=== PATIENT | female | born 1990 | race Caucasian/White ===

== ENCOUNTER 2020-03-25 14:05 | Outpatient (REF) | payer OTHER, SELFPAY | END 2020-03-25 14:06 | disposition home or self-care (01) | LOC: HO.LAB 14:05 | PROVIDERS: Visit Provider Internal Medicine | DX: Z20.828 Contact with and (suspected) exposure to other viral communicable diseases (principal) | CPT/HCPCS: C9803; U0003 ==

== ENCOUNTER 2020-05-31 11:07 | Emergency (ER) | payer OTHER, SELFPAY ==
[2020-05-31 11:16] VITALS: BP 138/89; BP 142/98; PULSE 98; PULSE 99; RESP 18; TEMP 36.9; O2SAT 100; BMI 31.2
--- NOTE | 2020-05-31 11:47 | ED.DIZZY ---
HPI - Dizziness General Chief Complaint: Dizziness Stated Complaint: WEAK AND DIZZY,NO FEVER Time Seen by Provider: 05/31/20 11:47 History of Present Illness HPI Narrative: Patient complains of feeling lightheaded and dizzy and a mild headache after taking her lisp pro insulin at 05:00 Since her doctor recently changed her insulin to lisp row, she had been noncompliant with medicine for some time before restarting She got up to urinate and because she does not usually wake up to go to the bathroom she thought well am urinating a lot and I should take my insulin so she took 12 units of lispro on an empty stomach and then when she woke from bed 2 hours later she felt very dizzy She never had chest pain never had a fainting episode never had palpitations never had shortness of breath no vomiting Related Data Previous Rx's Medication Instructions Recorded fluconazole 150 mg tablet 150 mg PO ONCE #1 tab 05/15/20 insulin lispro 100 unit/mL 2 - 14 unit SUBCUT .T.i.d. per [facility] 05/15/20 subcutaneous pen #15 ml Allergies Allergy/AdvReac Type Severity Reaction Status Date / Time sulfamethoxazole Allergy Severe FACIAL Unverified 01/17/20 15:49 [From BACTRIM] SWELLING trimethoprim [From BACTRIM] Allergy Severe FACIAL Unverified 01/17/20 15:49 SWELLING docusate Allergy Unknown swelling Verified 09/22/18 00:00 Sulfa (Sulfonamide Allergy Unknown swelling, Unverified 11/16/19 00:00 Antibiotics) facial swelling Stool Softener Allergy Unknown facial Uncoded 11/16/19 00:00 swelling STOOL SOFTENERS Allergy Unknown FACIAL Uncoded 01/17/20 15:49 SWELLING Review of Systems Review of Systems: Positive for lightheadedness and dizziness which is improving Negatives are fever chills fainting head injury no headache no vision changes no neck pain no nausea no vomiting no chest pain no palpitations no shortness of breath no weakness no numbness Yes all other systems are reviewed and are negative [facility] Past Medical History Attestation statement: The following information was validated with the patient. [facility] Narrative: Patient's insulin was recently changed by primary doctor after a period of not using her insulin regularly and she just started using the lispro in the last couple of days Source: nursing notes reviewed Medical History (Updated 01/30/21 @ 13:42 by SARAH BETH Yancey) Diabetes mellitus, with long-term current use of insulin Social History Social History Advance Directives: No Advance Directives Information Provided: Yes Physical Exam Vital Signs: Vital Signs: Last Vital Signs Temp 97.6 F 05/31/20 13:37 Pulse 100 05/31/20 13:37 Resp 18 05/31/20 13:37 BP 110/74 05/31/20 13:37 Pulse Ox 100 05/31/20 13:37 Body Mass Index 31.2 Patient is A&O x3, no acute distress, comfortable and cooperative but she still feels somewhat dizzy when she sits up The head is normocephalic atraumatic pupils equal round react flight extraocular motions intact The neck is supple and nontender The chest is clear to auscultation bilaterally with full symmetric breath sounds, no tenderness to chest wall The heart rate and rhythm regular no murmur The abdomen is soft nontender Extremities full range of motion x4 Neuro cranial nerves 2-12 intact as tested Patient is responding appropriately and normally in conversation Motor is 5/5 x4 and sensation is intact Course Course Course Narrative: Patient who had come to the ER for dizziness and lightheaded feeling after taking 12 units of insulin on an empty stomach She is now feeling significantly better, we recheck her sugar at was 87, we observe the patient for another hour after giving her more food and drink and after that hours she is asymptomatic with no dizziness no lightheadedness She was tested walking heel to toe with no problem she was tested standing up quickly which did not produce any dizziness and she is asymptomatic and discharge diagnosis hypoglycemia episode She is advised to eat with her insulin perhaps take a slightly lower dose, to check her fingerstick 20 minutes to half an hour after taking her insulin, if she does feel lightheaded to take some food, and to contact primary doctor for further assistance in correctly using her insulin MDM - Dizziness Lab Data Labs: Lab Results 05/31/20 05/31/20 Range/Units 11:45 13:28 POC Glucose 87 165 H (60-115) mg/dL Discharge Plan Discharge Clinical Impression: Hypoglycemia Patient Disposition: Home, Self-Care Additional Instructions: I believe you had an episode of low sugar after taking her insulin without eating any food As this medication is new for you make sure to take it with food make sure to check her sugar half an hour after taking the medication to be sure you are not dropping too low, at the 1st sign of dizziness he eats some food or drink some juice Contact primary care doctor to make sure your dosing is correct Return to ER any time any worse condition or any concerns Prescriptions: No Action fluconazole 150 mg tablet 150 mg PO ONCE Qty: 1 RF: 2 insulin lispro [Admelog SoloStar U-100 Insulin] 100 unit/mL insulin pen 2 - 14 [place]. [place] [facility] [place]: 15 RF: 5 Interventions: ED Discharge Assessment Last Done: 05/31/20 13:56 Discharge Date/Time: 05/31/20 13:57
[2020-05-31 11:49] LABS: Glucose, Whole Blood 87 mg/dL (60-115)
[2020-05-31 13:33] LABS: Glucose, Whole Blood 165 mg/dL (60-115)
[2020-05-31 13:37] VITALS: BP 110/74; PULSE 100; RESP 18; TEMP 36.4; O2SAT 100
== END 2020-05-31 13:57 | disposition home or self-care (01) ==
PROVIDERS: Emergency Provider Emergency Medicine; PCP Internal Medicine
DX: E11.649 Type 2 diabetes mellitus with hypoglycemia without coma (principal); Z79.4 Long term (current) use of insulin
CPT/HCPCS: 82947; 99283

== ENCOUNTER 2021-04-01 18:30 | Emergency (ER) | payer OTHER, SELFPAY ==
[2021-04-01 19:31] VITALS: BP 120/82; PULSE 102; RESP 18; TEMP 36.9; O2SAT 99; BMI 30.3
[2021-04-01 20:02] LABS: UPreg QC Valid YES; Urine Pregnancy NEGATIVE (NEGATIVE)
[2021-04-01 20:08] LABS: Strep A Nucleic Acid Negative (Negative)
[2021-04-01 20:36] LABS: Influenza A PCR NEGATIVE (Negative); Influenza B PCR NEGATIVE (Negative); Resp Syncy Virus RNA Qual PCR NEGATIVE (Negative); SARS COV2 PCR INHOUSE NEGATIVE (Negative)
[2021-04-01 20:48] VITALS: BP 131/84; PULSE 82; RESP 16; TEMP 36.4; O2SAT 99
--- NOTE | 2021-04-01 21:21 | ED.GENADULT ---
HPI - General Adult General Chief complaint: General Medical Stated complaint: flu like Time Seen by Provider: 04/01/21 21:06 Source: patient Mode of arrival: ambulatory Limitations: no limitations History of Present Illness HPI narrative: 30-year-old female presents to ED for sore throat. Patient states she was exposed to a friend who was positive for strep. Patient states they were drinking from the same cup. Patient states no fever, chills, chest pain, shortness of breath. Patient admits to body aches and chills. Related Data Home Medications Medication Instructions Recorded Confirmed blood sugar diagnostic #10 ea 08/01/20 08/01/20 Previous Rx's Medication Instructions Recorded albuterol sulfate 90 mcg/actuation 2 puff INHALATION Q6H PRN 30 Days 10/28/20 aerosol inhaler (ProAir HFA) #18 g metformin 500 mg tablet 500 mg PO BID 30 Days #60 tab 10/28/20 pen needle, diabetic 32 gauge x #100 ea 10/28/20/32 (BD Ultra-Fine Maria Elena Pen Needle) insulin glargine 100 unit/mL (3 20 unit (0.2 mL) SUBCUT DAILY #15 01/07/21 mL) subcutaneous pen ml Admelog SoloStar U-100 Insulin 100 2 - 14 unit (0.02 - 0.14 mL) 01/15/21 unit/mL subcutaneous pen (insulin SUBCUT .T.i.d. per [facility] #15 ml NS lispro) amoxicillin 875 mg-potassium 1 tab PO Q12H 10 Days #20 tab 04/01/21 clavulanate 125 mg tablet (Augmentin) naproxen 500 mg tablet 500 mg PO BID PRN 10 Days #20 tab 04/01/21 Allergies Allergy/AdvReac Type Severity Reaction Status Date / Time sulfamethoxazole Allergy Severe FACIAL Verified 04/01/21 19:30 [From BACTRIM] SWELLING trimethoprim [From BACTRIM] Allergy Severe FACIAL Verified 04/01/21 19:30 SWELLING docusate Allergy Unknown swelling Verified 04/01/21 19:30 Sulfa (Sulfonamide Allergy Unknown swelling, Verified 04/01/21 19:30 Antibiotics) facial swelling Stool Softener Allergy Unknown facial Uncoded 08/01/20 17:39 swelling STOOL SOFTENERS Allergy Unknown FACIAL Uncoded 08/01/20 17:39 SWELLING Review of Systems Review of Systems: Yes all other systems are reviewed and are negative Constitutional: Constitutional: Reports as per HPI, Reports no additional constitutional complaints, Reports body ache(s) and Reports chills Eyes: Eyes: Reports as per HPI and Reports no additional eye complaints ENT: Reports system reviewed and no additional complaints, except as documented, Reports as per HPI and Reports sore throat Cardiovascular: Cardiovascular: Reports as per HPI and Reports no additional cardiovascular complaints Respiratory: Respiratory: Reports as per HPI and Reports no additional respiratory complaints Gastrointestinal: Gastrointestinal: Reports as per HPI and Reports no additional gastrointestinal complaints Musculoskeletal: Musculoskeletal: Reports no additional musculoskeletal complaints and Reports as per HPI Neurologic: Reports system reviewed and no additional complaints, except as documented and Reports as per HPI Psychiatric: Psychiatric: Reports no additional psychiatric complaints and Reports as per HPI [facility] Past Medical History Medical History (Updated 04/02/21 @ 00:02 by Josefa Stewart) Asthma Blurring of vision Diabetes mellitus Diabetes mellitus, with long-term current use of insulin Neuropathy involving both lower extremities Obesity (BMI 30-39.9) Surgical History (Updated 08/02/20 @ 15:12 by Israel Rosario MD) No significant past surgical history Family History Family History (Updated 08/02/20 @ 15:18 by Israel Rosario MD) Mother COPD (chronic obstructive pulmonary disease) Father High blood pressure Maternal Grandmother Breast cancer Maternal Aunt Uterine cancer Social History Social History Alcohol intake: current Cigarettes Per Day: 10 Advance Directives: No Advance Directives Information Provided: Yes Physical Exam Vital Signs: Vital Signs: Last Vital Signs Temp 97.6 F 04/01/21 20:48 Pulse 82 04/01/21 20:48 Resp 16 04/01/21 20:48 BP 131/84 04/01/21 20:48 Pulse Ox 99 04/01/21 20:48 BMI result Body Mass Index 30.3 Const: General: cooperative, healthy appearing, comfortable, no acute distress, well developed, alert, awake and Physically active Orientation/consciousness: patient oriented x3 HENMT: Head: Yes normal to inspection, Yes No palpable skull fracture present, Yes normocephalic and Yes atraumatic Ears: hearing grossly normal bilaterally, external ears normal, TM's normal bilaterally, EAC's normal, mastoids normal and no periauricular adenopathy Throat: Yes abnormal tonsil (Right tonsillar erythema.) Eyes: General: appearance normal, both eyes and all related structures Neck: Neck: Yes normal visual inspection and Yes full ROM Chest: Chest palpation & inspection: normal inspection of the chest and normal palpation of entire chest wall Resp: Effort & Inspection: normal respiratory effort and able to speak in complete sentences Auscultation: clear to auscultation bilaterally Cardio: Jugular venous distension: no JVD Heart sounds: S1 normal heart sound present and S2 normal heart sound present GI: Inspection: Yes normal to inspection and No abdominal wall ecchymosis Palpation (GI): Soft to palpation, not firm, nontender, no guarding and not rigid : General: No CVA tenderness and Yes no CVA tenderness Back/Spine/Pelvis: Back: no CVA tenderness, No CVA tenderness and No back tenderness Skin: General skin exam: no rashes or lesions noted and elasticity normal Neuro: General: patient oriented x3, gait normal and CN's II-XI intact bilaterally Cranial nerves: Yes CN's II-XII intact bilaterally Extrem: General: Yes normal to inspection and Yes full ROM Psych: Appearance: grossly normal, well kempt and not disheveled Course Course Course Narrative: SARS and strep test sent Reevaluation(s) Reevaluation #1: COVID and strep came back negative but due to patient being exposed to friends positive for strep and drinking from the same cup will be discharged with antibiotics. Time: 21:25 Medical Decision Making [facility] Narrative Medical decision making narrative: Pharyngitis Lab Data Labs: Lab Results 04/01/21 04/01/21 04/01/21 Range/Units 19:50 19:50 19:50 Urine Test NEGATIVE (NEGATIVE) Influenza Type A (PCR) NEGATIVE (Negative) Influenza Type B (PCR) NEGATIVE (Negative) RSV RNA Qual (PCR) NEGATIVE (Negative) SARS-CoV-2 RNA (RT-PCR) NEGATIVE (Negative) S. pyogenes GrpA ARLETH Negative (Negative) Discharge Plan Discharge Clinical Impression: Pharyngitis Patient Disposition: Home, Self-Care Instructions: Pharyngitis (ED) Additional Instructions: Return to ED for any drooling, change in voice, shortness of breath, chest pain, neck swelling, inability tolerate solid food/liquid, coughing, fever, or any other concerning symptoms. Prescriptions: New amoxicillin-pot clavulanate [Augmentin] 875-125 mg tablet 1 tab PO Q12H 10 Days Qty: 20 RF: 0 naproxen 500 mg tablet 500 mg PO BID PRN (Reason: pain) 10 Days Qty: 20 RF: 0 No Action (DME) pen needle, diabetic [BD Ultra-Fine Maria Elena Pen Needle] 32 gauge x 5/32 needle See Rx Instructions .ROUTE .MEDSUPPLY Qty: 100 RF: 12 metformin 500 mg tablet 500 mg PO BID 30 Days Qty: 60 RF: 3 albuterol sulfate [ProAir HFA] 90 mcg/actuation HFA aerosol inhaler 2 puff inhalation Q6H PRN (Reason: shortness of breath or wheezing) 30 Days Qty: 18 RF: 5 insulin glargine 100 unit/mL (3 mL) insulin pen 20 unit subcut DAILY Qty: 15 RF: 3 insulin lispro [Admelog SoloStar U-100 Insulin] 100 unit/mL insulin pen 2 - 14 unit subcut .T.i.d. per [facility] Qty: 15 RF: 5 (DME) FreeStyle Lite Strips Strip See Rx Instructions ea Not Applicable QID Qty: 10 RF: 0 Stand Alone Forms: Work/School Release Interventions: ED Discharge Assessment Last Done: 04/01/21 21:39 Discharge Date/Time: 04/01/21 21:45 Print Language: Greenlandic
== END 2021-04-01 21:45 | disposition home or self-care (01) ==
PROVIDERS: Emergency Medicine; Emergency Provider Emergency Medicine; PCP Internal Medicine
DX: J02.9 Acute pharyngitis, unspecified (principal); Z20.822 Contact with and (suspected) exposure to COVID-19; Z79.899 Other long term (current) drug therapy
CPT/HCPCS: 0241U; 36415; 81025; 87651; 99283

== ENCOUNTER 2021-09-18 12:42 | Emergency (ER) | payer OTHER, SELFPAY ==
--- NOTE | ~2021-09-18 | US_ITS ---
EXAMINATION: US OBSTETRICAL ULTRASOUND CLINICAL INFORMATION: Bleeding, cramping COMPARISON: First trimester ultrasound 05/21/2018. LMP: 07/30/2021. Gestational age by maternal dates is 7 weeks and 1 day. Estimated date of delivery by maternal dates is 05/06/2022. TECHNIQUE: Ultrasound of the maternal pelvis is performed using transabdominal and transvaginal transducers. Transvaginal imaging is performed due to inadequate visualization transabdominally. M-mode Doppler is also performed. FINDINGS: There is a single intrauterine gestational sac with visible yolk sac, embryo/fetus, and cardiac activity. There is no significant subchorionic hemorrhage or hematoma. HR: 130 beats per minute. CRL (crown rump length): 0.5 cm (6 weeks and 2 days +/- 4 days). DIANA (estimated date of delivery): 05/12/2022 +/- 4 days. MATERNAL ADNEXA: The right maternal ovary measures 3.3 x 1.9 x 3.3 cm. A physiologic right corpus luteum is noted. The left maternal ovary measures 2.7 x 1.3 x 1.8 cm. Left ovary is unremarkable. There is no significant maternal adnexal mass. No maternal pelvic ascites. US/US OB <= 14 weeks fetus IMPRESSION: 1. Single intrauterine gestation with ultrasound gestational age of 6 weeks and 2 days +/- 4 days. 2. Estimated date of delivery is 05/12/2022 +/- 4 days. 3. No subchorionic hemorrhage.
--- NOTE | ~2021-09-18 | US_ITS ---
EXAMINATION: US OBSTETRICAL ULTRASOUND CLINICAL INFORMATION: Bleeding, cramping COMPARISON: First trimester ultrasound 05/21/2018. LMP: 07/30/2021. Gestational age by maternal dates is 7 weeks and 1 day. Estimated date of delivery by maternal dates is 05/06/2022. TECHNIQUE: Ultrasound of the maternal pelvis is performed using transabdominal and transvaginal transducers. Transvaginal imaging is performed due to inadequate visualization transabdominally. M-mode Doppler is also performed. FINDINGS: There is a single intrauterine gestational sac with visible yolk sac, embryo/fetus, and cardiac activity. There is no significant subchorionic hemorrhage or hematoma. HR: 130 beats per minute. CRL (crown rump length): 0.5 cm (6 weeks and 2 days +/- 4 days). DIANA (estimated date of delivery): 05/12/2022 +/- 4 days. MATERNAL ADNEXA: The right maternal ovary measures 3.3 x 1.9 x 3.3 cm. A physiologic right corpus luteum is noted. The left maternal ovary measures 2.7 x 1.3 x 1.8 cm. Left ovary is unremarkable. There is no significant maternal adnexal mass. No maternal pelvic ascites. US/US OB transvaginal IMPRESSION: 1. Single intrauterine gestation with ultrasound gestational age of 6 weeks and 2 days +/- 4 days. 2. Estimated date of delivery is 05/12/2022 +/- 4 days. 3. No subchorionic hemorrhage.
[2021-09-18 12:46] VITALS: BP 113/75; PULSE 91; RESP 16; TEMP 36.1; O2SAT 100; BMI 30.2
[2021-09-18 13:06] LABS: MANUAL DIFF FLAG NO
[2021-09-18 13:13] LABS: Urine Pregnancy POSITIVE (NEGATIVE)
[2021-09-18 13:14] LABS: Appearance Urine CLEAR; Color Urine STRAW; Glucose Urine UA >=1000 MG/DL (NEG); Leukocyte Esterase Urine NEG (NEG); Nitrite Urine NEG (NEG); Specific Gravity - Urine <= 1.005 (1.005-1.025); UACC Culture Trigger NO; UPreg QC Valid YES; Urine Blood TRACE (NEG); Urine Ketones NEG (NEG); Urine Protein NEG (NEG-TRACE)
[2021-09-18 13:16] LABS: Basophils Absolute Auto 0.1 X10*3/uL (0.0-0.2); Basophils Percent Auto 0.6 % (0-2); Eosinophils Absolute Auto 0.2 X10*3/uL (0.0-0.4); Eosinophils Percent Auto 1.6 % (0-4); Hematocrit 41.7 % (37.0-47.0); Hemoglobin 13.5 g/dl (12.0-16.0); Imm Gran Abs Auto 0.04 X10*3/uL (0.00-0.03); Imm Gran Pct Auto 0.3 % (0.0-0.4); Lymphocytes Absolute Auto 3.6 X10*3/uL (1.2-4.9); Lymphocytes Percent Auto 29.8 % (20-40); Mean Corpuscular HGB Conc 32.4 g/dl (31.0-35.0); Mean Corpuscular Hemoglobin 26.6 pg (27.0-33.0); Mean Corpuscular Volume 82.2 fL (80.0-98.0); Mean Platelet Volume 10.7 fL (9.4-12.3); Monocytes Absolute Auto 0.6 X10*3/uL (0.1-1.2); Monocytes Percent Auto 4.9 % (2-11); Neutrophils Absolute Auto 7.6 x10*3/uL (2.0-8.3); Neutrophils Percent Auto 62.8 % (45-73); Platelet Count 357 X10*3/uL (160-400); Red Blood Count 5.07 X10*6/uL (4.20-5.50); Red Cell Distribution Width 14.7 % (11.0-16.0); White Blood Count 12.1 X10*3/uL (4.8-10.8)
[2021-09-18 13:28] LABS: Anion Gap 12 (12-20); Blood Urea Nitrogen 6 mg/dL (9-16); Calcium 9.5 mg/dL (8.4-10.2); Carbon Dioxide 25 mmol/L (22-29); Chloride 101 mmol/L (96-108); Creatinine Clr Calc Pharmacy 86.7; Estimated Glomerular Filt Rate > 60; Glucose Random 462 mg/dL (60-115); Potassium 4.4 mmol/L (3.3-5.1); Sodium 134 mmol/L (135-145)
[2021-09-18 13:31] LABS: Squamous Epithelial Cell Urine 1+ /LPF; UACC CULT YES; WBC Clumps Urine NOTED
[2021-09-18 15:25] VITALS: BP 106/50; PULSE 92; RESP 20; TEMP 37.1; O2SAT 100
--- NOTE | 2021-09-18 16:21 | ED.FEMALEGU ---
HPI - Female Genitourinary General Chief complaint: Vaginal Bleeding Stated complaint: 7 wks preg/vaginal bleeding & cramping Source: patient Mode of arrival: ambulatory Limitations: no limitations History of Present Illness HPI Narrative: 31-year-old female presents for vaginal bleeding. Was treated for a UTI last week, completed OTC and antibiotics. Has left-sided cramping and has been having dark brown to pink spotting on a daily basis. She is 7 weeks . MD elicited complaint: UTI , vaginal bleeding and possible miscarriage Pertinent past history: recurrent UTIs, prior miscarriages and diabetes Onset (ago): week(s) (1) Location of symptoms: LLQ Severity: moderate Severity scale (1-10): 5 Quality of pain: cramping Consistency: constant Vaginal discharge: none Vaginal bleeding: scant Exacerbating factors: movement and palpation Associated symptoms: denies other symptoms Sexual activity: Yes Patient : Yes Possible : at home test positive Related Data : 4 Para: 1 Total number of abortions (spontaneous and elective): 2 Home Medications Medication Instructions Recorded Confirmed blood sugar diagnostic #10 ea 08/01/20 08/01/20 Previous Rx's Medication Instructions Recorded albuterol sulfate 90 mcg/actuation 2 puff INHALATION Q6H PRN 30 Days 10/28/20 aerosol inhaler (ProAir HFA) #18 g metformin 500 mg tablet 500 mg PO BID 30 Days #60 tab 10/28/20 pen needle, diabetic 32 gauge x #100 ea 10/28/20 (BD Ultra-Fine Maria Elena Pen Needle) insulin glargine 100 unit/mL (3 20 unit (0.2 mL) SUBCUT DAILY #15 01/07/21 mL) subcutaneous pen ml amoxicillin 875 mg-potassium 1 tab PO Q12H 10 Days #20 tab 04/01/21 clavulanate 125 mg tablet (Augmentin) naproxen 500 mg tablet 500 mg PO BID PRN 10 Days #20 tab 04/01/21 Admelog SoloStar U-100 Insulin 100 2 - 14 unit (0.02 - 0.14 mL) 04/02/21 unit/mL subcutaneous pen (insulin SUBCUT .T.i.d. per [facility]SC #15 ml NS lispro) fluconazole 150 mg tablet 150 mg PO ONCE #1 tab 04/21/21 cephalexin 500 mg capsule 500 mg PO Q8H 7 Days #21 cap 09/18/21 Allergies Allergy/AdvReac Type Severity Reaction Status Date / Time sulfamethoxazole Allergy Severe FACIAL Verified 04/01/21 19:30 [From BACTRIM] SWELLING trimethoprim [From BACTRIM] Allergy Severe FACIAL Verified 04/01/21 19:30 SWELLING docusate Allergy Unknown swelling Verified 04/01/21 19:30 Sulfa (Sulfonamide Allergy Unknown swelling, Verified 04/01/21 19:30 Antibiotics) facial swelling Stool Softener Allergy Unknown facial Uncoded 08/01/20 17:39 swelling STOOL SOFTENERS Allergy Unknown FACIAL Uncoded 08/01/20 17:39 SWELLING Review of Systems Review of Systems: Constitutional: No Fever, No Chills ENT/Mouth: No Ear Pain, No Hoarseness, No sore throat Eyes: No Eye Pain, No Swelling, No Redness, No Foreign Body Cardiovascular: No Chest Pain, No SOB Respiratory: No Cough, No Dyspnea Gastrointestinal: No Nausea, No Vomiting, No Diarrhea, No abdominal Pain Genitourinary: Positive vaginal bleeding, positive left adnexal pain, No Dysuria, No Hematuria Musculoskeletal: No joint pain, No Myalgias, No Joint Swelling Skin: No Skin lacerations, No rash Neuro: No Weakness, No Numbness, No Paresthesias, No Loss of Consciousness, No Dizziness, No Headache Psych: No Anxiety/Panic, No Depression Heme/Lymph: no easy bruising, no Lymphadenopathy Endocrine: No Polyuria, No Polydipsia Yes all other systems are reviewed and are negative PMFSH Past Medical History Attestation statement: The following information was validated with the patient. Source: old records reviewed Medical History Asthma Blurring of vision Diabetes mellitus Diabetes mellitus, with long-term current use of insulin Neuropathy involving both lower extremities Obesity (BMI 30-39.9) Surgical History No significant past surgical history : 4 Para: 1 Total number of abortions (spontaneous and elective): 2 Family History Family History Mother COPD (chronic obstructive pulmonary disease) Father High blood pressure Maternal Grandmother Breast cancer Maternal Aunt Uterine cancer Social History Social History Alcohol intake: former Patient Tobacco Use Status: Current everyday Tobacco user Cigarettes Per Day: 10 Smoked in Last 30 Days: Yes Use of substances other than those prescribed or required for medical reasons: No Advance Directives: No Advance Directives Information Provided: No Patient : Yes Physical Exam Vital Signs: Vital Signs: Last Vital Signs Temp 98.7 F 09/18/21 15:25 Pulse 90 09/18/21 19:23 Resp 14 09/18/21 19:23 BP 112/76 09/18/21 19:23 Pulse Ox 100 09/18/21 19:23 BMI result Body Mass Index 30.2 Appearance: Alert. Oriented X3. No acute distress. Eyes: Pupils equal, round and reactive to light. ENT: Pharynx normal. Neck: Normal inspection. Neck supple. CVS: Normal heart rate and rhythm. Pulses normal. Respiratory: No respiratory distress. Breath sounds normal. Abdomen: Soft with left lower quadrant inguinal tenderness. Skin: Skin warm and dry. Normal skin color. Normal skin turgor. Extremities: No lower extremity edema. Gait well-balanced well coordinated. Neuro: No motor deficit. No sensory deficit. Cranial nerves 2-12 intact. Course Course Course Narrative: 31-year-old female 4 para 1, 2 spontaneous abortions presents with left lower quadrant abdominal pain and vaginal bleeding. Treated herself for what she suspected was a UTI with OTC azo which was ineffective. Patient does report dysuria symptoms for approximately 1. Started with vaginal bleeding approximately 5 days ago in left lower abdominal pain and cramping 1 day ago. She does have a history of miscarriage has had 1 normal vaginal delivery. At this time will order ultrasound to rule out ectopic. U preg is positive. Will add on hCG. Glucose is 462, her normal dose for sliding scale is 12 units. I will give her insulin per her home dosage. 19:00 ultrasound shows normal intrauterine with heart rate of 130. No adnexal masses or subchorionic hemorrhages noted. will treat for UTI as patient is symptomatic. Patient does not have any flank pain or CVA tenderness. Will refer to Dr. Urrutia for follow-up. Patient verbalized understanding of and agrees to plan of care to discharge home. Verbalized understanding of signs and symptoms indicating need for emergent intervention MDM - Female Genitourinary MDM Narrative Medical decision making narrative: Threatened , ectopic Differential Diagnosis Differential diagnosis: Likely urinary tract infection and cervicitis Medical Records Attestation: I reviewed the patient's medical records. Lab Data Attestation: I reviewed the patient's lab results. Result diagrams: 09/18/21 13:00 09/18/21 13:00 Labs: Lab Results 09/18/21 09/18/21 09/18/21 Range/Units 13:00 13:00 13:00 WBC 12.1 H (4.8-10.8) X10*3/uL RBC 5.07 (4.20-5.50) X10*6/uL Hgb 13.5 (12.0-16.0) g/dl Hct 41.7 (37.0-47.0) % MCV 82.2 (80.0-98.0) fL MCH 26.6 L (27.0-33.0) pg MCHC 32.4 (31.0-35.0) g/dl RDW 14.7 (11.0-16.0) % Plt Count 357 (160-400) X10*3/uL MPV 10.7 (9.4-12.3) fL Immature Gran % (Auto) 0.3 (0.0-0.4) % Neut % (Auto) 62.8 (45-73) % Lymph % (Auto) 29.8 (20-40) % Foster % (Auto) 4.9 (2-11) % Eos % (Auto) 1.6 (0-4) % Baso % (Auto) 0.6 (0-2) % Lymph # (Auto) 3.6 (1.2-4.9) X10*3/uL Foster # (Auto) 0.6 (0.1-1.2) X10*3/uL Eos # (Auto) 0.2 (0.0-0.4) X10*3/uL Baso # (Auto) 0.1 (0.0-0.2) X10*3/uL Abs Immat Gran (auto) 0.04 H (0.00-0.03) X10*3/uL Absolute Neuts (auto) 7.6 (2.0-8.3) x10*3/uL Absolute Nucleated RBC 0.000 (0.0-0.012) X10*3/uL Nucleated RBC % (auto) 0.0 (0.0-0.2) /100WBC Sodium 134 L (135-145) mmol/L Potassium 4.4 (3.3-5.1) mmol/L Chloride 101 (96-108) mmol/L Carbon Dioxide 25 (22-29) mmol/L Anion Gap 12 (12-20) BUN 6 L (9-16) mg/dL Creatinine 0.84 (0.5-1.4) mg/dL Estim Creat Clear Calc 86.7 Estimated GFR > 60 POC Glucose (60-115) mg/dL Random Glucose 462 H* (60-115) mg/dL Calcium 9.5 (8.4-10.2) mg/dL Beta HCG, Quant 3575 mIU/mL Urine Color STRAW Urine Appearance CLEAR Urine pH 6.0 (5.0-8.0) Ur Specific [place] <= 1.005 (1.005-1.025) Urine Protein NEG (NEG-TRACE) MG/DL Urine Glucose (UA) >=1000 H (NEG) MG/DL Urine Ketones NEG (NEG) MG/DL Urine Blood TRACE (NEG) Urine Nitrite NEG (NEG) Ur Leukocyte Esterase NEG (NEG) Urine RBC 1-4 (0) /HPF Urine WBC 10-14 H (0-4) /HPF Urine WBC Clumps NOTED Ur Squamous Epith Cells 1+ /LPF Urine Bacteria NONE /LPF Urine Test (NEGATIVE) 09/18/21 09/18/21 Range/Units 13:00 18:13 WBC (4.8-10.8) X10*3/uL RBC (4.20-5.50) X10*6/uL Hgb (12.0-16.0) g/dl Hct (37.0-47.0) % MCV (80.0-98.0) fL MCH (27.0-33.0) pg MCHC (31.0-35.0) g/dl RDW (11.0-16.0) % Plt Count (160-400) X10*3/uL MPV (9.4-12.3) fL Immature Gran % (Auto) (0.0-0.4) % Neut % (Auto) (45-73) % Lymph % (Auto) (20-40) % Foster % (Auto) (2-11) % Eos % (Auto) (0-4) % Baso % (Auto) (0-2) % Lymph # (Auto) (1.2-4.9) X10*3/uL Foster # (Auto) (0.1-1.2) X10*3/uL Eos # (Auto) (0.0-0.4) X10*3/uL Baso # (Auto) (0.0-0.2) X10*3/uL Abs Immat Gran (auto) (0.00-0.03) X10*3/uL Absolute Neuts (auto) (2.0-8.3) x10*3/uL Absolute Nucleated RBC (0.0-0.012) X10*3/uL Nucleated RBC % (auto) (0.0-0.2) /100WBC Sodium (135-145) mmol/L Potassium (3.3-5.1) mmol/L Chloride (96-108) mmol/L Carbon Dioxide (22-29) mmol/L Anion Gap (12-20) BUN (9-16) mg/dL Creatinine (0.5-1.4) mg/dL Estim Creat Clear Calc Estimated GFR POC Glucose 172 H (60-115) mg/dL Random Glucose (60-115) mg/dL Calcium (8.4-10.2) mg/dL Beta HCG, Quant mIU/mL Urine Color Urine Appearance Urine pH (5.0-8.0) Ur Specific [place] (1.005-1.025) Urine Protein (NEG-TRACE) MG/DL Urine Glucose (UA) (NEG) MG/DL Urine Ketones (NEG) MG/DL Urine Blood (NEG) Urine Nitrite (NEG) Ur Leukocyte Esterase (NEG) Urine RBC (0) /HPF Urine WBC (0-4) /HPF Urine WBC Clumps Ur Squamous Epith Cells /LPF Urine Bacteria /LPF Urine Test POSITIVE H (NEGATIVE) Imaging Data ultrasound: Attestation: I personally reviewed and interpreted this imaging study as follows: Radiologist's impression: EXAMINATION:? US OBSTETRICAL ULTRASOUND CLINICAL INFORMATION:? Bleeding, cramping COMPARISON:? First trimester ultrasound 05/21/2018.? LMP: 07/30/2021. Gestational age by maternal dates is 7 weeks and 1 day. Estimated date of delivery by maternal dates is 05/06/2022. TECHNIQUE: Ultrasound of the maternal pelvis is performed using transabdominal and transvaginal transducers. Transvaginal imaging is performed due to inadequate visualization transabdominally. M-mode Doppler is also performed. ? ? FINDINGS: There is a single intrauterine gestational sac with visible yolk sac, embryo/fetus, and cardiac activity.? There is no significant subchorionic hemorrhage or hematoma. HR:? 130 beats per minute. CRL (crown rump length): ? 0.5 cm (6 weeks and 2 days +/- 4 days). DIANA (estimated date of delivery):? 05/12/2022 +/- 4 days. ? MATERNAL ADNEXA: ? ? The right maternal ovary measures 3.3 x 1.9 x 3.3 cm.? A physiologic right corpus luteum is noted. The left maternal ovary measures 2.7 x 1.3 x 1.8 cm.? Left ovary is unremarkable. There is no significant maternal adnexal mass.? No maternal pelvic ascites. US/US OB <= 14 weeks fetus IMPRESSION: ? 1. Single intrauterine gestation with ultrasound gestational age of? 6 weeks and 2 days +/- 4 days. 2. Estimated date of delivery is 05/12/2022 +/- 4 days. 3. No subchorionic hemorrhage. Discharge Plan Discharge Clinical Impression: Vaginal bleeding in patient after first trimester, Threatened , UTI (urinary tract infection) Patient Disposition: Home, Self-Care Instructions: Threatened Miscarriage (ED), Urinary Tract Infection in (ED) Additional Instructions: You were evaluated for 1st trimester vaginal bleeding. Your pelvic ultrasound shows an intrauterine of approximately 7 weeks. Please follow-up with your OBGYN. We did give you instructions for threatened , if you experience any of the symptoms described, please follow-up immediately with healthcare providers. We are treating for urinary tract infection with cephalexin 500 mg every 8 hours for the next 7 days. Please drink plenty of fluids with this medication. Thank you for choosing this emergency department for evaluation. Please follow-up with primary care physician as needed. Return to the emergency department for any new, concerning, or worsening symptoms. Prescriptions: New cephalexin 500 mg capsule 500 mg PO Q8H 7 Days Qty: 21 0RF No Action (DME) pen needle, diabetic [BD Ultra-Fine Maria Elena Pen Needle] 32 gauge x 5/32 needle See Rx Instructions .ROUTE .MEDSUPPLY Qty: 100 12RF Rx Instructions: As directed 4 times a day metformin 500 mg tablet 500 mg PO BID 30 Days Qty: 60 3RF albuterol sulfate [ProAir HFA] 90 mcg/actuation HFA aerosol inhaler 2 puff inhalation Q6H PRN (Reason: shortness of breath or wheezing) 30 Days Qty: 18 5RF insulin glargine 100 unit/mL (3 mL) insulin pen 20 unit subcut DAILY Qty: 15 3RF insulin lispro [Admelog SoloStar U-100 Insulin] 100 unit/mL insulin pen 2 - 14 unit subcut .T.i.d. per SSC Qty: 15 5RF Rx Instructions: 3 TIMES A DAY BEFORE MEALS PER SL[employer]ING [employer] fluconazole 150 mg tablet 150 mg PO ONCE Qty: 1 2RF amoxicillin-pot clavulanate [Augmentin] 875-125 mg tablet 1 tab PO Q12H 10 Days Qty: 20 0RF naproxen 500 mg tablet 500 mg PO BID PRN (Reason: pain) 10 Days Qty: 20 0RF (DME) FreeStyle Lite Strips Strip See Rx Instructions ea Not Applicable QID Qty: 10 0RF Rx Instructions: As directed Referrals: Humberto Urrutia MD [Physician] - Interventions: ED Discharge Assessment Last Done: 09/18/21 19:28 Discharge Date/Time: 09/18/21 20:08
[2021-09-18 16:42] LABS: HCG Quantitative 3575 mIU/mL
[2021-09-18] MEDS: Insulin Lispro 100 UNIT/ML 3 ML VIAL 12 UNIT SUBCUT (17:05)
--- NOTE | 2021-09-18 17:11 | PC.NURSE ---
pt a&ox3, vss, c/o bleeding for ~ 5d started off pink, now orange/brown tinge when wiping, hx recent UTI has been taking azo otc, 5/10 pelvic pain w intermittent cramping. pt still having increased urinary freq, urinating small amounts, burning with urination. medicated per provider. no new orders at this time. pt to CT.
[2021-09-18 18:00] VITALS: BP 119/81; PULSE 85; RESP 18; O2SAT 100
--- NOTE | 2021-09-18 18:17 | PC.NURSE ---
pt reports feeling her blood sugar drop, checked POC - 172, provider ok'd apple juice.
[2021-09-18 18:18] LABS: Glucose, Whole Blood 172 mg/dL (60-115)
[2021-09-18 19:23] VITALS: BP 112/76; PULSE 90; RESP 14; O2SAT 100
[2021-09-18] MEDS: cephALEXin 500 MG CAPSULE PO (19:23)
== END 2021-09-18 20:08 | disposition home or self-care (01) ==
PROVIDERS: Nurse Practitioner Family; Emergency Provider Internal Medicine; PCP Internal Medicine
DX: O20.0 Threatened abortion (principal); O23.41 Unspecified infection of urinary tract in pregnancy, first trimester; N39.0 Urinary tract infection, site not specified; O24.911 Unspecified diabetes mellitus in pregnancy, first trimester; O09.291 Supervision of pregnancy with other poor reproductive or obstetric history, first trimester; O99.331 Smoking (tobacco) complicating pregnancy, first trimester; F17.210 Nicotine dependence, cigarettes, uncomplicated; Z79.4 Long term (current) use of insulin; Z3A.01 Less than 8 weeks gestation of pregnancy
CPT/HCPCS: 36415; 76801; 76817; 80048; 81001; 81025; 82947; 84702; 85025; 87086; 99284

== ENCOUNTER 2022-01-18 13:52 | Emergency (ER) | payer OTHER, SELFPAY ==
--- NOTE | ~2022-01-18 | US_ITS ---
EXAMINATION: US OBSTETRICAL ULTRASOUND CLINICAL INFORMATION: Pelvic pain with history of spontaneous . COMPARISON: None. LMP: 11/17/2021. Gestational age by maternal dates is 8 weeks 6 days. Estimated date of delivery by maternal dates is 08/24/2022. TECHNIQUE: Both transabdominal and endovaginal scanning was performed. FINDINGS: There is a single intrauterine gestational sac with visible yolk sac, embryo/fetus, and cardiac activity. There is no significant subchorionic hemorrhage or hematoma. HR: 174 beats per minute. CRL (crown rump length): 1.2 cm (8 weeks 2 days +/- 4 days). DIANA (estimated date of delivery): 08/28/2022 +/- 4 days. MATERNAL ADNEXA: The right maternal ovary measures 2.8 x 2.3 x 3.0 cm. A corpus luteum cyst measuring 1.7 x 1.3 x 1.9 cm is present. The left maternal ovary measures 2.6 x 1.5 x 2.5 cm. There is no significant maternal adnexal mass. No maternal pelvic ascites. US/US OB <= 14 weeks fetus IMPRESSION: 1. Single intrauterine gestation with ultrasound gestational age of 8 weeks 2 days +/- 4 days. 2. Estimated date of delivery is 08/28/2022 +/- 4 days. 3. No maternal adnexal mass or pelvic ascites.
[2022-01-18 13:53] VITALS: BP 138/87; PULSE 98; RESP 18; TEMP 36.6; O2SAT 100; BMI 31.2
[2022-01-18 14:20] LABS: MANUAL DIFF FLAG NO
[2022-01-18 14:22] LABS: Appearance Urine Clear; Basophils Percent Auto 0.4 % (0-2); Color Urine Yellow; Eosinophils Absolute Auto 0.1 X10*3/uL (0.0-0.4); Eosinophils Percent Auto 1.2 % (0-4); Glucose Urine UA >=1000 mg/dL (Negative); Hemoglobin 13.9 g/dl (12.0-16.0); Imm Gran Abs Auto 0.04 X10*3/uL (0.00-0.03); Imm Gran Pct Auto 0.4 % (0.0-0.4); Leukocyte Esterase Urine Negative (Negative); Lymphocytes Absolute Auto 3.8 X10*3/uL (1.2-4.9); Lymphocytes Percent Auto 35.8 % (20-40); Mean Corpuscular HGB Conc 34.8 g/dl (31.0-35.0); Mean Corpuscular Hemoglobin 29.4 pg (27.0-33.0); Mean Corpuscular Volume 84.6 fL (80.0-98.0); Mean Platelet Volume 9.6 fL (9.4-12.3); Monocytes Absolute Auto 0.7 X10*3/uL (0.1-1.2); Monocytes Percent Auto 6.7 % (2-11); Neutrophils Absolute Auto 5.9 x10*3/uL (2.0-8.3); Neutrophils Percent Auto 55.5 % (45-73); Nitrite Urine Negative (Negative); PH 5.5 (5.0-9.0); Platelet Count 356 X10*3/uL (160-400); Red Blood Count 4.73 X10*6/uL (4.20-5.50); Red Cell Distribution Width 12.6 % (11.0-16.0); Specific Gravity - Urine >= 1.030 (1.005-1.025); UMIC TRIGGER UACC YES; Urine Blood Negative (Negative); Urine Ketones 15 mg/dL (Negative); Urine Protein Negative (Neg-Trace); White Blood Count 10.6 X10*3/uL (4.8-10.8)
[2022-01-18 14:23] LABS: UPreg QC Valid YES; Urine Pregnancy POSITIVE (NEGATIVE)
[2022-01-18 14:40] LABS: Alanine Aminotransferase 11 U/L (0-31); Albumin Level 4.3 g/dL (3.5-5.0); Alkaline Phosphatase 104 U/L (39-117); Anion Gap 16 (12-20); Aspartate Amino Transferase 10 U/L (5-31); Bilirubin Total 0.5 mg/dL (0.0-1.0); Blood Urea Nitrogen 8 mg/dL (9-16); Calcium 9.7 mg/dL (8.4-10.2); Carbon Dioxide 22 mmol/L (22-29); Chloride 100 mmol/L (96-108); Creatinine Clr Calc Pharmacy 93.6; Estimated Glomerular Filt Rate > 60; Glucose Random 377 mg/dL (60-115); Potassium 4.1 mmol/L (3.3-5.1); Sodium 134 mmol/L (135-145)
--- NOTE | 2022-01-18 14:42 | PC.NURSE ---
called x 3 to triage for reassessment. No answer- presumed in US
[2022-01-18 14:44] VITALS: BP 145/90; PULSE 97; RESP 18; TEMP 36.6; O2SAT 100
[2022-01-18 15:01] LABS: HCG Quantitative 20508 mIU/mL
[2022-01-18 15:55] LABS: Bacteria Urine None Seen (None Seen); Hyaline Casts Urine 0-2 /LPF (0-2); RBC Urine 0-2 /HPF (0-2); Squamous Epithelial Cell Urine 0-2 /HPF (0-2); WBC Urine 0-5 /HPF (0-5)
== END 2022-01-18 18:13 | disposition left against medical advice (07) ==
LOC: HO.ED 18:11
PROVIDERS: Emergency Provider Emergency Medicine; PCP Internal Medicine
DX: O26.851 Spotting complicating pregnancy, first trimester (principal); O34.81 Maternal care for other abnormalities of pelvic organs, first trimester; N83.11 Corpus luteum cyst of right ovary; Z3A.08 8 weeks gestation of pregnancy
CPT/HCPCS: 36415; 76801; 80053; 81001; 81025; 84702; 85025; 99282; 99284

== ENCOUNTER 2022-03-14 09:26 | Emergency (ER) | payer OTHER, SELFPAY ==
[2022-03-14 09:36] VITALS: BP 132/100; RESP 16; TEMP 36.8; O2SAT 97; BMI 31.2
--- NOTE | 2022-03-14 09:51 | ED.DENTAL ---
HPI - Dental/Oral General Chief complaint: Dental/Oral Stated complaint: tooth pain Time Seen by Provider: 03/14/22 09:50 Source: patient Mode of arrival: ambulatory History of Present Illness HPI Narrative: 31-year-old female with a past medical history of asthma, diabetes, neuropathy, presenting to the ED complaining of acute on chronic left upper dental pain times a couple days. Reports chronic cracked to however with noted swelling and pus drainage yesterday at [facility] site. Also reports partner tested positive for gonorrhea or Chlamydia, unclear. Patient reports yellowish odorous discharge and dysuria. Denies abdominal pain, vaginal bleeding, flank pain, ear pain, difficulty swallowing, facial swelling MD Complaint: tooth pain Related Data Home Medications Medication Instructions Recorded Confirmed blood sugar diagnostic #10 ea 08/01/20 08/01/20 Previous Rx's Medication Instructions Recorded albuterol sulfate 90 mcg/actuation 2 puff inhalation Q6H PRN 10/28/20 aerosol inhaler (ProAir HFA) shortness of breath or wheezing 30 days #18 grams metformin 500 mg tablet 500 mg PO BID 30 days #60 tabs 10/28/20 pen needle, diabetic 32 gauge x #100 ea 10/28/20/ (BD Ultra-Fine Maria Elena Pen Needle) insulin glargine 100 unit/mL (3 20 unit (0.2 mL) subcut DAILY #15 01/07/21 mL) subcutaneous pen mL amoxicillin 875 mg-potassium 1 tab PO Q12H 10 days #20 tabs 04/01/21 clavulanate 125 mg tablet (Augmentin) naproxen 500 mg tablet 500 mg PO BID PRN pain 10 days #20 04/01/21 tabs Admelog SoloStar U-100 Insulin 100 2 - 14 unit (0.02 - 0.14 mL) 04/02/21 unit/mL subcutaneous pen (insulin subcut .T.i.d. per SSC #15 mL lispro) fluconazole 150 mg tablet 150 mg PO ONCE #1 tab 04/21/21 cephalexin 500 mg capsule 500 mg PO Q8H 7 days #21 caps 09/18/21 acetaminophen 300 mg-codeine 30 mg 1 tab PO Q6H PRN pain, severe 3 03/14/22 tablet days #5 tabs doxycycline hyclate 100 mg tablet 100 mg PO BID 7 days #14 tabs 03/14/22 Allergies Allergy/AdvReac Type Severity Reaction Status Date / Time sulfamethoxazole Allergy Severe FACIAL Verified 04/01/21 19:30 [From BACTRIM] SWELLING trimethoprim [From BACTRIM] Allergy Severe FACIAL Verified 04/01/21 19:30 SWELLING docusate Allergy Unknown swelling Verified 04/01/21 19:30 Sulfa (Sulfonamide Allergy Unknown swelling, Verified 04/01/21 19:30 Antibiotics) facial swelling Stool Softener Allergy Unknown facial Uncoded 08/01/20 17:39 swelling STOOL SOFTENERS Allergy Unknown FACIAL Uncoded 08/01/20 17:39 SWELLING Review of Systems Review of Systems: Constitutional: No Fever, No Chills, No Fatigue, No Malaise ENT/Mouth: +dental pain, No Ear Pain, No Nasal Congestion, No Sinus Pain, No Hoarseness, No sore throat, No Rhinorrhea, No Swallowing Difficulty Eyes: No Eye Pain, No Swelling, No Redness, No Vision Changes Cardiovascular: No Chest Pain, No SOB, No Edema, No Palpitations Respiratory: No Cough, No Sputum, No Dyspnea Gastrointestinal: No Nausea, No Vomiting, No Diarrhea, No Constipation, No Abdominal pain Genitourinary: No irregular bleeding, + Dysuria, +vaginal discharge, No Urinary Frequency, No Hematuria, No Flank Pain Musculoskeletal: No joint pain, No Myalgias, No Joint Swelling Skin: No Skin Lesions, No rash Neuro: No Weakness, No Numbness, No Dizziness, No Headache Yes all other systems are reviewed and are negative Constitutional: Constitutional: Reports as per [facility] Past Medical History Attestation statement: The following information was validated with the patient. Medical History Asthma Blurring of vision Diabetes mellitus Diabetes mellitus, with long-term current use of insulin Neuropathy involving both lower extremities Obesity (BMI 30-39.9) Surgical History No significant past surgical history Family History Family History Mother COPD (chronic obstructive pulmonary disease) Father High blood pressure Maternal Grandmother Breast cancer Maternal Aunt Uterine cancer Social History Social History Alcohol intake: former Patient Tobacco Use Status: Current everyday Tobacco user Cigarettes Per Day: 10 Advance Directives: No Advance Directives Information Provided: Yes Physical Exam Vital Signs: Vital Signs: Last Vital Signs Temp 98.2 F 03/14/22 09:36 Resp 16 03/14/22 09:36 BP 132/100 H 03/14/22 09:36 Pulse Ox 97 03/14/22 09:36 O2 Del Method 03/14/22 09:36 BMI result Body Mass Index 31.2 Const: General: cooperative, healthy appearing and no acute distress Orientation/consciousness: patient oriented x3 Limitations: no limitations HEENT: Other: + left upper bicuspid with crown in place & crack, no pulp present, + gingivitis. No appreciable fluctuance/induration or cellulitis. Head: Yes normal to inspection and Yes atraumatic Ears: hearing grossly normal bilaterally, external ears normal, TM's normal bilaterally and mastoids normal General nose exam: Normal external nose present Face and sinus: Yes normal facial exam Mouth: Normal oral and palatal mucosa present Teeth and gingiva: gingiva abnormal tender and poor dentition Throat: Yes posterior oropharynx normal, Yes tonsils normal, Yes uvula midline, No peritonsillar mass, No uvula laterally displaced and No uvular edema Eyes: General: appearance normal, both eyes and all related structures EOM: EOMs intact bilaterally Neck: Neck: Yes normal visual inspection and Yes no meningeal signs Resp: Effort & Inspection: normal respiratory effort and no respiratory distress Cardio: Rate: regular rate Heart sounds: S1 normal heart sound present and S2 normal heart sound present GI: Inspection: Yes normal to inspection Palpation (GI): Soft to palpation and nontender : Other: deferred Skin: Rashes: no rashes Wounds: no wounds Neuro: General: patient oriented x3, tone normal and no meningeal signs Gait exam (Neuro): Normal gait present Extrem: General: Yes normal to inspection Course Course Course Narrative: -UA unremarkable Results discussed with patient including worrisome signs and symptoms and strict return precautions, and when to return to the emergency department. They verbalized understanding and feel safe for discharge at this time. Medications Administered Discontinued Medications Generic Name Dose Route Start Last Admin Trade Name Freq PRN Reason Stop Dose Admin Ceftriaxone Sodium 500 mg/ 0 mg 03/14/22 10:33 03/14/22 10:42 Lidocaine HCl 1 ml IM 03/14/22 10:34 1 kit ONCE ONE Administration Doxycycline Monohydrate 100 mg 03/14/22 10:22 03/14/22 10:42 Doxycycline Monohydrate 100 Mg Capsule PO 03/14/22 10:23 100 mg ONCE ONE Administration MDM - Dental/Oral MDM Narrative Medical decision making narrative: 31-year-old female with a past medical history of asthma, diabetes, neuropathy, presenting to the ED complaining of acute on chronic left upper dental pain times a couple days. Also reports STI exposure with vaginal discharge. On exam hypertensive, NAD, nontoxic, physical exam as above with infected bicuspid with gingivitis. Patient deferred pelvic exam. Concern for STI. Lower suspicion for TOA/torsion or ovarian cyst Plan: UA, gonorrhea/chlamydia testing, empiric treatment with Rocephin and doxycycline Differential Diagnosis Differential diagnosis: Likely gingival abscess, dental caries, toothache, dental abscess and fracture of tooth Medical Records Attestation: I reviewed the patient's medical records. Lab Data Attestation: I reviewed the patient's lab results. Labs: Lab Results 03/14/22 Range/Units 10:41 Urine Color Yellow Urine Appearance Clear Urine pH 5.5 (5.0-9.0) Ur Specific [place] >= 1.030 H (1.005-1.025) Urine Protein Negative (Neg-Trace) mg/dL Urine Glucose (UA) >=1000 H (Negative) mg/dL Urine Ketones Trace (Negative) mg/dL Urine Blood Negative (Negative) Urine Nitrite Negative (Negative) Ur Leukocyte Esterase Negative (Negative) Urine RBC 0-2 (0-2) /HPF Urine WBC 0-5 (0-5) /HPF Ur Squamous Epith Cells 0-2 (0-2) /HPF Urine Bacteria None Seen (None Seen) Hyaline Casts 0-2 (0-2) /LPF Discharge Plan Discharge Clinical Impression: Dental infection, Exposure to STD Patient Disposition: Home, Self-Care Instructions: Sexually Transmitted Diseases (ED), Dental Abscess (ED) Additional Instructions: You have a dental infection were also exposed to sexually transmitted infections. The results of your STI testing will not be back for 48-72 hours, we will call you with positive results only. Please avoid any sexual contact until you know the results of her cultures You were treated empirically, continue to take doxycycline as prescribed Please have close follow-up with her OBGYN or [facility] for further STI testing Tylenol with codeine as an opiate pain medication, only take for the next 3 days when pain is severe Please follow-up with her dentist If symptoms persist or worsen, vaginal bleeding, abdominal pain, fever, swelling in her mouth or face return to the ED Prescriptions: New doxycycline hyclate 100 mg tablet 100 mg PO BID 7 Days Qty: 14 0RF acetaminophen-codeine 300-30 mg tablet 1 tab PO Q6H PRN (Reason: pain, severe) 3 Days Qty: 5 0RF Rx Instructions: Partial fill available upon patient request No Action (DME) pen needle, diabetic [BD Ultra-Fine Maria Elena Pen Needle] 32 gauge x needle See Rx Instructions .ROUTE .MEDSUPPLY Qty: 100 12RF Rx Instructions: As directed 4 times a day metformin 500 mg tablet 500 mg PO BID 30 Days Qty: 60 3RF albuterol sulfate [ProAir HFA] 90 mcg/actuation HFA aerosol inhaler 2 puff inhalation Q6H PRN (Reason: shortness of breath or wheezing) 30 Days Qty: 18 5RF insulin glargine 100 unit/mL (3 mL) insulin pen 20 unit subcut DAILY Qty: 15 3RF insulin lispro [Admelog SoloStar U-100 Insulin] 100 unit/mL insulin pen 2 - 14 unit subcut .T.i.d. per SSC Qty: 15 5RF Rx Instructions: 3 TIMES A DAY BEFORE MEALS PER SLIDING SCALE COVERAGE fluconazole 150 mg tablet 150 mg PO ONCE Qty: 1 2RF cephalexin 500 mg capsule 500 mg PO Q8H 7 Days Qty: 21 0RF amoxicillin-pot clavulanate [Augmentin] 875-125 mg tablet 1 tab PO Q12H 10 Days Qty: 20 0RF naproxen 500 mg tablet 500 mg PO BID PRN (Reason: pain) 10 Days Qty: 20 0RF (DME) FreeStyle Lite Strips Strip See Rx Instructions Not Applicable QID Qty: 10 Rx Instructions: As directed Referrals: [facility] [place] [facility] [Provider Group] Chinmay Catherine DMD [Dentist] - Israel Rosario MD [Primary Care Provider] - Terra Mondragon DMD [Dentist] - Haim Hand DDS [Physician] -
[2022-03-14] MEDS: cefTRIAXone sodium 500 MG, Lidocaine HCl 1 % MPF 1 ML IM (10:42)
[2022-03-14] MEDS: Doxycycline Monohydrate 100 MG CAPSULE PO (10:42)
[2022-03-14 10:49] LABS: Appearance Urine Clear; Color Urine Yellow; Glucose Urine UA >=1000 mg/dL (Negative); Leukocyte Esterase Urine Negative (Negative); Nitrite Urine Negative (Negative); PH 5.5 (5.0-9.0); Specific Gravity - Urine >= 1.030 (1.005-1.025); UMIC TRIGGER UACC YES; Urine Blood Negative (Negative); Urine Ketones Trace mg/dL (Negative); Urine Protein Negative (Neg-Trace)
[2022-03-14 10:54] LABS: Bacteria Urine None Seen (None Seen); Hyaline Casts Urine 0-2 /LPF (0-2); RBC Urine 0-2 /HPF (0-2); Squamous Epithelial Cell Urine 0-2 /HPF (0-2); WBC Urine 0-5 /HPF (0-5)
[2022-03-14 11:06] VITALS: BP 141/93; PULSE 87; RESP 16; O2SAT 100
[2022-03-14 13:13] LABS: CT PCR NOT DETECTED (Not Detect.)
[2022-03-14 13:14] LABS: NG PCR NOT DETECTED (Not Detect.)
== END 2022-03-14 11:12 | disposition home or self-care (01) ==
PROVIDERS: Physician Assistant; Emergency Provider Emergency Medicine; PCP Internal Medicine
DX: K04.7 Periapical abscess without sinus (principal); Z20.2 Contact with and (suspected) exposure to infections with a predominantly sexual mode of transmission; F17.210 Nicotine dependence, cigarettes, uncomplicated; Z71.6 Tobacco abuse counseling; Z79.899 Other long term (current) drug therapy
CPT/HCPCS: 81001; 87491; 87591; 96372; 99283; 99284; J0696

== ENCOUNTER 2022-06-26 08:38 | Emergency (ER) | payer OTHER, SELFPAY ==
--- NOTE | ~2022-06-26 | US_ITS ---
EXAMINATION: US OBSTETRICAL ULTRASOUND CLINICAL INFORMATION: pelvic cramping, R low back pain COMPARISON: None. LMP: 04/20/2022. Gestational age by maternal dates is 9 weeks 4 days. Estimated date of delivery by maternal dates is 01/25/2023. TECHNIQUE: Ultrasound of the maternal pelvis is performed using transabdominal transducer. M-mode Doppler is also performed. FINDINGS: There is a single intrauterine gestational sac with visible yolk sac, pole, and cardiac activity. There is no significant subchorionic hemorrhage or hematoma. HR: 176 beats per minute. CRL (crown rump length): 1.39 cm Gestational age by ultrasound: 7 weeks 5 days DIANA (estimated date of delivery): 02/07/2023 MATERNAL ADNEXA: The right maternal ovary measures 2.3 x 1.7 x 2.4 cm. No cysts or other abnormalities. The left maternal ovary measures 2.9 x 2.3 x 2.2 cm. A 1.8 x 1.7 x 1 cm corpus luteum cyst is noted. There is no significant maternal adnexal mass. No maternal pelvic ascites. US/US OB <= 14 weeks fetus IMPRESSION: 1. Single intrauterine gestation with ultrasound gestational age of 7 weeks 5 days. 2. Estimated date of delivery is 02/07/2023. 3. No maternal adnexal mass or pelvic ascites.
[2022-06-26 08:44] VITALS: BP 137/80; PULSE 100; RESP 16; TEMP 36.6; O2SAT 99; BMI 31.2
[2022-06-26 09:18] LABS: Appearance Urine Clear; Color Urine Yellow; Glucose Urine UA >=1000 mg/dL (Negative); Leukocyte Esterase Urine Negative (Negative); Nitrite Urine Negative (Negative); Specific Gravity - Urine >= 1.030 (1.005-1.025); UMIC TRIGGER UACC YES; Urine Blood Negative (Negative); Urine Ketones 15 mg/dL (Negative); Urine Protein Negative (Neg-Trace)
[2022-06-26 09:19] LABS: UPreg QC Valid YES; Urine Pregnancy POSITIVE (NEGATIVE)
--- NOTE | 2022-06-26 09:21 | ED_ITS ---
HPI - Female Genitourinary General Chief complaint: Urogenital-Female Stated complaint: Vaginal bleeding/Cramping/Back pain Time Seen by Provider: 06/26/22 09:06 Source: patient Mode of arrival: ambulatory Limitations: no limitations History of Present Illness HPI Narrative: Patient is a 32-year-old female who presents emergency department for evaluation. Patient reports April 20, 2022 she thought that she may have been miscarrying, she had some spotting followed by cramping and heavy bleeding. 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 Reports having unprotected sexual intercourse 05/02/2022. 05/23/2022 she had 2 days of very light spotting. Yesterday she took a test which resulted as positive. She expresses concern about uncertainty with how far along she may be, in addition she is having pelvic cramping, pain with urination, and pain to her right lower back. She expresses concerns about possible retained products of conception from prior miscarriage versus new . At this point last menstrual period is presumed to be 05/23/2022, her history is not exactly certain, however she reports approximate miscarriage numbers resulting in; G11 T1 L1 Related Data Home Medications Medication Instructions Recorded Confirmed blood sugar diagnostic #10 ea 08/01/20 08/01/20 Previous Rx's Medication Instructions Recorded albuterol sulfate 90 mcg/actuation 2 puff inhalation Q6H PRN 10/28/20 aerosol inhaler (ProAir HFA) shortness of breath or wheezing 30 days #18 grams metformin 500 mg tablet 500 mg PO BID 30 days #60 tabs 10/28/20 amoxicillin 875 mg-potassium 1 tab PO Q12H 10 days #20 tabs 04/01/21 clavulanate 125 mg tablet (Augmentin) naproxen 500 mg tablet 500 mg PO BID PRN pain 10 days #20 04/01/21 tabs cephalexin 500 mg capsule 500 mg PO Q8H 7 days #21 caps 09/18/21 acetaminophen 300 mg-codeine 30 mg 1 tab PO Q6H PRN pain, severe 3 03/14/22 tablet days #5 tabs doxycycline hyclate 100 mg tablet 100 mg PO BID 7 days #14 tabs 03/14/22 fluconazole 150 mg tablet 150 mg PO ONCE #1 tab 03/24/22 pen needle, diabetic 32 gauge x #100 ea 03/24/22 5/32 (BD Ultra-Fine Maria Elena Pen Needle) Admelog SoloStar U-100 Insulin 100 2 - 14 unit (0.02 - 0.14 mL) 05/23/22 unit/mL subcutaneous pen (insulin subcut .T.i.d. per SSC #15 mL lispro) insulin glargine 100 unit/mL (3 20 unit (0.2 mL) subcut DAILY #15 05/23/22 mL) subcutaneous pen mL insulin lispro 100 unit/mL See Rx Instructions .Route 05/25/22 subcutaneous pen (Humalog KwikPen .COMPLEX #15 mL (U-100) Insulin) vit no.95-ferrous 1 tab PO DAILY #30 tabs 06/26/22 fumarate 28 mg-folic acid 800 mcg tablet () Allergies Allergy/AdvReac Type Severity Reaction Status Date / Time sulfamethoxazole Allergy Severe FACIAL Verified 04/01/21 19:30 [From BACTRIM] SWELLING trimethoprim [From BACTRIM] Allergy Severe FACIAL Verified 04/01/21 19:30 SWELLING docusate Allergy Unknown swelling Verified 04/01/21 19:30 Sulfa (Sulfonamide Allergy Unknown swelling, Verified 04/01/21 19:30 Antibiotics) facial swelling Stool Softener Allergy Unknown facial Uncoded 08/01/20 17:39 swelling STOOL SOFTENERS Allergy Unknown FACIAL Uncoded 08/01/20 17:39 SWELLING Review of Systems Review of Systems: Yes all other systems are reviewed and are negative [facility] Past Medical History Attestation statement: The following information was validated with the patient. Source: old records reviewed Medical History Asthma Blurring of vision Diabetes mellitus Diabetes mellitus, with long-term current use of insulin Neuropathy involving both lower extremities Obesity (BMI 30-39.9) Surgical History No significant past surgical history Family History Family History Mother COPD (chronic obstructive pulmonary disease) Father High blood pressure Maternal Grandmother Breast cancer Maternal Aunt Uterine cancer Social History Social History Alcohol intake: former Patient Tobacco Use Status: Current everyday Tobacco user Cigarettes Per Day: 10 Advance Directives: No Advance Directives Information Provided: Yes Physical Exam Vital Signs: Vital Signs: Last Vital Signs Temp 98.6 F 06/26/22 11:50 Pulse 97 06/26/22 11:50 Resp 13 06/26/22 11:50 BP 111/78 06/26/22 11:50 Pulse Ox 97 06/26/22 11:50 O2 Del Method 06/26/22 11:50 BMI result Body Mass Index 31.2 Appearance: Alert.?Oriented to person, place and time. No acute distress.?Normal affect.? Neck: Normal inspection.? Neck supple.?? CVS: Heart sounds normal. Normal heart rate and rhythm.? Pulses normal.?? Respiratory: No respiratory distress.? Lung sounds clear to auscultation bi laterally?? Abdomen: Soft and non-tender. Normoactive bowel sounds. ?? Skin: Skin warm and dry.? Normal skin color.? Extremities: No lower extremity edema.? Neuro: Moves all extremities spontaneously. Sensation intact bilaterally. No focal neuro deficits. Ambulates with normal steady gait. Course Reevaluation(s) Reevaluation #1: Urinalysis without evidence of infection or microscopic hematuria, ketonuria is present, random glucose of 345, she is however a diabetic. Urine is positive, hCG within range, pelvic ultrasound revealing single intrauterine gestation with estimated age 7 weeks 5 days, estimated date of delivery 02/07/2023 with positive cardiac activity. CBC with no leukocytosis or anemia. BMP is overall unremarkable discussed with patient plan care for discharge. Advised outpatient follow-up with OB provider. Sent prescription for vitamins to pharmacy. Reviewed worrisome signs and symptoms that would warrant re-evaluation in the emergency department. All questions answered. Departed in stable condition. Time: 13:04 Medical Decision Making Medical Decision Making MDM Narrative: Patient is a 32-year-old female approximate G11 T1 L1 with past medical history of obesity, asthma, diabetes who presents emergency department for evaluation of pelvic cramping, dysuria, and right lower back pain in the setting of positive testing. She has not yet had any evaluation with an OB provider. At the time of my examination she is overall well-appearing. Abdominal examination is benign, not consistent with acute abdomen, no guarding, no rigidity, no rebound tenderness. She does have mild pain upon palpation over the right lower back, no overt CVA tenderness upon palpation. She is without any active bleeding or spotting by her report. Differential Diagnosis Differential Diagnoses: The differential diagnosis associated with the presentation includes (Intrauterine , ectopic , ovarian cyst, ovarian torsion, urinary tract infection, pyelonephritis, musculoskeletal strain) Lab Data MDM Lab Attestation statement: I reviewed the patient's lab results. 06/26/22 09:29 06/26/22 09:29 Labs: Lab Results 06/26/22 06/26/22 06/26/22 Range/Units 09:10 09:10 09:29 WBC 10.8 (4.8-10.8) X10*3/uL RBC 4.99 (4.20-5.50) X10*6/uL Hgb 14.2 (12.0-16.0) g/dl Hct 41.6 (37.0-47.0) % MCV 83.4 (80.0-98.0) fL MCH 28.5 (27.0-33.0) pg MCHC 34.1 (31.0-35.0) g/dl RDW 13.0 (11.0-16.0) % Plt Count 381 (160-400) X10*3/uL MPV 9.9 (9.4-12.3) fL Immature Gran % (Auto) 0.3 (0.0-0.4) % Neut % (Auto) 61.6 (45-73) % Lymph % (Auto) 29.8 (20-40) % [place] % (Auto) 5.8 (2-11) % Eos % (Auto) 1.9 (0-4) % Baso % (Auto) 0.6 (0-2) % Lymph # (Auto) 3.2 (1.2-4.9) X10*3/uL [place] # (Auto) 0.6 (0.1-1.2) X10*3/uL Eos # (Auto) 0.2 (0.0-0.4) X10*3/uL Baso # (Auto) 0.1 (0.0-0.2) X10*3/uL Abs Immat Gran (auto) 0.03 (0.00-0.03) X10*3/uL Absolute Neuts (auto) 6.6 (2.0-8.3) x10*3/uL Absolute Nucleated RBC 0.000 (0.0-0.012) X10*3/uL Nucleated RBC % (auto) 0.0 (0.0-0.2) /100WBC Sodium (135-145) mmol/L Potassium (3.3-5.1) mmol/L Chloride (96-108) mmol/L Carbon Dioxide (22-29) mmol/L Anion Gap (12-20) BUN (9-16) mg/dL Creatinine (0.5-1.4) mg/dL Estim Creat Clear Calc Estimated GFR Random Glucose (60-115) mg/dL Calcium (8.4-10.2) mg/dL Beta HCG, Quant mIU/mL Urine Color Yellow Urine Appearance Clear Urine pH 6.0 (5.0-9.0) Ur Specific [place] >= 1.030 H (1.005-1.025) Urine Protein Negative (Neg-Trace) mg/dL Urine Glucose (UA) >=1000 H (Negative) mg/dL Urine Ketones 15 (Negative) mg/dL Urine Blood Negative (Negative) Urine Nitrite Negative (Negative) Ur Leukocyte Esterase Negative (Negative) Urine RBC 0-2 (0-2) /HPF Urine WBC 0-5 (0-5) /HPF Ur Squamous Epith Cells 0-2 (0-2) /HPF Urine Bacteria None Seen (None Seen) Hyaline Casts 0-2 (0-2) /LPF Urine Test POSITIVE H (NEGATIVE) 06/26/22 Range/Units 09:29 WBC (4.8-10.8) X10*3/uL RBC (4.20-5.50) X10*6/uL Hgb (12.0-16.0) g/dl Hct (37.0-47.0) % MCV (80.0-98.0) fL MCH (27.0-33.0) pg MCHC (31.0-35.0) g/dl RDW (11.0-16.0) % Plt Count (160-400) X10*3/uL MPV (9.4-12.3) fL Immature Gran % (Auto) (0.0-0.4) % Neut % (Auto) (45-73) % Lymph % (Auto) (20-40) % [place] % (Auto) (2-11) % Eos % (Auto) (0-4) % Baso % (Auto) (0-2) % Lymph # (Auto) (1.2-4.9) X10*3/uL [place] # (Auto) (0.1-1.2) X10*3/uL Eos # (Auto) (0.0-0.4) X10*3/uL Baso # (Auto) (0.0-0.2) X10*3/uL Abs Immat Gran (auto) (0.00-0.03) X10*3/uL Absolute Neuts (auto) (2.0-8.3) x10*3/uL Absolute Nucleated RBC (0.0-0.012) X10*3/uL Nucleated RBC % (auto) (0.0-0.2) /100WBC Sodium 136 (135-145) mmol/L Potassium 4.2 (3.3-5.1) mmol/L Chloride 104 (96-108) mmol/L Carbon Dioxide 21 L (22-29) mmol/L Anion Gap 15 (12-20) BUN 7 L (9-16) mg/dL Creatinine 0.84 (0.5-1.4) mg/dL Estim Creat Clear Calc 83.9 Estimated GFR > 60 Random Glucose 345 H (60-115) mg/dL Calcium 9.3 (8.4-10.2) mg/dL Beta HCG, Quant 22131 mIU/mL Urine Color Urine Appearance Urine pH (5.0-9.0) Ur Specific [place] (1.005-1.025) Urine Protein (Neg-Trace) mg/dL Urine Glucose (UA) (Negative) mg/dL Urine Ketones (Negative) mg/dL Urine Blood (Negative) Urine Nitrite (Negative) Ur Leukocyte Esterase (Negative) Urine RBC (0-2) /HPF Urine WBC (0-5) /HPF Ur Squamous Epith Cells (0-2) /HPF Urine Bacteria (None Seen) Hyaline Casts (0-2) /LPF Urine Test (NEGATIVE) Independent Interpretation I performed an independent interpretation of an: Ultrasound Radiology Impression Discussion of test interpretation with radiology: I have reviewed the radiologist's reading. Radiologist Impression: US/US OB <= 14 weeks fetus IMPRESSION: 1. Single intrauterine gestation with ultrasound gestational age of? 7 weeks 5 days. 2. Estimated date of delivery is 02/07/2023. 3. No maternal adnexal mass or pelvic ascites. Discharge Plan Discharge Clinical Impression: Patient Disposition: Home, Self-Care Instructions: (ED) Additional Instructions: As discussed, your blood work was very reassuring today. There is no evidence of urinary tract infection. Based on your ultrasound, it is estimated that you are approximately 7 weeks 5 days , with estimated due date of 02/07/2023. Please contact your OB provider to arrange for follow-up/further management of this . You may return to emergency department with any new or worsening symptoms or concerns. A prescription for vitamins was sent to your pharmacy. Please take these daily. Prescriptions: New PNV cmb#95-ferrous fumarate-FA [] 28 mg iron- 800 mcg tablet 1 tab PO DAILY Qty: 30 0RF No Action metformin 500 mg tablet 500 mg PO BID 30 Days Qty: 60 3RF albuterol sulfate [ProAir HFA] 90 mcg/actuation HFA aerosol inhaler 2 puff inhalation Q6H PRN (Reason: shortness of breath or wheezing) 30 Days Qty: 18 5RF (DME) pen needle, diabetic [BD Ultra-Fine Maria Elena Pen Needle] 32 gauge x 5/32 needle See Rx Instructions .ROUTE .MEDSUPPLY Qty: 100 12RF Rx Instructions: As directed 4 times a day fluconazole 150 mg tablet 150 mg PO ONCE Qty: 1 2RF insulin lispro [Admelog SoloStar U-100 Insulin] 100 unit/mL insulin pen 2 - 14 unit subcut .T.i.d. per SSC Qty: 15 5RF Rx Instructions: 3 TIMES A DAY BEFORE MEALS PER SLIDING SCALE COVERAGE insulin glargine 100 unit/mL (3 mL) insulin pen 20 unit subcut DAILY Qty: 15 3RF insulin lispro [Humalog KwikPen Insulin] 100 unit/mL insulin pen See Rx Instructions .ROUTE .COMPLEX Qty: 15 12RF Rx Instructions: 2 to 4 units SQ TID with meals per sliding scale; cephalexin 500 mg capsule 500 mg PO Q8H 7 Days Qty: 21 0RF doxycycline hyclate 100 mg tablet 100 mg PO BID 7 Days Qty: 14 0RF acetaminophen-codeine 300-30 mg tablet 1 tab PO Q6H PRN (Reason: pain, severe) 3 Days Qty: 5 0RF Rx Instructions: Partial fill available upon patient request amoxicillin-pot clavulanate [Augmentin] 875-125 mg tablet 1 tab PO Q12H 10 Days Qty: 20 0RF naproxen 500 mg tablet 500 mg PO BID PRN (Reason: pain) 10 Days Qty: 20 0RF (DME) FreeStyle Lite Strips Strip See Rx Instructions Not Applicable QID Qty: 10 Rx Instructions: As directed Referrals: Israel Rosairo MD [Primary Care Provider] -
[2022-06-26 09:23] LABS: Bacteria Urine None Seen (None Seen); Hyaline Casts Urine 0-2 /LPF (0-2); RBC Urine 0-2 /HPF (0-2); Squamous Epithelial Cell Urine 0-2 /HPF (0-2); WBC Urine 0-5 /HPF (0-5)
[2022-06-26 09:33] LABS: MANUAL DIFF FLAG NO
[2022-06-26 09:45] LABS: Basophils Absolute Auto 0.1 X10*3/uL (0.0-0.2); Basophils Percent Auto 0.6 % (0-2); Eosinophils Absolute Auto 0.2 X10*3/uL (0.0-0.4); Eosinophils Percent Auto 1.9 % (0-4); Hematocrit 41.6 % (37.0-47.0); Hemoglobin 14.2 g/dl (12.0-16.0); Imm Gran Abs Auto 0.03 X10*3/uL (0.00-0.03); Imm Gran Pct Auto 0.3 % (0.0-0.4); Lymphocytes Absolute Auto 3.2 X10*3/uL (1.2-4.9); Lymphocytes Percent Auto 29.8 % (20-40); Mean Corpuscular HGB Conc 34.1 g/dl (31.0-35.0); Mean Corpuscular Hemoglobin 28.5 pg (27.0-33.0); Mean Corpuscular Volume 83.4 fL (80.0-98.0); Mean Platelet Volume 9.9 fL (9.4-12.3); Monocytes Absolute Auto 0.6 X10*3/uL (0.1-1.2); Monocytes Percent Auto 5.8 % (2-11); Neutrophils Absolute Auto 6.6 x10*3/uL (2.0-8.3); Neutrophils Percent Auto 61.6 % (45-73); Platelet Count 381 X10*3/uL (160-400); Red Blood Count 4.99 X10*6/uL (4.20-5.50); White Blood Count 10.8 X10*3/uL (4.8-10.8)
[2022-06-26 09:56] LABS: Anion Gap 15 (12-20); Blood Urea Nitrogen 7 mg/dL (9-16); Calcium 9.3 mg/dL (8.4-10.2); Carbon Dioxide 21 mmol/L (22-29); Chloride 104 mmol/L (96-108); Creatinine Clr Calc Pharmacy 83.9; Estimated Glomerular Filt Rate > 60; Glucose Random 345 mg/dL (60-115); Potassium 4.2 mmol/L (3.3-5.1); Sodium 136 mmol/L (135-145)
[2022-06-26 10:00] VITALS: BP 110/69; PULSE 98; RESP 14; TEMP 37; O2SAT 99
[2022-06-26 10:33] LABS: HCG Quantitative 39278 mIU/mL
[2022-06-26 11:50] VITALS: BP 111/78; PULSE 97; RESP 13; TEMP 37; O2SAT 97
== END 2022-06-26 13:00 | disposition home or self-care (01) ==
PROVIDERS: Nurse Practitioner Family; Emergency Provider Emergency Medicine; PCP Internal Medicine
DX: O26.851 Spotting complicating pregnancy, first trimester (principal); O24.111 Pre-existing type 2 diabetes mellitus, in pregnancy, first trimester; E11.9 Type 2 diabetes mellitus without complications; O99.331 Smoking (tobacco) complicating pregnancy, first trimester; Z3A.01 Less than 8 weeks gestation of pregnancy; Z79.4 Long term (current) use of insulin
CPT/HCPCS: 36415; 76801; 80048; 81001; 81025; 84702; 85025; 99283; 99284

== ENCOUNTER → 2022-07-26 13:55 | Outpatient (BNVA) | payer OTHER, SELFPAY | PROVIDERS: PCP Internal Medicine; Visit Provider Advanced Practice Midwife | DX: O24.111 Pre-existing type 2 diabetes mellitus, in pregnancy, first trimester (principal); Z79.4 Long term (current) use of insulin; Z3A.12 12 weeks gestation of pregnancy | CPT/HCPCS: 99202 ==

== ENCOUNTER 2022-08-23 20:18 | Emergency (ER) | payer OTHER, SELFPAY ==
--- NOTE | ~2022-08-23 | US_ITS ---
EXAMINATION: US VENOUS ULTRASOUND WITH DOPPLER LOWER EXTREMITY, LEFT CLINICAL INFORMATION: Rule out DVT. Pain and swelling. COMPARISON: None available. TECHNIQUE: Ultrasound of the deep veins is performed from the hip to the calf with compression sonography and color and pulse Doppler assessment. Spectral analysis with color-flow imaging is performed. FINDINGS: There is normal venous compression and respiratory variation and augmented flow. The visualized common femoral vein, superficial femoral vein, profunda femoral vein, popliteal vein, and the trifurcation region shows no evidence of deep venous thrombosis. There is no significant popliteal fossa cyst. The contralateral right common femoral vein is patent. US/US venous duplex LE LT IMPRESSION: No DVT demonstrated in the left lower extremity.
--- NOTE | ~2022-08-23 | XR_ITS ---
EXAMINATION: XR KNEE, LEFT CLINICAL INFORMATION: Pain COMPARISON: None available. TECHNIQUE: Two views of the left knee. FINDINGS: Bones and soft tissues are normal. No fracture or joint effusion. Alignment is anatomic. Joint spaces are well maintained. No abnormal soft tissue calcification. XR/XR knee LT 2V IMPRESSION: Normal left knee.
[2022-08-23 20:30] VITALS: BP 142/84; PULSE 100; RESP 18; O2SAT 95; BMI 33.2
--- NOTE | 2022-08-23 21:09 | ED_ITS ---
HPI - General Adult General Chief complaint: Extremity Problem Stated complaint: Left Leg Pain Time Seen by Provider: 08/23/22 20:30 History of Present Illness HPI narrative: Patient is a 32-year-old female approximately 16 weeks presents today with having pain to the left leg. The left leg pain is worse over the early left knee. There is no specific trauma. It is worse with movement. There is no fever no chills. No systemic complaints. Patient from home. No abdominal pain. No vaginal discharge. No chest pain or shortness of breath. No history of blood clots in the past. Not on blood thinners. Positive history diabetes. Positive multiple miscarriages in the past. Related Data Home Medications Medication Instructions Recorded Confirmed blood sugar diagnostic #10 ea 08/01/20 08/04/22 Previous Rx's Medication Instructions Recorded pen needle, diabetic 32 gauge x #100 ea 03/24/22 (BD Ultra-Fine Maria Elena Pen Needle) vit no.95-ferrous 1 tab PO DAILY #30 tabs 06/26/22 fumarate 28 mg-folic acid 800 mcg tablet () Admelog SoloStar U-100 Insulin 100 2 - 14 unit (0.02 - 0.14 mL) 07/01/22 unit/mL subcutaneous pen (insulin subcut .T.i.d. per SSC #15 mL lispro) insulin glargine 100 unit/mL (3 See Rx Instructions .Route 08/03/22 mL) subcutaneous pen .COMPLEX #15 mL insulin lispro 100 unit/mL See Rx Instructions .Route 08/03/22 subcutaneous pen (Humalog KwikPen .COMPLEX #15 mL (U-100) Insulin) albuterol sulfate 90 mcg/actuation 2 puff inhalation Q6H PRN 08/04/22 aerosol inhaler (ProAir HFA) shortness of breath or wheezing 30 days #18 grams Allergies Allergy/AdvReac Type Severity Reaction Status Date / Time sulfamethoxazole Allergy Severe FACIAL Verified 08/04/22 05:18 [From BACTRIM] SWELLING trimethoprim [From BACTRIM] Allergy Severe FACIAL Verified 08/04/22 05:18 SWELLING docusate Allergy Unknown swelling Verified 08/04/22 05:18 Sulfa (Sulfonamide Allergy Unknown swelling, Verified 08/04/22 05:18 Antibiotics) facial swelling Stool Softener Allergy Unknown facial Uncoded 08/04/22 05:18 swelling STOOL SOFTENERS Allergy Unknown FACIAL Uncoded 08/04/22 05:18 SWELLING Review of Systems Review of Systems: Positive left leg pain Yes all other systems are reviewed and are negative [facility] Past Medical History Attestation statement: The following information was validated with the patient. Medical History Asthma Blurring of vision Diabetes mellitus Diabetes mellitus, with long-term current use of insulin Neuropathy involving both lower extremities Obesity (BMI 30-39.9) Surgical History Hx laparoscopic cholecystectomy No significant past surgical history Family History Family History Mother COPD (chronic obstructive pulmonary disease) Father High blood pressure Maternal Grandmother Breast cancer Maternal Aunt Uterine cancer Social History Social History Housing: House Alcohol intake: former Patient Tobacco Use Status: Current everyday Tobacco user Cigarettes Per Day: 10 Smoked in Last 30 Days: Yes Use of substances other than those prescribed or required for medical reasons: No Advance Directives: No Advance Directives Information Provided: No Patient : Yes service: No Current occupational status: unemployed Cognitive needs: No Hearing needs: No Vision needs: No Physical Exam ED Vital Signs: Vital Signs - 24 hr 08/23/22 20:30 08/23/22 22:41 Temperature 98.3 F Pulse Rate 100 95 Respiratory Rate 18 16 Blood Pressure 142/84 H 121/75 Pulse Oximetry 95 97 Oxygen Delivery Method Room Air Room Air BMI result Body Mass Index 33.2 Appearance: Alert. Oriented X3. No acute distress. Eyes: Pupils equal, round and reactive to light. ENT: Pharynx normal. Neck: Normal inspection. Neck supple. No lymph nodes noted. No crepitus CVS: Normal heart rate and rhythm. Pulses normal. Normal S1 and S2 Respiratory: No respiratory distress. Breath sounds normal. No Wheezing. No rales Abdomen: Soft and nontender. No rigidity. No distention. good BS x4 Skin: Skin warm and dry. Normal skin color. Normal skin turgor. Extremities: Examination of the left knee. There is good pulse distally at dorsalis pedis. Sensation over the foot intact. Range of motion over the left knee was limited secondary to pain. There is no gross effusion noted over the knee. There is no pain on palpation to the medial or lateral collateral ligament. Skin intact. Movement of the hip is normal. Neuro: Oriented X 3. No motor deficit. No sensory deficit. Moving all extermities. No slurred speech Medical Decision Making Medical Decision Making MDM Narrative: Patient complaining of left knee pain. Fairly sudden in onset. No specific trauma. X-ray showed no acute fracture. X-ray was done after risk and benefit discussed with patient. Patient understood that she has pain in the knee requiring evaluation of the bone. Aware patient is at approximately 16 weeks. Shielding was used. Doppler of the lower extremity also done. There was no evidence of DVT. Patient symptoms seems to have improved. Now is ambulatory. Will discharge patient home follow up Orthopedic on an outpatient basis. Differential Diagnosis Bony fracture, ligamentous meniscal injury, DVT Lab Data MDM Lab Attestation statement: I reviewed the patient's lab results. Independent Interpretation I performed an independent interpretation of an: Plain X-Ray Interpretation: X-ray showed no acute fracture Radiology Impression Discussion of test interpretation with radiology: I have reviewed the radiologist's reading. Radiologist Impression: X-ray showed no acute fracture vascular study negative Discharge Plan Discharge Clinical Impression: Acute knee pain, Patient Disposition: Home, Self-Care Additional Instructions: Easily take Tylenol for pain. 325 mg of Tylenol 2 tablets every 6 hours as needed for pain. Prescriptions: No Action (DME) pen needle, diabetic [BD Ultra-Fine Maria Elena Pen Needle] 32 gauge x 5/32 needle See Rx Instructions .ROUTE .MEDSUPPLY Qty: 100 12RF Rx Instructions: As directed 4 times a day insulin lispro [Admelog SoloStar U-100 Insulin] 100 unit/mL insulin pen 2 - 14 unit subcut .T.i.d. per SSC Qty: 15 1RF Rx Instructions: 3 TIMES A DAY BEFORE MEALS PER SLIDING [employer]ALE [employer] PNV cmb#95-ferrous fumarate-FA [] 28 mg iron- 800 mcg tablet 1 tab PO DAILY Qty: 30 0RF (DME) FreeStyle Lite Strips Strip See Rx Instructions Not Applicable QID Qty: 10 Rx Instructions: As directed insulin lispro [Humalog KwikPen Insulin] 100 unit/mL insulin pen See Rx Instructions .ROUTE .COMPLEX Qty: 15 12RF Rx Instructions: 2 to 14 units SQ TID with meals per sliding scale; insulin glargine 100 unit/mL (3 mL) insulin pen See Rx Instructions .ROUTE .COMPLEX Qty: 15 12RF Rx Instructions: Take 16 units SQ in AM and 14 units SQ in PM; albuterol sulfate [ProAir HFA] 90 mcg/actuation HFA aerosol inhaler 2 puff inhalation Q6H PRN (Reason: shortness of breath or wheezing) 30 Days Qty: 18 5RF Referrals: Dmitriy Anderson MD [Physician] - 08/26/22
[2022-08-23 22:41] VITALS: BP 121/75; PULSE 95; RESP 16; TEMP 36.8; O2SAT 97
== END 2022-08-23 23:32 | disposition home or self-care (01) ==
PROVIDERS: Emergency Provider Emergency Medicine Emergency Medical Services; PCP Internal Medicine
DX: O26.892 Other specified pregnancy related conditions, second trimester (principal); M79.662 Pain in left lower leg; M25.562 Pain in left knee; O24.112 Pre-existing type 2 diabetes mellitus, in pregnancy, second trimester; O99.332 Smoking (tobacco) complicating pregnancy, second trimester; F17.210 Nicotine dependence, cigarettes, uncomplicated; Z3A.16 16 weeks gestation of pregnancy; Z79.4 Long term (current) use of insulin
CPT/HCPCS: 73560; 93971; 99284

== ENCOUNTER 2023-06-18 06:41 | Emergency (ER) | payer OTHER, SELFPAY ==
[2023-06-18 07:01] VITALS: BMI 39.9
--- NOTE | 2023-06-18 07:02 | ECG_ITS ---
Test Reason : CHEST PAIN Blood Pressure : / mmHG Vent. Rate : 107 BPM Atrial Rate : 107 BPM P-R Int : 132 ms QRS Dur : 078 ms QT Int : 354 ms P-R-T Axes : 027 025 021 degrees QTc Int : 472 ms Sinus tachycardia Otherwise normal ECG When compared with ECG of 02-APR-2018 13:05, No significant change was found Referred By: Allie Aldana Electronically Signed By:Juan Carlos Rucker
[2023-06-18 07:09] VITALS: BP 133/94; PULSE 100; RESP 16; TEMP 36.6; O2SAT 99; BMI 29.6
[2023-06-18 07:20] LABS: MANUAL DIFF FLAG NO
[2023-06-18 07:22] LABS: Basophils Absolute Auto 0.1 X10*3/uL (0.0-0.2); Basophils Percent Auto 0.8 % (0-2); Eosinophils Absolute Auto 0.3 X10*3/uL (0.0-0.4); Hematocrit 42.2 % (37.0-47.0); Hemoglobin 13.8 g/dl (12.0-16.0); Imm Gran Abs Auto 0.03 X10*3/uL (0.00-0.03); Imm Gran Pct Auto 0.3 % (0.0-0.4); Lymphocytes Absolute Auto 3.5 X10*3/uL (1.2-4.9); Lymphocytes Percent Auto 31.5 % (20-40); Mean Corpuscular HGB Conc 32.7 g/dl (31.0-35.0); Mean Corpuscular Hemoglobin 27.7 pg (27.0-33.0); Mean Corpuscular Volume 84.7 fL (80.0-98.0); Mean Platelet Volume 11.2 fL (9.4-12.3); Monocytes Absolute Auto 0.5 X10*3/uL (0.1-1.2); Monocytes Percent Auto 4.1 % (2-11); Neutrophils Absolute Auto 6.6 x10*3/uL (2.0-8.3); Neutrophils Percent Auto 60.3 % (45-73); Platelet Count 285 X10*3/uL (160-400); Red Blood Count 4.98 X10*6/uL (4.20-5.50); Red Cell Distribution Width 15.9 % (11.0-16.0)
--- NOTE | 2023-06-18 07:54 | ED.GENADULT ---
HPI - General Adult General Chief complaint: Chest Pain Stated complaint: Chest pain, weak ,high sugar Time Seen by Provider: 06/18/23 07:31 Source: patient Mode of arrival: ambulatory Limitations: no limitations History of Present Illness HPI narrative: Patient is diabetic on insulin been having elevated blood sugar for last few days reading high patient taking Lantus insulin twice daily and Humalog sliding scale still blood sugar is eye likely from the diet which is she is noncompliant also complaining of pain in the left eye started yesterday photosensitive denies any trauma no history of glaucoma. No vision loss. Patient also complaining of body aches for last few days with nasal congestion cough patient daughter was also sick few days ago RSV flu COVID negative patient does have occasional cough no fever no chills complaining of increased thirst and urination at 04:00 patient's blood sugar was reading high patient took 12 units of Humalog Related Data Home Medications Medication Instructions Recorded Confirmed blood sugar diagnostic #10 ea 08/01/20 11/03/22 Previous Rx's Medication Instructions Recorded pen needle, diabetic 32 gauge x #100 ea 03/24/22 (BD Ultra-Fine Maria Elena Pen Needle) vit no.95-ferrous 1 tab PO DAILY #30 tabs 06/26/22 fumarate 28 mg-folic acid 800 mcg tablet () insulin glargine 100 unit/mL (3 See Rx Instructions .Route 08/03/22 mL) subcutaneous pen .COMPLEX #15 mL insulin lispro 100 unit/mL See Rx Instructions .Route 08/03/22 subcutaneous pen (Humalog KwikPen .COMPLEX #15 mL (U-100) Insulin) albuterol sulfate 90 mcg/actuation 2 puff inhalation Q6H PRN 08/04/22 aerosol inhaler (ProAir HFA) shortness of breath or wheezing 30 days #18 grams blood sugar diagnostic (FreeStyle #120 ea 09/14/22 Lite Strips) Allergies Allergy/AdvReac Type Severity Reaction Status Date / Time sulfamethoxazole Allergy Severe FACIAL Verified 11/03/22 20:06 [From BACTRIM] SWELLING trimethoprim [From BACTRIM] Allergy Severe FACIAL Verified 11/03/22 20:06 SWELLING docusate Allergy Unknown swelling Verified 11/03/22 20:06 Sulfa (Sulfonamide Allergy Unknown swelling, Verified 11/03/22 20:06 Antibiotics) facial swelling Stool Softener Allergy Unknown facial Uncoded 11/03/22 20:06 swelling STOOL SOFTENERS Allergy Unknown FACIAL Uncoded 11/03/22 20:06 SWELLING Review of Systems Review of Systems: Yes all other systems are reviewed and are negative [facility] Past Medical History Medical History Blurring of vision Asthma Obesity (BMI 30-39.9) Neuropathy involving both lower extremities Diabetes mellitus Diabetes mellitus, with long-term current use of insulin Surgical History Hx laparoscopic cholecystectomy No significant past surgical history Family History Family History Mother COPD (chronic obstructive pulmonary disease) Father High blood pressure Maternal Grandmother Breast cancer Maternal Aunt Uterine cancer Social History Social History Housing: House Alcohol intake: former Patient Tobacco Use Status: Current everyday Tobacco user Cigarettes Per Day: 10 e-Cigarette/Vaping Use: Never Used Advance Directives: No Advance Directives Information Provided: No service: No Current occupational status: unemployed Cognitive needs: No Hearing needs: No Vision needs: No Physical Exam ED Vital Signs: Vital Signs - 24 hr 06/18/23 07:09 Temperature 97.9 F Pulse Rate 100 Respiratory Rate 16 Blood Pressure 133/94 H Pulse Oximetry 99 Oxygen Delivery Method Room Air BMI result Body Mass Index 29.6 Appearance: Alert. Oriented X3. No acute distress. Eyes: PERRLA, photosensitive IOP 20 both eyes fluorescein test negative for abrasion anterior chamber normal fundus normal visual pelayo normal no rash noticed around the eye ENT: Pharynx normal. Oral Mucosa moist Neck: Normal inspection. Neck supple. CVS: Normal heart rate and rhythm. Pulses normal. Respiratory: No respiratory distress. Equal air entry bilateral, no wheezing/rales/rhonchi Abdomen: Soft and nontender. Bowel sounds are present, no mass palpable, no CVA tenderness Skin: Skin warm and dry. Normal skin color. Normal skin turgor. Extremities: No lower extremity edema. No calf tenderness Neuro: Oriented X 3. No motor deficit. No sensory deficit.No cerebellar signs , cranial nerves II-XII intact Medications Administered Discontinued Medications Generic Name Dose Route Start Last Admin Trade Name Aiden PRN Reason Stop Dose Admin Fluorescein Sodium 1 strip 06/18/23 07:58 06/18/23 08:15 Fluorescein Sodium Strip EYE-LEFT 06/18/23 07:59 1 strip ONCE ONE Administration Sodium Chloride 1,000 mls @ 999 mls/hr 06/18/23 07:58 06/18/23 08:15 Ns IV 06/18/23 08:58 999 mls/hr .Q1H1M ONE Administration Insulin Glargine 20 unit 06/18/23 08:09 06/18/23 09:02 Insulin Glargine,Hum.Rec.Anlog 100 Unit/Ml 10 Ml Vial SUBCUT 06/18/23 08:10 Not Given ONCE ONE Insulin Human Lispro 12 unit 06/18/23 08:09 06/18/23 09:02 Insulin Lispro 100 Unit/Ml 3 Ml Vial SUBCUT 06/18/23 08:10 Not Given ONCE ONE Tetracaine HCl 1 drop 06/18/23 07:58 06/18/23 08:15 Tetracaine Hcl/Pf 0.5% Oph Madeleine 4 Ml Drops EYE-LEFT 06/18/23 07:59 Not Given ONCE ONE Medical Decision Making Medical Decision Making [facility] Narrative: Patient with uncontrolled blood sugar with blurred vision likely the cause fundus exam was negative visual field was normal no corneal abrasion noticed normal intra-ocular pressure. Patient refused insulin in the ER received IV fluid repeat blood sugar was 378 patient has been upset for unknown reasons, patient refused further workup signed against medical advice Differential Diagnosis Differential Diagnoses: The differential diagnosis associated with the presentation includes Glaucoma/hyperglycemia/conjunctivitis/herpes zoster/UTI Lab Data [facility] Lab Attestation statement: I reviewed the patient's lab results. 06/18/23 07:09 06/18/23 07:09 Labs: Lab Results 06/18/23 06/18/23 06/18/23 Range/Units 07:09 07:56 08:17 WBC 11.0 H (4.8-10.8) X10*3/uL RBC 4.98 (4.20-5.50) X10*6/uL Hgb 13.8 (12.0-16.0) g/dl Hct 42.2 (37.0-47.0) % MCV 84.7 (80.0-98.0) fL MCH 27.7 (27.0-33.0) pg MCHC 32.7 (31.0-35.0) g/dl RDW 15.9 (11.0-16.0) % Plt Count 285 D (160-400) X10*3/uL MPV 11.2 (9.4-12.3) fL Immature Gran % (Auto) 0.3 (0.0-0.4) % Neut % (Auto) 60.3 (45-73) % Lymph % (Auto) 31.5 (20-40) % [place] % (Auto) 4.1 (2-11) % Eos % (Auto) 3.0 (0-4) % Baso % (Auto) 0.8 (0-2) % Lymph # (Auto) 3.5 (1.2-4.9) X10*3/uL [place] # (Auto) 0.5 (0.1-1.2) X10*3/uL Eos # (Auto) 0.3 (0.0-0.4) X10*3/uL Baso # (Auto) 0.1 (0.0-0.2) X10*3/uL Abs Immat Gran (auto) 0.03 (0.00-0.03) X10*3/uL Absolute Neuts (auto) 6.6 (2.0-8.3) x10*3/uL Absolute Nucleated RBC 0.000 (0.0-0.012) X10*3/uL Nucleated RBC % (auto) 0.0 (0.0-0.2) /100WBC Sodium 131 L (135-145) mmol/L Potassium 5.1 (3.3-5.1) mmol/L Chloride 98 (96-108) mmol/L Carbon Dioxide 22 (22-29) mmol/L Anion Gap 16 (12-20) BUN 14 (9-16) mg/dL Creatinine 1.01 (0.5-1.4) mg/dL Estim Creat Clear Calc 81.6 Estimated GFR > 60 POC Glucose 491 H* (60-115) mg/dL Random Glucose 573 H* (60-115) mg/dL Calcium 9.4 (8.4-10.2) mg/dL Total Bilirubin 0.3 (0.0-1.0) mg/dL Direct Bilirubin 0.1 (0.0-0.5) mg/dL AST 9 (5-31) U/L ALT 9 (0-31) U/L Alkaline Phosphatase 142 H (39-117) U/L Troponin I High Sens < 2.7 (<3.5-17.0) ng/L Total Protein 7.5 (6.5-8.0) g/dL Albumin 4.1 (3.5-5.0) g/dL Urine Color Yellow Urine Appearance Urine pH (5.0-9.0) Ur Specific [place] (1.005-1.025) Urine Protein (Neg-Trace) mg/dL Urine Glucose (UA) (Negative) mg/dL Urine Ketones (Negative) mg/dL Urine Blood (Negative) Urine Nitrite (Negative) Ur Leukocyte Esterase (Negative) Urine RBC (0-2) /HPF Urine WBC (0-5) /HPF Urine WBC Clumps Ur Squamous Epith Cells (0-2) /HPF Ur Transition Epith Cell Ur Renal Epithelial Cell Calcium Oxalate Crystal Leucine Crystals Cystine Crystals Tyrosine Crystals Other Crystals Urine Bacteria (None Seen) Urine Parasites Bilirubin Casts Epithelial Casts Fatty Casts Hyaline Casts (0-2) /LPF Granular Casts Waxy Casts Broad Casts RBC Casts WBC Casts Other Casts Urine Trichomonas Urine Yeast COVID-19 ([facility]ATRICIA) (Negative) COVID-19 Clin Com 06/18/23 06/18/23 06/18/23 Range/Units 08:17 08:17 08:17 WBC (4.8-10.8) X10*3/uL RBC (4.20-5.50) X10*6/uL Hgb (12.0-16.0) g/dl Hct (37.0-47.0) % MCV (80.0-98.0) fL MCH (27.0-33.0) pg MCHC (31.0-35.0) g/dl RDW (11.0-16.0) % Plt Count (160-400) X10*3/uL MPV (9.4-12.3) fL Immature Gran % (Auto) (0.0-0.4) % Neut % (Auto) (45-73) % Lymph % (Auto) (20-40) % [place] % (Auto) (2-11) % Eos % (Auto) (0-4) % Baso % (Auto) (0-2) % Lymph # (Auto) (1.2-4.9) X10*3/uL [place] # (Auto) (0.1-1.2) X10*3/uL Eos # (Auto) (0.0-0.4) X10*3/uL Baso # (Auto) (0.0-0.2) X10*3/uL Abs Immat Gran (auto) (0.00-0.03) X10*3/uL Absolute Neuts (auto) (2.0-8.3) x10*3/uL Absolute Nucleated RBC (0.0-0.012) X10*3/uL Nucleated RBC % (auto) (0.0-0.2) /100WBC Sodium (135-145) mmol/L Potassium (3.3-5.1) mmol/L Chloride (96-108) mmol/L Carbon Dioxide (22-29) mmol/L Anion Gap (12-20) BUN (9-16) mg/dL Creatinine (0.5-1.4) mg/dL Estim Creat Clear Calc Estimated GFR POC Glucose (60-115) mg/dL Random Glucose (60-115) mg/dL Calcium (8.4-10.2) mg/dL Total Bilirubin (0.0-1.0) mg/dL Direct Bilirubin (0.0-0.5) mg/dL AST (5-31) U/L ALT (0-31) U/L Alkaline Phosphatase (39-117) U/L Troponin I High Sens (<3.5-17.0) ng/L Total Protein (6.5-8.0) g/dL Albumin (3.5-5.0) g/dL Urine Color Cancelled Urine Appearance Clear Cancelled Urine pH 5.5 Cancelled (5.0-9.0) Ur Specific [place] >= 1.030 H (1.005-1.025) Urine Protein (Neg-Trace) mg/dL Urine Glucose (UA) (Negative) mg/dL Urine Ketones (Negative) mg/dL Urine Blood (Negative) Urine Nitrite (Negative) Ur Leukocyte Esterase (Negative) Urine RBC (0-2) /HPF Urine WBC (0-5) /HPF Urine WBC Clumps Ur Squamous Epith Cells (0-2) /HPF Ur Transition Epith Cell Ur Renal Epithelial Cell Calcium Oxalate Crystal Leucine Crystals Cystine Crystals Tyrosine Crystals Other Crystals Urine Bacteria (None Seen) Urine Parasites Bilirubin Casts Epithelial Casts Fatty Casts Hyaline Casts (0-2) /LPF Granular Casts Waxy Casts Broad Casts RBC Casts WBC Casts Other Casts Urine Trichomonas Urine Yeast COVID-19 ([facility]RICIA) (Negative) COVID-19 Clin Com 06/18/23 06/18/23 06/18/23 Range/Units 08:17 08:17 08:17 WBC (4.8-10.8) X10*3/uL RBC (4.20-5.50) X10*6/uL Hgb (12.0-16.0) g/dl Hct (37.0-47.0) % MCV (80.0-98.0) fL MCH (27.0-33.0) pg MCHC (31.0-35.0) g/dl RDW (11.0-16.0) % Plt Count (160-400) X10*3/uL MPV (9.4-12.3) fL Immature Gran % (Auto) (0.0-0.4) % Neut % (Auto) (45-73) % Lymph % (Auto) (20-40) % [place] % (Auto) (2-11) % Eos % (Auto) (0-4) % Baso % (Auto) (0-2) % Lymph # (Auto) (1.2-4.9) X10*3/uL [place] # (Auto) (0.1-1.2) X10*3/uL Eos # (Auto) (0.0-0.4) X10*3/uL Baso # (Auto) (0.0-0.2) X10*3/uL Abs Immat Gran (auto) (0.00-0.03) X10*3/uL Absolute Neuts (auto) (2.0-8.3) x10*3/uL Absolute Nucleated RBC (0.0-0.012) X10*3/uL Nucleated RBC % (auto) (0.0-0.2) /100WBC Sodium (135-145) mmol/L Potassium (3.3-5.1) mmol/L Chloride (96-108) mmol/L Carbon Dioxide (22-29) mmol/L Anion Gap (12-20) BUN (9-16) mg/dL Creatinine (0.5-1.4) mg/dL Estim Creat Clear Calc Estimated GFR POC Glucose (60-115) mg/dL Random Glucose (60-115) mg/dL Calcium (8.4-10.2) mg/dL Total Bilirubin (0.0-1.0) mg/dL Direct Bilirubin (0.0-0.5) mg/dL AST (5-31) U/L ALT (0-31) U/L Alkaline Phosphatase (39-117) U/L Troponin I High Sens (<3.5-17.0) ng/L Total Protein (6.5-8.0) g/dL Albumin (3.5-5.0) g/dL Urine Color Urine Appearance Urine pH (5.0-9.0) Ur Specific [place] Cancelled (1.005-1.025) Urine Protein Negative Cancelled (Neg-Trace) mg/dL Urine Glucose (UA) >=1000 H Cancelled (Negative) mg/dL Urine Ketones 40 (Negative) mg/dL Urine Blood (Negative) Urine Nitrite (Negative) Ur Leukocyte Esterase (Negative) Urine RBC (0-2) /HPF Urine WBC (0-5) /HPF Urine WBC Clumps Ur Squamous Epith Cells (0-2) /HPF Ur Transition Epith Cell Ur Renal Epithelial Cell Calcium Oxalate Crystal Leucine Crystals Cystine Crystals Tyrosine Crystals Other Crystals Urine Bacteria (None Seen) Urine Parasites Bilirubin Casts Epithelial Casts Fatty Casts Hyaline Casts (0-2) /LPF Granular Casts Waxy Casts Broad Casts RBC Casts WBC Casts Other Casts Urine Trichomonas Urine Yeast COVID-19 ([facility]RICIA) (Negative) COVID-19 Clin Com 06/18/23 06/18/23 06/18/23 Range/Units 08:17 08:17 08:17 WBC (4.8-10.8) X10*3/uL RBC (4.20-5.50) X10*6/uL Hgb (12.0-16.0) g/dl Hct (37.0-47.0) % MCV (80.0-98.0) fL MCH (27.0-33.0) pg MCHC (31.0-35.0) g/dl RDW (11.0-16.0) % Plt Count (160-400) X10*3/uL MPV (9.4-12.3) fL Immature Gran % (Auto) (0.0-0.4) % Neut % (Auto) (45-73) % Lymph % (Auto) (20-40) % [place] % (Auto) (2-11) % Eos % (Auto) (0-4) % Baso % (Auto) (0-2) % Lymph # (Auto) (1.2-4.9) X10*3/uL [place] # (Auto) (0.1-1.2) X10*3/uL Eos # (Auto) (0.0-0.4) X10*3/uL Baso # (Auto) (0.0-0.2) X10*3/uL Abs Immat Gran (auto) (0.00-0.03) X10*3/uL Absolute Neuts (auto) (2.0-8.3) x10*3/uL Absolute Nucleated RBC (0.0-0.012) X10*3/uL Nucleated RBC % (auto) (0.0-0.2) /100WBC Sodium (135-145) mmol/L Potassium (3.3-5.1) mmol/L Chloride (96-108) mmol/L Carbon Dioxide (22-29) mmol/L Anion Gap (12-20) BUN (9-16) mg/dL Creatinine (0.5-1.4) mg/dL Estim Creat Clear Calc Estimated GFR POC Glucose (60-115) mg/dL Random Glucose (60-115) mg/dL Calcium (8.4-10.2) mg/dL Total Bilirubin (0.0-1.0) mg/dL Direct Bilirubin (0.0-0.5) mg/dL AST (5-31) U/L ALT (0-31) U/L Alkaline Phosphatase (39-117) U/L Troponin I High Sens (<3.5-17.0) ng/L Total Protein (6.5-8.0) g/dL Albumin (3.5-5.0) g/dL Urine Color Urine Appearance Urine pH (5.0-9.0) Ur Specific [place] (1.005-1.025) Urine Protein (Neg-Trace) mg/dL Urine Glucose (UA) (Negative) mg/dL Urine Ketones Cancelled (Negative) mg/dL Urine Blood Negative Cancelled (Negative) Urine Nitrite Negative Cancelled (Negative) Ur Leukocyte Esterase Negative (Negative) Urine RBC (0-2) /HPF Urine WBC (0-5) /HPF Urine WBC Clumps Ur Squamous Epith Cells (0-2) /HPF Ur Transition Epith Cell Ur Renal Epithelial Cell Calcium Oxalate Crystal Leucine Crystals Cystine Crystals Tyrosine Crystals Other Crystals Urine Bacteria (None Seen) Urine Parasites Bilirubin Casts Epithelial Casts Fatty Casts Hyaline Casts (0-2) /LPF Granular Casts Waxy Casts Broad Casts RBC Casts WBC Casts Other Casts Urine Trichomonas Urine Yeast COVID-19 ([facility]RICIA) (Negative) COVID-19 Clin Com 06/18/23 06/18/23 06/18/23 Range/Units 08:17 08:17 08:17 WBC (4.8-10.8) X10*3/uL RBC (4.20-5.50) X10*6/uL Hgb (12.0-16.0) g/dl Hct (37.0-47.0) % MCV (80.0-98.0) fL MCH (27.0-33.0) pg MCHC (31.0-35.0) g/dl RDW (11.0-16.0) % Plt Count (160-400) X10*3/uL MPV (9.4-12.3) fL Immature Gran % (Auto) (0.0-0.4) % Neut % (Auto) (45-73) % Lymph % (Auto) (20-40) % [place] % (Auto) (2-11) % Eos % (Auto) (0-4) % Baso % (Auto) (0-2) % Lymph # (Auto) (1.2-4.9) X10*3/uL [place] # (Auto) (0.1-1.2) X10*3/uL Eos # (Auto) (0.0-0.4) X10*3/uL Baso # (Auto) (0.0-0.2) X10*3/uL Abs Immat Gran (auto) (0.00-0.03) X10*3/uL Absolute Neuts (auto) (2.0-8.3) x10*3/uL Absolute Nucleated RBC (0.0-0.012) X10*3/uL Nucleated RBC % (auto) (0.0-0.2) /100WBC Sodium (135-145) mmol/L Potassium (3.3-5.1) mmol/L Chloride (96-108) mmol/L Carbon Dioxide (22-29) mmol/L Anion Gap (12-20) BUN (9-16) mg/dL Creatinine (0.5-1.4) mg/dL Estim Creat Clear Calc Estimated GFR POC Glucose (60-115) mg/dL Random Glucose (60-115) mg/dL Calcium (8.4-10.2) mg/dL Total Bilirubin (0.0-1.0) mg/dL Direct Bilirubin (0.0-0.5) mg/dL AST (5-31) U/L ALT (0-31) U/L Alkaline Phosphatase (39-117) U/L Troponin I High Sens (<3.5-17.0) ng/L Total Protein (6.5-8.0) g/dL Albumin (3.5-5.0) g/dL Urine Color Urine Appearance Urine pH (5.0-9.0) Ur Specific [place] (1.005-1.025) Urine Protein (Neg-Trace) mg/dL Urine Glucose (UA) (Negative) mg/dL Urine Ketones (Negative) mg/dL Urine Blood (Negative) Urine Nitrite (Negative) Ur Leukocyte Esterase Cancelled (Negative) Urine RBC 0-2 Cancelled (0-2) /HPF Urine WBC 6-10 H Cancelled (0-5) /HPF Urine WBC Clumps Cancelled Ur Squamous Epith Cells 3-5 (0-2) /HPF Ur Transition Epith Cell Ur Renal Epithelial Cell Calcium Oxalate Crystal Leucine Crystals Cystine Crystals Tyrosine Crystals Other Crystals Urine Bacteria (None Seen) Urine Parasites Bilirubin Casts Epithelial Casts Fatty Casts Hyaline Casts (0-2) /LPF Granular Casts Waxy Casts Broad Casts RBC Casts WBC Casts Other Casts Urine Trichomonas Urine Yeast COVID-19 ([facility]) (Negative) COVID-19 Clin Com 06/18/23 06/18/23 06/18/23 Range/Units 08:17 08:17 08:17 WBC (4.8-10.8) X10*3/uL RBC (4.20-5.50) X10*6/uL Hgb (12.0-16.0) g/dl Hct (37.0-47.0) % MCV (80.0-98.0) fL MCH (27.0-33.0) pg MCHC (31.0-35.0) g/dl RDW (11.0-16.0) % Plt Count (160-400) X10*3/uL MPV (9.4-12.3) fL Immature Gran % (Auto) (0.0-0.4) % Neut % (Auto) (45-73) % Lymph % (Auto) (20-40) % [place] % (Auto) (2-11) % Eos % (Auto) (0-4) % Baso % (Auto) (0-2) % Lymph # (Auto) (1.2-4.9) X10*3/uL [place] # (Auto) (0.1-1.2) X10*3/uL Eos # (Auto) (0.0-0.4) X10*3/uL Baso # (Auto) (0.0-0.2) X10*3/uL Abs Immat Gran (auto) (0.00-0.03) X10*3/uL Absolute Neuts (auto) (2.0-8.3) x10*3/uL Absolute Nucleated RBC (0.0-0.012) X10*3/uL Nucleated RBC % (auto) (0.0-0.2) /100WBC Sodium (135-145) mmol/L Potassium (3.3-5.1) mmol/L Chloride (96-108) mmol/L Carbon Dioxide (22-29) mmol/L Anion Gap (12-20) BUN (9-16) mg/dL Creatinine (0.5-1.4) mg/dL Estim Creat Clear Calc Estimated GFR POC Glucose (60-115) mg/dL Random Glucose (60-115) mg/dL Calcium (8.4-10.2) mg/dL Total Bilirubin (0.0-1.0) mg/dL Direct Bilirubin (0.0-0.5) mg/dL AST (5-31) U/L ALT (0-31) U/L Alkaline Phosphatase (39-117) U/L Troponin I High Sens (<3.5-17.0) ng/L Total Protein (6.5-8.0) g/dL Albumin (3.5-5.0) g/dL Urine Color Urine Appearance Urine pH (5.0-9.0) Ur Specific [place] (1.005-1.025) Urine Protein (Neg-Trace) mg/dL Urine Glucose (UA) (Negative) mg/dL Urine Ketones (Negative) mg/dL Urine Blood (Negative) Urine Nitrite (Negative) Ur Leukocyte Esterase (Negative) Urine RBC (0-2) /HPF Urine WBC (0-5) /HPF Urine WBC Clumps Ur Squamous Epith Cells Cancelled (0-2) /HPF Ur Transition Epith Cell Cancelled Ur Renal Epithelial Cell Cancelled Calcium Oxalate Crystal Cancelled Leucine Crystals Cancelled Cystine Crystals Cancelled Tyrosine Crystals Cancelled Other Crystals Cancelled Urine Bacteria None Seen Cancelled (None Seen) Urine Parasites Cancelled Bilirubin Casts Cancelled Epithelial Casts Cancelled Fatty Casts Cancelled Hyaline Casts 0-2 Cancelled (0-2) /LPF Granular Casts Cancelled Waxy Casts Cancelled Broad Casts Cancelled RBC Casts Cancelled WBC Casts Cancelled Other Casts Cancelled Urine Trichomonas Cancelled Urine Yeast Cancelled COVID-19 ([facility]RICIA) Negative (Negative) COVID-19 Clin Com See Note 06/18/23 Range/Units 09:00 WBC (4.8-10.8) X10*3/uL RBC (4.20-5.50) X10*6/uL Hgb (12.0-16.0) g/dl Hct (37.0-47.0) % MCV (80.0-98.0) fL MCH (27.0-33.0) pg MCHC (31.0-35.0) g/dl RDW (11.0-16.0) % Plt Count (160-400) X10*3/uL MPV (9.4-12.3) fL Immature Gran % (Auto) (0.0-0.4) % Neut % (Auto) (45-73) % Lymph % (Auto) (20-40) % [place] % (Auto) (2-11) % Eos % (Auto) (0-4) % Baso % (Auto) (0-2) % Lymph # (Auto) (1.2-4.9) X10*3/uL [place] # (Auto) (0.1-1.2) X10*3/uL Eos # (Auto) (0.0-0.4) X10*3/uL Baso # (Auto) (0.0-0.2) X10*3/uL Abs Immat Gran (auto) (0.00-0.03) X10*3/uL Absolute Neuts (auto) (2.0-8.3) x10*3/uL Absolute Nucleated RBC (0.0-0.012) X10*3/uL Nucleated RBC % (auto) (0.0-0.2) /100WBC Sodium (135-145) mmol/L Potassium (3.3-5.1) mmol/L Chloride (96-108) mmol/L Carbon Dioxide (22-29) mmol/L Anion Gap (12-20) BUN (9-16) mg/dL Creatinine (0.5-1.4) mg/dL Estim Creat Clear Calc Estimated GFR POC Glucose 378 H* (60-115) mg/dL Random Glucose (60-115) mg/dL Calcium (8.4-10.2) mg/dL Total Bilirubin (0.0-1.0) mg/dL Direct Bilirubin (0.0-0.5) mg/dL AST (5-31) U/L ALT (0-31) U/L Alkaline Phosphatase (39-117) U/L Troponin I High Sens (<3.5-17.0) ng/L Total Protein (6.5-8.0) g/dL Albumin (3.5-5.0) g/dL Urine Color Urine Appearance Urine pH (5.0-9.0) Ur Specific [place] (1.005-1.025) Urine Protein (Neg-Trace) mg/dL Urine Glucose (UA) (Negative) mg/dL Urine Ketones (Negative) mg/dL Urine Blood (Negative) Urine Nitrite (Negative) Ur Leukocyte Esterase (Negative) Urine RBC (0-2) /HPF Urine WBC (0-5) /HPF Urine WBC Clumps Ur Squamous Epith Cells (0-2) /HPF Ur Transition Epith Cell Ur Renal Epithelial Cell Calcium Oxalate Crystal Leucine Crystals Cystine Crystals Tyrosine Crystals Other Crystals Urine Bacteria (None Seen) Urine Parasites Bilirubin Casts Epithelial Casts Fatty Casts Hyaline Casts (0-2) /LPF Granular Casts Waxy Casts Broad Casts RBC Casts WBC Casts Other Casts Urine Trichomonas Urine Yeast COVID-19 ([facility]) (Negative) COVID-19 Clin Com Discharge Plan Discharge Clinical Impression: Blurring of vision, Diabetes mellitus with hyperglycemia Patient Disposition: Left Against Medical Advice Instructions: Blurred Vision (ED), Diabetic Hyperglycemia (ED) Additional Instructions: Take your insulin return to the hospital for further management Prescriptions: No Action (DME) pen needle, diabetic [BD Ultra-Fine Maria Elena Pen Needle] 32 gauge x 5/32 needle See Rx Instructions .ROUTE .MEDSUPPLY Qty: 100 12RF Rx Instructions: As directed 4 times a day PNV [id number] fumarate-FA [] 28 mg iron- 800 mcg tablet 1 tab PO DAILY Qty: 30 0RF (DME) FreeStyle Lite Strips Strip See Rx Instructions Not Applicable QID Qty: 10 Rx Instructions: As directed insulin lispro [Humalog KwikPen Insulin] 100 unit/mL insulin pen See Rx Instructions .ROUTE .COMPLEX Qty: 15 12RF Rx Instructions: 2 to 14 units SQ TID with meals per sliding scale; insulin glargine 100 unit/mL (3 mL) insulin pen See Rx Instructions .ROUTE .COMPLEX Qty: 15 12RF Rx Instructions: Take 16 units SQ in AM and 14 units SQ in PM; albuterol sulfate [ProAir HFA] 90 mcg/actuation HFA aerosol inhaler 2 puff inhalation Q6H PRN (Reason: shortness of breath or wheezing) 30 Days Qty: 18 5RF (DME) FreeStyle Lite Strips Strip See Rx Instructions .ROUTE .MEDSUPPLY Qty: 120 12RF Rx Instructions: As directed 4 times a day - is on insulin with meals and is Stand Alone Forms: Against Medical Advice Interventions: ED Discharge Assessment Last Done: 06/18/23 09:17 Discharge Date/Time: 06/18/23 09:18
[2023-06-18 07:56] LABS: Alanine Aminotransferase 9 U/L (0-31); Albumin Level 4.1 g/dL (3.5-5.0); Alkaline Phosphatase 142 U/L (39-117); Anion Gap 16 (12-20); Aspartate Amino Transferase 9 U/L (5-31); Bilirubin Direct 0.1 mg/dL (0.0-0.5); Bilirubin Total 0.3 mg/dL (0.0-1.0); Blood Urea Nitrogen 14 mg/dL (9-16); Calcium 9.4 mg/dL (8.4-10.2); Carbon Dioxide 22 mmol/L (22-29); Chloride 98 mmol/L (96-108); Creatinine Clr Calc Pharmacy 81.6; Estimated Glomerular Filt Rate > 60; Potassium 5.1 mmol/L (3.3-5.1); Sodium 131 mmol/L (135-145); Total Protein 7.5 g/dL (6.5-8.0); Troponin-I High Sensitivity < 2.7 ng/L (<3.5-17.0)
[2023-06-18 07:58] LABS: Glucose Random 573 mg/dL (60-115)
[2023-06-18 08:00] LABS: Glucose, Whole Blood 491 mg/dL (60-115)
[2023-06-18] MEDS: 0.9 % Sodium Chloride 1,000 ML 999 ML IV (08:15)
[2023-06-18] MEDS: Fluorescein Sodium STRIP 1 STRIP EYE-LEFT (08:15)
[2023-06-18 08:24] LABS: Appearance Urine Clear; Color Urine Yellow; Glucose Urine UA >=1000 mg/dL (Negative); Leukocyte Esterase Urine Negative (Negative); Nitrite Urine Negative (Negative); PH 5.5 (5.0-9.0); Specific Gravity - Urine >= 1.030 (1.005-1.025); UMIC TRIGGER UACC YES; Urine Blood Negative (Negative); Urine Ketones 40 mg/dL (Negative); Urine Protein Negative (Neg-Trace)
[2023-06-18 08:26] LABS: Bacteria Urine None Seen (None Seen); Hyaline Casts Urine 0-2 /LPF (0-2); RBC Urine 0-2 /HPF (0-2); UACC Culture Trigger YES
[2023-06-18 09:06] LABS: Glucose, Whole Blood 378 mg/dL (60-115)
--- NOTE | 2023-06-18 09:16 | PC.NURSE ---
patient received 1L of normal saline, rechecked sugar. patient upset with care, refused insulin and stating that she will just follow up with her primary care provider. IV removed, ambulating with strong, independent gait. speaking in full clear sentences.
[2023-06-18 09:23] LABS: COVID-19 Test Negative (Negative); IDNOW Serial# 152EDE1D
== END 2023-06-18 09:18 | disposition left against medical advice (07) ==
PROVIDERS: Emergency Medicine; Emergency Provider Internal Medicine; PCP Internal Medicine
DX: H53.8 Other visual disturbances (principal); E11.65 Type 2 diabetes mellitus with hyperglycemia; Z11.52 Encounter for screening for COVID-19; R05.9 Cough, unspecified; Z79.4 Long term (current) use of insulin; Z90.49 Acquired absence of other specified parts of digestive tract; Z53.29 Procedure and treatment not carried out because of patient's decision for other reasons
CPT/HCPCS: 36415; 80048; 80076; 81001; 82947; 84484; 85025; 87086; 87147; 87635; 93005; 99283; 99284

== ENCOUNTER → 2023-06-18 07:02 | Outpatient (BNV) | payer OTHER, SELFPAY | PROVIDERS: Emergency Provider Internal Medicine; PCP Internal Medicine; Visit Provider Internal Medicine Cardiovascular Disease | DX: R07.9 Chest pain, unspecified (principal) | CPT/HCPCS: 93010 ==

== ENCOUNTER 2023-06-20 09:04 | Outpatient (AMB) | payer OTHER, SELFPAY ==
[2023-06-20 09:05] VITALS: BP 110/72; PULSE 98; TEMP 36.6; O2SAT 98; BMI 28.8
--- NOTE | 2023-06-20 09:05 | MHC.OFFWIV ---
Intake Vital Signs 06/20/23 09:05 Height 5 ft 5 in Weight 173 lb BMI 28.8 BP 110/72 Blood Pressure Location Lt brachial Position Sitting Pulse 98 Pulse Source Pulse Oximeter Temp 97.9 F Temp Source Temporal Artery Scan Pulse Oximetry (%) 98 Oxygen Delivery Method Room Air Intake Visit Reasons: EP eye infection/pain [phone] Intake Note: pt is here today for eye infection pain started Vision screening LFT: RT: Both: Patient Tobacco Use Status: Current everyday Tobacco user Allergies sulfamethoxazole [From BACTRIM] Allergy (Severe, Verified 06/20/23 09:06) FACIAL SWELLING trimethoprim [From BACTRIM] Allergy (Severe, Verified 06/20/23 09:06) FACIAL SWELLING docusate Allergy (Unknown, Verified 06/20/23 09:06) swelling Sulfa (Sulfonamide Antibiotics) Allergy (Unknown, Verified 06/20/23 09:06) swelling, facial swelling Stool Softener Allergy (Unknown, Uncoded 11/03/22 20:06) facial swelling STOOL SOFTENERS Allergy (Unknown, Uncoded 11/03/22 20:06) FACIAL SWELLING Do you need a note to return to daycare/school/sports/work: No HPI HPI Comments History of Present Illness Details Patient presents to the walk-in today for sick visit Complaining of left eye irritation for last 4 days, she was seen in the emergency room for this 3 days ago but left against medical advice prior to completion of treatment She reports having stain to the eye and pressure test to the eye in the emergency room both normal She reports the symptoms are unchanged since the ER visit aside from some worsening crusty drainage in the mornings Denies trauma to the eye or foreign body sensation. Endorses discomfort and crusty drainage left eye Patient denies pain with eye movement. Endorses upper respiratory symptoms last week and tenderness over her sinuses today [facility] Medical History Blurring of vision Asthma Obesity (BMI 30-39.9) Neuropathy involving both lower extremities Diabetes mellitus Diabetes mellitus, with long-term current use of insulin Surgical History Hx laparoscopic cholecystectomy No significant past surgical history Family History Mother COPD (chronic obstructive pulmonary disease) Father High blood pressure Maternal Grandmother Breast cancer Maternal Aunt Uterine cancer Social History Housing: House Alcohol intake: former Patient Tobacco Use Status: Current everyday Tobacco user Cigarettes Per Day: 10 e-Cigarette/Vaping Use: Never Used service: No Current occupational status: unemployed Cognitive needs: No Hearing needs: No Vision needs: No Female Reproductive History Menstrual Age of Menarche: 10 Review of Systems Const All systems reviewed & are unremarkable except as noted in HPI and below Physical Exam Vital Signs: Last Vital Signs Temp 97.9 F 06/20/23 09:05 Pulse 98 06/20/23 09:05 BP 110/72 06/20/23 09:05 Pulse Ox 98 06/20/23 09:05 Oxygen Delivery Method Room Air 06/20/23 09:05 BMI result Body Mass Index 28.8 General: awake, alert, oriented. Answers questions appropriately. Fully engaged in examination. Skin: warm, dry, intact. No redness, swelling, rashes or lesions noted to face HEENT: Normocephalic. Hearing intact. left eye: + conjunctival injection, green crust noted lash line. PERRL, EOM intact. Tenderness over frontal and maxillary sinuses, more prominent on the left TMs intact bilaterally, without erythema. Cardiac: External chest normal in appearance. Respiratory: No cough, audible wheezing or stridor. Abdomen: without gross distension. MS: No obvious swelling or deformities. Neurological: Oriented to person, place, time and situation. Thought process intact. Psychiatric: Appropriate mood and affect. Good judgment and insight. Assessment & Plan Assessment & Plan (1) Sinusitis: Code(s): J32.9 - Chronic sinusitis, unspecified (2) Conjunctivitis: Code(s): H10.9 - Unspecified conjunctivitis Plan Amoxicillin 500mg po TID X 7 days Erythromycin ophthalmic, 0.5inches to left eye twice daily Follow up with pcp or in clinic for any new or worsening symptoms. Go to ER for any changes vision, worsening pain, shortness of breath, chest pain, palpitations, weakness, dizziness. Medications: New erythromycin 0.5 inches ophthalmic (eye) BID 3.5 grams 0RF amoxicillin 500 mg PO TID 7 days 21 caps 0RF Coding Level of Care Code Est Pt Level 3 (53365) Diagnoses Sinusitis J32.9 Conjunctivitis H10.9
== END 2023-06-20 12:19 | disposition home or self-care (01) ==
PROVIDERS: PCP Internal Medicine; Visit Provider Registered Nurse Emergency
DX: J32.9 Chronic sinusitis, unspecified (principal); H10.9 Unspecified conjunctivitis
CPT/HCPCS: 99213

== ENCOUNTER 2023-08-08 18:32 | Emergency (ER) | payer OTHER, SELFPAY ==
--- NOTE | ~2023-08-08 | CT_ITS ---
EXAMINATION: CT HEAD WITHOUT CONTRAST CLINICAL INFORMATION: Dizziness. COMPARISON: No relevant prior imaging. TECHNIQUE: Contiguous axial imaging was performed from the skull base to vertex without intravenous administration of contrast. This CT examination was performed using dose optimization techniques as appropriate, variously including the following: *Automated exposure control *Adjustment of mA and/or kV according to patient size (this includes techniques or standardized protocols for targeted exams where dose is matched to indication/reason for exam; i.e. extremities or head) *Use of iterative reconstruction technique DLP: 525 mGy-cm FINDINGS: There is no acute intracranial hemorrhage or abnormal extra axial collection. No intracranial mass effect or midline shift. Lateral and third ventricles are normal. No hydrocephalus. Song-white matter differentiation is preserved and there is no evidence of acute territorial infarct. The calvarium and skull base are intact. Mastoid air cells and middle ear cavities are well aerated. The left frontal sinus is nearly completely opacified. CT/CT head/brain wo IV con IMPRESSION: Unremarkable CT scan of the head. No evidence of acute territorial infarct or hemorrhage.
[2023-08-08 18:53] VITALS: BP 129/90; PULSE 108; RESP 20; TEMP 36.6; O2SAT 98; BMI 33.2
--- NOTE | 2023-08-08 18:56 | ECG_ITS ---
Test Reason : DIZZINESS Blood Pressure : / mmHG Vent. Rate : 098 BPM Atrial Rate : 098 BPM P-R Int : 146 ms QRS Dur : 084 ms QT Int : 370 ms P-R-T Axes : 017 013 017 degrees QTc Int : 472 ms Normal sinus rhythm Normal ECG When compared with ECG of 18-JUN-2023 06:47, T wave amplitude has decreased in Anterior leads Referred By: Clint Diaz Electronically Signed By:Juan Carlos Rucker
--- NOTE | 2023-08-08 19:01 | ED.GENADULT ---
HPI - General Adult General Chief complaint: Headache Stated complaint: dizziness severe headache Time Seen by Provider: 08/08/23 21:23 History of Present Illness HPI narrative: The patient is a 33-year-old woman with a history of type 2 diabetes. She says that she felt fine yesterday but this morning woke up feeling unwell. She woke up with a sense of discomfort in her forehead that she says did not feel like a typical headache. She tried to go about her day but felt dizzy. She was cooking and her symptoms worsened. She has been nauseated but has not vomited. She has never had an episode like this before. She does not think she has had a fever. Nothing unusual over the weekend. Related Data Home Medications ?Medication ?Instructions ?Recorded ?Confirmed blood sugar diagnostic #10 ea 08/01/20 11/03/22 Previous Rx's ?Medication ?Instructions ?Recorded pen needle, diabetic 32 gauge x #100 ea 03/24/22 (BD Ultra-Fine Maria Elena Pen Needle) vit no.95-ferrous 1 tab PO DAILY #30 tabs 06/26/22 fumarate 28 mg-folic acid 800 mcg tablet () insulin glargine 100 unit/mL (3 See Rx Instructions .Route 08/03/22 mL) subcutaneous pen .COMPLEX #15 mL albuterol sulfate 90 mcg/actuation 2 puff inhalation Q6H PRN 08/04/22 aerosol inhaler (ProAir HFA) shortness of breath or wheezing 30 days #18 grams blood sugar diagnostic (FreeStyle #120 ea 09/14/22 Lite Strips) amoxicillin 500 mg capsule 500 mg PO TID 7 days #21 caps 06/20/23 erythromycin 5 mg/gram (0.5 %) eye 0.5 inch ophthalmic (eye) BID #3.5 06/20/23 ointment grams insulin lispro 100 unit/mL See Rx Instructions .Route 08/01/23 subcutaneous pen (Humalog KwikPen .COMPLEX #15 mL (U-100) Insulin) Allergies Allergy/AdvReac Type Severity Reaction Status Date / Time sulfamethoxazole Allergy Severe FACIAL Verified 08/08/23 18:55 [From BACTRIM] SWELLING trimethoprim [From BACTRIM] Allergy Severe FACIAL Verified 08/08/23 18:55 SWELLING docusate Allergy Unknown swelling Verified 04/08/24 18:55 Sulfa (Sulfonamide Allergy Unknown swelling, Verified 08/08/23 18:55 Antibiotics) facial swelling Stool Softener Allergy Unknown facial Uncoded 11/03/22 20:06 swelling STOOL SOFTENERS Allergy Unknown FACIAL Uncoded 11/03/22 20:06 SWELLING Review of Systems Review of Systems: Yes all other systems are reviewed and are negative [facility] Past Medical History Medical History Blurring of vision Asthma Obesity (BMI 30-39.9) Neuropathy involving both lower extremities Diabetes mellitus Diabetes mellitus, with long-term current use of insulin Surgical History Hx laparoscopic cholecystectomy No significant past surgical history Family History Family History Mother COPD (chronic obstructive pulmonary disease) Father High blood pressure Maternal Grandmother Breast cancer Maternal Aunt Uterine cancer Social History Social History Housing: House Alcohol intake: former Patient Tobacco Use Status: Current everyday Tobacco user Cigarettes Per Day: 10 Smoked in Last 30 Days: Yes e-Cigarette/Vaping Use: Never Used Use of substances other than those prescribed or required for medical reasons: No Advance Directives: No Advance Directives Information Provided: No Patient : No service: No Current occupational status: unemployed Cognitive needs: No Hearing needs: No Vision needs: No Physical Exam ED Vital Signs: Vital Signs - 24 hr 08/08/23 23:15 08/09/23 01:53 Temperature 97.8 F 98 F Pulse Rate 80 68 Respiratory Rate 16 16 Blood Pressure 104/65 106/68 Pulse Oximetry 97 99 Oxygen Delivery Method Room Air Room Air BMI result Body Mass Index 33.2 Const Other: The patient is awake and alert. She looks mildly unwell but not acutely toxic at all. She is pleasant cooperative. HENMT Other: Face is symmetrical. Mucous membranes moist. Eyes Other: Pupils are round equal, conjunctivae are clear, extraocular movements intact. Neck Other: The neck is supple. No adenopathy. Resp Effort & Inspection: normal respiratory effort Auscultation: clear to auscultation bilaterally Cardio Rate: regular rate Rhythm: regular rhythm Heart sounds: S1 normal heart sound present and S2 normal heart sound present GI Other: Abdomen is soft and nontender Skin Other: Skin is dry and unremarkable Neuro Other: The patient is awake and alert with a normal mental status. Cranial nerves are grossly intact. She moves all 4 extremities normally. She seems grossly neurologically intact and has a supple neck. Extrem Other: No peripheral edema, no calf swelling or tenderness Course Course Course Narrative: RME: 33-year-old female diabetic presents to the ED for lightheadedness and dizziness described as the room is spinning with nausea. Patient denies any chest pain or shortness of breath. POC to 294. Neuro exam intact. Labs imaging ordered. Medications Administered Discontinued Medications Generic Name Dose Route Start Last Admin Trade Name Freq PRN Reason Stop Dose Admin Diphenhydramine HCl 25 mg 08/08/23 21:33 08/08/23 21:52 Diphenhydramine Hcl 50 Mg/Ml Vial IVPUSH 08/08/23 21:34 25 mg ONCE ONE Administration Sodium Chloride 1,000 mls @ 999 mls/hr 08/08/23 21:45 08/08/23 22:55 Ns IV 08/08/23 22:45 Infused .Q1H1M YUNI Infusion Ketorolac Tromethamine 10 mg 08/08/23 21:33 08/08/23 21:50 Ketorolac Tromethamine 15 Mg/Ml Vial IVPUSH 08/08/23 21:34 10 mg ONCE ONE Administration Metoclopramide HCl 10 mg 08/08/23 21:33 08/08/23 21:52 Metoclopramide Hcl 10 Mg/2 Ml Vial IVPUSH 08/08/23 21:34 10 mg ONCE ONE Administration Medical Decision Making Medical Decision Making [facility] Narrative: The patient is a 33-year-old who presents with a frontal headache. She has a normal mental status. She has a supple neck. She has not had a fever. She is somewhat photophobic. My overall impression is that the patient does not seem toxic and that presentation seems potentially consistent with a migraine type headache. A CT scan of the head and labs have been ordered at triage. The CT scan of the head is negative. A CBC shows a white count of 12.4. She has a lymphocytosis with 42% lymphocytes and 48% neutrophils. Her viral swab was negative for COVID, the flu, and RSV. CRP is slightly elevated at 1.1. ESR is elevated at 27. The patient was treated with ketorolac, diphenhydramine, and metoclopramide and IV fluids. She fell asleep and slept quite soundly for awhile. When she woke up she was feeling somewhat better. I think she may be discharged. She should rest at home. She should follow up with her regular doctor or return to the ER if significantly worse. Lab Data 08/08/23 19:14 08/08/23 19:14 Labs: Lab Results 08/08/23 08/08/23 08/08/23 Range/Units 18:59 19:14 21:48 WBC 12.2 H (4.8-10.8) X10*3/uL RBC 4.81 (4.20-5.50) X10*6/uL Hgb 13.7 (12.0-16.0) g/dl Hct 39.9 (37.0-47.0) % MCV 83.0 (80.0-98.0) fL MCH 28.5 (27.0-33.0) pg MCHC 34.3 (31.0-35.0) g/dl RDW 14.8 (11.0-16.0) % Plt Count 349 (160-400) X10*3/uL MPV 10.4 (9.4-12.3) fL Immature Gran % (Auto) 0.2 (0.0-0.4) % Neut % (Auto) 47.9 (45-73) % Lymph % (Auto) 42.6 H (20-40) % [place] % (Auto) 6.0 (2-11) % Eos % (Auto) 2.6 (0-4) % Baso % (Auto) 0.7 (0-2) % Lymph # (Auto) 5.2 H (1.2-4.9) X10*3/uL [place] # (Auto) 0.7 (0.1-1.2) X10*3/uL Eos # (Auto) 0.3 (0.0-0.4) X10*3/uL Baso # (Auto) 0.1 (0.0-0.2) X10*3/uL Abs Immat Gran (auto) 0.03 (0.00-0.03) X10*3/uL Absolute Neuts (auto) 5.8 (2.0-8.3) x10*3/uL Absolute Nucleated RBC 0.000 (0.0-0.012) X10*3/uL Nucleated RBC % (auto) 0.0 (0.0-0.2) /100WBC Smear Tech's Comments VERIFIED ESR 27 H (0-20) MM/HR Sodium 137 (135-145) mmol/L Potassium 3.5 D (3.3-5.1) mmol/L Chloride 100 (96-108) mmol/L Carbon Dioxide 28 (22-29) mmol/L Anion Gap 13 (12-20) BUN 11 (9-16) mg/dL Creatinine 1.09 (0.5-1.4) mg/dL Estim Creat Clear Calc 66.0 Estimated GFR 57 POC Glucose 294 H (60-115) mg/dL Random Glucose 280 H (60-115) mg/dL Calcium 9.8 (8.4-10.2) mg/dL Total Bilirubin 0.2 (0.0-1.0) mg/dL AST 11 (5-31) U/L ALT 9 (0-31) U/L Alkaline Phosphatase 126 H (39-117) U/L Troponin I High Sens < 2.7 (<3.5-17.0) ng/L C-Reactive Protein 1.10 H (< or = 0.50) mg/dL Total Protein 7.9 (6.5-8.0) g/dL Albumin 4.3 (3.5-5.0) g/dL Beta-Hydroxybutyrate 0.17 (0.02-0.27) mmol/L Beta HCG, Quant < 2 mIU/mL Influenza Type A (PCR) NEGATIVE (Negative) Influenza Type B (PCR) NEGATIVE (Negative) RSV RNA Qual (PCR) NEGATIVE (Negative) SARS-CoV-2 RNA (RT-PCR) NEGATIVE (Negative) Independent Interpretation I performed an independent interpretation of an: EKG Interpretation: EKG at 19:40 shows normal sinus rhythm at 98 beats per minute. No definite acute ischemic changes. Discharge Plan Discharge Clinical Impression: Headache, Dizziness Patient Disposition: Home, Self-Care Additional Instructions: Your testing in the emergency room is reassuring from the point of view of an acutely dangerous process. Please rest and take it easy tonight. You may use ibuprofen and acetaminophen as needed for ongoing discomfort tomorrow if necessary. Please plan on following up with your regular doctor. Return to the emergency room if significantly worse. Prescriptions: No Action (DME) pen needle, diabetic [BD Ultra-Fine Maria Elena Pen Needle] 32 gauge x 5/32 needle See Rx Instructions .ROUTE .MEDSUPPLY Qty: 100 12RF Rx Instructions: As directed 4 times a day insulin lispro [Humalog KwikPen Insulin] 100 unit/mL insulin pen See Rx Instructions .ROUTE .COMPLEX Qty: 15 12RF Rx Instructions: 2 to 14 units SQ TID with meals per sliding scale; PNV cmb#95-ferrous fumarate-FA [] 28 mg iron- 800 mcg tablet 1 tab PO DAILY Qty: 30 0RF (DME) FreeStyle Lite Strips Strip See Rx Instructions Not Applicable QID Qty: 10 Rx Instructions: As directed insulin glargine 100 unit/mL (3 mL) insulin pen See Rx Instructions .ROUTE .COMPLEX Qty: 15 12RF Rx Instructions: Take 16 units SQ in AM and 14 units SQ in PM; albuterol sulfate [ProAir HFA] 90 mcg/actuation HFA aerosol inhaler 2 puff inhalation Q6H PRN (Reason: shortness of breath or wheezing) 30 Days Qty: 18 5RF (DME) FreeStyle Lite Strips Strip See Rx Instructions .ROUTE .MEDSUPPLY Qty: 120 12RF Rx Instructions: As directed 4 times a day - is on insulin with meals and is erythromycin 5 mg/gram (0.5 %) ointment 0.5 inch ophthalmic (eye) BID Qty: 3.5 0RF amoxicillin 500 mg capsule 500 mg PO TID 7 Days Qty: 21 0RF Interventions: ED Discharge Assessment Last Done: 08/09/23 01:53 Discharge Date/Time: 08/09/23 01:54 Print Language: Telugu
[2023-08-08 19:04] LABS: Glucose, Whole Blood 294 mg/dL (60-115)
[2023-08-08 19:20] LABS: Basophils Absolute Auto 0.1 X10*3/uL (0.0-0.2); Basophils Percent Auto 0.7 % (0-2); Eosinophils Absolute Auto 0.3 X10*3/uL (0.0-0.4); Eosinophils Percent Auto 2.6 % (0-4); Hematocrit 39.9 % (37.0-47.0); Hemoglobin 13.7 g/dl (12.0-16.0); Imm Gran Abs Auto 0.03 X10*3/uL (0.00-0.03); Imm Gran Pct Auto 0.2 % (0.0-0.4); Lymphocytes Absolute Auto 5.2 X10*3/uL (1.2-4.9); Lymphocytes Percent Auto 42.6 % (20-40); MANUAL DIFF FLAG SCAN; Mean Corpuscular HGB Conc 34.3 g/dl (31.0-35.0); Mean Corpuscular Hemoglobin 28.5 pg (27.0-33.0); Mean Platelet Volume 10.4 fL (9.4-12.3); Monocytes Absolute Auto 0.7 X10*3/uL (0.1-1.2); Neutrophils Absolute Auto 5.8 x10*3/uL (2.0-8.3); Neutrophils Percent Auto 47.9 % (45-73); Platelet Count 349 X10*3/uL (160-400); Red Blood Count 4.81 X10*6/uL (4.20-5.50); Red Cell Distribution Width 14.8 % (11.0-16.0); SCAN SMEAR FLAG 1; White Blood Count 12.2 X10*3/uL (4.8-10.8)
[2023-08-08 19:34] LABS: Beta-Hydroxybutyrate 0.17 mmol/L (0.02-0.27)
[2023-08-08 19:41] LABS: SLIDE REVIEW VERIFIED
[2023-08-08 19:42] LABS: Alanine Aminotransferase 9 U/L (0-31); Albumin Level 4.3 g/dL (3.5-5.0); Alkaline Phosphatase 126 U/L (39-117); Anion Gap 13 (12-20); Aspartate Amino Transferase 11 U/L (5-31); Bilirubin Total 0.2 mg/dL (0.0-1.0); Blood Urea Nitrogen 11 mg/dL (9-16); Calcium 9.8 mg/dL (8.4-10.2); Carbon Dioxide 28 mmol/L (22-29); Chloride 100 mmol/L (96-108); Estimated Glomerular Filt Rate 57; Glucose Random 280 mg/dL (60-115); Potassium 3.5 mmol/L (3.3-5.1); Sodium 137 mmol/L (135-145); Total Protein 7.9 g/dL (6.5-8.0)
[2023-08-08 19:43] LABS: HCG Quantitative < 2 mIU/mL
[2023-08-08 20:12] LABS: Troponin-I High Sensitivity < 2.7 ng/L (<3.5-17.0)
[2023-08-08 21:00] VITALS: BP 130/84; PULSE 96; RESP 14; TEMP 36.7; O2SAT 99
[2023-08-08] MEDS: Ketorolac Tromethamine 15 MG/ML VIAL 10 MG IVPUSH (21:50)
[2023-08-08] MEDS: diphenhydrAMINE HCL 50 MG/ML VIAL 25 MG IVPUSH (21:52)
[2023-08-08] MEDS: Metoclopramide HCl 10 MG/2 ML VIAL IVPUSH (21:52)
[2023-08-08] MEDS: 0.9 % Sodium Chloride 1,000 ML 999 ML IV (21:53)
[2023-08-08 22:17] LABS: Erythrocyte Sedimentation Rate 27 MM/HR (0-20)
[2023-08-08 22:29] LABS: Influenza A PCR NEGATIVE (Negative); Influenza B PCR NEGATIVE (Negative); Resp Syncy Virus RNA Qual PCR NEGATIVE (Negative); SARS COV2 PCR INHOUSE NEGATIVE (Negative)
[2023-08-08 23:15] VITALS: BP 104/65; PULSE 80; RESP 16; TEMP 36.6; O2SAT 97
[2023-08-09 01:53] VITALS: BP 106/68; PULSE 68; RESP 16; TEMP 36.6; O2SAT 99
== END 2023-08-09 01:54 | disposition home or self-care (01) ==
PROVIDERS: Physician Assistant; Emergency Provider Emergency Medicine; PCP Internal Medicine
DX: R51.9 Headache, unspecified (principal); R42 Dizziness and giddiness; E11.9 Type 2 diabetes mellitus without complications; J45.909 Unspecified asthma, uncomplicated
CPT/HCPCS: 0241U; 36415; 70450; 80053; 82010; 82947; 84484; 84702; 85025; 85652; 86140; 93005; 96361; 96374; 96375; 99284; 99285; J1200; J1885; J2765

== ENCOUNTER → 2023-08-08 18:56 | Outpatient (BNV) | payer OTHER, SELFPAY | PROVIDERS: Emergency Provider Emergency Medicine; PCP Internal Medicine; Visit Provider Internal Medicine Cardiovascular Disease | DX: R42 Dizziness and giddiness (principal) | CPT/HCPCS: 93010 ==

== ENCOUNTER 2023-09-18 08:07 | Emergency (ER) | payer OTHER, SELFPAY ==
[2023-09-18 08:18] VITALS: BP 138/82; PULSE 100; RESP 16; TEMP 36.5; O2SAT 99; BMI 32.5
--- NOTE | 2023-09-18 08:20 | ED_ITS ---
HPI - Eye Problem General Chief complaint: Eye Problems Stated complaint: eye pain, no injury Time Seen by Provider: 09/18/23 08:19 Source: patient Mode of arrival: ambulatory Limitations: no limitations History of Present Illness HPI Narrative: 33 yo female with PMH of DM and asthma here with c/o R eye pain and discharge with pain with what sounds like recurrent intermittent painful red eye on L eye initially 1 month ago and now R eye. She has not seen eye doctor and has no autoimmune disease. She denies any other exposures. chief complaint: eye pain and eye redness Onset (ago): day(s) (1) Onset description: gradual Duration: constant Location: right eye Eye Symptoms: redness, pain and discharge Place: home Mechanism: none Severity: moderate If Pain, Quality: aching Context: other (hx of same in left eye) Associated symptoms: headache Treatments Prior to Arrival: none Related Data Home Medications ?Medication ?Instructions ?Recorded ?Confirmed blood sugar diagnostic #10 ea 08/01/20 11/03/22 Previous Rx's ?Medication ?Instructions ?Recorded pen needle, diabetic 32 gauge x #100 ea 03/24/22 (BD Ultra-Fine Maria Elena Pen Needle) vit no.95-ferrous 1 tab PO DAILY #30 tabs 06/26/22 fumarate 28 mg-folic acid 800 mcg tablet () insulin glargine 100 unit/mL (3 See Rx Instructions .Route 08/03/22 mL) subcutaneous pen .COMPLEX #15 mL albuterol sulfate 90 mcg/actuation 2 puff inhalation Q6H PRN 08/04/22 aerosol inhaler (ProAir HFA) shortness of breath or wheezing 30 days #18 grams blood sugar diagnostic (FreeStyle #120 ea 09/14/22 Lite Strips) amoxicillin 500 mg capsule 500 mg PO TID 7 days #21 caps 06/20/23 erythromycin 5 mg/gram (0.5 %) eye 0.5 inch ophthalmic (eye) BID #3.5 06/20/23 ointment grams insulin lispro 100 unit/mL See Rx Instructions .Route 08/01/23 subcutaneous pen (Humalog KwikPen .COMPLEX #15 mL (U-100) Insulin) cyclopentolate 1 % eye drops 1 drp ophthalmic (eye) TID PRN 09/18/23 pain 3 days #2 mL hydrocodone 5 mg-acetaminophen 325 1 tab PO Q6H PRN pain #10 tabs 09/18/23 mg tablet Allergies Allergy/AdvReac Type Severity Reaction Status Date / Time sulfamethoxazole Allergy Severe FACIAL Verified 09/18/23 08:20 [From BACTRIM] SWELLING trimethoprim [From BACTRIM] Allergy Severe FACIAL Verified 09/18/23 08:20 SWELLING docusate Allergy Unknown swelling Verified 09/18/23 08:20 Sulfa (Sulfonamide Allergy Unknown swelling, Verified 09/18/23 08:20 Antibiotics) facial swelling Stool Softener Allergy Unknown facial Uncoded 09/18/23 08:20 swelling STOOL SOFTENERS Allergy Unknown FACIAL Uncoded 09/18/23 08:20 SWELLING Review of Systems Review of Systems: Constitutional : No Fever, No Chills, No Fatigue ENT/Mouth : No sore throat, No Rhinorrhea Eyes: pos Eye Pain, No Swelling, pos Redness Cardiovascular : No Chest Pain, No SOB, No Dyspnea on Exertion Respiratory : No Cough, No Sputum Gastrointestinal : No Nausea, No Vomiting, No Diarrhea, No abdominal Pain Genitourinary : No Dysuria, No Urinary Frequency, No Hematuria, Musculoskeletal : No joint pain, No Myalgias, No Joint Swelling Skin : No Skin Lesions, No rash Neuro : No Weakness, No Numbness, No Dizziness, positive Headache All other systems reviewed and are negative [facility] Past Medical History Attestation statement: The following information was validated with the patient. Source: old records reviewed Medical History Blurring of vision Asthma Obesity (BMI 30-39.9) Neuropathy involving both lower extremities Diabetes mellitus Diabetes mellitus, with long-term current use of insulin Surgical History Hx laparoscopic cholecystectomy No significant past surgical history Family History Family History Mother COPD (chronic obstructive pulmonary disease) Father High blood pressure Maternal Grandmother Breast cancer Maternal Aunt Uterine cancer Social History Social History Housing: House Alcohol intake: former Patient Tobacco Use Status: Current everyday Tobacco user Cigarettes Per Day: 10 e-Cigarette/Vaping Use: Never Used Advance Directives: No Advance Directives Information Provided: No service: No Current occupational status: unemployed Cognitive needs: No Hearing needs: No Vision needs: No Physical Exam Vital Signs: Vital Signs: Last Vital Signs Temp 97.7 F 09/18/23 08:18 Pulse 100 09/18/23 08:18 Resp 16 09/18/23 08:18 BP 138/82 09/18/23 08:18 Pulse Ox 99 09/18/23 08:18 O2 Del Method Room Air 09/18/23 08:18 BMI result Body Mass Index 32.5 Appearance: Alert. Oriented X3. No acute distress. Eyes: Pupils equal, round and reactive to light. photophobia visual acuity 20/100 R L 20/30 not corrected + consensual photophobia no hyphema periorbital area is normal ENT: Pharynx normal. Neck: Normal inspection. Neck supple. CVS: Pulses normal. Respiratory: No respiratory distress. Abdomen: atraumatic Skin: Skin warm and dry. Normal skin color. . Extremities: No lower extremity edema. Neuro: Oriented X 3. No motor deficit. No sensory deficit. Medications Administered Discontinued Medications Generic Name Dose Route Start Last Admin Trade Name Freq PRN Reason Stop Dose Admin Tetracaine HCl 3 drop 09/18/23 08:27 09/18/23 08:34 Tetracaine Hcl/Pf 0.5% Oph Madeleine 4 Ml Drops EYE-BOTH 09/18/23 08:28 3 drop ONCE ONE Administration Medical Decision Making Medical Decision Making MDM Narrative: 33 yo female with PMH of DM and asthma here with c/o R eye pain and discharge with pain that is recurrent at this time she cannot do visual acuity due to the pain I do not suspect blindness as she can see my fingers she just cannot tolerate the lights at this time will refer to eye doctor start on drops and pain control give precautions to return eye pressure 14. Differential Diagnosis Differential Diagnoses: The differential diagnosis associated with the presentation includes iritis, uveitis given recurrent issues no signs of infection or glaucoma External Record Review External record reviewed: Inpatient record Prescription Management I considered prescription management with: Pain Medication and Other Discharge Plan Discharge Clinical Impression: Iritis Patient Disposition: Home, Self-Care Instructions: Iritis (ED) Additional Instructions: please follow up with eye doctor you can go to [facility] in the [facility] return for worsening pain, loss of vision or any other concerns this needs a full work up by your doctor and eye physician Prescriptions: New cyclopentolate 1 % drops 1 drp ophthalmic (eye) TID PRN (Reason: pain) 3 Days Qty: 2 0RF Rx Instructions: compress lacrimal sac for 1-2 minutes after instillation hydrocodone-acetaminophen 5-325 mg tablet 1 tab PO Q6H PRN (Reason: pain) Qty: 10 0RF Rx Instructions: partial fill okay; Partial Fill upon patient request. No Action (DME) pen needle, diabetic [BD Ultra-Fine Maria Elena Pen Needle] 32 gauge x 5/32 needle See Rx Instructions .ROUTE .MEDSUPPLY Qty: 100 12RF Rx Instructions: As directed 4 times a day insulin lispro [Humalog KwikPen Insulin] 100 unit/mL insulin pen See Rx Instructions .ROUTE .COMPLEX Qty: 15 12RF Rx Instructions: 2 to 14 units SQ TID with meals per sliding scale; PNV cmb#95-ferrous fumarate-FA [] 28 mg iron- 800 mcg tablet 1 tab PO DAILY Qty: 30 0RF (DME) FreeStyle Lite Strips Strip See Rx Instructions Not Applicable QID Qty: 10 Rx Instructions: As directed insulin glargine 100 unit/mL (3 mL) insulin pen See Rx Instructions .ROUTE .COMPLEX Qty: 15 12RF Rx Instructions: Take 16 units SQ in AM and 14 units SQ in PM; albuterol sulfate [ProAir HFA] 90 mcg/actuation HFA aerosol inhaler 2 puff inhalation Q6H PRN (Reason: shortness of breath or wheezing) 30 Days Qty: 18 5RF (DME) FreeStyle Lite Strips Strip See Rx Instructions .ROUTE .MEDSUPPLY Qty: 120 12RF Rx Instructions: As directed 4 times a day - is on insulin with meals and is erythromycin 5 mg/gram (0.5 %) ointment 0.5 inch ophthalmic (eye) BID Qty: 3.5 0RF amoxicillin 500 mg capsule 500 mg PO TID 7 Days Qty: 21 0RF Stand Alone Forms: Work/School Release Interventions: ED Discharge Assessment Last Done: 09/18/23 08:37 Print Language: Lithuanian
[2023-09-18] MEDS: Tetracaine HCl/PF 0.5% Oph Sol 4 ML DROPS 3 DROP EYE-BOTH (08:34)
[2023-09-18 08:37] VITALS: BP 138/82; PULSE 100; RESP 16; TEMP 36.5; O2SAT 99
== END 2023-09-18 08:40 | disposition home or self-care (01) ==
PROVIDERS: Emergency Provider Emergency Medicine; PCP Internal Medicine
DX: H20.9 Unspecified iridocyclitis (principal); H57.11 Ocular pain, right eye; E11.8 Type 2 diabetes mellitus with unspecified complications; J45.909 Unspecified asthma, uncomplicated; F17.210 Nicotine dependence, cigarettes, uncomplicated; Z79.4 Long term (current) use of insulin; Z79.84 Long term (current) use of oral hypoglycemic drugs; Z79.899 Other long term (current) drug therapy; F17.200 Nicotine dependence, unspecified, uncomplicated
CPT/HCPCS: 99282

== ENCOUNTER 2023-09-20 14:52 | Outpatient (REF) | payer OTHER, SELFPAY ==
[2023-09-20 15:12] LABS: MANUAL DIFF FLAG NO
[2023-09-20 15:37] LABS: Basophils Absolute Auto 0.1 X10*3/uL (0.0-0.2); Basophils Percent Auto 0.7 % (0-2); Eosinophils Absolute Auto 0.2 X10*3/uL (0.0-0.4); Eosinophils Percent Auto 1.8 % (0-4); Hematocrit 38.2 % (37.0-47.0); Hemoglobin 12.8 g/dl (12.0-16.0); Imm Gran Abs Auto 0.04 X10*3/uL (0.00-0.03); Imm Gran Pct Auto 0.4 % (0.0-0.4); Lymphocytes Absolute Auto 4.3 X10*3/uL (1.2-4.9); Lymphocytes Percent Auto 39.1 % (20-40); Mean Corpuscular HGB Conc 33.5 g/dl (31.0-35.0); Mean Corpuscular Hemoglobin 28.6 pg (27.0-33.0); Mean Corpuscular Volume 85.5 fL (80.0-98.0); Mean Platelet Volume 10.9 fL (9.4-12.3); Monocytes Absolute Auto 0.6 X10*3/uL (0.1-1.2); Monocytes Percent Auto 5.8 % (2-11); Neutrophils Absolute Auto 5.7 x10*3/uL (2.0-8.3); Neutrophils Percent Auto 52.2 % (45-73); Platelet Count 369 X10*3/uL (160-400); Red Blood Count 4.47 X10*6/uL (4.20-5.50); Red Cell Distribution Width 14.4 % (11.0-16.0); White Blood Count 10.9 X10*3/uL (4.8-10.8)
[2023-09-20 16:00] LABS: Rheumatoid Factor < 13.0 IU/mL (<15.0)
[2023-09-20 16:49] LABS: Erythrocyte Sedimentation Rate 38 MM/HR (0-20)
[2023-09-22 16:14] LABS: Anti Nuclear Antibody Screen NEGATIVE (NEGATIVE)
[2023-09-22 19:24] LABS: Treponema pallidum Ab FTA ABS Nonreactive (Nonreactive)
[2023-09-24 21:14] LABS: Angiotensin Converting Enzyme 20 U/L (9-67)
== END 2023-09-20 14:53 | disposition home or self-care (01) ==
LOC: HO.LAB 14:52
PROVIDERS: Visit Provider Ophthalmology
DX: H20.9 Unspecified iridocyclitis (principal)
CPT/HCPCS: 36415; 82164; 85025; 85652; 86038; 86431; 86780

== ENCOUNTER 2023-10-23 07:33 | Emergency (ER) | payer OTHER, SELFPAY ==
[2023-10-23 07:42] VITALS: BP 145/92; PULSE 84; RESP 16; TEMP 36.6; O2SAT 100; BMI 34.2
--- NOTE | 2023-10-23 09:00 | ED.DENTAL ---
HPI - Dental/Oral General Chief complaint: Dental/Oral Stated complaint: Tooth pain Time Seen by Provider: 10/23/23 08:14 Source: patient Mode of arrival: ambulatory Limitations: no limitations History of Present Illness HPI Narrative: Patient is a 33-year-old female who presents emergency department for evaluation of left upper dental pain that is made worse with chewing. Although initial nursing triage reports painful swallowing, at this time she denies pain with swallowing reporting it is the after chewing prior to that is painful for her. She reports multiple dental caries, a fractured crown, reports that she is not following with a dentist at this time. She admits to having bad anxiety about seeing the dentist, and states ?since they will not go to to sleep any more to do any procedures I just can not go?. Denies fevers, chills, neck pain, neck stiffness, chest pain, shortness of breath Related Data Home Medications ?Medication ?Instructions ?Recorded ?Confirmed blood sugar diagnostic #10 ea 08/01/20 11/03/22 Previous Rx's ?Medication ?Instructions ?Recorded pen needle, diabetic 32 gauge x #100 ea 03/24/22 (BD Ultra-Fine Maria Elena Pen Needle) vit no.95-ferrous 1 tab PO DAILY #30 tabs 06/26/22 fumarate 28 mg-folic acid 800 mcg tablet () insulin glargine 100 unit/mL (3 See Rx Instructions .Route 08/03/22 mL) subcutaneous pen .COMPLEX #15 mL albuterol sulfate 90 mcg/actuation 2 puff inhalation Q6H PRN 08/04/22 aerosol inhaler (ProAir HFA) shortness of breath or wheezing 30 days #18 grams blood sugar diagnostic (FreeStyle #120 ea 09/14/22 Lite Strips) amoxicillin 500 mg capsule 500 mg PO TID 7 days #21 caps 06/20/23 erythromycin 5 mg/gram (0.5 %) eye 0.5 inch ophthalmic (eye) BID #3.5 06/20/23 ointment grams insulin lispro 100 unit/mL See Rx Instructions .Route 08/01/23 subcutaneous pen (Humalog KwikPen .COMPLEX #15 mL (U-100) Insulin) cyclopentolate 1 % eye drops 1 drp ophthalmic (eye) TID PRN 09/18/23 pain 3 days #2 mL hydrocodone 5 mg-acetaminophen 325 1 tab PO Q6H PRN pain #10 tabs 09/18/23 mg tablet acetaminophen 300 mg-codeine 30 mg 1 tab PO Q6H PRN pain #6 tabs 10/23/23 tablet amoxicillin 875 mg-potassium 1 tab PO BID #12 tabs 10/23/23 clavulanate 125 mg tablet Allergies Allergy/AdvReac Type Severity Reaction Status Date / Time sulfamethoxazole Allergy Severe FACIAL Verified 10/23/23 07:43 [From BACTRIM] SWELLING trimethoprim [From BACTRIM] Allergy Severe FACIAL Verified 10/23/23 07:43 SWELLING docusate Allergy Unknown swelling Verified 10/23/23 07:43 Sulfa (Sulfonamide Allergy Unknown swelling, Verified 10/23/23 07:43 Antibiotics) facial swelling Stool Softener Allergy Unknown facial Uncoded 09/18/23 08:20 swelling STOOL SOFTENERS Allergy Unknown FACIAL Uncoded 09/18/23 08:20 SWELLING Review of Systems Review of Systems: Yes all other systems are reviewed and are negative [facility] Past Medical History Attestation statement: The following information was validated with the patient. Source: old records reviewed Medical History Blurring of vision Asthma Obesity (BMI 30-39.9) Neuropathy involving both lower extremities Diabetes mellitus Diabetes mellitus, with long-term current use of insulin Surgical History Hx laparoscopic cholecystectomy No significant past surgical history Family History Family History Mother COPD (chronic obstructive pulmonary disease) Father High blood pressure Maternal Grandmother Breast cancer Maternal Aunt Uterine cancer Social History Social History Housing: House Alcohol intake: former Patient Tobacco Use Status: Current everyday Tobacco user Cigarettes Per Day: 10 e-Cigarette/Vaping Use: Never Used Advance Directives: Yes Advance Directives Information Provided: Yes Advance Directives on File: No service: No Current occupational status: unemployed Cognitive needs: No Hearing needs: No Vision needs: No Physical Exam Vital Signs: Vital Signs: Last Vital Signs Temp 97.9 F 10/23/23 07:42 Pulse 84 10/23/23 07:42 Resp 16 10/23/23 07:42 BP 145/92 H 10/23/23 07:42 Pulse Ox 100 10/23/23 07:42 O2 Del Method Room Air 10/23/23 07:42 BMI result Body Mass Index 34.2 Appearance: Alert.?Oriented to person, place and time. No acute distress.?Normal affect. Eyes: Pupils equal, round and reactive to light.? ENT: Pharynx normal.??Uvula midline. No trismus. No drooling. Left upper bicuspid with fractured crown in place, no visible, positive gingivitis, no fluctuance or obvious abscess gingiva tender upon palpation, overall poor dentition throughout Neck: Normal inspection.? Neck supple.??Cervical adenopathy CVS: Heart sounds normal. Normal heart rate and rhythm.? Pulses normal.?? Respiratory: No respiratory distress.? Lung sounds clear to auscultation bilaterally?? Abdomen: Soft and non-tender. Normoactive bowel sounds. ? Skin: Skin warm and dry.? Normal skin color.? Extremities: No lower extremity edema.? Neuro: Moves all extremities spontaneously. Sensation intact bilaterally. Ambulates with normal steady gait. Medical Decision Making Medical Decision Making MDM Narrative: Patient is a 33-year-old female who presents to the emergency department for evaluation clonic left upper dental pain, with expressed concern for potential infection. On exam does not have obvious abscess, not consistent with Markie's angina. Started to have infected bicuspid with gingivitis, sent prescription for antibiotic to pharmacy, and acetaminophen with codeine. We had an at length discussion about establishing care with a dental provider and considering a conversation with her primary care provider for potential anxiolytic prior to her dental appointment. She verbalized understanding of this. At this time she is stable for discharge Differential Diagnosis Differential Diagnoses: The differential diagnosis associated with the presentation includes (See narrative above) External Record Review External record reviewed: Outpatient record and Other ([employer] reviewed) Prescription Management I considered prescription management with: Pain Medication and Antibiotic Discharge Plan Discharge Clinical Impression: Dental caries Patient Disposition: Home, Self-Care Additional Instructions: Complete the entire course of antibiotics as prescribed. You can take ibuprofen 200 mg, 3 tablets (600mg) every 6-8 hours as needed for pain For pain unrelieved by ibuprofen you may take the acetaminophen-codeine as prescribed. This medication may make you drowsy, you should not drive, drink alcohol, or work while taking this medication. As discussed, it is very important that you follow-up with a dental provider, furthermore as we discussed if your anxiety about the dentist is your prohibiting factor, you should consider having a conversation with your primary care provider about potential anxiolytics prior to your dental visit. Prescriptions: New amoxicillin-pot clavulanate 875-125 mg tablet 1 tab PO BID Qty: 12 0RF acetaminophen-codeine 300-30 mg tablet 1 tab PO Q6H PRN (Reason: pain) Qty: 6 0RF No Action (DME) pen needle, diabetic [BD Ultra-Fine Maria Elena Pen Needle] 32 gauge x 5/32 needle See Rx Instructions .ROUTE .MEDSUPPLY Qty: 100 12RF Rx Instructions: As directed 4 times a day insulin lispro [Humalog KwikPen Insulin] 100 unit/mL insulin pen See Rx Instructions .ROUTE .COMPLEX Qty: 15 12RF Rx Instructions: 2 to 14 units SQ TID with meals per sliding scale; PNV cmb#95-ferrous fumarate-FA [] 28 mg iron- 800 mcg tablet 1 tab PO DAILY Qty: 30 0RF cyclopentolate 1 % drops 1 drp ophthalmic (eye) TID PRN (Reason: pain) 3 Days Qty: 2 0RF Rx Instructions: compress lacrimal sac for 1-2 minutes after instillation hydrocodone-acetaminophen 5-325 mg tablet 1 tab PO Q6H PRN (Reason: pain) Qty: 10 0RF Rx Instructions: partial fill okay; Partial Fill upon patient request. (DME) FreeStyle Lite Strips Strip See Rx Instructions Not Applicable QID Qty: 10 Rx Instructions: As directed insulin glargine 100 unit/mL (3 mL) insulin pen See Rx Instructions .ROUTE .COMPLEX Qty: 15 12RF Rx Instructions: Take 16 units SQ in AM and 14 units SQ in PM; albuterol sulfate [ProAir HFA] 90 mcg/actuation HFA aerosol inhaler 2 puff inhalation Q6H PRN (Reason: shortness of breath or wheezing) 30 Days Qty: 18 5RF (DME) FreeStyle Lite Strips Strip See Rx Instructions .ROUTE .MEDSUPPLY Qty: 120 12RF Rx Instructions: As directed 4 times a day - is on insulin with meals and is erythromycin 5 mg/gram (0.5 %) ointment 0.5 inch ophthalmic (eye) BID Qty: 3.5 0RF amoxicillin 500 mg capsule 500 mg PO TID 7 Days Qty: 21 0RF Referrals: Israel Rosario MD [Primary Care Provider] - Print Language: Wolof
[2023-10-23 09:28] VITALS: BP 145/92; PULSE 84; RESP 16; TEMP 36.6; O2SAT 100
== END 2023-10-23 09:29 | disposition home or self-care (01) ==
PROVIDERS: Emergency Provider Emergency Medicine; PCP Internal Medicine
DX: K02.9 Dental caries, unspecified (principal); K08.89 Other specified disorders of teeth and supporting structures
CPT/HCPCS: 99282; 99283

== ENCOUNTER 2023-11-04 14:41 | Outpatient (AMB) | payer OTHER, SELFPAY ==
[2023-11-04 14:43] VITALS: BP 110/64; PULSE 83; O2SAT 98; BMI 31.8
--- NOTE | 2023-11-04 14:43 | MHC.PC.OV ---
Vital Signs 11/04/23 14:43 Height 5 ft Weight 163 lb BMI 31.8 BP 110/64 Blood Pressure Location Lt brachial Position Sitting Pulse 83 Pulse Source Pulse Oximeter Pulse Oximetry (%) 98 Oxygen Delivery Method Room Air Intake Visit Reasons: Pain in Legs- A1C Group Captain: Not Required per policy Accompanied by: Self / Same As Patient Allergies sulfamethoxazole [From BACTRIM] Allergy (Severe, Verified 11/04/23 15:13) FACIAL SWELLING trimethoprim [From BACTRIM] Allergy (Severe, Verified 11/04/23 15:13) FACIAL SWELLING docusate Allergy (Unknown, Verified 11/04/23 15:13) swelling Sulfa (Sulfonamide Antibiotics) Allergy (Unknown, Verified 11/04/23 15:13) swelling, facial swelling Stool Softener Allergy (Unknown, Uncoded 11/04/23 15:13) facial swelling STOOL SOFTENERS Allergy (Unknown, Uncoded 11/04/23 15:13) FACIAL SWELLING Medication List - Last Reconciled 11/04/23 by Israel Rosario MD albuterol sulfate 90 mcg/actuation (ProAir HFA) 2 puffs inhalation Q6H PRN 30 days blood sugar diagnostic As directed blood sugar diagnostic (FreeStyle Lite Strips) As directed 4 times a day - is on insulin with meals and is insulin glargine Take 20 units SQ QHS insulin lispro (Humalog KwikPen (U-100) Insulin) 2 to 14 units SQ TID with meals per sliding scale; pen needle, diabetic (BD Ultra-Fine Maria Elena Pen Needle) As directed 4 times a day PNV cmb#95-ferrous fumarate-FA 28 mg iron- 800 mcg () 1 tab PO DAILY Tobacco use date assessed: 11/04/23 Dental Screening Dental Screen Date: 11/04/23 Did you have a dental visit in the last 12 months?: No Did you have a dental problem in the last 6 months where you did not have access to dental care?: No Was dental information given to patient?: Patient has dentist HPI Pain in Legs- A1C HPI Details Patient comes in today for her follow up visit - she was last seen over a year ago in August 2022 Patient states that she has been experiencing recurrent pain in both of her legs lately Notes that her leg symptoms feel worse at night and there are times wherein they keep her from being able to sleep Patient states that her blood sugar has also been running high lately - admits that she has been out of her insulin for a couple of months now States that her blood sugar was well controlled when she was and up to a couple months ago before her medications ran out She denies any headaches or dizziness Denies any chest pains, no shortness of breath No nausea /vomiting, no abdominal pain No change in bowel habits noted She will need a few of her Rx refilled PFSH Medical History Blurring of vision Asthma Obesity (BMI 30-39.9) Neuropathy involving both lower extremities Diabetes mellitus Diabetes mellitus, with long-term current use of insulin Surgical History Hx laparoscopic cholecystectomy No significant past surgical history Family History Mother COPD (chronic obstructive pulmonary disease) Father High blood pressure Maternal Grandmother Breast cancer Maternal Aunt Uterine cancer Social History Housing: House Alcohol intake: former Patient Tobacco Use Status: Current everyday Tobacco user Cigarettes Per Day: 10 e-Cigarette/Vaping Use: Never Used service: No Current occupational status: unemployed Cognitive needs: No Hearing needs: No Vision needs: No Female Reproductive History Menstrual Age of Menarche: 10 Questionnaire PHQ-9 Over the last 2 weeks, how often have you been bothered by any of the following problems? 1. Little interest or pleasure in doing things: several days 2. Feeling down, depressed, or hopeless: several days 3. Trouble falling or staying asleep, or sleeping too much: not at all 4. Feeling tired or having little energy: not at all 5. Poor appetite or overeating: not at all 6. Feeling bad about yourself - or that you are a failure or have let yourself or your family down: not at all 7. Trouble concentrating on things, such as reading the newspaper or watching television: not at all 8. Moving or speaking so slowly that other people could have noticed. Or the opposite - being so fidgety or restless that you have been moving around a lot more than usual: not at all 9. Thoughts that you would be better off or of hurting yourself in some way: not at all Total score: 2 Depression Screening Interpretation: Negative Depression Screening Done: Yes [id number] - PHQ-9 Billing: Yes Source: Developed by Drs. Jessee Thorpe, Audrey Rivero, Brian Jordan and colleagues, with an educational sandra from [employer]. Thrive Questionnaire Date Thrive assessed: 11/04/23 I am a: Patient What is your living situation today?: I have a steady place to live Within the past 12 months, did the food you bought not last and you didn't have the money to get more?: Never true Within the past 12 months, did you worry whether your food would run out before you got money to buy more?: Never true Do you have trouble paying for medicines?: No Do you have trouble getting transportation to medical appointments?: No Do you have trouble paying your heating and electricity bill?: No Do you have trouble taking care of your child, family member or friend?: No Do you have trouble with day-to-day activities such as bathing, preparing meals, shopping, managing finances, etc.?: No Are you currently unemployed and looking for a job?: No Are you interested in more education?: No Please select the resources that you would like help with: None Currently or been in a relationship where the following occur: No concerns reported THRIVE Score: 0 AUDIT C Alcohol Use Questionnaire (AUDIT-C) 1. How often do you have a drink containing alcohol?: Monthly or less 2. How many drinks containing alcohol do you have on a typical day when you are drinking?: 1 or 2 3. How often do you have six or more drinks on one occasion?: Never Total Score: 1 Score Reviewed/Action Taken: Yes MADELIN-7 AMB Questionnaire MADELIN-7 Date MADELIN - 7 assessed: 11/04/23 Feeling nervous, anxious, or on edge: 0 = Not at all Not being able to stop or control worryin = Not at all Worrying too much about different things: 0 = Not at all Trouble relaxin = Not at all Being so restless that it is hard to sit still: 0 = Not at all Becoming easily annoyed or irritable: 0 = Not at all Feeling afraid as if something awful might happen: 0 = Not at all Total MADELIN-7 score (0-4 normal; 5-9 mild; 10-14 moderate; 15-21 severe): 0 Source: Developed by Drs. Jessee Thorpe, Audrey Rivero, Brian Jordan and colleagues, with an educational sandra from [employer]. Review of Systems Const Denies chills, Denies fatigue, Denies fever(s) and Denies headache(s) ENT Denies dysphagia, Denies dizziness, Denies headache(s), Denies neck pain, Denies odynophagia and Denies sore throat Card Denies chest pain, Denies rapid heart rate, Denies irregular heart rhythm, Denies palpitations and Denies dyspnea Resp Denies cough, Denies dyspnea and Denies wheezing GI Denies abdominal pain, Denies constipation, Denies dysphagia, Denies heartburn, Denies diarrhea, Denies nausea, Denies odynophagia and Denies vomiting Denies hematuria, Denies urinary frequency, Reports nocturia, Denies dysuria, Denies urinary incontinence and Denies urinary urgency Musc Denies back pain, Denies arthralgias and Denies neck pain Skin/Breast Denies rash Neuro Denies dizziness, Denies headache(s) and Reports paresthesias (on and off in both lower extremities lately) Psych Denies anxiety and Denies depression Endo Denies fatigue and Denies palpitations Aller/Immun Denies wheezing Physical exam (Primary Care) Vital Signs: Last Vital Signs Pulse 83 11/04/23 14:43 BP 110/64 11/04/23 14:43 Pulse Ox 98 11/04/23 14:43 Oxygen Delivery Method Room Air 11/04/23 14:43 BMI result Body Mass Index 31.8 Tobacco/Smoking Status: Tobacco use Status Tobacco use date assessed 11/04/23 11/04/23 14:45 Patient Tobacco Use Status Current everyday Tobacco 11/04/23 14:43 e-Cigarette/Vaping Use Never Used 11/04/23 14:43 PHQ-9: PHQ-9 Score PHQ-9: Total score 2 11/04/23 15:17 Depression Screening Interpretation: Negative Thrive Assessment: Date of Thrive Assessment Date Thrive assessed 11/04/23 11/04/23 14:45 Currently or been in a relationship where the following occur: No concerns reported Const General: no acute distress and alert HENMT Ears: TM's normal bilaterally and EAC's normal Throat: Yes posterior oropharynx normal and Yes tonsils normal (no TP congestion) Neck Neck: Yes no lymphadenopathy and Yes supple Thyroid: Thyroid normal Resp Auscultation: clear to auscultation bilaterally, no rales and no wheezes Cardio Rate: regular rate Rhythm: regular rhythm Heart sounds: no murmurs GI Palpation (GI): Soft to palpation and nontender Auscultation: normal bowel sounds General: Yes no CVA tenderness Back/Spine/Pelvis Back: no CVA tenderness Thoracic/Lumbar Spine: thoracic and lumbar spine normal to inspection Skin Rashes: no rashes Extrem General: Yes no clubbing, cyanosis or edema Results AMB Hemoglobin A1c AMB Hemoglobin A1c 14 % Last Edit by JOHANN Rose on 11/04/23 14:59 Results Reviewed Results Reviewed: Laboratory Last Values Hgb A1c (Clinic) 14 % (4.0-6.0) H 11/04/23 14:45 Assessment and Plan Assessment & Plan (1) Diabetes mellitus: Code(s): E11.9 - Type 2 diabetes mellitus without complications Qualifiers: Diabetes mellitus complication status: without complication Diabetes mellitus jail insulin use: with superintendent marine oil terminal use Diabetes mellitus type: type 2 Qualified Code(s): E11.9 - Type 2 diabetes mellitus without complications; Z79.4 - retirement (current) use of insulin Plan: Her in-office HgbA1c today is at 14% (she was at 7.5% when she was last seen in August 2022) - goal is <7.0% Reinforced diabetic diet Will go ahead and increase her Lantus to 20 units Q HS and start her back on Metformin 500 mg BID She is to continue on her Humalog 2-14 units SQ 3 times a day with meals per sliding scale Will also send her for some labs GALO for further evaluation Follow-up with [facility] endocrinology as scheduled (2) Asthma: Code(s): J45.909 - Unspecified asthma, uncomplicated Qualifiers: Asthma severity: mild Asthma persistence: intermittent Asthma complication type: uncomplicated Qualified Code(s): J45.20 - Mild intermittent asthma, uncomplicated Plan: Continue Albuterol HFA 2 inhalations Q 6 hours PRN - Rx refilled (3) Bilateral lower extremity pain: Code(s): M79.604 - Pain in right leg; M79.605 - Pain in left leg Plan: Have discussed with patient that her recent leg symptoms are likely due to neuropathy Will send her for some labs for further evaluation Will also send her for EMG and NCV of the lower extremities for further evaluation Will start her for now on Gabapentin 100 mg Q HS (4) Obesity (BMI 30-39.9): Code(s): E66.9 - Obesity, unspecified Plan: Reinforced diet/exercise as tolerated Plan Follow up in 2 to 3 months Orders: Orders Vitamin D 25-OH Total 11/04/23 E55.9 - Vitamin D deficiency, unspecified Lyme IgG/IgM w/reflex to WB 11/04/23 M79.10 - Myalgia, unspecified site NE electromyogram (EMG) 11/04/23 G57.93 - Unspecified mononeuropathy of bilateral lower limbs AMB Hemoglobin A1c 11/04/23 E11.9 - Type 2 diabetes mellitus without complications, 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 Panel Fast 11/04/23 E78.00 - Pure hypercholesterolemia, unspecified Cyclic Citrullinated Peptide 11/04/23 M25.50 - Pain in unspecified joint Glutamic acid decarboxylase Ab 11/04/23 E11.9 - Type 2 diabetes mellitus without complications C Peptide 11/04/23 E11.9 - Type 2 diabetes mellitus without complications Microalbumin, Random (w Creat) 11/04/23 E11.9 - Type 2 diabetes mellitus without complications Lipid Panel 11/04/23 E78.00 - Pure hypercholesterolemia, unspecified TSH reflex Free T4 11/04/23 E78.00 - Pure hypercholesterolemia, unspecified UA CC w/rflx Micro + Cult 11/04/23 R30.0 - Dysuria Vitamin B12 and Folate 11/04/23 E53.8 - Deficiency of other specified B group vitamins Erythrocyte Sedimentation Rate 11/04/23 G57.93 - Unspecified mononeuropathy of bilateral lower limbs, M79.7 - Fibromyalgia C Reactive Protein 11/04/23 G57.93 - Unspecified mononeuropathy of bilateral lower limbs NE nerve conduction velocity 11/04/23 G57.93 - Unspecified mononeuropathy of bilateral lower limbs Medications: New metformin 500 mg PO BID 30 days 60 tabs 3RF fluconazole may repeat second dose 72 hrs after first dose if symptoms persist 150 mg PO Q3D 2 tabs 0RF gabapentin 100 mg PO BEDTIME 30 days 30 caps 2RF flash glucose sensor (FreeStyle Gia 2 Sensor kit) As directed 1 ea 3RF E11.9 - Type 2 diabetes mellitus without complications [NEBULIZER and all related supplies] As directed 1 ea 0RF J45.20 - Mild intermittent asthma, uncomplicated nicotine (polacrilex) (Nicorette) 4 mg buccal Q2H PRN 100 ea 5RF nicotine cravings flash glucose scanning reader (FreeStyle Gia 2 [place]) As directed 1 ea 3RF E11.9 - Type 2 diabetes mellitus without complications Changed From insulin glargine Take 16 units SQ in AM and 14 units SQ in PM; 15 mL 12RF To insulin glargine Take 20 units SQ QHS From albuterol sulfate 90 mcg/actuation (ProAir HFA) 2 puffs inhalation Q6H 30 days PRN 18 grams 5RF shortness of breath or wheezing J45.20 - Mild intermittent asthma, uncomplicated To albuterol sulfate 90 mcg/actuation (Ventolin HFA) 2 puffs inhalation Q6H 30 days PRN 8.5 grams 5RF shortness of breath or wheezing J45.20 - Mild intermittent asthma, uncomplicated Coding Level of Care Code Est Pt Level 4 (59183) Diagnoses Type 2 diabetes mellitus without complication, with long-term current use of insulin E11.9; Z79.4 Diabetes mellitus complication status: without complication Diabetes mellitus superintendent marine oil terminal insulin use: with superintendent marine oil terminal use Diabetes mellitus type: type 2 Mild intermittent asthma without complication J45.20 Asthma severity: mild Asthma persistence: intermittent Asthma complication type: uncomplicated Bilateral lower extremity pain M79.604; M79.605 Obesity (BMI 30-39.9) E66.9
== END 2023-11-04 15:36 | disposition home or self-care (01) ==
PROVIDERS: PCP Internal Medicine; Visit Provider Internal Medicine
DX: E11.9 Type 2 diabetes mellitus without complications (principal); Z79.4 Long term (current) use of insulin
CPT/HCPCS: 83036; 99214

== ENCOUNTER 2023-12-28 12:59 | Outpatient (AMB) | payer OTHER, SELFPAY ==
--- NOTE | 2023-12-28 13:07 | A.OFFVIS_ITS ---
Vital Signs 12/28/23 13:08 Height 5 ft Weight 167 lb 8.821 oz BMI 32.7 BP 108/68 Blood Pressure Location Rt brachial Position Sitting Pulse 84 Pulse Source Pulse Oximeter Intake Visit Reasons: T2DM/LVM Intake Note: NEW Patient presents today to establish treatment for Type 2 Diabetes Mellitus: Last Diabetic eye exam was on: 10/2023 Last Podiatry exam was on: Does not see a Engineer Technical Staff Most recent HbA1c: 14%, 12/28/2023 Random Glucose- 410 mg/dL, Today, 1:13 PM Software Design Manager Required: No Accompanied by: Self / Same As Patient Allergies sulfamethoxazole [From BACTRIM] Allergy (Severe, Verified 12/28/23 13:09) FACIAL SWELLING trimethoprim [From BACTRIM] Allergy (Severe, Verified 12/28/23 13:09) FACIAL SWELLING docusate Allergy (Unknown, Verified 12/28/23 13:09) swelling Sulfa (Sulfonamide Antibiotics) Allergy (Unknown, Verified 12/28/23 13:09) swelling, facial swelling Stool Softener Allergy (Unknown, Uncoded 12/28/23 13:09) facial swelling STOOL SOFTENERS Allergy (Unknown, Uncoded 12/28/23 13:09) FACIAL SWELLING HPI Comments Details: The patient is a 33 year old female with a past medical history of insulin dependent diabetes presenting for consultation She was seen at her PCP office recently Admitted non compliance with insulin in months preceding Her A1C at that visit was 14%. When taking her insulin in August 2022 her A1C was 7s-she was also and being more strict with diet and medication compliance at the time She was having difficulty receiving enough insulin rx and was unable to follow with an bulk gas specialist as closely as she hoped She is currently taking Lantus 20 units daily, Humalog sliding scale, generally taking 14 units with most meals though sometimes adjusting if meals are very small or very large. She has been using traditional glucometer. All her recent readings remain high, though there has been some recent improvement She is prescribed regular metformin 500mg twice daily though does get GI distress from the medication and often takes just the morning dose Generally feels ok with high glucose though overall experiencing a great deal of leg and foot pain and cramping. Is rescheduling EMGs. Labs are ordered from pcp Starts feeling hypoglycemic when glucose is 200-300s. Seeing eye doctor atleast annually ROS CONSTITUTIONAL: Denies weight loss, fever and chills. HEENT: Denies changes in vision and hearing. RESPIRATORY: Denies SOB and cough. CV: Denies palpitations and CP GI: Denies abdominal pain, nausea, vomiting and diarrhea. : Denies dysuria and urinary frequency. MSK: Denies new myalgia and joint pain. SKIN: Denies rash and pruritus. NEUROLOGICAL: Denies headache PSYCHIATRIC: Denies recent changes in mood. PHYSICAL EXAM: GENERAL: Alert and oriented x 3. NAD EYES: EOMI. Anicteric. HENT: Moist mucous membranes. No scleral icterus. No cervical lymphadenopathy. LUNGS: Clear to auscultation bilaterally. CARDIOVASCULAR: Regular rate and rhythm. No murmur. No JVD. ABDOMEN: Soft, non-tender +bs EXTREMITIES: No edema. Non-tender. SKIN: No rashes or lesions. Warm. NEUROLOGIC: No focal neurological deficits. CN II-XII grossly intact PSYCHIATRIC: Cooperative. Appropriate mood and affect [facility] Medical History Blurring of vision Asthma Obesity (BMI 30-39.9) Neuropathy involving both lower extremities Diabetes mellitus Diabetes mellitus, with long-term current use of insulin Surgical History Hx laparoscopic cholecystectomy No significant past surgical history Family History Mother COPD (chronic obstructive pulmonary disease) Father High blood pressure Maternal Grandmother Breast cancer Maternal Aunt Uterine cancer Social History Housing: House Alcohol intake: former Patient Tobacco Use Status: Current everyday Tobacco user Cigarettes Per Day: 10 e-Cigarette/Vaping Use: Never Used service: No Current occupational status: unemployed Cognitive needs: No Hearing needs: No Vision needs: No Female Reproductive History Menstrual Age of Menarche: 10 Physical Exam Vital Signs: Last Vital Signs Pulse 84 12/28/23 13:08 BP 108/68 12/28/23 13:08 BMI result Body Mass Index 32.7 Results Reviewed Results Reviewed: Laboratory Last Values Glucose (Clinic) 410 mg/dL (60-115) H* 12/28/23 13:13 Assessment & Plan Assessment & Plan (1) Diabetes mellitus, with long-term current use of insulin: Code(s): E11.9 - Type 2 diabetes mellitus without complications; 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 If still with significant side effects could DC and add alternate oral/oral or GLP CGM given frequency of insulin administration and hyperglycemia (2) Diabetic peripheral neuropathy: Code(s): E11.42 - Type 2 diabetes mellitus with diabetic polyneuropathy Category: Medical Plan: Improve glycemic control Iron added to pcp labs Fluconazole refilled given hyperglycemia Reschedule EMG Orders: Orders IRON PROFILE Today E11.42 - Type 2 diabetes mellitus with diabetic polyneuropathy, E11.65 - Type 2 diabetes mellitus with hyperglycemia, E11.9 - Type 2 diabetes mellitus without complications, Z79.4 - halfway (current) use of insulin Vitamin B12 and Folate Today E11.42 - Type 2 diabetes mellitus with diabetic polyneuropathy, E11.65 - Type 2 diabetes mellitus with hyperglycemia, E11.9 - Type 2 diabetes mellitus without complications, 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 Medications: New FreeStyle Gia 3 [place] (blood-glucose meter,continuous) As directed 1 ea 0RF NS E11.65 - Type 2 diabetes mellitus with hyperglycemia, Z79.4 - halfway (current) use of insulin insulin glargine (Lantus Solostar U-100 Insulin) 40 units (0.4 mL) subcut QPM 45 mL 3RF FreeStyle Gia 3 Sensor (blood-glucose sensor) As directed 6 ea 3RF NS E11.65 - Type 2 diabetes mellitus with hyperglycemia, Z79.4 - halfway (current) use of insulin metformin ER 1,000 mg (2 x 500 mg) PO DAILY 90 tabs 3RF Changed From insulin lispro (Humalog KwikPen (U-100) Insulin) 2 to 14 units SQ TID with meals per sliding scale; 15 mL 12RF E11.9 - Type 2 diabetes mellitus without complications, 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 To insulin lispro (Humalog KwikPen (U-100) Insulin) 14 units SQ TID with meals per sliding scale; 45 mL 12RF E11.9 - Type 2 diabetes mellitus without complications, 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 Refilled fluconazole may repeat second dose 72 hrs after first dose if symptoms persist 150 mg PO Q3D 2 tabs 1RF Discontinued metformin Discontinued Reason: Doctor's Order 500 mg PO BID 30 days 60 tabs 3RF flash glucose sensor (FreeStyle Gia 2 Sensor kit) Discontinued Reason: Doctor's Order As directed 1 ea 3RF E11.9 - Type 2 diabetes mellitus without complications blood sugar diagnostic (FreeStyle Lite Strips) Discontinued Reason: Doctor's Order As directed 4 times a day - is on insulin with meals and is 120 ea 12RF E11.9 - Type 2 diabetes mellitus without complications flash glucose scanning reader (FreeStyle Gia 2 [place]) Discontinued Reason: Doctor's Order As directed 1 ea 3RF E11.9 - Type 2 diabetes mellitus without complications Coding Level of Care Code Est Pt Level 5 (51030) Diagnoses Type 2 diabetes mellitus with hyperglycemia, with long-term current use of insulin E11.65; Z79.4 Diabetes mellitus complication status: with hyperglycemia Diabetes mellitus type: type 2 Diabetic peripheral neuropathy E11.42 Time Spent (min) 50
[2023-12-28 13:08] VITALS: BP 108/68; PULSE 84; BMI 32.7
[2023-12-28 13:16] LABS: Glucose, Whole Blood 410 mg/dL (60-115)
== END 2023-12-28 13:45 | disposition home or self-care (01) ==
PROVIDERS: PCP Internal Medicine; Visit Provider Internal Medicine
DX: E11.65 Type 2 diabetes mellitus with hyperglycemia (principal); Z79.4 Long term (current) use of insulin; E11.42 Type 2 diabetes mellitus with diabetic polyneuropathy
CPT/HCPCS: 99215

== ENCOUNTER → 2023-12-28 12:59 | Outpatient (BNVA) | payer OTHER, SELFPAY | PROVIDERS: PCP Internal Medicine; Visit Provider Internal Medicine | DX: E11.65 Type 2 diabetes mellitus with hyperglycemia (principal); E11.42 Type 2 diabetes mellitus with diabetic polyneuropathy; Z79.4 Long term (current) use of insulin | CPT/HCPCS: 82947; 99212 ==

== ENCOUNTER 2024-01-09 09:56 | Emergency (ER) | payer OTHER, SELFPAY ==
--- NOTE | ~2024-01-09 | XR_ITS ---
EXAMINATION: XR CHEST CLINICAL INFORMATION: Cough in smoker with asthma COMPARISON: None available. TECHNIQUE: 2 views of the chest were obtained. FINDINGS: No significant abnormality is noted involving the heart, lungs, mediastinum, bony thorax or soft tissues. A few scattered areas of probable atelectasis are seen. XR/XR chest 2V IMPRESSION: No acute intrathoracic disease. Electronically signed by: Panfilo Felder MD 01/09/2024 10:51 AM EDT
[2024-01-09 09:57] VITALS: BP 147/101; PULSE 118; RESP 18; TEMP 36.8; O2SAT 98; BMI 30.4
--- NOTE | 2024-01-09 10:03 | ECG_ITS ---
Test Reason : dizzy Blood Pressure : / mmHG Vent. Rate : 118 BPM Atrial Rate : 118 BPM P-R Int : 132 ms QRS Dur : 082 ms QT Int : 328 ms P-R-T Axes : 016 031 031 degrees QTc Int : 459 ms Sinus tachycardia Otherwise normal ECG When compared with ECG of 08-AUG-2023 19:40, Heart rate has increased Referred By: Generic ED Physician Electronically Signed By:GIANNI AHUMADA
[2024-01-09 10:15] LABS: MANUAL DIFF FLAG NO
[2024-01-09 10:19] LABS: Basophils Absolute Auto 0.1 X10*3/uL (0.0-0.2); Basophils Percent Auto 0.7 % (0-2); Eosinophils Absolute Auto 0.2 X10*3/uL (0.0-0.4); Eosinophils Percent Auto 1.7 % (0-4); Hematocrit 42.3 % (37.0-47.0); Hemoglobin 13.9 g/dl (12.0-16.0); Imm Gran Abs Auto 0.06 X10*3/uL (0.00-0.03); Imm Gran Pct Auto 0.5 % (0.0-0.4); Lymphocytes Absolute Auto 3.6 X10*3/uL (1.2-4.9); Lymphocytes Percent Auto 30.1 % (20-40); Mean Corpuscular HGB Conc 32.9 g/dl (31.0-35.0); Mean Corpuscular Hemoglobin 27.4 pg (27.0-33.0); Mean Corpuscular Volume 83.4 fL (80.0-98.0); Mean Platelet Volume 10.4 fL (9.4-12.3); Monocytes Absolute Auto 0.8 X10*3/uL (0.1-1.2); Neutrophils Absolute Auto 7.2 x10*3/uL (2.0-8.3); Platelet Count 354 X10*3/uL (160-400); Red Blood Count 5.07 X10*6/uL (4.20-5.50); Red Cell Distribution Width 15.2 % (11.0-16.0); White Blood Count 12.1 X10*3/uL (4.8-10.8)
[2024-01-09 10:55] LABS: Alanine Aminotransferase 11 U/L (0-31); Albumin Level 4.5 g/dL (3.5-5.0); Alkaline Phosphatase 132 U/L (39-117); Aspartate Amino Transferase 11 U/L (5-31); Bilirubin Total 0.2 mg/dL (0.0-1.0); Blood Urea Nitrogen 12 mg/dL (9-16); Calcium 9.1 mg/dL (8.4-10.2); Creatinine Clr Calc Pharmacy 47.2; Estimated Glomerular Filt Rate 41; Total Protein 8.4 g/dL (6.5-8.0)
[2024-01-09 10:57] LABS: Troponin-I High Sensitivity < 2.7 ng/L (<3.5-17.0)
[2024-01-09 11:02] LABS: Anion Gap 20 (12-20)
[2024-01-09 11:05] LABS: Carbon Dioxide 9 mmol/L (22-29); Chloride 104 mmol/L (96-108); Glucose Random 449 mg/dL (60-115); Potassium 4.5 mmol/L (3.3-5.1); Sodium 128 mmol/L (135-145)
[2024-01-09 11:25] LABS: Influenza A PCR NEGATIVE (Negative); Influenza B PCR NEGATIVE (Negative); Resp Syncy Virus RNA Qual PCR NEGATIVE (Negative); SARS COV2 PCR INHOUSE NEGATIVE (Negative)
[2024-01-09 11:57] VITALS: BP 129/99; PULSE 111; RESP 22; TEMP 36.8; O2SAT 100
--- NOTE | 2024-01-09 12:36 | ED_ITS ---
HPI - General Adult General Chief complaint: General Medical Stated complaint: body aches acid reflex Time Seen by Provider: 01/09/24 12:19 Source: patient Mode of arrival: ambulatory Limitations: no limitations History of Present Illness ED Provider: Dr. Gus Farmer HPI narrative: And Related Data Home Medications ?Medication ?Instructions ?Recorded ?Confirmed blood sugar diagnostic #10 ea 08/01/20 11/04/23 Previous Rx's ?Medication ?Instructions ?Recorded pen needle, diabetic 32 gauge x #100 ea 03/24/22 (BD Ultra-Fine Maria Elena Pen Needle) vit no.95-ferrous 1 tab PO DAILY #30 tabs 06/26/22 fumarate 28 mg-folic acid 800 mcg tablet () NEBULIZER and all related supplies #1 ea 11/04/23 albuterol sulfate 90 mcg/actuation 2 puff inhalation Q6H PRN 11/04/23 aerosol inhaler (Ventolin HFA) shortness of breath or wheezing 30 days #8.5 grams gabapentin 100 mg capsule 100 mg PO BEDTIME 30 days #30 caps 11/04/23 nicotine (polacrilex) 4 mg gum 4 mg buccal Q2H PRN nicotine 11/04/23 (Nicorette) cravings #100 ea albuterol sulfate 2.5 mg/3 mL 2.5 mg (3 mL) continuous 11/25/23 (0.083 %) solution for nebulization nebulization QID PRN shortness of breath or wheezing 30 days #180 mL FreeStyle Gia 3 Keene #1 ea 12/28/23 (blood-glucose meter,continuous) FreeStyle Gia 3 Sensor #6 ea 12/28/23 (blood-glucose sensor) fluconazole 150 mg tablet 150 mg PO Q3D 2 doses #2 tabs 12/28/23 insulin glargine 100 unit/mL (3 40 unit (0.4 mL) subcut QPM #45 mL 12/28/23 mL) subcutaneous pen (Lantus Solostar U-100 Insulin) insulin lispro 100 unit/mL See Rx Instructions .Route 12/28/23 subcutaneous pen (Humalog KwikPen .COMPLEX #45 mL (U-100) Insulin) metformin 500 mg tablet,extended 1,000 mg (2 x 500 mg) PO DAILY #90 12/28/23 release 24 hr tabs Allergies Allergy/AdvReac Type Severity Reaction Status Date / Time sulfamethoxazole Allergy Severe FACIAL Verified 01/09/24 10:01 [From BACTRIM] SWELLING trimethoprim [From BACTRIM] Allergy Severe FACIAL Verified 01/09/24 10:01 SWELLING docusate Allergy Unknown swelling Verified 01/09/24 10:01 Sulfa (Sulfonamide Allergy Unknown swelling, Verified 01/09/24 10:01 Antibiotics) facial swelling Stool Softener Allergy Unknown facial Uncoded 12/28/23 13:09 swelling STOOL SOFTENERS Allergy Unknown FACIAL Uncoded 12/28/23 13:09 SWELLING Review of Systems 2 Review of Systems: Yes all other systems are reviewed and are negative [facility] Past Medical History [facility] Narrative: Social history: She does smoke cigarettes. She does drink alcohol and last drank 3 days prior for beers and 2 nips. She denies drug use. Medical History Blurring of vision Asthma Obesity (BMI 30-39.9) Neuropathy involving both lower extremities Diabetes mellitus Diabetes mellitus, with long-term current use of insulin Surgical History Hx laparoscopic cholecystectomy No significant past surgical history Family History Family History Mother COPD (chronic obstructive pulmonary disease) Father High blood pressure Maternal Grandmother Breast cancer Maternal Aunt Uterine cancer Social History Social History Housing: House Alcohol intake: current Alcohol intake frequency: holidays/special occasions only Patient Tobacco Use Status: Current everyday Tobacco user Cigarettes Per Day: 10 Smoked in Last 30 Days: No e-Cigarette/Vaping Use: Never Used Use of substances other than those prescribed or required for medical reasons: No Advance Directives: No Advance Directives Information Provided: No Do you have a plan to hurt others: No Plan Patient : No service: No Current occupational status: unemployed Cognitive needs: No Hearing needs: No Vision needs: No Physical Exam ED Vital Signs: Vital Signs - 24 hr 01/09/24 09:57 01/09/24 11:57 01/09/24 15:43 Temperature 98.2 F 98.3 F 98.4 F Pulse Rate 118 H 111 H 99 Respiratory Rate 18 22 H 20 Blood Pressure 147/101 H 129/99 H 112/75 Pulse Oximetry 98 100 100 Oxygen Delivery Method Room Air Room Air Room Air BMI result Body Mass Index 30.4 Vital signs revealed tachycardia with a heart rate of 118, elevated blood pressure 147/110 with a normal O2 saturation, respiratory rate was 18. Exam: General: Awake, answers all questions appropriately, strong ketotic odor to her breath Head: Normocephalic, atraumatic EENT: PERRL, Lids normal, sclera normal, conjunctiva normal, nose normal , ears normal, throat without erythema or exudates, dry mucous membranes Neck: Supple, no adenopathy Lung: breath sounds symmetric, no wheezing, rales or rhonchi Chest: symmetric movement, nontender Heart: regular rate and rhythm, normal S1, S2 no murmurs or rubs Abdomen: soft, diffuse abdominal tenderness, nondistended, normal bowel sounds Back: no vertebral tenderness, no CVAT Extremities: no deformities, moves all extremities symmetrically Neuro: Awake, alert, oriented, normal speech, cranial nerves intact, moves all extremities symmetrically Psych: Pleasant, cooperative Medications Administered Discontinued Medications Generic Name Dose Route Start Last Admin Trade Name Freq PRN Reason Stop Dose Admin Lactated Ringer's 1,000 mls @ 999 mls/hr 01/09/24 12:59 01/09/24 15:48 Lr IV 01/09/24 13:59 Infused .Q1H1M STA Infusion Lactated Ringer's 1,000 mls @ 999 mls/hr 01/09/24 13:01 01/09/24 15:48 Lr IV 01/09/24 14:01 Infused .Q1H1M STA Infusion Lactated Ringer's 1,000 mls @ 999 mls/hr 01/09/24 15:31 01/09/24 16:48 Lr IV 01/09/24 16:31 Infused .Q1H1M STA Infusion Insulin Human Regular 10 unit 01/09/24 12:59 01/09/24 13:39 Insulin Regular, Human 100 Unit/Ml 10 Ml Vial IVPUSH 01/09/24 13:00 10 unit ONCE ONE Administration Morphine Sulfate 4 mg 01/09/24 12:59 01/09/24 13:39 Morphine Sulfate 4 Mg/Ml Cartridge IVPUSH 01/09/24 13:00 4 mg ONCE STA Administration Protocol Ondansetron HCl 4 mg 01/09/24 12:59 01/09/24 13:39 Ondansetron Hcl 4 Mg/2 Ml Vial IVPUSH 01/09/24 13:00 4 mg ONCE ONE Administration Medical Decision Making Medical Decision Making [facility] Narrative: 33-year-old female with a history diabetes mellitus, peripheral neuropathy who presents emergency department for evaluation of abdominal pain x2 days, lightheadedness, dizziness, cough with pleuritic chest pain nausea, vomiting and noncompliance with her insulin regimen. Patient occasionally drinks alcohol and she did drink 4 beers into nips of alcohol 3 days prior. Vital signs did reveal elevated blood pressure and elevated heart rate. Physical exam revealed strong ketotic odor to her breath and diffuse epigastric tenderness. Differential diagnosis: ?Includes but is not limited to pancreatitis, gastritis, GERD, diabetic ketoacidosis, starvation ketoacidosis, electrolyte abnormalities, anemia Course: 16:58 My interpretation patient's laboratory evaluation is as follows: Venous blood gas revealed a pH of 7.24, CO2 of 29 and a bicarb of 12. CMP revealed a low sodium of 128, low CO2 of 9, elevated creatinine of 1.46, elevated glucose 499. Elevated beta hydroxybutyrate 3.77. Normal anion gap of 20.. Urine tox screen was negative. Ethanol was below detectable limits. COVID-19, influenza and RSV were negative. Patient's chest x-ray was unremarkable. Patient was treated with patient was treated with lactated Ringer's x3 L and regular insulin 10 units IV. Repeat point of care glucose 1 hour later was 219. Patient's repeat basic metabolic panel revealed CO2 increased from 9 up to 16. Creatinine improved from 1.46 to 0.87. Anion gap decreased from 20 to 15. PH was unchanged from 7.24 to 7.25. CO2 increased from 25-40 with increase in bicarb from 12 to 15. At this time I do not think that the patient has diabetic ketoacidosis but has a mixed picture causing her acidemia-this includes metformin, starvation ketosis, noncompliance with her insulin and acute kidney injury which is improved with hydration. At this time I do not think that the patient needs to be on insulin drip and I did discuss this with the covering hospitalist, Dr. Ovalle who did evaluate the patient in the emergency department The patient states that she was a 1-year-old child at home and if she can not get someone to take care of her child and she was going to leave against medical advice. Patient states that she will be able to tell us this answer within 1 hours 17:55 The patient was unable to arrange childcare and wants to leave against medical advice. She was aware that if she leaves there is possibility that she can from diabetic ketoacidosis and she accepts this risk. I told her that she needs a restart her insulin regimen as prescribed by her copper miner, not miss any meals over the next several days and to increased her fluid intake. Admission/Observation Consideration of admission/observation: Escalation of care including admission/observation considered (Yes) Lab Data MDM Lab Attestation statement: I reviewed the patient's lab results. 01/09/24 10:11 01/09/24 16:45 Labs: Lab Results 01/09/24 01/09/24 01/09/24 Range/Units 10:11 13:23 13:34 WBC 12.1 H (4.8-10.8) X10*3/uL RBC 5.07 (4.20-5.50) X10*6/uL Hgb 13.9 (12.0-16.0) g/dl Hct 42.3 (37.0-47.0) % MCV 83.4 (80.0-98.0) fL MCH 27.4 (27.0-33.0) pg MCHC 32.9 (31.0-35.0) g/dl RDW 15.2 (11.0-16.0) % Plt Count 354 (160-400) X10*3/uL MPV 10.4 (9.4-12.3) fL Immature Gran % (Auto) 0.5 H (0.0-0.4) % Neut % (Auto) 60.0 (45-73) % Lymph % (Auto) 30.1 (20-40) % Lawrence % (Auto) 7.0 (2-11) % Eos % (Auto) 1.7 (0-4) % Baso % (Auto) 0.7 (0-2) % Lymph # (Auto) 3.6 (1.2-4.9) X10*3/uL Lawrence # (Auto) 0.8 (0.1-1.2) X10*3/uL Eos # (Auto) 0.2 (0.0-0.4) X10*3/uL Baso # (Auto) 0.1 (0.0-0.2) X10*3/uL Abs Immat Gran (auto) 0.06 H (0.00-0.03) X10*3/uL Absolute Neuts (auto) 7.2 (2.0-8.3) x10*3/uL Absolute Nucleated RBC 0.000 (0.0-0.012) X10*3/uL Nucleated RBC % (auto) 0.0 (0.0-0.2) /100WBC APTT 26.3 (26.0-36.8) SEC VBG pH (7.32-7.43) VBG pCO2 mmHg VBG pO2 mmHg VBG HCO3 (22-26) mmol/L VBG O2 Saturation % VBG Base Excess mmol/L Sodium 128 L (135-145) mmol/L Potassium 4.5 D (3.3-5.1) mmol/L Chloride 104 (96-108) mmol/L Carbon Dioxide 9 L* D (22-29) mmol/L Anion Gap 20 (12-20) BUN 12 (9-16) mg/dL Creatinine 1.46 H (0.5-1.4) mg/dL Estim Creat Clear Calc 47.2 Estimated GFR 41 POC Glucose (60-115) mg/dL Random Glucose 449 H* (60-115) mg/dL Lactic Acid 0.9 (0.5-2.0) mmol/L Calcium 9.1 D (8.4-10.2) mg/dL Total Bilirubin 0.2 (0.0-1.0) mg/dL AST 11 (5-31) U/L ALT 11 (0-31) U/L Alkaline Phosphatase 132 H (39-117) U/L Troponin I High Sens < 2.7 (<3.5-17.0) ng/L Total Protein 8.4 H (6.5-8.0) g/dL Albumin 4.5 (3.5-5.0) g/dL Lipase 13 (8-78) U/L Beta-Hydroxybutyrate 3.77 H (0.02-0.27) mmol/L Urine Opiates Screen Not Detected (Not Detect) Ur Buprenorphine Scrn Not Detected (Not Detect) ng/mL Ur Oxycodone Screen Not Detected (Not Detect) ng/mL Urine Methadone Screen Not Detected (Not Detect) ng/mL Urine Fentanyl Screen Not Detected (Not Detect) Ur Barbiturates Screen Not Detected (Not Detect) Ur Phencyclidine Scrn Not Detected (Not Detect) Ur Amphetamines Screen Not Detected (Not Detect) U Benzodiazepines Scrn Not Detected (Not Detect) Urine Cocaine Screen Not Detected (Not Detect) U Marijuana (THC) Screen Not Detected (Not Detect) Ethyl Alcohol < 10 mg/dL Influenza Type A (PCR) NEGATIVE (Negative) Influenza Type B (PCR) NEGATIVE (Negative) RSV RNA Qual (PCR) NEGATIVE (Negative) SARS-CoV-2 RNA (RT-PCR) NEGATIVE (Negative) 01/09/24 01/09/24 01/09/24 Range/Units 13:40 14:15 16:45 WBC (4.8-10.8) X10*3/uL RBC (4.20-5.50) X10*6/uL Hgb (12.0-16.0) g/dl Hct (37.0-47.0) % MCV (80.0-98.0) fL MCH (27.0-33.0) pg MCHC (31.0-35.0) g/dl RDW (11.0-16.0) % Plt Count (160-400) X10*3/uL MPV (9.4-12.3) fL Immature Gran % (Auto) (0.0-0.4) % Neut % (Auto) (45-73) % Lymph % (Auto) (20-40) % Lawrence % (Auto) (2-11) % Eos % (Auto) (0-4) % Baso % (Auto) (0-2) % Lymph # (Auto) (1.2-4.9) X10*3/uL Lawrence # (Auto) (0.1-1.2) X10*3/uL Eos # (Auto) (0.0-0.4) X10*3/uL Baso # (Auto) (0.0-0.2) X10*3/uL Abs Immat Gran (auto) (0.00-0.03) X10*3/uL Absolute Neuts (auto) (2.0-8.3) x10*3/uL Absolute Nucleated RBC (0.0-0.012) X10*3/uL Nucleated RBC % (auto) (0.0-0.2) /100WBC APTT (26.0-36.8) SEC VBG pH 7.24 L (7.32-7.43) VBG pCO2 29 mmHg VBG pO2 25 mmHg VBG HCO3 12 L (22-26) mmol/L VBG O2 Saturation 48.0 % VBG Base Excess -13.0 mmol/L Sodium 134 L (135-145) mmol/L Potassium 4.2 (3.3-5.1) mmol/L Chloride 107 (96-108) mmol/L Carbon Dioxide 16 L (22-29) mmol/L Anion Gap 15 (12-20) BUN 7 L (9-16) mg/dL Creatinine 0.87 (0.5-1.4) mg/dL Estim Creat Clear Calc 79.1 Estimated GFR > 60 POC Glucose 219 H (60-115) mg/dL Random Glucose 319 H (60-115) mg/dL Lactic Acid (0.5-2.0) mmol/L Calcium 8.3 L D (8.4-10.2) mg/dL Total Bilirubin (0.0-1.0) mg/dL AST (5-31) U/L ALT (0-31) U/L Alkaline Phosphatase (39-117) U/L Troponin I High Sens (<3.5-17.0) ng/L Total Protein (6.5-8.0) g/dL Albumin (3.5-5.0) g/dL Lipase (8-78) U/L Beta-Hydroxybutyrate (0.02-0.27) mmol/L Urine Opiates Screen (Not Detect) Ur Buprenorphine Scrn (Not Detect) ng/mL Ur Oxycodone Screen (Not Detect) ng/mL Urine Methadone Screen (Not Detect) ng/mL Urine Fentanyl Screen (Not Detect) Ur Barbiturates Screen (Not Detect) Ur Phencyclidine Scrn (Not Detect) Ur Amphetamines Screen (Not Detect) U Benzodiazepines Scrn (Not Detect) Urine Cocaine Screen (Not Detect) U Marijuana (THC) Screen (Not Detect) Ethyl Alcohol mg/dL Influenza Type A (PCR) (Negative) Influenza Type B (PCR) (Negative) RSV RNA Qual (PCR) (Negative) SARS-CoV-2 RNA (RT-PCR) (Negative) 01/09/24 Range/Units 16:50 WBC (4.8-10.8) X10*3/uL RBC (4.20-5.50) X10*6/uL Hgb (12.0-16.0) g/dl Hct (37.0-47.0) % MCV (80.0-98.0) fL MCH (27.0-33.0) pg MCHC (31.0-35.0) g/dl RDW (11.0-16.0) % Plt Count (160-400) X10*3/uL MPV (9.4-12.3) fL Immature Gran % (Auto) (0.0-0.4) % Neut % (Auto) (45-73) % Lymph % (Auto) (20-40) % Lawrence % (Auto) (2-11) % Eos % (Auto) (0-4) % Baso % (Auto) (0-2) % Lymph # (Auto) (1.2-4.9) X10*3/uL Lawrence # (Auto) (0.1-1.2) X10*3/uL Eos # (Auto) (0.0-0.4) X10*3/uL Baso # (Auto) (0.0-0.2) X10*3/uL Abs Immat Gran (auto) (0.00-0.03) X10*3/uL Absolute Neuts (auto) (2.0-8.3) x10*3/uL Absolute Nucleated RBC (0.0-0.012) X10*3/uL Nucleated RBC % (auto) (0.0-0.2) /100WBC APTT (26.0-36.8) SEC VBG pH 7.25 L (7.32-7.43) VBG pCO2 33 mmHg VBG pO2 40 mmHg VBG HCO3 15 L (22-26) mmol/L VBG O2 Saturation 74.0 % VBG Base Excess -10.9 mmol/L Sodium (135-145) mmol/L Potassium (3.3-5.1) mmol/L Chloride (96-108) mmol/L Carbon Dioxide (22-29) mmol/L Anion Gap (12-20) BUN (9-16) mg/dL Creatinine (0.5-1.4) mg/dL Estim Creat Clear Calc Estimated GFR POC Glucose (60-115) mg/dL Random Glucose (60-115) mg/dL Lactic Acid (0.5-2.0) mmol/L Calcium (8.4-10.2) mg/dL Total Bilirubin (0.0-1.0) mg/dL AST (5-31) U/L ALT (0-31) U/L Alkaline Phosphatase (39-117) U/L Troponin I High Sens (<3.5-17.0) ng/L Total Protein (6.5-8.0) g/dL Albumin (3.5-5.0) g/dL Lipase (8-78) U/L Beta-Hydroxybutyrate (0.02-0.27) mmol/L Urine Opiates Screen (Not Detect) Ur Buprenorphine Scrn (Not Detect) ng/mL Ur Oxycodone Screen (Not Detect) ng/mL Urine Methadone Screen (Not Detect) ng/mL Urine Fentanyl Screen (Not Detect) Ur Barbiturates Screen (Not Detect) Ur Phencyclidine Scrn (Not Detect) Ur Amphetamines Screen (Not Detect) U Benzodiazepines Scrn (Not Detect) Urine Cocaine Screen (Not Detect) U Marijuana (THC) Screen (Not Detect) Ethyl Alcohol mg/dL Influenza Type A (PCR) (Negative) Influenza Type B (PCR) (Negative) RSV RNA Qual (PCR) (Negative) SARS-CoV-2 RNA (RT-PCR) (Negative) External Record Review External record reviewed: Inpatient record Chronic Conditions Patient?s care impacted by: Diabetes Critical Care Time Critical Care Time Critical Care Time: Yes Total Critical Care Time: 90 Attestation: Critical Care: The patient was critically ill with a high probability of imminent or life threatening deterioration. I spent greater than 30 minutes of discontinuous time evaluating the patient,delivering critical care at the bedside, discussing and evaluating pertinent data with consultants. Critical care time does not include time spent performing separately billable procedures or teaching. Total time spent performing critical care was 90 minutes. Discharge Plan Discharge Clinical Impression: Diabetic keto-acidosis, Fluid volume depletion, Acute hyperglycemia, Noncompliance with medication regimen Patient Disposition: Left Against Medical Advice Additional Instructions: Make sure you increase the amount of fluid that you drink over the next 24 hours Restart your insulin as prescribed by your copper miner Do not miss any meals over the next several days Please return to the emergency department if you feel worse in any way and we will re-evaluate you. Follow-up with your doctor in 2 days. Please return to the emergency department if your symptoms get worse or if you develop any symptoms that are concerning to you. Prescriptions: No Action (DME) pen needle, diabetic [BD Ultra-Fine Maria Elena Pen Needle] 32 gauge x 5/32 needle See Rx Instructions .ROUTE .MEDSUPPLY Qty: 100 12RF Rx Instructions: As directed 4 times a day albuterol sulfate 2.5 mg /3 mL (0.083 %) solution for nebulization 2.5 mg continuous nebulization QID PRN (Reason: shortness of breath or wheezing) 30 Days Qty: 180 3RF PNV cmb#95-ferrous fumarate-FA [] 28 mg iron- 800 mcg tablet 1 tab PO DAILY Qty: 30 0RF (DME) FreeStyle Lite Strips Strip See Rx Instructions Not Applicable QID Qty: 10 Rx Instructions: As directed gabapentin 100 mg capsule 100 mg PO BEDTIME 30 Days Qty: 30 2RF (DME) NEBULIZER and all related supplies See Rx Instructions .Route .MEDSUPPLY Qty: 1 0RF Rx Instructions: As directed albuterol sulfate [Ventolin HFA] 90 mcg/actuation HFA aerosol inhaler 2 puff inhalation Q6H PRN (Reason: shortness of breath or wheezing) 30 Days Qty: 8.5 5RF nicotine (polacrilex) [Nicorette] 4 mg gum 4 mg buccal Q2H PRN (Reason: nicotine cravings) Qty: 100 5RF (DME) FreeStyle Gia 3 Keene Misc See Rx Instructions .Route Qty: 1 0RF Rx Instructions: As directed (DME) FreeStyle Gia 3 Sensor Device See Rx Instructions .Route Qty: 6 3RF Rx Instructions: As directed insulin lispro [Humalog KwikPen Insulin] 100 unit/mL insulin pen See Rx Instructions .ROUTE .COMPLEX Qty: 45 12RF Rx Instructions: 14 units SQ TID with meals per sliding scale; metformin 500 mg tablet extended release 24 hr 1,000 mg PO DAILY Qty: 90 3RF insulin glargine [Lantus Solostar U-100 Insulin] 100 unit/mL (3 mL) insulin pen 40 unit subcut QPM Qty: 45 3RF fluconazole 150 mg tablet 150 mg PO Q3D Qty: 2 1RF Rx Instructions: may repeat second dose 72 hrs after first dose if symptoms persist Stand Alone Forms: Against Medical Advice Print Language: Greenlandic
[2024-01-09] MEDS: Morphine Sulfate 4 MG/ML CARTRIDGE IVPUSH (13:39)
[2024-01-09] MEDS: Lactated Ringers 1,000 ML 999 ML IV ×3 (13:39→15:43)
[2024-01-09] MEDS: ondansetron HCL 4 MG/2 ML VIAL IVPUSH (13:39)
[2024-01-09] MEDS: Insulin Regular, Human 100 UNIT/ML 10 ML VIAL 10 UNIT IVPUSH (13:39)
[2024-01-09 13:44] LABS: Venous Blood Gas Refer to POC result
[2024-01-09 13:45] LABS: VBG HCO3 12 mmol/L (22-26); VBG pCO2 29 mmHg; VBG pH 7.24 (7.32-7.43); VBG pO2 25 mmHg
--- NOTE | 2024-01-09 13:50 | PC.NURSE ---
20gIV placed in the right AC - labs obtained/sent to lab. IVF/medication administered per provider order. effectiveness pending.
[2024-01-09 13:57] LABS: Partial Thromboplastin Time 26.3 SEC (26.0-36.8)
[2024-01-09 13:58] LABS: Lipase 13 U/L (8-78)
[2024-01-09 14:01] LABS: Lactic Acid 0.9 mmol/L (0.5-2.0)
[2024-01-09 14:05] LABS: Ethanol < 10 mg/dL
[2024-01-09 14:07] LABS: Amphetamine Screen Urine Not Detected (Not Detect); Barbiturates, Urine Not Detected (Not Detect); Benzodiazepines Screen Urine Not Detected (Not Detect); Buprenorphine Scr Not Detected (Not Detect); Cannabinoid Screen Urine Not Detected (Not Detect); Cocaine Screen Urine Not Detected (Not Detect); Fentanyl, urine Not Detected (Not Detect); Methadone Screen, Urine Not Detected (Not Detect); Opiate Screen Urine Not Detected (Not Detect); Oxycodone Screen Urine Not Detected (Not Detect); Phencyclidine Screen Urine Not Detected (Not Detect)
[2024-01-09 14:18] LABS: Glucose, Whole Blood 219 mg/dL (60-115)
--- NOTE | 2024-01-09 14:18 | PC.NURSE ---
repeat POC post insulin IVP = 219mg/dL. Dr. Farmer notified/aware. IVF continues to infuse at this time. plan of care ongoing. call pizano placed within reach.
[2024-01-09 14:41] LABS: Beta-Hydroxybutyrate 3.77 mmol/L (0.02-0.27)
[2024-01-09 15:43] VITALS: BP 112/75; PULSE 99; RESP 20; TEMP 36.9; O2SAT 100
--- NOTE | 2024-01-09 15:48 | PC.NURSE ---
Patient awake and alert. skin flush, warm, dry. VSS, afebrile. c/o 5/10 dull pain to RUQ, c/o increased pain with light palpation. denies nausea, states last BM was a few days ago and states that is her norm. denies issues with urination. IV fluids infusing per order. patient aware of plan of care for repeat blood work.
[2024-01-09 16:53] LABS: VBG Base Excess -10.9 mmol/L; VBG HCO3 15 mmol/L (22-26); VBG pCO2 33 mmHg; VBG pH 7.25 (7.32-7.43); VBG pO2 40 mmHg
[2024-01-09 16:53] LABS: Venous Blood Gas Refer to POC result
[2024-01-09 17:06] LABS: Anion Gap 15 (12-20); Blood Urea Nitrogen 7 mg/dL (9-16); Calcium 8.3 mg/dL (8.4-10.2); Carbon Dioxide 16 mmol/L (22-29); Chloride 107 mmol/L (96-108); Creatinine Clr Calc Pharmacy 79.1; Estimated Glomerular Filt Rate > 60; Glucose Random 319 mg/dL (60-115); Potassium 4.2 mmol/L (3.3-5.1); Sodium 134 mmol/L (135-145)
[2024-01-09 18:05] VITALS: BP 112/75; PULSE 99; RESP 20; TEMP 36.9; O2SAT 100
== END 2024-01-09 18:06 | disposition left against medical advice (07) ==
PROVIDERS: Emergency Provider Emergency Medicine Emergency Medical Services; PCP Internal Medicine
DX: M79.10 Myalgia, unspecified site (principal); F17.210 Nicotine dependence, cigarettes, uncomplicated; E11.10 Type 2 diabetes mellitus with ketoacidosis without coma; Z79.4 Long term (current) use of insulin; E11.65 Type 2 diabetes mellitus with hyperglycemia; R00.0 Tachycardia, unspecified; R42 Dizziness and giddiness; R11.2 Nausea with vomiting, unspecified; Z03.818 Encounter for observation for suspected exposure to other biological agents ruled out; Z91.148 Patient's other noncompliance with medication regimen for other reason; Z79.899 Other long term (current) drug therapy
CPT/HCPCS: 0241U; 36415; 71046; 80048; 80053; 80307; 82010; 82803; 82947; 83605; 83690; 84484; 85025; 85730; 93005; 96361; 96374; 96375; 99285; J2270; J2405; J7120

== ENCOUNTER 2024-01-15 07:33 | Emergency (ER) | payer OTHER, SELFPAY ==
[2024-01-15 07:36] VITALS: BP 170/101; PULSE 86; RESP 16; TEMP 37.1; O2SAT 100; BMI 32.3
--- NOTE | 2024-01-15 08:03 | ED_ITS ---
HPI - General Adult General Chief complaint: General Medical Stated complaint: [id number] pain Time Seen by Provider: 01/15/24 08:03 History of Present Illness ED Provider: Chandler BRYANT narrative: The patient is a type 1 diabetic. She was seen here in the emergency room 6 days ago for moderate diabetic ketoacidosis. She says that she had neglected her insulin regime because her life was so busy and she has been feeling overwhelmed. She had come here on January 08 in the morning. Her initial bicarb on her metabolic panel has been 9. She was treated in the emergency room and her labs improved. She has been advised to be hospitalized but she ultimately signed out against medical advice to try to manage her symptoms at home. She says she has 2 small children and she felt that she had to go home to care for her children. She says that since leaving the hospital she feels that her DKA symptoms have improved and her insulin compliance has improved. However she says that 5 days ago she started using a new brand of insulin and since then she feels she has developed significant swelling of her body including her arms, face, legs, and trunk. She thinks that she has put on 25 lb in the last 5 days. When she was here on January 08, 6 days ago, we measured her weight as 70.7 kilos. Today her measured weight by our scale is 82.7 kilos. This is a 12 kilo difference. No fever, sweats, chills. No chest pain or pleuritic pain. No shortness of breath. No orthopnea. No PND. Related Data Home Medications ?Medication ?Instructions ?Recorded ?Confirmed blood sugar diagnostic #10 ea 08/01/20 11/04/23 Previous Rx's ?Medication ?Instructions ?Recorded pen needle, diabetic 32 gauge x #100 ea 03/24/22 (BD Ultra-Fine Maria Elena Pen Needle) vit no.95-ferrous 1 tab PO DAILY #30 tabs 06/26/22 fumarate 28 mg-folic acid 800 mcg tablet () NEBULIZER and all related supplies #1 ea 11/04/23 albuterol sulfate 90 mcg/actuation 2 puff inhalation Q6H PRN 11/04/23 aerosol inhaler (Ventolin HFA) shortness of breath or wheezing 30 days #8.5 grams gabapentin 100 mg capsule 100 mg PO BEDTIME 30 days #30 caps 11/04/23 nicotine (polacrilex) 4 mg gum 4 mg buccal Q2H PRN nicotine 11/04/23 (Nicorette) cravings #100 ea albuterol sulfate 2.5 mg/3 mL 2.5 mg (3 mL) continuous 11/25/23 (0.083 %) solution for nebulization nebulization QID PRN shortness of breath or wheezing 30 days #180 mL FreeStyle Gia 3 Red Level #1 ea 12/28/23 (blood-glucose meter,continuous) FreeStyle Gia 3 Sensor #6 ea 12/28/23 (blood-glucose sensor) fluconazole 150 mg tablet 150 mg PO Q3D 2 doses #2 tabs 12/28/23 insulin glargine 100 unit/mL (3 40 unit (0.4 mL) subcut QPM #45 mL 12/28/23 mL) subcutaneous pen (Lantus Solostar U-100 Insulin) insulin lispro 100 unit/mL See Rx Instructions .Route 12/28/23 subcutaneous pen (Humalog KwikPen .COMPLEX #45 mL (U-100) Insulin) metformin 500 mg tablet,extended 1,000 mg (2 x 500 mg) PO DAILY #90 12/28/23 release 24 hr tabs furosemide 20 mg tablet 20 mg PO DAILY #14 tabs 01/15/24 Allergies Allergy/AdvReac Type Severity Reaction Status Date / Time sulfamethoxazole Allergy Severe FACIAL Verified 01/15/24 07:39 [From BACTRIM] SWELLING trimethoprim [From BACTRIM] Allergy Severe FACIAL Verified 01/15/24 07:39 SWELLING docusate Allergy Unknown swelling Verified 01/15/24 07:39 Sulfa (Sulfonamide Allergy Unknown swelling, Verified 01/15/24 07:39 Antibiotics) facial swelling Stool Softener Allergy Unknown facial Uncoded 12/28/23 13:09 swelling STOOL SOFTENERS Allergy Unknown FACIAL Uncoded 12/28/23 13:09 SWELLING Review of Systems 2 Review of Systems: Yes all other systems are reviewed and are negative PMFSH Past Medical History Medical History Blurring of vision Asthma Obesity (BMI 30-39.9) Neuropathy involving both lower extremities Diabetes mellitus Diabetes mellitus, with long-term current use of insulin Surgical History Hx laparoscopic cholecystectomy No significant past surgical history Family History Family History Mother COPD (chronic obstructive pulmonary disease) Father High blood pressure Maternal Grandmother Breast cancer Maternal Aunt Uterine cancer Social History Social History Housing: House Alcohol intake: current Alcohol intake frequency: holidays/special occasions only Patient Tobacco Use Status: Current everyday Tobacco user Cigarettes Per Day: 10 e-Cigarette/Vaping Use: Never Used Advance Directives: No Advance Directives Information Provided: No Do you have a plan to hurt others: No Plan service: No Current occupational status: unemployed Cognitive needs: No Hearing needs: No Vision needs: No Physical Exam ED Vital Signs: Vital Signs - 24 hr 01/15/24 07:36 01/15/24 08:59 Temperature 98.8 F 98.6 F Pulse Rate 86 81 Respiratory Rate 16 18 Blood Pressure 170/101 H 142/91 H Pulse Oximetry 100 100 Oxygen Delivery Method Room Air Room Air BMI result Body Mass Index 32.3 Const Other: The patient is awake, alert, pleasant, cooperative she does not appear in acute distress. She tells me that she looks much puffier than she usually does although it was not obviously apparent to me having never seen her before. HENMT Other: The patient's face is symmetrical. Mucous membranes moist. Pharynx unremarkable. The patient says her face looks much puffier than usual. Eyes Other: Pupils are round equal, conjunctivae are clear Neck Other: No JVD, no lymphadenopathy, no palpable thyroid Resp Effort & Inspection: normal respiratory effort Auscultation: clear to auscultation bilaterally Cardio Rate: regular rate Rhythm: regular rhythm Heart sounds: S1 normal heart sound present and S2 normal heart sound present GI Other: Abdomen is soft. There is some mild generalized tenderness without rebound or guarding. Skin Other: The patient feels that her arms and legs are more swollen than they are usually. She does not really have pitting edema but she may have some mild generalized edema. Neuro Other: The patient is awake and alert with a normal mental status. Normal cognition. She is pleasant and cooperative. Cranial nerves are intact. She moves her extremities normally and appropriately. Gait is normal. Extrem Other: The patient may have some mild edema to the extremities. She does not really have pitting edema. Medical Decision Making Medical Decision Making [facility] Narrative: The patient is a 33-year-old with a history of type 2 diabetes. She is on glargine insulin. She was seen here 6 days ago with findings potentially consistent with DKA. At that time she was treated in the emergency room but ultimately left against medical advice. She says that she has been noncompliant with her insulin prior to her presentation 6 days ago but she has been compliant with her insulin since then. She presents today for generalized body edema and a weight gain of 12 kilos. She does not have any chest pain or shortness of breath or any other cardiac symptoms associated with this. She does not have any infectious symptoms associated with this. The patient was concerned that she had a new formulation of glargine insulin that she started recently. She thought perhaps this could have caused the weight gain. I spoke to our pharmacy a felt this was like. She seems to have a generic insulin glargine. The patient's labs are all consistent with a gain in fluid volume. Her H&H is lower than last week. Her BUN is lower. She has no signs of DKA today. TSH is elevated at 15. To what extent this might be contributing to fluid retention is unclear. Overall the patient seems quite medically stable and I think she can be managed as an outpatient. I think her generalized edema is the result of some kind of fluid retention and she will be prescribed 2 weeks of furosemide 20 mg daily. She should also contact her PCP and her cylinder press feeder to discuss her TSH of 15. Lab Data 01/15/24 07:57 01/15/24 07:57 Labs: Lab Results 01/15/24 01/15/24 Range/Units 07:57 09:22 WBC 8.3 (4.8-10.8) X10*3/uL RBC 4.11 L (4.20-5.50) X10*6/uL Hgb 11.2 L (12.0-16.0) g/dl Hct 34.2 L (37.0-47.0) % MCV 83.2 (80.0-98.0) fL MCH 27.3 (27.0-33.0) pg MCHC 32.7 (31.0-35.0) g/dl RDW 16.9 H (11.0-16.0) % Plt Count 345 (160-400) X10*3/uL MPV 10.6 (9.4-12.3) fL Immature Gran % (Auto) 0.4 (0.0-0.4) % Neut % (Auto) 51.4 (45-73) % Lymph % (Auto) 38.3 (20-40) % [place] % (Auto) 6.9 (2-11) % Eos % (Auto) 2.4 (0-4) % Baso % (Auto) 0.6 (0-2) % Lymph # (Auto) 3.2 (1.2-4.9) X10*3/uL [place] # (Auto) 0.6 (0.1-1.2) X10*3/uL Eos # (Auto) 0.2 (0.0-0.4) X10*3/uL Baso # (Auto) 0.1 (0.0-0.2) X10*3/uL Abs Immat Gran (auto) 0.03 (0.00-0.03) X10*3/uL Absolute Neuts (auto) 4.3 (2.0-8.3) x10*3/uL Absolute Nucleated RBC 0.000 (0.0-0.012) X10*3/uL Nucleated RBC % (auto) 0.0 (0.0-0.2) /100WBC Sodium 140 (135-145) mmol/L Potassium 4.1 (3.3-5.1) mmol/L Chloride 106 (96-108) mmol/L Carbon Dioxide 26 (22-29) mmol/L Anion Gap 12 (12-20) BUN 14 (9-16) mg/dL Creatinine 0.85 (0.5-1.4) mg/dL Estim Creat Clear Calc 94.0 Estimated GFR > 60 POC Glucose 253 H (60-115) mg/dL Random Glucose 367 H* (60-115) mg/dL Calcium 8.7 (8.4-10.2) mg/dL Total Bilirubin 0.2 (0.0-1.0) mg/dL AST 12 (5-31) U/L ALT 12 (0-31) U/L Alkaline Phosphatase 89 (39-117) U/L Troponin I High Sens < 2.7 (<3.5-17.0) ng/L C-Reactive Protein 0.28 (< or = 0.50) mg/dL B-Natriuretic Peptide 79 (<100) pg/mL Total Protein 6.0 L (6.5-8.0) g/dL Albumin 3.4 L (3.5-5.0) g/dL Beta-Hydroxybutyrate 0.20 (0.02-0.27) mmol/L TSH 15.67 H (0.32-4.0) uIU/mL Urine Color Yellow Urine Appearance Clear Urine pH 6.5 (5.0-9.0) Ur Specific [place] >= 1.030 H (1.005-1.025) Urine Protein Negative (Neg-Trace) mg/dL Urine Glucose (UA) >=1000 H (Negative) mg/dL Urine Ketones Negative (Negative) mg/dL Urine Blood Negative (Negative) Urine Nitrite Negative (Negative) Ur Leukocyte Esterase Negative (Negative) Urine RBC 0-2 (0-2) /HPF Urine WBC 0-5 (0-5) /HPF Ur Squamous Epith Cells 0-2 (0-2) /HPF Urine Bacteria None Seen (None Seen) Hyaline Casts 0-2 (0-2) /LPF Urine Test NEGATIVE (NEGATIVE) Discharge Plan Discharge Clinical Impression: Generalized edema, Elevated TSH Additional Instructions: From the point of view of a diabetes problem your labs are looking good today. I believe you are fluid overloaded. I have therefore sent a prescription for medication called furosemide (commonly known as Lasix) to your pharmacy. Please take this medication once a day. This medication should make you urinate a lot and hopefully this will remove some of the fluid from your body. Your testing today shows that you have an elevation of something called thyroid- stimulating hormone (TSH). This indicates that your body is low on thyroid hormone. It is possible that your fluid retention can be related to decreased thyroid function. Please contact your regular doctor and your cylinder press feeder tomorrow morning to try to make an appointment to follow up on these abnormalities. I suspect you will need to be prescribed thyroid replacement hormone. However there may be other testing that should be done before that is started. Therefore please take the furosemide daily for the short run. Please try to follow up soon with your regular doctor and also your cylinder press feeder for additional management. Return to the emergency room if worse. Prescriptions: New furosemide 20 mg tablet 20 mg PO DAILY Qty: 14 0RF No Action (DME) pen needle, diabetic [BD Ultra-Fine Maria Elena Pen Needle] 32 gauge x 5/32 needle See Rx Instructions .ROUTE .MEDSUPPLY Qty: 100 12RF Rx Instructions: As directed 4 times a day albuterol sulfate 2.5 mg /3 mL (0.083 %) solution for nebulization 2.5 mg continuous nebulization QID PRN (Reason: shortness of breath or wheezing) 30 Days Qty: 180 3RF PNV cmb#95-ferrous fumarate-FA [] 28 mg iron- 800 mcg tablet 1 tab PO DAILY Qty: 30 0RF (DME) FreeStyle Lite Strips Strip See Rx Instructions Not Applicable QID Qty: 10 Rx Instructions: As directed gabapentin 100 mg capsule 100 mg PO BEDTIME 30 Days Qty: 30 2RF (DME) NEBULIZER and all related supplies See Rx Instructions .Route .MEDSUPPLY Qty: 1 0RF Rx Instructions: As directed albuterol sulfate [Ventolin HFA] 90 mcg/actuation HFA aerosol inhaler 2 puff inhalation Q6H PRN (Reason: shortness of breath or wheezing) 30 Days Qty: 8.5 5RF nicotine (polacrilex) [Nicorette] 4 mg gum 4 mg buccal Q2H PRN (Reason: nicotine cravings) Qty: 100 5RF (DME) FreeStyle Gia 3 Red Level Misc See Rx Instructions .Route Qty: 1 0RF Rx Instructions: As directed (DME) FreeStyle Gia 3 Sensor Device See Rx Instructions .Route Qty: 6 3RF Rx Instructions: As directed insulin lispro [Humalog KwikPen Insulin] 100 unit/mL insulin pen See Rx Instructions .ROUTE .COMPLEX Qty: 45 12RF Rx Instructions: 14 units SQ TID with meals per sliding scale; metformin 500 mg tablet extended release 24 hr 1,000 mg PO DAILY Qty: 90 3RF insulin glargine [Lantus Solostar U-100 Insulin] 100 unit/mL (3 mL) insulin pen 40 unit subcut QPM Qty: 45 3RF fluconazole 150 mg tablet 150 mg PO Q3D Qty: 2 1RF Rx Instructions: may repeat second dose 72 hrs after first dose if symptoms persist Referrals: Israel Rosario MD [Primary Care Provider] - (Generalized edema, weight gain, high TSH) Ethel Tyler MD [Physician] - (Type 2 diabetic with elevated TSH. Also generalized edema) Print Language: [place] Irish
[2024-01-15 08:08] LABS: MANUAL DIFF FLAG NO
[2024-01-15 08:13] LABS: UPreg QC Valid YES; Urine Pregnancy NEGATIVE (NEGATIVE)
[2024-01-15 08:26] LABS: Appearance Urine Clear; Color Urine Yellow; Glucose Urine UA >=1000 mg/dL (Negative); Leukocyte Esterase Urine Negative (Negative); Nitrite Urine Negative (Negative); PH 6.5 (5.0-9.0); Specific Gravity - Urine >= 1.030 (1.005-1.025); UMIC TRIGGER UACC YES; Urine Blood Negative (Negative); Urine Ketones Negative (Negative); Urine Protein Negative (Neg-Trace)
[2024-01-15 08:29] LABS: Anion Gap 12 (12-20); Blood Urea Nitrogen 14 mg/dL (9-16); Calcium 8.7 mg/dL (8.4-10.2); Carbon Dioxide 26 mmol/L (22-29); Chloride 106 mmol/L (96-108); Estimated Glomerular Filt Rate > 60; Potassium 4.1 mmol/L (3.3-5.1); Sodium 140 mmol/L (135-145)
[2024-01-15 08:30] LABS: Alanine Aminotransferase 12 U/L (0-31); Albumin Level 3.4 g/dL (3.5-5.0); Alkaline Phosphatase 89 U/L (39-117); Aspartate Amino Transferase 12 U/L (5-31); Bilirubin Total 0.2 mg/dL (0.0-1.0)
[2024-01-15 08:31] LABS: Bacteria Urine None Seen (None Seen); Basophils Absolute Auto 0.1 X10*3/uL (0.0-0.2); Basophils Percent Auto 0.6 % (0-2); Eosinophils Absolute Auto 0.2 X10*3/uL (0.0-0.4); Eosinophils Percent Auto 2.4 % (0-4); Hematocrit 34.2 % (37.0-47.0); Hemoglobin 11.2 g/dl (12.0-16.0); Hyaline Casts Urine 0-2 /LPF (0-2); Imm Gran Abs Auto 0.03 X10*3/uL (0.00-0.03); Imm Gran Pct Auto 0.4 % (0.0-0.4); Lymphocytes Absolute Auto 3.2 X10*3/uL (1.2-4.9); Lymphocytes Percent Auto 38.3 % (20-40); Mean Corpuscular HGB Conc 32.7 g/dl (31.0-35.0); Mean Corpuscular Hemoglobin 27.3 pg (27.0-33.0); Mean Corpuscular Volume 83.2 fL (80.0-98.0); Mean Platelet Volume 10.6 fL (9.4-12.3); Monocytes Absolute Auto 0.6 X10*3/uL (0.1-1.2); Monocytes Percent Auto 6.9 % (2-11); Neutrophils Absolute Auto 4.3 x10*3/uL (2.0-8.3); Neutrophils Percent Auto 51.4 % (45-73); Platelet Count 345 X10*3/uL (160-400); RBC Urine 0-2 /HPF (0-2); Red Blood Count 4.11 X10*6/uL (4.20-5.50); Red Cell Distribution Width 16.9 % (11.0-16.0); Squamous Epithelial Cell Urine 0-2 /HPF (0-2); WBC Urine 0-5 /HPF (0-5); White Blood Count 8.3 X10*3/uL (4.8-10.8)
[2024-01-15 08:32] LABS: B Type Natriuretic Peptide 79 pg/mL (<100)
[2024-01-15 08:33] LABS: Glucose Random 367 mg/dL (60-115)
[2024-01-15 08:59] VITALS: BP 142/91; PULSE 81; RESP 18; TEMP 37; O2SAT 100
--- NOTE | 2024-01-15 09:03 | MHC.EDTECH ---
Vitals was taken BP was high RN(Ethel) notified, call pizano within Pt reach
--- NOTE | 2024-01-15 09:04 | ECG_ITS ---
Test Reason : EDEMA Blood Pressure : / mmHG Vent. Rate : 083 BPM Atrial Rate : 083 BPM P-R Int : 162 ms QRS Dur : 076 ms QT Int : 368 ms P-R-T Axes : -05 013 007 degrees QTc Int : 432 ms Normal sinus rhythm Possible Anterior infarct , age undetermined Nonspecific T wave abnormality Abnormal ECG When compared with ECG of 09-JAN-2024 10:00, Nonspecific T wave abnormality now evident in Anterior leads Referred By: Santos Arteaga Electronically Signed By:GIANNI AHUMADA
[2024-01-15 09:21] LABS: C Reactive Protein 0.28 mg/dL (< or = 0.50)
[2024-01-15 09:27] LABS: Glucose, Whole Blood 253 mg/dL (60-115)
--- NOTE | 2024-01-15 09:27 | MHC.EDTECH ---
Patient EKG taken and was read by the provider, and blood glucose was taken an it was 253 RN(Ethel) notified.
[2024-01-15 09:42] LABS: Troponin-I High Sensitivity < 2.7 ng/L (<3.5-17.0)
[2024-01-15 09:53] LABS: Thyroid Stimulating Hormone 15.67 uIU/mL (0.32-4.0)
[2024-01-15 10:23] VITALS: BP 134/84; PULSE 87; RESP 16; TEMP 37; O2SAT 99
[2024-01-15] MEDS: Furosemide 20 MG TABLET PO (10:38)
[2024-01-15 10:42] VITALS: BP 134/84; PULSE 87; RESP 16; TEMP 37; O2SAT 99
== END 2024-01-15 10:44 | disposition home or self-care (01) ==
PROVIDERS: Emergency Provider Emergency Medicine; PCP Internal Medicine
DX: R60.0 Localized edema (principal); R79.89 Other specified abnormal findings of blood chemistry; L29.9 Pruritus, unspecified; R10.9 Unspecified abdominal pain; R94.31 Abnormal electrocardiogram [ECG] [EKG]; R06.02 Shortness of breath; F17.210 Nicotine dependence, cigarettes, uncomplicated; Z91.158 Patient's noncompliance with renal dialysis for other reason; Z79.899 Other long term (current) drug therapy
CPT/HCPCS: 36415; 80053; 81001; 81025; 82010; 82947; 83880; 84443; 84484; 85025; 86140; 93005; 99284

== ENCOUNTER 2024-01-25 12:58 | Outpatient (AMB) | payer OTHER, SELFPAY ==
--- NOTE | 2024-01-25 12:59 | A.OFFVIS_ITS ---
Vital Signs 01/25/24 13:00 Height 5 ft 3 in Weight 176 lb 5.917 oz BMI 31.2 BP 122/78 Blood Pressure Location Rt brachial Position Sitting Pulse 79 Pulse Source Pulse Oximeter Intake Visit Reasons: T2DM/CONFIRMED Intake Note: Patient presents today for a follow-up on Type 2 Diabetes Mellitus: Post DKA 01/10/2024 Last Diabetic eye exam was on: 10/2023 Last Podiatry exam was on: Does not see a Meal Temperer Most recent HbA1c: 14%, 12/28/2023 Random Glucose- 293 mg/dL, Today Environmental Protection Forester Required: No Accompanied by: Self / Same As Patient Allergies sulfamethoxazole [From BACTRIM] Allergy (Severe, Verified 01/25/24 13:00) FACIAL SWELLING trimethoprim [From BACTRIM] Allergy (Severe, Verified 01/25/24 13:00) FACIAL SWELLING docusate Allergy (Unknown, Verified 01/25/24 13:00) swelling Sulfa (Sulfonamide Antibiotics) Allergy (Unknown, Verified 01/25/24 13:00) swelling, facial swelling Stool Softener Allergy (Unknown, Uncoded 01/25/24 13:00) facial swelling STOOL SOFTENERS Allergy (Unknown, Uncoded 01/25/24 13:00) FACIAL SWELLING HPI Comments Details: The patient is a 33 year old female with a past medical history of insulin dependent diabetes presenting for follow up Non compliance with insulin until about 2 weeks ago. She had a hospitalization earlier this month for DKA before she resumed. She was seen again in the ER with fluid retention-TSH was elevated at 15. She was started on diuretic but this has been making her skin itchy (sulfa allergY). Recently has been taking her lantus at 35 units nightly and humalog sliding scale, generally taking 14 units with most meals though sometimes adjusting if meals are very small or very large. Says fasting glucose for the past week has been in 200s. She was switched from regular metformin 500 bid to xr 1000mg daily. Still had some GI issues with the XR. She has been using traditional glucometer. She was unable to obtain the bhavin. Denies any recently hypoglycemia Seeing eye doctor at least annually ROS CONSTITUTIONAL: Denies weight loss, fever and chills. HEENT: Denies changes in vision and hearing. RESPIRATORY: Denies SOB and cough. CV: Denies palpitations and CP GI: Denies abdominal pain, nausea, vomiting and diarrhea. : Denies dysuria and urinary frequency. MSK: Denies new myalgia and joint pain. SKIN: Denies rash and pruritus. NEUROLOGICAL: Denies headache PSYCHIATRIC: Denies recent changes in mood. PHYSICAL EXAM: GENERAL: Alert and oriented x 3. NAD EYES: EOMI. Anicteric. HENT: Moist mucous membranes. No scleral icterus. No cervical lymphadenopathy. LUNGS: Clear to auscultation bilaterally. CARDIOVASCULAR: Regular rate and rhythm. No murmur. No JVD. ABDOMEN: Soft, non-tender +bs EXTREMITIES: No edema. Non-tender. SKIN: No rashes or lesions. Warm. NEUROLOGIC: No focal neurological deficits. CN II-XII grossly intact PSYCHIATRIC: Cooperative. Appropriate mood and affect [facility] Medical History Blurring of vision Asthma Obesity (BMI 30-39.9) Neuropathy involving both lower extremities Diabetes mellitus Diabetes mellitus, with long-term current use of insulin Surgical History Hx laparoscopic cholecystectomy No significant past surgical history Family History Mother COPD (chronic obstructive pulmonary disease) Father High blood pressure Maternal Grandmother Breast cancer Maternal Aunt Uterine cancer Social History Housing: House Alcohol intake: current Alcohol intake frequency: holidays/special occasions only Patient Tobacco Use Status: Current everyday Tobacco user Cigarettes Per Day: 10 e-Cigarette/Vaping Use: Never Used service: No Current occupational status: unemployed Cognitive needs: No Hearing needs: No Vision needs: No Female Reproductive History Menstrual Age of Menarche: 10 Physical Exam Vital Signs: Last Vital Signs Pulse 79 01/25/24 13:00 BP 122/78 01/25/24 13:00 BMI result Body Mass Index 31.2 Results Reviewed Results Reviewed: Laboratory Last Values Glucose (Clinic) 294 mg/dL (60-115) H 01/25/24 13:07 Assessment & Plan Assessment & Plan (1) Diabetes mellitus, with long-term current use of insulin: Code(s): E11.9 - Type 2 diabetes mellitus without complications; Z79.4 - group home (current) use of insulin Category: Medical Qualifiers: Diabetes mellitus complication status: with hyperglycemia Diabetes mellitus type: type 2 Qualified Code(s): E11.65 - Type 2 diabetes mellitus with hyperglycemia; Z79.4 - bed bug exterminator (current) use of insulin Plan: Increase lantus up to 45 units Try taking just one metformin 500mg daily Return in 2 months to check TSH on levothyroxine and review glucose readings. Switched her diuretic to spironolactone due to sulfa allergy. Discussed potentially getting an echo with pcp. She has concerns for behcets-discussed asking pcp for eval/rheumatology evaluation (2) Diabetic peripheral neuropathy: Code(s): E11.42 - Type 2 diabetes mellitus with diabetic polyneuropathy Category: Medical Plan: stable (3) Hypothyroid: Code(s): E03.9 - Hypothyroidism, unspecified Category: Medical Qualifiers: Hypothyroidism type: unspecified Qualified Code(s): E03.9 - Hypothyroidism, unspecified Plan: start levothyroxine. recheck tsh in 8 weeks Orders: Orders TSH reflex Free T4 Today E11.42 - Type 2 diabetes mellitus with diabetic polyneuropathy, Z79.4 - bed bug exterminator (current) use of insulin Medications: New spironolactone 25 mg PO DAILY 90 tabs 3RF Dexcom G6 Sensor (blood-glucose sensor) every 10 days 9 ea 3RF NS E11.42 - Type 2 diabetes mellitus with diabetic polyneuropathy, Z79.4 - group home (current) use of insulin Dexcom G6 Transmitter (blood-glucose transmitter) As directed 1 ea 3RF NS levothyroxine 50 mcg PO DAILY 90 tabs 3RF Dexcom G6 Seo Strategist (blood-glucose meter,continuous) As directed 1 ea 0RF NS E11.42 - Type 2 diabetes mellitus with diabetic polyneuropathy, Z79.4 - group home (current) use of insulin Changed From insulin glargine (Lantus Solostar U-100 Insulin) 40 units (0.4 mL) subcut QPM 45 mL 3RF E11.42 - Type 2 diabetes mellitus with diabetic polyneuropathy, Z79.4 - bed bug exterminator (current) use of insulin To Lantus Solostar U-100 Insulin (insulin glargine) 45 units (0.45 mL) subcut QPM 45 mL 3RF NS E11.42 - Type 2 diabetes mellitus with diabetic polyneuropathy, Z79.4 - group home (current) use of insulin Discontinued hydrochlorothiazide Discontinued Reason: Doctor's Order 12.5 mg PO QAM 90 days 90 tabs 0RF for edema/swelling Coding Level of Care Code Est Pt Level 5 (06432) Diagnoses Type 2 diabetes mellitus with hyperglycemia, with long-term current use of insulin E11.65; Z79.4 Diabetes mellitus complication status: with hyperglycemia Diabetes mellitus type: type 2 Diabetic peripheral neuropathy E11.42 Hypothyroidism, unspecified type E03.9 Hypothyroidism type: unspecified Time Spent (min) 45
[2024-01-25 13:00] VITALS: BP 122/78; PULSE 79; BMI 31.2
[2024-01-25 13:10] LABS: Glucose, Whole Blood 294 mg/dL (60-115)
== END 2024-01-25 13:32 | disposition home or self-care (01) ==
PROVIDERS: PCP Internal Medicine; Visit Provider Internal Medicine
DX: E11.65 Type 2 diabetes mellitus with hyperglycemia (principal); Z79.4 Long term (current) use of insulin; E11.42 Type 2 diabetes mellitus with diabetic polyneuropathy; E03.9 Hypothyroidism, unspecified

== ENCOUNTER → 2024-01-25 12:58 | Outpatient (BNVA) | payer OTHER, SELFPAY | PROVIDERS: PCP Internal Medicine; Visit Provider Internal Medicine | DX: E11.65 Type 2 diabetes mellitus with hyperglycemia (principal); E11.42 Type 2 diabetes mellitus with diabetic polyneuropathy; E03.9 Hypothyroidism, unspecified; Z79.4 Long term (current) use of insulin | CPT/HCPCS: 82947; 99212 ==

== ENCOUNTER 2024-02-15 16:09 | Outpatient (AMB) | payer OTHER, SELFPAY ==
[2024-02-15 16:11] VITALS: BP 112/72; PULSE 112; O2SAT 99; BMI 32.4
--- NOTE | 2024-02-15 16:11 | A.OFFPC_ITS ---
Vital Signs 02/15/24 16:11 Height 5 ft 3 in Weight 183 lb BMI 32.4 BP 112/72 Blood Pressure Location Lt brachial Position Sitting Pulse 112 H Pulse Source Pulse Oximeter Pulse Oximetry (%) 99 Oxygen Delivery Method Room Air Intake Visit Reasons: Follow Up Piece Worker Required: No Accompanied by: Self / Same As Patient Allergies sulfamethoxazole [From BACTRIM] Allergy (Severe, Verified 02/15/24 16:24) FACIAL SWELLING trimethoprim [From BACTRIM] Allergy (Severe, Verified 02/15/24 16:24) FACIAL SWELLING docusate Allergy (Unknown, Verified 02/15/24 16:24) swelling Sulfa (Sulfonamide Antibiotics) Allergy (Unknown, Verified 02/15/24 16:24) swelling, facial swelling Stool Softener Allergy (Unknown, Uncoded 02/15/24 16:24) facial swelling STOOL SOFTENERS Allergy (Unknown, Uncoded 02/15/24 16:24) FACIAL SWELLING Medication List - Last Reconciled 02/15/24 by Israel Rosario MD albuterol sulfate 90 mcg/actuation (Ventolin HFA) 2 puffs inhalation Q6H PRN 30 days albuterol sulfate 2.5 mg (3 mL) continuous nebulization QID PRN 30 days blood sugar diagnostic As directed Dexcom G6 Layout Mechanic (blood-glucose meter,continuous) As directed NS Dexcom G6 Sensor (blood-glucose sensor) every 10 days NS Dexcom G6 Transmitter (blood-glucose transmitter) As directed NS FreeStyle Gia 3 [place] (blood-glucose meter,continuous) As directed NS FreeStyle Gia 3 Sensor (blood-glucose sensor) As directed NS gabapentin 100 mg PO BEDTIME 30 days insulin lispro (Humalog KwikPen (U-100) Insulin) 14 units SQ TID with meals per sliding scale; Lantus Solostar U-100 Insulin (insulin glargine) 45 units (0.45 mL) subcut QPM NS levothyroxine 50 mcg PO DAILY metformin ER 1,000 mg (2 x 500 mg) PO DAILY [NEBULIZER and all related supplies As directed] nicotine (polacrilex) (Nicorette) 4 mg buccal Q2H PRN pen needle, diabetic (BD Ultra-Fine Maria Elena Pen Needle) As directed 4 times a day PNV cmb#95-ferrous fumarate-FA 28 mg iron- 800 mcg () 1 tab PO DAILY spironolactone 25 mg PO DAILY Tobacco use date assessed: 02/15/24 Dental Screening Dental Screen Date: 02/15/24 Did you have a dental visit in the last 12 months?: No Did you have a dental problem in the last 6 months where you did not have access to dental care?: No Was dental information given to patient?: No HPI Follow Up HPI Details Patient comes in today for her follow up visit States that she's had recurrent oral and vaginal sores recently and is requesting for a referral to rheumatology as she is concerned that she may have Behcet's disease She also reports experiencing some irritation of her eyes often lately She denies any fever, headaches or dizziness Denies any chest pains, no SOB - states that her asthma has been well-controlled lately No nausea/vomiting, no abdominal pain No change in bowel habits noted States that she is now seeing endocrinology and feels that her diabetes has been getting under better control lately [facility] Medical History Smoker Acquired hypothyroidism Blurring of vision Asthma Obesity (BMI 30-39.9) Neuropathy involving both lower extremities Diabetes mellitus Diabetes mellitus, with long-term current use of insulin Surgical History Hx laparoscopic cholecystectomy No significant past surgical history Family History Mother COPD (chronic obstructive pulmonary disease) Father High blood pressure Maternal Grandmother Breast cancer Maternal Aunt Uterine cancer Social History Housing: House Alcohol intake: current Alcohol intake frequency: holidays/special occasions only Patient Tobacco Use Status: Current everyday Tobacco user Cigarettes Per Day: 10 e-Cigarette/Vaping Use: Never Used service: No Current occupational status: unemployed Cognitive needs: No Hearing needs: No Vision needs: No Female Reproductive History Menstrual Age of Menarche: 10 Questionnaire PHQ-9 Over the last 2 weeks, how often have you been bothered by any of the following problems? 1. Little interest or pleasure in doing things: several days 2. Feeling down, depressed, or hopeless: several days 3. Trouble falling or staying asleep, or sleeping too much: not at all 4. Feeling tired or having little energy: not at all 5. Poor appetite or overeating: not at all 6. Feeling bad about yourself - or that you are a failure or have let yourself or your family down: not at all 7. Trouble concentrating on things, such as reading the newspaper or watching television: not at all 8. Moving or speaking so slowly that other people could have noticed. Or the opposite - being so fidgety or restless that you have been moving around a lot more than usual: not at all 9. Thoughts that you would be better off or of hurting yourself in some way: not at all Total score: 2 Depression Screening Interpretation: Negative Depression Screening Done: Yes 45097 - PHQ-9 Billing: Yes Source: Developed by Drs. Jessee Thorpe, Audrey Rivero, Brian Jordan and colleagues, with an educational sandra from [employer]. Thrive Questionnaire Date Thrive assessed: 02/15/24 I am a: Patient What is your living situation today?: I have a steady place to live Within the past 12 months, did the food you bought not last and you didn't have the money to get more?: Never true Within the past 12 months, did you worry whether your food would run out before you got money to buy more?: Never true Do you have trouble paying for medicines?: No Do you have trouble getting transportation to medical appointments?: No Do you have trouble paying your heating and electricity bill?: No Do you have trouble taking care of your child, family member or friend?: No Do you have trouble with day-to-day activities such as bathing, preparing meals, shopping, managing finances, etc.?: No Are you currently unemployed and looking for a job?: No Are you interested in more education?: No Please select the resources that you would like help with: None Currently or been in a relationship where the following occur: No concerns reported THRIVE Score: 0 AUDIT C Alcohol Use Questionnaire (AUDIT-C) 1. How often do you have a drink containing alcohol?: Monthly or less 2. How many drinks containing alcohol do you have on a typical day when you are drinking?: 1 or 2 3. How often do you have six or more drinks on one occasion?: Never Total Score: 1 Score Reviewed/Action Taken: Yes MADELIN-7 AMB Questionnaire MADELIN-7 Date MADELIN - 7 assessed: 02/15/24 Feeling nervous, anxious, or on edge: 0 = Not at all Not being able to stop or control worryin = Not at all Worrying too much about different things: 0 = Not at all Trouble relaxin = Not at all Being so restless that it is hard to sit still: 0 = Not at all Becoming easily annoyed or irritable: 0 = Not at all Feeling afraid as if something awful might happen: 0 = Not at all Total MADELIN-7 score (0-4 normal; 5-9 mild; 10-14 moderate; 15-21 severe): 0 Source: Developed by Drs. Jessee Thorpe, Audrey Rivero, Brian Jordan and colleagues, with an educational sandra from [employer]. Review of Systems Const Denies chills, Denies fatigue, Denies fever(s) and Denies headache(s) Eyes Reports irritation (on and off, per patient) ENT Denies dysphagia, Denies dizziness, Denies otalgia, Denies headache(s), Reports mouth lesions (recurrent oral sores (per patient)), Denies neck pain, Denies odynophagia and Denies sore throat Card Denies chest pain, Denies palpitations and Denies dyspnea Resp Denies cough and Denies dyspnea GI Denies abdominal pain, Denies constipation, Denies dysphagia, Denies heartburn, Denies diarrhea, Denies nausea, Denies odynophagia and Denies vomiting Denies difficulty voiding, Denies nocturia, Reports genital lesions (recurrent, per patient) and Denies dysuria Musc Denies neck pain Neuro Denies dizziness and Denies headache(s) Endo Denies fatigue and Denies palpitations Physical exam (Primary Care) Vital Signs: Last Vital Signs Pulse 112 H 02/15/24 16:11 BP 112/72 02/15/24 16:11 Pulse Ox 99 02/15/24 16:11 Oxygen Delivery Method Room Air 02/15/24 16:11 BMI result Body Mass Index 32.4 Tobacco/Smoking Status: Tobacco use Status Tobacco use date assessed 02/15/24 02/15/24 16:14 Patient Tobacco Use Status Current everyday Tobacco 02/15/24 16:14 e-Cigarette/Vaping Use Never Used 02/15/24 16:14 PHQ-9: PHQ-9 Score PHQ-9: Total score 2 02/15/24 16:26 Depression Screening Interpretation: Negative Thrive Assessment: Date of Thrive Assessment Date Thrive assessed 02/15/24 02/15/24 16:14 Currently or been in a relationship where the following occur: No concerns reported Const General: no acute distress and alert HENMT Ears: TM's normal bilaterally and EAC's normal Mouth: Normal oral and palatal mucosa present (no lesions noted at present) Throat: Yes posterior oropharynx normal and Yes tonsils normal (no TP congestion) Neck Neck: Yes no lymphadenopathy and Yes supple Thyroid: Thyroid normal Resp Auscultation: clear to auscultation bilaterally, no rales and no wheezes Cardio Rate: regular rate Rhythm: regular rhythm Heart sounds: no murmurs GI Palpation (GI): Soft to palpation and nontender Auscultation: normal bowel sounds General: Yes no CVA tenderness Back/Spine/Pelvis Back: no CVA tenderness Thoracic/Lumbar Spine: thoracic and lumbar spine normal to inspection Skin Rashes: no rashes Extrem General: Yes no clubbing, cyanosis or edema Office Procedures Flu Questionnaire Does the patient have a severe egg allergy?: No Does the patient have severe life threatening allergies?: No Does the patient have a fever or illness today?: No Has the patient ever had Guillain-[place] Syndrome?: No Has the patient ever had any past reaction to a flu shot?: No Immunizations Fluarix Triv [id number] (PF) 45 mcg (15 mcg x 3)/0.5 mL IM syringe Performing Provider: Israel Rosario MD [facility] Documented (not given) by: JOHANN Encinas on 02/15/24 16:17 Reason Not Given: Patient Refused Coding Level of Care Code Est Pt Level 4 (54388) Diagnoses Type 2 diabetes mellitus without complication, with long-term current use of insulin E11.9; Z79.4 Diabetes mellitus type: type 2 Diabetes mellitus termite exterminator helper insulin use: with care home use Diabetes mellitus complication status: without complication Mild intermittent asthma without complication J45.20 Asthma severity: mild Asthma persistence: intermittent Asthma complication type: uncomplicated Neuropathy involving both lower extremities G57.93 Recurrent cold sores B00.1 Acquired hypothyroidism E03.9 Smoker F17.200 Obesity (BMI 30-39.9) E66.9 Assessment & Plan Assessment & Plan (1) Diabetes mellitus: Code(s): E11.9 - Type 2 diabetes mellitus without complications Category: Medical Qualifiers: Diabetes mellitus type: type 2 Diabetes mellitus termite exterminator helper insulin use: with termite exterminator helper use Diabetes mellitus complication status: without complication Qualified Code(s): E11.9 - Type 2 diabetes mellitus without complications; Z79.4 - USP (current) use of insulin Plan: Reinforced diabetic diet Her HgbA1c was at 14.0% back in October 2023 Will have her go and get her follow up labs done GALO, including her fasting lipid profile as she has not had her cholesterol levels checked in years She was seen by endocrinology a few weeks ago and had her Lantus increased to 45 units QD Continue Metformin ER 1000 mg QD and Humalog 2-14 units SQ 3 times a day with meals per sliding scale Follow-up with [facility] [place] as scheduled (2) Asthma: Code(s): J45.909 - Unspecified asthma, uncomplicated Category: Medical Qualifiers: Asthma severity: mild Asthma persistence: intermittent Asthma complication type: uncomplicated Qualified Code(s): J45.20 - Mild intermittent asthma, uncomplicated Plan: Stable/controlled Continue Albuterol HFA 2 inhalations Q 6 hours PRN (3) Neuropathy involving both lower extremities: Code(s): G57.93 - Unspecified mononeuropathy of bilateral lower limbs Category: Medical Plan: Have discussed with patient that her recent leg symptoms are likely due to neuropathy She was previously sent for some labs as well as EMG and NCV of the lower extremities for further evaluation but she did not get her labs done and it looks like she never went for her neurodiagnostic exam back in December 2023 Continue Gabapentin 100 mg Q HS (4) Recurrent cold sores: Code(s): B00.1 - Herpesviral vesicular dermatitis Category: Medical Plan: Per request, will refer her to rheumatology for further evaluation and management Have advised patient that her having Behcet's disease is unlikely at this point (5) Acquired hypothyroidism: Code(s): E03.9 - Hypothyroidism, unspecified Category: Medical Plan: Continue Levothyroxine 50 mcg QD Will have patient rechecked her TFTs as scheduled (6) Smoker: Code(s): F17.200 - Nicotine dependence, unspecified, uncomplicated Category: Social Hx Plan: She is counseled again on smoking cessation (7) Obesity (BMI 30-39.9): Code(s): E66.9 - Obesity, unspecified Category: Medical Plan: Reinforced diet/exercise as tolerated/lose weight Plan Follow up in 3 months Orders: Orders Influenza [id number] Immunization 02/15/24 Z23 - Encounter for immunization Referrals Rheumatology Referral B00.1 - Herpesviral vesicular dermatitis, R39.89 - Other symptoms and signs involving the genitourinary system
== END 2024-02-15 16:50 | disposition home or self-care (01) ==
PROVIDERS: PCP Internal Medicine; Visit Provider Internal Medicine
DX: E11.9 Type 2 diabetes mellitus without complications (principal); Z79.4 Long term (current) use of insulin; J45.20 Mild intermittent asthma, uncomplicated; G57.93 Unspecified mononeuropathy of bilateral lower limbs; B00.1 Herpesviral vesicular dermatitis; E03.9 Hypothyroidism, unspecified; F17.200 Nicotine dependence, unspecified, uncomplicated; E66.9 Obesity, unspecified

== ENCOUNTER → 2024-02-15 16:09 | Outpatient (BNVA) | payer OTHER, SELFPAY | PROVIDERS: PCP Internal Medicine; Visit Provider Internal Medicine | DX: E11.9 Type 2 diabetes mellitus without complications (principal); J45.20 Mild intermittent asthma, uncomplicated; G57.93 Unspecified mononeuropathy of bilateral lower limbs; B00.1 Herpesviral vesicular dermatitis; E03.9 Hypothyroidism, unspecified; E66.9 Obesity, unspecified; F17.200 Nicotine dependence, unspecified, uncomplicated; Z79.4 Long term (current) use of insulin; Z71.6 Tobacco abuse counseling | CPT/HCPCS: 90471; 96127; 99212 ==

== ENCOUNTER 2024-03-16 10:02 | Outpatient (REF) | payer OTHER, SELFPAY ==
[2024-03-16 10:35] LABS: MANUAL DIFF FLAG NO
[2024-03-16 11:36] LABS: Basophils Absolute Auto 0.1 X10*3/uL (0.0-0.2); Basophils Percent Auto 0.8 % (0-2); Eosinophils Absolute Auto 0.2 X10*3/uL (0.0-0.4); Eosinophils Percent Auto 2.3 % (0-4); Hematocrit 39.2 % (37.0-47.0); Hemoglobin 12.7 g/dl (12.0-16.0); Imm Gran Abs Auto 0.05 X10*3/uL (0.00-0.03); Imm Gran Pct Auto 0.5 % (0.0-0.4); Lymphocytes Percent Auto 38.6 % (20-40); Mean Corpuscular HGB Conc 32.4 g/dl (31.0-35.0); Mean Corpuscular Hemoglobin 27.1 pg (27.0-33.0); Mean Corpuscular Volume 83.8 fL (80.0-98.0); Mean Platelet Volume 10.4 fL (9.4-12.3); Monocytes Absolute Auto 0.5 X10*3/uL (0.1-1.2); Monocytes Percent Auto 5.1 % (2-11); Neutrophils Absolute Auto 5.4 x10*3/uL (2.0-8.3); Neutrophils Percent Auto 52.7 % (45-73); Platelet Count 446 X10*3/uL (160-400); Red Blood Count 4.68 X10*6/uL (4.20-5.50); Red Cell Distribution Width 15.5 % (11.0-16.0); White Blood Count 10.2 X10*3/uL (4.8-10.8)
[2024-03-16 12:02] LABS: Appearance Urine Clear; Color Urine Yellow; Glucose Urine UA >=1000 mg/dL (Negative); Leukocyte Esterase Urine Negative (Negative); Nitrite Urine Negative (Negative); Specific Gravity - Urine >= 1.030 (1.005-1.025); UMIC TRIGGER UACC YES; Urine Blood Negative (Negative); Urine Ketones Negative (Negative); Urine Protein Negative (Neg-Trace)
[2024-03-16 12:07] LABS: Bacteria Urine None Seen (None Seen); Hyaline Casts Urine 0-2 /LPF (0-2); RBC Urine 0-2 /HPF (0-2); Squamous Epithelial Cell Urine 0-2 /HPF (0-2); WBC Urine 0-5 /HPF (0-5)
[2024-03-16 12:24] LABS: Erythrocyte Sedimentation Rate 30 MM/HR (0-20)
[2024-03-16 12:29] LABS: Creatinine Urine 24.63 mg/dL; Microalbumin Urine < 5.0 mg/L
[2024-03-16 12:38] LABS: Alanine Aminotransferase 12 U/L (0-31); Albumin Level 4.2 g/dL (3.5-5.0); Alkaline Phosphatase 112 U/L (39-117); Anion Gap 12 (12-20); Aspartate Amino Transferase 13 U/L (5-31); Bilirubin Total 0.3 mg/dL (0.0-1.0); Blood Urea Nitrogen 10 mg/dL (9-16); C Reactive Protein 0.39 mg/dL (< or = 0.50); Calcium 9.4 mg/dL (8.4-10.2); Carbon Dioxide 27 mmol/L (22-29); Chloride 99 mmol/L (96-108); Cholesterol 248 mg/dL (<200); Estimated Glomerular Filt Rate > 60; HDL Cholesterol 66 mg/dL (>40); Iron 28 mcg/dL (30-160); LDL Cholesterol Calculated 149 mg/dL (<100); Percent Iron Saturation 7 % (15-50); Potassium 4.5 mmol/L (3.3-5.1); Sodium 133 mmol/L (135-145); Total Iron Binding Capacity 412 mcg/dL (228-428); Total Protein 7.5 g/dL (6.5-8.0); Triglycerides 169 mg/dL (<150); Unsaturated Iron Binding 384 ug/dL
[2024-03-16 13:06] LABS: Glucose Fasting 399 mg/dL (60-99)
[2024-03-16 13:07] LABS: Folate 10.9 ng/mL (> or = 4.0); Vitamin B12 490 pg/mL (200-900)
[2024-03-16 13:38] LABS: Free T4 (Free Thyroxine) 0.94 ng/dL (0.71-1.85)
[2024-03-17 22:43] LABS: C Peptide 0.98 ng/mL (0.80-3.85)
[2024-03-19 18:03] LABS: Lyme Abs Screen <0.90 index
[2024-03-20 21:24] LABS: Cyclic Citrullinated Peptide <16 UNITS
[2024-03-21 20:53] LABS: Glutamic acid decarboxylase Ab >250 IU/mL (<5)
== END 2024-03-16 10:03 | disposition home or self-care (01) ==
LOC: HO.LAB 10:02
PROVIDERS: PCP Internal Medicine; Visit Provider Internal Medicine
DX: D64.9 Anemia, unspecified (principal); E11.9 Type 2 diabetes mellitus without complications; E78.00 Pure hypercholesterolemia, unspecified; E53.8 Deficiency of other specified B group vitamins; E55.9 Vitamin D deficiency, unspecified; M25.50 Pain in unspecified joint; M79.7 Fibromyalgia; G57.93 Unspecified mononeuropathy of bilateral lower limbs; E11.42 Type 2 diabetes mellitus with diabetic polyneuropathy; E11.65 Type 2 diabetes mellitus with hyperglycemia; Z79.4 Long term (current) use of insulin
CPT/HCPCS: 36415; 80053; 80061; 81001; 81003; 82043; 82306; 82570; 82607; 82746; 83540; 84439; 84443; 84681; 85025; 85652; 86140; 86200; 86341; 86617; 86618

== ENCOUNTER 2024-03-21 12:55 | Outpatient (AMB) | payer OTHER, SELFPAY ==
--- NOTE | 2024-03-21 12:58 | A.OFFVIS_ITS ---
Vital Signs 03/21/24 13:01 Height 5 ft 3 in Weight 176 lb 5.917 oz BMI 31.2 Intake Visit Reasons: T2DM Intake Note: Patient presents today for a follow-up on Type 2 Diabetes Mellitus: Last Diabetic eye exam was on: 10/2023 Last Podiatry exam was on: Does not see a Impersonator Character Most recent HbA1c: 12.9%, 03/21/2024 Random Glucose- 301 mg/dL, Today Hanging Flags Decorator Required: No Accompanied by: Self / Same As Patient Allergies sulfamethoxazole [From BACTRIM] Allergy (Severe, Verified 02/15/24 16:24) FACIAL SWELLING trimethoprim [From BACTRIM] Allergy (Severe, Verified 02/15/24 16:24) FACIAL SWELLING docusate Allergy (Unknown, Verified 02/15/24 16:24) swelling Sulfa (Sulfonamide Antibiotics) Allergy (Unknown, Verified 02/15/24 16:24) swelling, facial swelling Stool Softener Allergy (Unknown, Uncoded 02/15/24 16:24) facial swelling STOOL SOFTENERS Allergy (Unknown, Uncoded 02/15/24 16:24) FACIAL SWELLING Medication List - Last Reconciled 03/21/24 by Ethel Tyler MD albuterol sulfate 90 mcg/actuation (Ventolin HFA) 2 puffs inhalation Q6H PRN 30 days albuterol sulfate 2.5 mg (3 mL) continuous nebulization QID PRN 30 days blood sugar diagnostic As directed Dexcom G6 Director Sales (blood-glucose meter,continuous) As directed NS Dexcom G6 Sensor (blood-glucose sensor) every 10 days NS Dexcom G6 Transmitter (blood-glucose transmitter) As directed NS FreeStyle Gia 3 [place] (blood-glucose meter,continuous) As directed NS FreeStyle Gia 3 Sensor (blood-glucose sensor) As directed NS gabapentin 100 mg PO BEDTIME 30 days insulin lispro (Humalog KwikPen (U-100) Insulin) 14 units SQ TID with meals per sliding scale; Lantus Solostar U-100 Insulin (insulin glargine) 45 units (0.45 mL) subcut QPM NS levothyroxine 50 mcg PO DAILY metformin ER 1,000 mg (2 x 500 mg) PO DAILY [NEBULIZER and all related supplies As directed] nicotine (polacrilex) (Nicorette) 4 mg buccal Q2H PRN pen needle, diabetic (BD Ultra-Fine Maria Leena Pen Needle) As directed 4 times a day PNV cmb#95-ferrous fumarate-FA 28 mg iron- 800 mcg () 1 tab PO DAILY spironolactone 25 mg PO DAILY HPI Comments Details: The patient is a 33 year old female with a past medical history of insulin dependent diabetes presenting for follow up Non compliance with insulin until about 2 months ago. She had a hospitalization earlier this month for DKA before she resumed. She was seen again in the ER with fluid retention-TSH was elevated at 15. She was started on diuretic but this has been making her skin itchy (sulfa allergY) switched to aldacton. Recently has been taking her lantus at 45 units nightly (compliant) and humalog sliding scale, generally taking 14 units with most meals though sometimes adjusting if meals are very small or very large (takes 1-2 times daily). Still had some GI issues with the XR metformin-still taking 500mg though does cause GI upset. . She had dexcom working but needs a new transmitter and sensors. TSH improved to 4.2 will increase from 50mcg to 75mcg today A1C today is 12.9% She has been working out. Lost 4 pounds Denies any recently hypoglycemia Seeing eye doctor at least annually ROS CONSTITUTIONAL: Denies weight loss, fever and chills. HEENT: Denies changes in vision and hearing. RESPIRATORY: Denies SOB and cough. CV: Denies palpitations and CP GI: Denies abdominal pain, nausea, vomiting and diarrhea. : Denies dysuria and urinary frequency. MSK: Denies new myalgia and joint pain. SKIN: Denies rash and pruritus. NEUROLOGICAL: Denies headache PSYCHIATRIC: Denies recent changes in mood. PHYSICAL EXAM: GENERAL: Alert and oriented x 3. NAD EYES: EOMI. Anicteric. HENT: Moist mucous membranes. No scleral icterus. No cervical lymphadenopathy. LUNGS: Clear to auscultation bilaterally. CARDIOVASCULAR: Regular rate and rhythm. No murmur. No JVD. ABDOMEN: Soft, non-tender +bs EXTREMITIES: No edema. Non-tender. SKIN: No rashes or lesions. Warm. NEUROLOGIC: No focal neurological deficits. CN II-XII grossly intact PSYCHIATRIC: Cooperative. Appropriate mood and affect [facility] Medical History Smoker Acquired hypothyroidism Blurring of vision Asthma Obesity (BMI 30-39.9) Neuropathy involving both lower extremities Diabetes mellitus Diabetes mellitus, with long-term current use of insulin Surgical History Hx laparoscopic cholecystectomy No significant past surgical history Family History Mother COPD (chronic obstructive pulmonary disease) Father High blood pressure Maternal Grandmother Breast cancer Maternal Aunt Uterine cancer Social History Housing: House Alcohol intake: current Alcohol intake frequency: holidays/special occasions only Patient Tobacco Use Status: Current everyday Tobacco user Cigarettes Per Day: 10 e-Cigarette/Vaping Use: Never Used service: No Current occupational status: unemployed Cognitive needs: No Hearing needs: No Vision needs: No Female Reproductive History Menstrual Age of Menarche: 10 Physical Exam Vital Signs: BMI result Body Mass Index 31.2 Results AMB Hemoglobin A1c AMB Hemoglobin A1c 12.9 % Last Edit by JOHANN Holman on 03/21/24 13:1 6 Assessment & Plan Assessment & Plan (1) Diabetes mellitus, with long-term current use of insulin: Code(s): E11.9 - Type 2 diabetes mellitus without complications; Z79.4 - intermediate project manager (current) use of insulin Category: Medical Qualifiers: Diabetes mellitus type: type 2 Diabetes mellitus complication status: with hyperglycemia Qualified Code(s): E11.65 - Type 2 diabetes mellitus with hyperglycemia; Z79.4 - intermediate project manager (current) use of insulin Plan: Uncontrolled. Increase lantus to 60 units daily. Continue current short acting dose Continue metformin 500mg daily Start mounjaro or similar at lowest dose for 4 weeks. Call to titrate (2) Diabetes mellitus: Code(s): E11.9 - Type 2 diabetes mellitus without complications Category: Medical Qualifiers: Diabetes mellitus type: type 2 Diabetes mellitus ad terminal makeup operator insulin use: with retirement use Diabetes mellitus complication status: without complication Qualified Code(s): E11.9 - Type 2 diabetes mellitus without complications; Z79.4 - intermediate project manager (current) use of insulin Plan: see above (3) Insulin long-term use: Code(s): Z79.4 - MCC (current) use of insulin Category: Medical Plan: see above plan Orders: Orders AMB Hemoglobin A1c Today E11.65 - Type 2 diabetes mellitus with hyperglycemia, Z79.4 - intermediate project manager (current) use of insulin Hemoglobin A1c 3 Months E03.9 - Hypothyroidism, unspecified, E11.42 - Type 2 diabetes mellitus with diabetic polyneuropathy, Z79.4 - MCC (current) use of insulin TSH reflex Free T4 3 Months E03.9 - Hypothyroidism, unspecified, E11.42 - Type 2 diabetes mellitus with diabetic polyneuropathy, Z79.4 - intermediate project manager (current) use of insulin Medications: New Mounjaro (tirzepatide) for 4 weeks 2.5 mg (0.5 mL) subcut QWEEK 2 mL 0RF NS E11.65 - Type 2 diabetes mellitus with hyperglycemia, Z79.4 - MCC (current) use of insulin fluconazole 150 mg PO DAILY 7 tabs 2RF levothyroxine 75 mcg PO DAILY 90 tabs 3RF ondansetron 4 mg PO Q8H PRN 30 tabs 2RF nausea and vomiting Changed From Lantus Solostar U-100 Insulin (insulin glargine) 45 units (0.45 mL) subcut QPM 45 mL 3RF NS E11.42 - Type 2 diabetes mellitus with diabetic polyneuropathy, Z79.4 - intermediate project manager (current) use of insulin To Lantus Solostar U-100 Insulin (insulin glargine) 60 units (0.6 mL) subcut QPM 45 mL 3RF NS E11.42 - Type 2 diabetes mellitus with diabetic polyneuropathy, Z79.4 - intermediate project manager (current) use of insulin From metformin ER 1,000 mg (2 x 500 mg) PO DAILY 90 tabs 3RF To metformin ER 500 mg PO DAILY 90 tabs 3RF Refilled [employer] G6 Sensor (blood-glucose sensor) every 10 days 9 ea 3RF NS E11.42 - Type 2 diabetes mellitus with diabetic polyneuropathy, Z79.4 - MCC (current) use of insulin Dexcom G6 Sensor (blood-glucose sensor) every 10 days 9 ea 3RF NS E11.42 - Type 2 diabetes mellitus with diabetic polyneuropathy, Z79.4 - MCC (current) use of insulin Dexcom G6 Transmitter (blood-glucose transmitter) As directed 1 ea 3RF NS Dexcom G6 Transmitter (blood-glucose transmitter) As directed 1 ea 3RF NS Coding Level of Care Code Est Pt Level 4 (86392) Diagnoses Type 2 diabetes mellitus with hyperglycemia, with long-term current use of insulin E11.65; Z79.4 Diabetes mellitus type: type 2 Diabetes mellitus complication status: with hyperglycemia Type 2 diabetes mellitus without complication, with long-term current use of insulin E11.9; Z79.4 Diabetes mellitus type: type 2 Diabetes mellitus retirement insulin use: with ad terminal makeup operator use Diabetes mellitus complication status: without complication Insulin long-term use Z79.4
[2024-03-21 13:01] VITALS: BMI 31.2
[2024-03-21 13:08] LABS: Glucose, Whole Blood 301 mg/dL (60-115)
== END 2024-03-21 13:36 | disposition home or self-care (01) ==
PROVIDERS: PCP Internal Medicine; Visit Provider Internal Medicine
DX: E11.65 Type 2 diabetes mellitus with hyperglycemia (principal); Z79.4 Long term (current) use of insulin; E11.9 Type 2 diabetes mellitus without complications

== ENCOUNTER → 2024-03-21 12:55 | Outpatient (BNVA) | payer OTHER, SELFPAY | PROVIDERS: PCP Internal Medicine; Visit Provider Internal Medicine | DX: E11.65 Type 2 diabetes mellitus with hyperglycemia (principal); E11.40 Type 2 diabetes mellitus with diabetic neuropathy, unspecified; Z79.4 Long term (current) use of insulin | CPT/HCPCS: 82947; 83036; 99212 ==

== ENCOUNTER 2024-04-10 09:45 | Emergency (ER) | payer OTHER, SELFPAY ==
[2024-04-10 10:16] VITALS: BP 131/87; PULSE 94; RESP 20; TEMP 36.2; O2SAT 99; BMI 34.2
[2024-04-10 10:36] LABS: Appearance Urine Clear; Color Urine Dark Yellow; Glucose Urine UA >=1000 mg/dL (Negative); Leukocyte Esterase Urine Trace (Negative); Nitrite Urine Positive (Negative); PH 5.5 (5.0-9.0); Specific Gravity - Urine >= 1.030 (1.005-1.025); UMIC TRIGGER UACC YES; Urine Blood Negative (Negative); Urine Ketones 15 mg/dL (Negative); Urine Protein Negative (Neg-Trace)
[2024-04-10 10:38] LABS: Bacteria Urine 4+ (None Seen); Hyaline Casts Urine 0-2 /LPF (0-2); RBC Urine 0-2 /HPF (0-2); UACC Culture Trigger YES; UPreg QC Valid YES; Urine Pregnancy NEGATIVE (NEGATIVE); WBC Urine 21-50 /HPF (0-5)
--- NOTE | 2024-04-10 11:10 | ED_ITS ---
HPI - Female Genitourinary General Chief complaint: Urogenital-Female Stated complaint: UTI? Time Seen by Provider: 04/10/24 11:27 Source: patient and RN notes reviewed Mode of arrival: ambulatory Limitations: no limitations History of Present Illness ED Provider: Latasha Felipe PA-C HPI Narrative: This is a 33-year-old female, with a history of diabetes, who presents emergency department for concerns for urinary frequency, urgency, dysuria for the last 5 days. Patient states that her symptoms feel like the urinary tract infection she has had in the past. She has been taking [id number] Pyridium which has provided her with some relief. She does report that she started to have right low back pain over the last several days. She denies any fevers, chills, severe abdominal pain, vomiting or diarrhea. She does admit to some morning nausea which resolves throughout the day. She is sexually active. She denies any current abnormal vaginal discharge or bleeding. She reports history of diabetes, and states that she has had no changes in her blood glucose level since the start of her symptoms. No other complaints or concerns at this time. MD elicited complaint: UTI Onset (ago): day(s) Location of symptoms: suprapubic Severity: mild Vaginal discharge: none Vaginal bleeding: none Urinary symptoms: Dysuria, Urgency and Frequency Exacerbating factors: urination Relieving factors: none Associated symptoms: abdominal pain and back pain Treatment prior to arrival: none Patient : No Related Data Home Medications ?Medication ?Instructions ?Recorded ?Confirmed blood sugar diagnostic #10 ea 08/01/20 02/15/24 Previous Rx's ?Medication ?Instructions ?Recorded pen needle, diabetic 32 gauge x #100 ea 03/24/22 (BD Ultra-Fine Maria Elena Pen Needle) vit no.95-ferrous 1 tab PO DAILY #30 tabs 06/26/22 fumarate 28 mg-folic acid 800 mcg tablet () NEBULIZER and all related supplies #1 ea 11/04/23 albuterol sulfate 90 mcg/actuation 2 puff inhalation Q6H PRN 11/04/23 aerosol inhaler (Ventolin HFA) shortness of breath or wheezing 30 days #8.5 grams gabapentin 100 mg capsule 100 mg PO BEDTIME 30 days #30 caps 11/04/23 nicotine (polacrilex) 4 mg gum 4 mg buccal Q2H PRN nicotine 11/04/23 (Nicorette) cravings #100 ea albuterol sulfate 2.5 mg/3 mL 2.5 mg (3 mL) continuous 11/25/23 (0.083 %) solution for nebulization nebulization QID PRN shortness of breath or wheezing 30 days #180 mL FreeStyle Gia 3 [place] #1 ea 12/28/23 (blood-glucose meter,continuous) insulin lispro 100 unit/mL See Rx Instructions .Route 12/28/23 subcutaneous pen (Humalog KwikPen .COMPLEX #45 mL (U-100) Insulin) FreeStyle Gia 3 Sensor #6 ea 01/18/24 (blood-glucose sensor) Dexcom G6 Botany Professor (blood-glucose #1 ea 01/25/24 meter,continuous) levothyroxine 50 mcg tablet 50 mcg PO DAILY #90 tabs 01/25/24 spironolactone 25 mg tablet 25 mg PO DAILY #90 tabs 01/25/24 Dexcom G6 Sensor (blood-glucose #9 ea 03/21/24 sensor) Dexcom G6 Transmitter #1 ea 03/21/24 (blood-glucose transmitter) Lantus Solostar U-100 Insulin 100 60 unit (0.6 mL) subcut QPM #45 mL 03/21/24 unit/mL (3 mL) subcutaneous pen (insulin glargine) Mounjaro 2.5 mg/0.5 mL 2.5 mg (0.5 mL) subcut QWEEK #2 mL 03/21/24 subcutaneous pen injector (tirzepatide) fluconazole 150 mg tablet 150 mg PO DAILY #7 tabs 03/21/24 levothyroxine 75 mcg tablet 75 mcg PO DAILY #90 tabs 03/21/24 metformin 500 mg tablet,extended 500 mg PO DAILY #90 tabs 03/21/24 release 24 hr ondansetron 4 mg disintegrating 4 mg PO Q8H PRN nausea and 03/21/24 tablet vomiting #30 tabs dulaglutide 0.75 mg/0.5 mL 0.75 mg (0.5 mL) subcut QWEEK #2 mL 04/09/24 subcutaneous pen injector (Trulicity) cefpodoxime 200 mg tablet 200 mg PO BID 10 days #20 tabs 04/10/24 Allergies Allergy/AdvReac Type Severity Reaction Status Date / Time sulfamethoxazole Allergy Severe FACIAL Verified 04/10/24 10:17 [From BACTRIM] SWELLING trimethoprim [From BACTRIM] Allergy Severe FACIAL Verified 04/10/24 10:17 SWELLING docusate Allergy Unknown swelling Verified 04/10/24 10:17 Sulfa (Sulfonamide Allergy Unknown swelling, Verified 04/10/24 10:17 Antibiotics) facial swelling Stool Softener Allergy Unknown facial Uncoded 04/10/24 10:17 swelling STOOL SOFTENERS Allergy Unknown FACIAL Uncoded 04/10/24 10:17 SWELLING Review of Systems Review of Systems: Yes all other systems are reviewed and are negative Constitutional: Constitutional: Reports as per [facility] Past Medical History Medical History Smoker Acquired hypothyroidism Blurring of vision Asthma Obesity (BMI 30-39.9) Neuropathy involving both lower extremities Diabetes mellitus Diabetes mellitus, with long-term current use of insulin Surgical History Hx laparoscopic cholecystectomy No significant past surgical history Family History Family History Mother COPD (chronic obstructive pulmonary disease) Father High blood pressure Maternal Grandmother Breast cancer Maternal Aunt Uterine cancer Social History Social History Housing: House Alcohol intake: current Alcohol intake frequency: holidays/special occasions only Patient Tobacco Use Status: Current everyday Tobacco user Cigarettes Per Day: 10 e-Cigarette/Vaping Use: Never Used Advance Directives: No Advance Directives Information Provided: Yes Patient : No service: No Current occupational status: unemployed Cognitive needs: No Hearing needs: No Vision needs: No Physical Exam Vital Signs: Vital Signs: Last Vital Signs Temp 97.2 F 04/10/24 10:16 Pulse 94 04/10/24 10:16 Resp 20 04/10/24 10:16 BP 131/87 04/10/24 10:16 Pulse Ox 99 04/10/24 10:16 O2 Del Method Room Air 04/10/24 10:16 BMI result Body Mass Index 34.2 Const: General: cooperative, comfortable and no acute distress Orientation/consciousness: patient oriented x3 Limitations: no limitations HEENT: Head: Yes normal to inspection, Yes normocephalic and Yes atraumatic Ears: hearing grossly normal bilaterally General nose exam: Normal external nose present Face and sinus: Yes normal facial exam Mouth: Normal oral and palatal mucosa present, oropharynx normal and moist mucous membranes Throat: Yes posterior oropharynx normal Eyes: General: appearance normal, both eyes and all related structures Eyelids: Yes eyelids normal Conjunctivae: conjunctivae normal Sclerae: sclerae normal Pupils: Equal, round and reactive pupils present EOM: EOMs intact bilaterally Neck: Neck: Yes normal visual inspection, Yes full ROM and Yes no lymphadenopathy Lymphatic: no lymphadenopathy noted Chest: Chest palpation & inspection: normal inspection of the chest Resp: Effort & Inspection: normal respiratory effort and able to speak in complete sentences Auscultation: clear to auscultation bilaterally, no crackl es, no rales, no rhonchi and no wheezes Cardio: Rate: regular rate Rhythm: regular rhythm Heart sounds: S1 normal heart sound present and S2 normal heart sound present GI: Other: Suprapubic tenderness on examination. No rebound or guarding. Abdomen is otherwise soft and nontender. Inspection: Yes normal to inspection : Other: Positive CVA tenderness on the right Skin: General skin exam: no rashes or lesions noted Trauma: no lacerations or abrasions Wounds: no wounds Neuro: General: patient oriented x3 and moves all extremities Cranial nerves: Yes Equal, round and reactive pupils present Extrem: General: Yes normal to inspection Right upper extremity: normal to inspection Left upper extremity: normal to inspection Right lower extremity: normal to inspection Left lower extremity: normal to inspection Medical Decision Making Medical Decision Making MDM Narrative: This is a 33-year-old female who presents emergency department for evaluation of urinary frequency, urgency and dysuria x 5 days. On arrival, patient is well- appearing, in no acute distress. Abdomen is soft, with mild suprapubic tenderness on examination. She has mild right CVA tenderness on the right. Differential diagnoses include acute cystitis, pyelonephritis, obstructive uropathy-unlikely, STI. Patient reports that she is sexually active, she would like to be tested for gonorrhea and chlamydia, however will await for testing to be treated deferring prophylactic treatment at this time. Given mild tenderness to palpation on the right CVA region, will treat with 10 day course of cefpodoxime to cover for pyelonephritis/acute cystitis. Given strict return precautions. She understands and agrees with plan. Patient stable for discharge. Differential Diagnosis Differential Diagnoses: The differential diagnosis associated with the presentation includes See above Lab Data MDM Lab Attestation statement: I reviewed the patient's lab results. Positive nitrites, trace leuk esterase, urine WBCs 21-50, 4+ bacterial, consistent with a urinary tract infection. Urine negative Labs: Lab Results 04/10/24 Range/Units 10:29 Urine Color Dark Yellow Urine Appearance Clear Urine pH 5.5 (5.0-9.0) Ur Specific [place] >= 1.030 H (1.005-1.025) Urine Protein Negative (Neg-Trace) mg/dL Urine Glucose (UA) >=1000 H (Negative) mg/dL Urine Ketones 15 (Negative) mg/dL Urine Blood Negative (Negative) Urine Nitrite Positive H (Negative) Ur Leukocyte Esterase Trace H (Negative) Urine RBC 0-2 (0-2) /HPF Urine WBC 21-50 H (0-5) /HPF Ur Squamous Epith Cells 3-5 (0-2) /HPF Urine Bacteria 4+ (None Seen) Hyaline Casts 0-2 (0-2) /LPF Urine Test NEGATIVE (NEGATIVE) Discharge Plan Discharge Clinical Impression: Urinary tract infection Patient Disposition: Home, Self-Care Instructions: Urinary Tract Infection in Women (ED) Additional Instructions: You were seen in the emergency department due to urinary symptoms. Your urine test was positive for a urinary tract infection. Please take prescribed antibiotic as directed. Finish the entire course even if your symptoms improve. Drink plenty of fluids get plenty of rest. If any new or worsening symptoms occur including but not limited to high fevers, fevers, severe abdominal pain, please seek emergent care. We will call you with any positive results from your testing today. We will also call you if we need to switch your antibiotic. Follow-up with your primary care physician regarding this visit. Prescriptions: New cefpodoxime 200 mg tablet 200 mg PO BID 10 Days Qty: 20 0RF Rx Instructions: must administer with a meal/food No Action (DME) pen needle, diabetic [BD Ultra-Fine Maria Elena Pen Needle] 32 gauge x 5/32 needle See Rx Instructions .ROUTE .MEDSUPPLY Qty: 100 12RF Rx Instructions: As directed 4 times a day albuterol sulfate 2.5 mg /3 mL (0.083 %) solution for nebulization 2.5 mg continuous nebulization QID PRN (Reason: shortness of breath or wheezing) 30 Days Qty: 180 3RF (DME) FreeStyle Gia 3 Sensor Device See Rx Instructions .Route Qty: 6 3RF Rx Instructions: As directed Trulicity 0.75 mg/0.5 mL pen injector 0.75 mg subcut QWEEK Qty: 2 3RF PNV cmb#95-ferrous fumarate-FA [] 28 mg iron- 800 mcg tablet 1 tab PO DAILY Qty: 30 0RF (DME) FreeStyle Lite Strips Strip See Rx Instructions Not Applicable QID Qty: 10 Rx Instructions: As directed gabapentin 100 mg capsule 100 mg PO BEDTIME 30 Days Qty: 30 2RF (DME) NEBULIZER and all related supplies See Rx Instructions .Route .MEDSUPPLY Qty: 1 0RF Rx Instructions: As directed albuterol sulfate [Ventolin HFA] 90 mcg/actuation HFA aerosol inhaler 2 puff inhalation Q6H PRN (Reason: shortness of breath or wheezing) 30 Days Qty: 8.5 5RF nicotine (polacrilex) [Nicorette] 4 mg gum 4 mg buccal Q2H PRN (Reason: nicotine cravings) Qty: 100 5RF spironolactone 25 mg tablet 25 mg PO DAILY Qty: 90 3RF (DME) Dexcom G6 Botany Professor Misc See Rx Instructions .Route Qty: 1 0RF Rx Instructions: As directed levothyroxine 50 mcg tablet 50 mcg PO DAILY Qty: 90 3RF (DME) Dexcom G6 Sensor Device See Rx Instructions .Route Qty: 9 3RF Rx Instructions: every 10 days (DME) Dexcom G6 Transmitter Device See Rx Instructions .Route Qty: 1 3RF Rx Instructions: As directed Mounjaro 2.5 mg/0.5 mL pen injector 2.5 mg subcut QWEEK Qty: 2 0RF Rx Instructions: for 4 weeks insulin glargine [Lantus Solostar U-100 Insulin] 100 unit/mL (3 mL) insulin pen 60 unit subcut QPM Qty: 45 3RF metformin 500 mg tablet extended release 24 hr 500 mg PO DAILY Qty: 90 3RF fluconazole 150 mg tablet 150 mg PO DAILY Qty: 7 2RF levothyroxine 75 mcg tablet 75 mcg PO DAILY Qty: 90 3RF ondansetron 4 mg tablet,disintegrating 4 mg PO Q8H PRN (Reason: nausea and vomiting) Qty: 30 2RF (DME) FreeStyle Gia 3 Monroe Misc See Rx Instructions .Route Qty: 1 0RF Rx Instructions: As directed insulin lispro [Humalog KwikPen Insulin] 100 unit/mL insulin pen See Rx Instructions .ROUTE .COMPLEX Qty: 45 12RF Rx Instructions: 14 units SQ TID with meals per sliding scale; Print Language: Syriac
[2024-04-10 11:35] VITALS: BP 131/87; PULSE 94; RESP 20; TEMP 36.2; O2SAT 99
[2024-04-10 13:35] LABS: CT PCR NOT DETECTED (Not Detect.); NG PCR NOT DETECTED (Not Detect.)
== END 2024-04-10 11:36 | disposition home or self-care (01) ==
PROVIDERS: Physician Assistant Medical; Emergency Provider Emergency Medicine; PCP Internal Medicine
DX: N39.0 Urinary tract infection, site not specified (principal); R30.0 Dysuria; R35.0 Frequency of micturition; E11.9 Type 2 diabetes mellitus without complications; Z79.899 Other long term (current) drug therapy; Z79.4 Long term (current) use of insulin; Z79.84 Long term (current) use of oral hypoglycemic drugs
CPT/HCPCS: 81001; 81025; 87086; 87088; 87186; 87491; 87591; 99282; 99283

== ENCOUNTER 2024-04-18 13:32 | Outpatient (AMB) | payer OTHER, SELFPAY ==
--- NOTE | 2024-04-18 13:35 | A.OFFVIS_ITS ---
Vital Signs 04/18/24 13:36 Height 5 ft 3 in Weight 174 lb 2.643 oz BMI 30.8 BP 128/76 Blood Pressure Location Rt brachial Position Sitting Pulse 104 H Pulse Source Pulse Oximeter Intake Visit Reasons: T2DM Intake Note: Patient presents today for a follow-up on Type 2 Diabetes Mellitus: Last Diabetic eye exam was on: 10/2023 Last Podiatry exam was on: Does not see a Squad Boss Most recent HbA1c: 12.9%, 03/21/2024 Random Glucose- 413 mg/dL, Today Social Security Benefits Interviewer Required: No Accompanied by: Self / Same As Patient Allergies sulfamethoxazole [From BACTRIM] Allergy (Severe, Verified 04/18/24 13:35) FACIAL SWELLING trimethoprim [From BACTRIM] Allergy (Severe, Verified 04/18/24 13:35) FACIAL SWELLING docusate Allergy (Unknown, Verified 04/18/24 13:35) swelling Sulfa (Sulfonamide Antibiotics) Allergy (Unknown, Verified 04/18/24 13:35) swelling, facial swelling Stool Softener Allergy (Unknown, Uncoded 04/18/24 13:35) facial swelling STOOL SOFTENERS Allergy (Unknown, Uncoded 04/18/24 13:35) FACIAL SWELLING HPI Comments Details: The patient is a 33 year old female with a past medical history of insulin dependent diabetes presenting for follow up Non compliance with insulin until about 2 months ago. She had a hospitalization earlier this month for DKA before she resumed. She was seen again in the ER with fluid retention-TSH was elevated at 15. She was started on diuretic but this has been making her skin itchy (sulfa allergY) switched to aldacton. Recently has been taking her lantus Current medications: Lantus 60 units daily, humalog sliding scale, generally taking 14 units with most meals though sometimes adjusting if meals are very small or very large (takes 1-2 times daily). Still had some GI issues with the XR metformin-still taking 500mg. Has not started trulicity but plans to do so in next week or two She had dexcom working but needs a new transmitter and sensors. TSH improved to 4.2 at which point 50mcg to 75mcg today last visit A1C last visit 12.9% She has been working out. Lost another 2 pounds, 4 pounds prior Denies any recently hypoglycemia Seeing eye doctor at least annually ROS CONSTITUTIONAL: Denies weight loss, fever and chills. HEENT: Denies changes in vision and hearing. RESPIRATORY: Denies SOB and cough. CV: Denies palpitations and CP GI: Denies abdominal pain, nausea, vomiting and diarrhea. : Denies dysuria and urinary frequency. MSK: Denies new myalgia and joint pain. SKIN: Denies rash and pruritus. NEUROLOGICAL: Denies headache PSYCHIATRIC: Denies recent changes in mood. PHYSICAL EXAM: GENERAL: Alert and oriented x 3. NAD EYES: EOMI. Anicteric. HENT: Moist mucous membranes. No scleral icterus. No cervical lymphadenopathy. LUNGS: Clear to auscultation bilaterally. CARDIOVASCULAR: Regular rate and rhythm. No murmur. No JVD. ABDOMEN: Soft, non-tender +bs EXTREMITIES: No edema. Non-tender. SKIN: No rashes or lesions. Warm. NEUROLOGIC: No focal neurological deficits. CN II-XII grossly intact PSYCHIATRIC: Cooperative. Appropriate mood and affect [facility] Medical History Smoker Acquired hypothyroidism Blurring of vision Asthma Obesity (BMI 30-39.9) Neuropathy involving both lower extremities Diabetes mellitus Diabetes mellitus, with long-term current use of insulin Surgical History Hx laparoscopic cholecystectomy No significant past surgical history Family History Mother COPD (chronic obstructive pulmonary disease) Father High blood pressure Maternal Grandmother Breast cancer Maternal Aunt Uterine cancer Social History Housing: House Alcohol intake: current Alcohol intake frequency: holidays/special occasions only Patient Tobacco Use Status: Current everyday Tobacco user Cigarettes Per Day: 10 e-Cigarette/Vaping Use: Never Used service: No Current occupational status: unemployed Cognitive needs: No Hearing needs: No Vision needs: No Female Reproductive History Menstrual Age of Menarche: 10 Physical Exam Vital Signs: Last Vital Signs Pulse 104 H 04/18/24 13:36 BP 128/76 04/18/24 13:36 BMI result Body Mass Index 30.8 Results Reviewed Results Reviewed: Laboratory Last Values Glucose (Clinic) 413 mg/dL (60-115) H* 04/18/24 13:40 Assessment & Plan Assessment & Plan (1) Diabetes mellitus, with long-term current use of insulin: Code(s): E11.9 - Type 2 diabetes mellitus without complications; Z79.4 - shelter (current) use of insulin Category: Medical Qualifiers: Diabetes mellitus type: type 2 Diabetes mellitus complication status: with hyperglycemia Qualified Code(s): E11.65 - Type 2 diabetes mellitus with hyperglycemia; Z79.4 - termite helper (current) use of insulin Plan: Improving glucose. She is eligible to picking tech new sensors today. She will start the trulicity and return in 5 weeks or sooner as needed (2) Acquired hypothyroidism: Code(s): E03.9 - Hypothyroidism, unspecified Category: Medical Plan: Will check TSH at 3 month on new dose Coding Level of Care Code Est Pt Level 4 (72361) Diagnoses Type 2 diabetes mellitus with hyperglycemia, with long-term current use of insulin E11.65; Z79.4 Diabetes mellitus type: type 2 Diabetes mellitus complication status: with hyperglycemia Acquired hypothyroidism E03.9
[2024-04-18 13:36] VITALS: BP 128/76; PULSE 104; BMI 30.8
[2024-04-18 13:43] LABS: Glucose, Whole Blood 413 mg/dL (60-115)
== END 2024-04-18 14:11 | disposition home or self-care (01) ==
PROVIDERS: PCP Internal Medicine; Visit Provider Internal Medicine
DX: E11.65 Type 2 diabetes mellitus with hyperglycemia (principal); Z79.4 Long term (current) use of insulin; E03.9 Hypothyroidism, unspecified

== ENCOUNTER → 2024-04-18 13:32 | Outpatient (BNVA) | payer OTHER, SELFPAY | PROVIDERS: PCP Internal Medicine; Visit Provider Internal Medicine | DX: E11.65 Type 2 diabetes mellitus with hyperglycemia (principal); Z79.4 Long term (current) use of insulin | CPT/HCPCS: 82947; 99212 ==

== ENCOUNTER 2024-06-21 13:05 | Outpatient (AMB) | payer OTHER, SELFPAY ==
[2024-06-21 13:06] VITALS: BP 120/80; PULSE 57; O2SAT 100; BMI 32.0
--- NOTE | 2024-06-21 13:06 | A.OFFVIS_ITS ---
Vital Signs 06/21/24 13:06 Height 5 ft 3 in Weight 180 lb 12.465 oz BMI 32.0 BP 120/80 Blood Pressure Location Rt brachial Position Sitting Pulse 57 Pulse Source Pulse Oximeter Pulse Oximetry (%) 100 Oxygen Delivery Method Room Air Intake Visit Reasons: T2DM Intake Note: Patient presents today for a follow-up on Type 2 Diabetes Mellitus: Last Diabetic eye exam was on: 10/2023 Last Podiatry exam was on: Does not see a Pediatric Neuropsychologist Most recent HbA1c: 11.6%, 06/21/2024 Random Glucose- 314 mg/dL, Today Director Investor Relations Required: No Accompanied by: Self / Same As Patient Allergies sulfamethoxazole [From BACTRIM] Allergy (Severe, Verified 06/21/24 13:08) FACIAL SWELLING trimethoprim [From BACTRIM] Allergy (Severe, Verified 06/21/24 13:08) FACIAL SWELLING docusate Allergy (Unknown, Verified 06/21/24 13:08) swelling Sulfa (Sulfonamide Antibiotics) Allergy (Unknown, Verified 06/21/24 13:08) swelling, facial swelling Stool Softener Allergy (Unknown, Uncoded 06/21/24 13:08) facial swelling STOOL SOFTENERS Allergy (Unknown, Uncoded 06/21/24 13:08) FACIAL SWELLING Medication List - Last Reconciled 06/21/24 by Ethel Tyler MD albuterol sulfate 2.5 mg (3 mL) continuous nebulization QID PRN 30 days albuterol sulfate 90 mcg/actuation (Ventolin HFA) 2 puffs inhalation Q6H PRN 30 days blood sugar diagnostic As directed cefpodoxime 200 mg PO BID 10 days Dexcom G6 Global Regulatory Affairs Manager (blood-glucose meter,continuous) As directed NS Dexcom G6 Sensor (blood-glucose sensor) every 10 days NS Dexcom G6 Transmitter (blood-glucose transmitter) As directed NS dulaglutide (Trulicity) 0.75 mg (0.5 mL) subcut QWEEK fluconazole 150 mg PO DAILY FreeStyle Gia 3 [place] (blood-glucose meter,continuous) As directed NS FreeStyle Gia 3 Sensor (blood-glucose sensor) As directed NS gabapentin 100 mg PO BEDTIME 30 days insulin lispro (Humalog KwikPen (U-100) Insulin) 14 units SQ TID with meals per sliding scale; Lantus Solostar U-100 Insulin (insulin glargine) 60 units (0.6 mL) subcut QPM NS levothyroxine 50 mcg PO DAILY levothyroxine 75 mcg PO DAILY metformin ER 500 mg PO DAILY Mounjaro (tirzepatide) 2.5 mg (0.5 mL) subcut QWEEK NS [NEBULIZER and all related supplies As directed] nicotine (polacrilex) (Nicorette) 4 mg buccal Q2H PRN ondansetron 4 mg PO Q8H PRN pen needle, diabetic (BD Ultra-Fine Maria Elena Pen Needle) As directed 4 times a day PNV cmb#95-ferrous fumarate-FA 28 mg iron- 800 mcg () 1 tab PO DAILY spironolactone 25 mg PO DAILY HPI Comments Details: The patient is a 34 year old female with a past medical history of insulin dependent diabetes presenting for follow up Current medications: Lantus 60 units daily, humalog sliding scale, generally taking 14 units with most meals though sometimes adjusting if meals are very small or very large (takes 1-2 times daily). Compliant. Started trulicity 0.75, has taken for 4 weeks. She gained a significant amount of weight since starting. Has significant urgent loose stools with the trulicity. Ultimately stopped XR metformin due to diarrhea DexEndpoint Clinical is working but she needs to download the most recent program TSH improved to 4.2 at which point 50mcg to 75mcg today last visit A1C 11.6 today down from last visit 12.9% Denies any recently hypoglycemia Seeing eye doctor at least annually ROS CONSTITUTIONAL: Denies weight loss, fever and chills. HEENT: Denies changes in vision and hearing. RESPIRATORY: Denies SOB and cough. CV: Denies palpitations and CP GI: Denies abdominal pain, nausea, vomiting and diarrhea. : Denies dysuria and urinary frequency. MSK: Denies new myalgia and joint pain. SKIN: Denies rash and pruritus. NEUROLOGICAL: Denies headache PSYCHIATRIC: Denies recent changes in mood. PHYSICAL EXAM: GENERAL: Alert and oriented x 3. NAD EYES: EOMI. Anicteric. HENT: Moist mucous membranes. No scleral icterus. No cervical lymphadenopathy. LUNGS: Clear to auscultation bilaterally. CARDIOVASCULAR: Regular rate and rhythm. No murmur. No JVD. ABDOMEN: Soft, non-tender +bs EXTREMITIES: No edema. Non-tender. SKIN: No rashes or lesions. Warm. NEUROLOGIC: No focal neurological deficits. CN II-XII grossly intact PSYCHIATRIC: Cooperative. Appropriate mood and affect [facility] Medical History Smoker Acquired hypothyroidism Blurring of vision Asthma Obesity (BMI 30-39.9) Neuropathy involving both lower extremities Diabetes mellitus Diabetes mellitus, with long-term current use of insulin Surgical History Hx laparoscopic cholecystectomy No significant past surgical history Family History Mother COPD (chronic obstructive pulmonary disease) Father High blood pressure Maternal Grandmother Breast cancer Maternal Aunt Uterine cancer Social History Housing: House Alcohol intake: current Alcohol intake frequency: holidays/special occasions only Patient Tobacco Use Status: Current everyday Tobacco user Cigarettes Per Day: 10 e-Cigarette/Vaping Use: Never Used service: No Current occupational status: unemployed Cognitive needs: No Hearing needs: No Vision needs: No Female Reproductive History Menstrual Age of Menarche: 10 Physical Exam Vital Signs: Last Vital Signs Pulse 57 06/21/24 13:06 BP 120/80 06/21/24 13:06 Pulse Ox 100 06/21/24 13:06 Oxygen Delivery Method Room Air 06/21/24 13:06 BMI result Body Mass Index 32.0 Results AMB Hemoglobin A1c AMB Hemoglobin A1c 11.6 % Last Edit by JOHANN Holman on 06/21/24 13:2 7 Results Reviewed Results Reviewed: Laboratory Last Values Glucose (Clinic) 314 mg/dL (60-115) H 06/21/24 13:18 Hgb A1c (Clinic) 11.6 % (4.0-6.0) H 06/21/24 13:08 Assessment & Plan Assessment & Plan (1) Diabetes mellitus, with long-term current use of insulin: Code(s): E11.9 - Type 2 diabetes mellitus without complications; Z79.4 - stemmer machine (current) use of insulin Category: Medical Qualifiers: Diabetes mellitus complication status: with hyperglycemia Diabetes mellitus type: type 2 Qualified Code(s): E11.65 - Type 2 diabetes mellitus with hyperglycemia; Z79.4 - stemmer machine (current) use of insulin Plan: Uncontrolled. Some interval improvement. Would like to try ozempic or mounjaro to see if she tolerates better. Mounjaro sent, will need PA-failed trulicity, metformin. Return in 4 weeks Orders: Orders AMB Hemoglobin A1c Today E11.65 - Type 2 diabetes mellitus with hyperglycemia, Z79.4 - stemmer machine (current) use of insulin Medications: Refilled Mounjaro (tirzepatide) for 4 weeks 2.5 mg (0.5 mL) subcut QWEEK 2 mL 0RF NS E11.65 - Type 2 diabetes mellitus with hyperglycemia, Z79.4 - stemmer machine (current) use of insulin Coding Level of Care Code Est Pt Level 4 (00872) Diagnoses Type 2 diabetes mellitus with hyperglycemia, with long-term current use of insulin E11.65; Z79.4 Diabetes mellitus complication status: with hyperglycemia Diabetes mellitus type: type 2
[2024-06-21 13:23] LABS: Glucose, Whole Blood 314 mg/dL (60-115)
--- OUTSIDE RECORDS SUMMARY | 2024-06-21 13:58 | XMS_ITS | Clinical Summary ---
Author Organization [facility] ity Address [address] [place] [address] Care Team Providers Care Water Main Installer Helper Name Role Phone Israel Rosario MD Primary Care Provider Social History Tobacco Use Types Packs/Day Years Used Date Smoking Tobacco: Never Assessed Comments Unknown Sex and Gender Information Value Date Recorded Sex Assigned at Not on file Legal Sex Female 7:23 PM EST Gender Identity Not on file Sexual Orientation Not on file Plan of Treatment Health Maintenance Due Date Last Done Comments DTaP,Tdap,and Td Vaccines (1 - Tdap) 2007 Hepatitis B Vaccines (1 of 3 - 19+ 3-dose series) 2007 Cervical Cancer Screening: P ap Smear 2009 COVID-19 Vaccine ( - 2023-2 5 season) 2024 Influenza Vaccine (#1) 2024 HIB Vaccines Aged Out No longer eligi ble based on patient's age to complete this topic HPV Vaccines Aged Out No longer eligi ble based on patient's age to complete this topic Hepatitis A Vaccines Aged Out No long er eligible based on patient's age to complete this topic IPV Vaccines Aged Out No longer eligi ble based on patient's age to complete this topic MMR Vaccines Aged Out No longer eligi ble based on patient's age to complete this topic Meningococcal ACWY Vaccine Aged Out N o longer eligible based on patient's age to complete this topic Meningococcal B Vacine Aged Out No lo nger eligible based on patient's age to complete this topic Pneumococcal Vaccine: Pediat rics (0 to 5 Years) and At-Risk Patients (6 to 64 Years) Aged Out No longer eligible b ased on patient's age to complete this topic RSV Immunization Patients Un marilu 20 months Aged Out No longer eligible b ased on patient's age to complete this topic Varicella Vaccines Aged Out No longer eligible based on patient's age to complete this topic Care Teams Water Main Installer Helper Relationship Specialty Start Date End Date Israel Rosario MD [address] [place] [address] Dr [address] TAINA Hutchinson PCP - General Internal Medicine 01/27/18
== END 2024-06-21 13:46 | disposition home or self-care (01) ==
PROVIDERS: PCP Internal Medicine; Visit Provider Internal Medicine
DX: E11.65 Type 2 diabetes mellitus with hyperglycemia (principal); Z79.4 Long term (current) use of insulin

== ENCOUNTER → 2024-06-21 13:05 | Outpatient (BNVA) | payer OTHER, SELFPAY | PROVIDERS: PCP Internal Medicine; Visit Provider Internal Medicine | DX: E11.65 Type 2 diabetes mellitus with hyperglycemia (principal); Z79.4 Long term (current) use of insulin | CPT/HCPCS: 82947; 83036; 99212 ==

== ENCOUNTER 2024-07-25 13:00 | Outpatient (AMB) | payer OTHER, SELFPAY ==
--- NOTE | 2024-07-25 13:01 | A.OFFVIS_ITS ---
Vital Signs 07/25/24 13:02 Height 5 ft 3 in Weight 174 lb 2.643 oz BMI 30.8 BP 112/78 Blood Pressure Location Rt brachial Position Sitting Pulse 109 H Pulse Source Pulse Oximeter Pulse Oximetry (%) 99 Oxygen Delivery Method Room Air Intake Visit Reasons: T2DM Intake Note: Patient presents today for a follow-up on Type 2 Diabetes Mellitus: Last Diabetic eye exam was on: 10/2023 Last Podiatry exam was on: Does not see a Biology Laboratory Assistant Most recent HbA1c: 11.6%, 06/21/2024 Random Glucose- 309 mg/dL, Today Requirements Engineer Required: No Accompanied by: Self / Same As Patient Allergies sulfamethoxazole [From BACTRIM] Allergy (Severe, Verified 07/25/24 13:02) FACIAL SWELLING trimethoprim [From BACTRIM] Allergy (Severe, Verified 07/25/24 13:02) FACIAL SWELLING docusate Allergy (Unknown, Verified 07/25/24 13:02) swelling Sulfa (Sulfonamide Antibiotics) Allergy (Unknown, Verified 07/25/24 13:02) swelling, facial swelling Stool Softener Allergy (Unknown, Uncoded 07/25/24 13:02) facial swelling STOOL SOFTENERS Allergy (Unknown, Uncoded 07/25/24 13:02) FACIAL SWELLING HPI Comments Details: The patient is a 34 year old female with a past medical history of insulin dependent diabetes presenting for follow up Current medications: Lantus she dropped from 60 to 30 units daily, humalog sliding scale 8-24 units, and mounjaro 2.5mg which was new with last visit. She is tolerating the medication well with just mild nausea first one to two days of dose. She has lost 6 pounds. There has been some improvement in glucose readings. Had significant urgent loose stools with the trulicity. Ultimately stopped XR metformin due to diarrhea Dexcom is working but only able to view 24 hours seems that she has been unable to download correctly to store readings-will refer to developer support engineer today. TSH improved to 4.2 plan for repeat 3 months Last A1C 11.6 from 12.9% Denies any recently hypoglycemia Seeing eye doctor at least annually ROS CONSTITUTIONAL: Denies weight loss, fever and chills. HEENT: Denies changes in vision and hearing. RESPIRATORY: Denies SOB and cough. CV: Denies palpitations and CP GI: Denies abdominal pain, nausea, vomiting and diarrhea. : Denies dysuria and urinary frequency. MSK: Denies new myalgia and joint pain. SKIN: Denies rash and pruritus. NEUROLOGICAL: Denies headache PSYCHIATRIC: Denies recent changes in mood. PHYSICAL EXAM: GENERAL: Alert and oriented x 3. NAD EYES: EOMI. Anicteric. HENT: Moist mucous membranes. No scleral icterus. No cervical lymphadenopathy. LUNGS: Clear to auscultation bilaterally. CARDIOVASCULAR: Regular rate and rhythm. No murmur. No JVD. ABDOMEN: Soft, non-tender +bs EXTREMITIES: No edema. Non-tender. SKIN: No rashes or lesions. Warm. NEUROLOGIC: No focal neurological deficits. CN II-XII grossly intact PSYCHIATRIC: Cooperative. Appropriate mood and affect [facility] Medical History Smoker Acquired hypothyroidism Blurring of vision Asthma Obesity (BMI 30-39.9) Neuropathy involving both lower extremities Diabetes mellitus Diabetes mellitus, with long-term current use of insulin Surgical History Hx laparoscopic cholecystectomy No significant past surgical history Family History Mother COPD (chronic obstructive pulmonary disease) Father High blood pressure Maternal Grandmother Breast cancer Maternal Aunt Uterine cancer Social History Housing: House Alcohol intake: current Alcohol intake frequency: holidays/special occasions only Patient Tobacco Use Status: Current everyday Tobacco user Cigarettes Per Day: 10 e-Cigarette/Vaping Use: Never Used service: No Current occupational status: unemployed Cognitive needs: No Hearing needs: No Vision needs: No Female Reproductive History Menstrual Age of Menarche: 10 Physical Exam Vital Signs: Last Vital Signs Pulse 109 H 07/25/24 13:02 BP 112/78 07/25/24 13:02 Pulse Ox 99 07/25/24 13:02 Oxygen Delivery Method Room Air 07/25/24 13:02 BMI result Body Mass Index 30.8 Assessment & Plan Assessment & Plan (1) Diabetic peripheral neuropathy: Code(s): E11.42 - Type 2 diabetes mellitus with diabetic polyneuropathy Category: Medical Plan: Uncontrolled, though improving control on mounjaro with some successful weight loss as well She will increase mounjaro to 5mg weekly. Needs to see developer support engineer for CGM education Aware of instructions to treat lows Follow up as noted Orders: Orders TSH reflex Free T4 2 Months E03.9 - Hypothyroidism, unspecified, E11.42 - Type 2 diabetes mellitus with diabetic polyneuropathy Hemoglobin A1c 2 Months E03.9 - Hypothyroidism, unspecified, E11.42 - Type 2 diabetes mellitus with diabetic polyneuropathy Lipid Panel 2 Months E03.9 - Hypothyroidism, unspecified, E11.42 - Type 2 diabetes mellitus with diabetic polyneuropathy Microalbumin, Random (w Creat) 2 Months E03.9 - Hypothyroidism, unspecified, E11.42 - Type 2 diabetes mellitus with diabetic polyneuropathy Comprehensive Met. Panel 2 Months E03.9 - Hypothyroidism, unspecified, E11.42 - Type 2 diabetes mellitus with diabetic polyneuropathy Referrals Diabetes Education Referral E11.65 - Type 2 diabetes mellitus with hyperglyc emia, Z79.4 - retirement (current) use of insulin Medications: New Mounjaro (tirzepatide) 5 mg (0.5 mL) subcut QWEEK 6 mL 3RF NS E11.42 - Type 2 diabetes mellitus with diabetic polyneuropathy Changed From insulin lispro (Humalog KwikPen (U-100) Insulin) 14 units SQ TID with meals per sliding scale; 45 mL 12RF E11.9 - Type 2 diabetes mellitus without complications, Z79.4 - retirement (current) use of insulin To insulin lispro (Humalog KwikPen (U-100) Insulin) 5 units SQ TID with meals per sliding scale; 45 mL 12RF E11.9 - Type 2 diabetes mellitus without complications, Z79.4 - salvage determiner (current) use of insulin From Lantus Solostar U-100 Insulin (insulin glargine) 60 units (0.6 mL) subcut QPM 45 mL 3RF NS E11.42 - Type 2 diabetes mellitus with diabetic polyneuropathy, Z79.4 - salvage determiner (current) use of insulin To Lanmadiha Salvadorostar U-100 Insulin (insulin glargine) 25 units (0.25 mL) subcut QPM 45 mL 3RF NS E11.42 - Type 2 diabetes mellitus with diabetic polyneuropathy, Z79.4 - salvage determiner (current) use of insulin Refilled ondansetron 4 mg PO Q8H PRN 30 tabs 2RF nausea and vomiting Discontinued Mounjaro (tirzepatide) for 4 weeks Discontinued Reason: Doctor's Order 2.5 mg (0.5 mL) subcut QWEEK 2 mL 0RF NS E11.65 - Type 2 diabetes mellitus with hyperglycemia, Z79.4 - retirement (current) use of insulin Coding Level of Care Code Est Pt Level 4 (74303) Diagnoses Diabetic peripheral neuropathy E11.42
[2024-07-25 13:02] VITALS: BP 112/78; PULSE 109; O2SAT 99; BMI 30.8
[2024-07-25 13:20] LABS: Glucose, Whole Blood 309 mg/dL (60-115)
--- OUTSIDE RECORDS SUMMARY | 2024-07-25 15:27 | XMS_ITS | Clinical Summary ---
Author Organization [facility] it Address [address] [place] [address] Care Team Providers Care Radio Artist Name Role Phone Israel Rosario MD Primary [...] age to complete this topic Care Teams Radio Artist Relationship Specialty Start Date End Date Israel Rosario MD [address] [place] [address] Dr [address] TAINA Hutchinson PCP - General Internal Medicine 01/27/18
== END 2024-07-25 13:29 | disposition home or self-care (01) ==
LOC: HO.ENCR 13:00
PROVIDERS: PCP Internal Medicine; Visit Provider Internal Medicine
DX: E11.42 Type 2 diabetes mellitus with diabetic polyneuropathy (principal)

== ENCOUNTER → 2024-07-25 13:00 | Outpatient (BNVA) | payer OTHER, SELFPAY | PROVIDERS: PCP Internal Medicine; Visit Provider Internal Medicine | DX: E11.42 Type 2 diabetes mellitus with diabetic polyneuropathy (principal) | CPT/HCPCS: 82947; 99212 ==

== ENCOUNTER 2024-08-04 12:01 | Emergency (ER) | payer OTHER, SELFPAY ==
[2024-08-04 12:31] VITALS: BP 119/74; PULSE 100; RESP 18; TEMP 36.4; O2SAT 100; BMI 34.4
--- NOTE | 2024-08-04 12:32 | ED.FEMALEGU ---
HPI - Female Genitourinary General Chief complaint: Urogenital-Female Stated complaint: uti symptoms Time Seen by Provider: 08/04/24 12:57 Source: patient Mode of arrival: ambulatory Limitations: no limitations History of Present Illness ED Provider: SKY RODARTE PA-C HPI Narrative: 34 year old female presents to the ED today for evaluation of dysuria, increased urinary frequency, foul smelling urine, and suprapubic abdominal pain since yesterday. She is also requesting STI testing. She is sexually active with on partner. No new sexual partners. Has had negative testing in the past. Denies vaginal discharge. No vaginal bleeding. Denies fever, chills, N/V, flank or back pain. Related Data Home Medications ?Medication ?Instructions ?Recorded ?Confirmed blood sugar diagnostic #10 ea 08/01/20 02/15/24 Previous Rx's ?Medication ?Instructions ?Recorded pen needle, diabetic 32 gauge x #100 ea 03/24/22 (BD Ultra-Fine Maria Elena Pen Needle) vit no.95-ferrous 1 tab PO DAILY #30 tabs 06/26/22 fumarate 28 mg-folic acid 800 mcg tablet () NEBULIZER and all related supplies #1 ea 11/04/23 gabapentin 100 mg capsule 100 mg PO BEDTIME 30 days #30 caps 11/04/23 nicotine (polacrilex) 4 mg gum 4 mg buccal Q2H PRN nicotine 11/04/23 (Nicorette) cravings #100 ea albuterol sulfate 2.5 mg/3 mL 2.5 mg (3 mL) continuous 11/25/23 (0.083 %) solution for nebulization nebulization QID PRN shortness of breath or wheezing 30 days #180 mL FreeStyle Gia 3 [place] #1 ea 12/28/23 (blood-glucose,job change crew member,cont) FreeStyle Gia 3 Sensor #6 ea 01/18/24 (blood-glucose sensor) 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 #1 ea 01/25/24 (blood-glucose,job change crew member,cont) levothyroxine 50 mcg tablet 50 mcg PO DAILY #90 tabs 01/25/24 spironolactone 25 mg tablet 25 mg PO DAILY #90 tabs 01/25/24 Dexcom G6 Sensor (blood-glucose #9 ea 03/21/24 sensor) Dexcom G6 Transmitter #1 ea 03/21/24 (blood-glucose transmitter) fluconazole 150 mg tablet 150 mg PO DAILY #7 tabs 03/21/24 levothyroxine 75 mcg tablet 75 mcg PO DAILY #90 tabs 03/21/24 dulaglutide 0.75 mg/0.5 mL 0.75 mg (0.5 mL) subcut QWEEK #2 mL 04/09/24 subcutaneous pen injector (Trulicity) cefpodoxime 200 mg tablet 200 mg PO BID 10 days #20 tabs 04/10/24 albuterol sulfate 90 mcg/actuation 2 puff inhalation Q6H PRN 05/24/24 aerosol inhaler (Ventolin HFA) shortness of breath or wheezing 30 days #8.5 grams metformin 500 mg tablet,extended 1,000 mg (2 x 500 mg) PO DAILY 07/24/24 release 24 hr #180 tabs Lantus Solostar U-100 Insulin 100 25 unit (0.25 mL) subcut QPM #45 mL 07/25/24 unit/mL (3 mL) subcutaneous pen (insulin glargine) Mounjaro 5 mg/0.5 mL subcutaneous 5 mg (0.5 mL) subcut QWEEK #6 mL 07/25/24 pen injector (tirzepatide) insulin lispro 100 unit/mL See Rx Instructions .Route 07/25/24 subcutaneous pen (Humalog KwikPen .COMPLEX #45 mL (U-100) Insulin) ondansetron 4 mg disintegrating 4 mg PO Q8H PRN nausea and 07/25/24 tablet vomiting #30 tabs cefuroxime axetil 250 mg tablet 250 mg PO BID 7 days #14 tabs 08/04/24 phenazopyridine 200 mg tablet 200 mg PO Q8H PRN pain (scale 08/04/24 (Pyridium) score 1-3) 6 doses #6 tabs Allergies Allergy/AdvReac Type Severity Reaction Status Date / Time sulfamethoxazole Allergy Severe FACIAL Verified 08/04/24 12:33 [From BACTRIM] SWELLING trimethoprim [From BACTRIM] Allergy Severe FACIAL Verified 08/04/24 12:33 SWELLING docusate Allergy Unknown swelling Verified 08/04/24 12:33 Sulfa (Sulfonamide Allergy Unknown swelling, Verified 08/04/24 12:33 Antibiotics) facial swelling Stool Softener Allergy Unknown facial Uncoded 07/25/24 13:02 swelling STOOL SOFTENERS Allergy Unknown FACIAL Uncoded 07/25/24 13:02 SWELLING Review of Systems Review of Systems: Yes all other systems are reviewed and are negative [facility] Past Medical History Attestation statement: The following information was validated with the patient. Source: old records reviewed and nursing notes reviewed Medical History Smoker Acquired hypothyroidism Blurring of vision Asthma Obesity (BMI 30-39.9) Neuropathy involving both lower extremities Diabetes mellitus Diabetes mellitus, with long-term current use of insulin Surgical History Hx laparoscopic cholecystectomy No significant past surgical history Family History Family History Mother COPD (chronic obstructive pulmonary disease) Father High blood pressure Maternal Grandmother Breast cancer Maternal Aunt Uterine cancer Social History Social History Housing: House Alcohol intake: current Alcohol intake frequency: holidays/special occasions only Patient Tobacco Use Status: Current everyday Tobacco user Cigarettes Per Day: 10 e-Cigarette/Vaping Use: Never Used Advance Directives: No Advance Directives Information Provided: No Do you have a plan to hurt others: No Plan service: No Current occupational status: unemployed Cognitive needs: No Hearing needs: No Vision needs: No Physical Exam Vital Signs: Vital Signs: Last Vital Signs Temp 97.6 F 08/04/24 13:48 Pulse 100 08/04/24 13:48 Resp 18 08/04/24 13:48 BP 119/74 08/04/24 13:48 Pulse Ox 100 08/04/24 13:48 O2 Del Method Room Air 08/04/24 13:48 BMI result Body Mass Index 34.4 vital signs stable, afebrile General: Well appearing, in no acute distress. Skin: Warm, dry, intact. No rashes or lesions. Head: Normocephalic, atraumatic. EENT: Hearing is intact b/l. Conjunctiva clear. PERRLA. EOM intact. Moist mucous membranes.? Cardiac: Chest wall symmetric. RRR Lungs: Normal respiratory effort without accessory muscle use. CTA bilaterally Abdomen: soft, non-tender, non-distended. No rebound tenderness or guarding. Positive BS x4. no cvat. Back: No midline spinous or paraspinal tenderness. No step off deformity. Ext: Upper and lower extremities atraumatic, without tenderness, deformity, swelling or erythema Neuro: AOx3. Normal speech. Ambulating with steady gait. Course Course Course Narrative: This is a Rapid Medical Exam performed in triage by Lisa Figueroa PA-C. Full HPI, ROS and PE to be performed by primary ED provider. 34 yo F presenting to the ED c/o suprabupic pain/pelvic pain, dysuria, odorous urine & requesting STI testing. denies vaginal d/c. Denies new sexual partners. PE: nontoxic appearing, ambulating w/steady gait Plan: UA, U-preg, STI testing - patient would like to self swab Reevaluation(s) Reevaluation #1: Urine infected. On review of previous urine cultures, patient grew E coli and group B strep. Sensitive to ampicillin, cefazolin, cefepime, ceftriaxone, ciprofloxacin, gentamicin, Macrobid, Bactrim. > patient has tolerated Ceftin in the past. Will send a 70 course of Ceftin to pharmacy along with Pyridium for symptoms. > swabs for bv/trich/ct/ng pending. declining pelvic exam at this time which I feel is reasonable. patient will be contacted regarding any positive results. no presumptive treatment warranted at this time. Patient has remained stable throughout ED visit today. Discussed worrisome signs and symptoms and when to return to the ED. All questions answered at this time. Patient is agreeable with disposition and stable for discharge. Medical Decision Making Medical Decision Making MDM Narrative: 34 year old female presents to the ED today for evaluation of dysuria, increased urinary frequency, foul smelling urine, and suprapubic abdominal pain since yesterday. Vital signs are stable. She is afebrile. She is well-appearing in no acute distress. Abdomen is soft, nondistended, nontender to palpation without rebound or guarding. There is no CVAT bilaterally. Active bowel sounds throughout. Differential diagnosis includes urinary tract infection. Lower suspicion for UTI. Unlikely pyelonephritis, renal colic, nephrolithiasis, hydronephrosis, PID. Plan for UA, CT/NG/BV/trich testing, and disposition. No labs/ imaging warranted at this time. Differential Diagnosis Differential Diagnoses: The differential diagnosis associated with the presentation includes as above. Admission/Observation not indicated. Lab Data MDM Lab Attestation statement: I reviewed the patient's lab results. as above. Labs: Lab Results 08/04/24 Range/Units 12:50 Urine Color Dark Yellow Urine Appearance Cloudy Urine pH 5.5 (5.0-9.0) Ur Specific [place] >= 1.030 H (1.005-1.025) Urine Protein Trace (Neg-Trace) mg/dL Urine Glucose (UA) >=1000 H (Negative) mg/dL Urine Ketones 80 (Negative) mg/dL Urine Blood Moderate (2+) H (Negative) Urine Nitrite Positive H (Negative) Ur Leukocyte Esterase Small (1+) H (Negative) Urine RBC >20 H (0-2) /HPF Urine WBC >50 H (0-5) /HPF Ur Squamous Epith Cells 0-2 (0-2) /HPF Urine Bacteria 2+ (None Seen) Hyaline Casts 0-2 (0-2) /LPF Urine Test NEGATIVE (NEGATIVE) External Record Review External record reviewed: Inpatient record Prescription Management I considered prescription management with: Antibiotic (ceftin) and Other (pyridium) Social Determinants Patient?s care significantly limited by Social Determinants of Health including: Other Social Determinant of Health Critical Care Time Critical Care Time Critical Care Time: No Discharge Plan Discharge Clinical Impression: UTI (urinary tract infection) Patient Disposition: Home, Self-Care Instructions: Urinary Tract Infection in Women (ED) Additional Instructions: Your urine today is positive for infection. Ceftin is an antibiotic that has been sent to your pharmacy. Take this as prescribed and do not miss any doses. You must complete the entire course of antibiotics. If you do not, there is a risk of the infection coming back or worsening. Pyridium is an analgesic that can relieve the pain, burning, and discomfort caused by infection or irritation of the urinary tract. It is not an antibiotic and will not cure the infection itself. This has been sent to your pharmacy. Take this as needed for discomfort. Pyridium can cause your urine to turn a reddish orange color.? Swabs for gonorrhea, chlamydia, bacterial vaginosis and Trichomonas have been sent to the lab. These will take a few days to result. You will be contacted with any positive results and will be treated appropriately at that time. Follow up with your primary care provider as needed. If you develop a fever or new/ worsening symptoms call 911 or come back to the ER for further evaluation. Prescriptions: New cefuroxime axetil 250 mg tablet 250 mg PO BID 7 Days Qty: 14 0RF phenazopyridine [Pyridium] 200 mg tablet 200 mg PO Q8H PRN (Reason: pain (scale score 1-3)) Qty: 6 0RF No Action (DME) pen needle, diabetic [BD Ultra-Fine Maria Elena Pen Needle] 32 gauge x 5/32 needle See Rx Instructions .ROUTE .MEDSUPPLY Qty: 100 12RF Rx Instructions: As directed 4 times a day albuterol sulfate 2.5 mg /3 mL (0.083 %) solution for nebulization 2.5 mg continuous nebulization QID PRN (Reason: shortness of breath or wheezing) 30 Days Qty: 180 3RF (DME) FreeStyle Gia 3 Sensor Device See Rx Instructions .Route Qty: 6 3RF Rx Instructions: As directed Trulicity 0.75 mg/0.5 mL pen injector 0.75 mg subcut QWEEK Qty: 2 3RF albuterol sulfate [Ventolin HFA] 90 mcg/actuation HFA aerosol inhaler 2 puff inhalation Q6H PRN (Reason: shortness of breath or wheezing) 30 Days Qty: 8.5 5RF metformin 500 mg tablet extended release 24 hr 1,000 mg PO DAILY Qty: 180 3RF PNV cmb#95-ferrous fumarate-FA [] 28 mg iron- 800 mcg tablet 1 tab PO DAILY Qty: 30 0RF cefpodoxime 200 mg tablet 200 mg PO BID 10 Days Qty: 20 0RF Rx Instructions: must administer with a meal/food (DME) FreeStyle Lite Strips Strip See Rx Instructions Not Applicable QID Qty: 10 Rx Instructions: As directed gabapentin 100 mg capsule 100 mg PO BEDTIME 30 Days Qty: 30 2RF (DME) NEBULIZER and all related supplies See Rx Instructions .Route .MEDSUPPLY Qty: 1 0RF Rx Instructions: As directed nicotine (polacrilex) [Nicorette] 4 mg gum 4 mg buccal Q2H PRN (Reason: nicotine cravings) Qty: 100 5RF spironolactone 25 mg tablet 25 mg PO DAILY Qty: 90 3RF (DME) 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 Misc See Rx Instructions .Route Qty: 1 0RF Rx Instructions: As directed levothyroxine 50 mcg tablet 50 mcg PO DAILY Qty: 90 3RF (DME) Dexcom G6 Sensor Device See Rx Instructions .Route Qty: 9 3RF Rx Instructions: every 10 days (DME) Dexcom G6 Transmitter Device See Rx Instructions .Route Qty: 1 3RF Rx Instructions: As directed fluconazole 150 mg tablet 150 mg PO DAILY Qty: 7 2RF levothyroxine 75 mcg tablet 75 mcg PO DAILY Qty: 90 3RF (DME) FreeStyle Gia 3 [place] Misc See Rx Instructions .Route Qty: 1 0RF Rx Instructions: As directed insulin lispro [Humalog KwikPen Insulin] 100 unit/mL insulin pen See Rx Instructions .ROUTE .COMPLEX Qty: 45 12RF Rx Instructions: 5 units SQ TID with meals per sliding scale; insulin glargine [Lantus Solostar U-100 Insulin] 100 unit/mL (3 mL) insulin pen 25 unit subcut QPM Qty: 45 3RF Mounjaro 5 mg/0.5 mL pen injector 5 mg subcut QWEEK Qty: 6 3RF ondansetron 4 mg tablet,disintegrating 4 mg PO Q8H PRN (Reason: nausea and vomiting) Qty: 30 2RF Referrals: Israel Rosario MD [Primary Care Provider] - Interventions: ED Discharge Assessment Last Done: 08/04/24 13:48 Discharge Date/Time: 08/04/24 13:48 Print Language: [place] Islander
[2024-08-04 13:16] LABS: Appearance Urine Cloudy; Color Urine Dark Yellow; Glucose Urine UA >=1000 mg/dL (Negative); Leukocyte Esterase Urine Small (1+) (Negative); Nitrite Urine Positive (Negative); PH 5.5 (5.0-9.0); Specific Gravity - Urine >= 1.030 (1.005-1.025); UMIC TRIGGER UACC YES; Urine Blood Moderate (2+) (Negative); Urine Ketones 80 mg/dL (Negative); Urine Protein Trace mg/dL (Neg-Trace)
[2024-08-04 13:17] LABS: Urine Pregnancy NEGATIVE (NEGATIVE)
[2024-08-04 13:18] LABS: UPreg QC Valid YES
[2024-08-04 13:21] LABS: Bacteria Urine 2+ (None Seen); Hyaline Casts Urine 0-2 /LPF (0-2); RBC Urine >20 /HPF (0-2); Squamous Epithelial Cell Urine 0-2 /HPF (0-2); UACC Culture Trigger YES; WBC Urine >50 /HPF (0-5)
--- OUTSIDE RECORDS SUMMARY | 2024-08-04 13:26 | XMS_ITS | Clinical Summary ---
Author Organization [facility] it Address [address] [place] [address] Care Team Providers Care Cigarette Paper Tester Name Role Phone Israel Rosario MD Primary Care Provider [phone] Social History Tobacco Use Types Packs/Day Years [...] Screening: P ap Smear 2009 COVID-19 Vaccine (2023-2 5 season) 2024 Influenza Vaccine (#1) 2024 [...] age to complete this topic Care Teams Cigarette Paper Tester Relationship Specialty Start Date End Date Israel Rosario MD [address] [place] [address] Dr [address] TAINA Hutchinson PCP - General Internal Medicine 01/27/18
[2024-08-04 13:48] VITALS: BP 119/74; PULSE 100; RESP 18; TEMP 36.4; O2SAT 100
[2024-08-04 16:13] LABS: Bacterial Vaginosis PCR POSITIVE (Negative); Candida Group PCR NOT DETECTED (Not Detect); Candida glab krusei PCR DETECTED (Not Detect); Trichomonas vaginalis PCR NOT DETECTED (Not Detect)
[2024-08-04 16:45] LABS: CT PCR NOT DETECTED (Not Detect.); NG PCR NOT DETECTED (Not Detect.)
== END 2024-08-04 13:48 | disposition home or self-care (01) ==
PROVIDERS: Physician Assistant; Emergency Provider Emergency Medicine Emergency Medical Services; PCP Internal Medicine
DX: N39.0 Urinary tract infection, site not specified (principal); B96.20 Unspecified Escherichia coli [E. coli] as the cause of diseases classified elsewhere; N76.0 Acute vaginitis; B37.31 Acute candidiasis of vulva and vagina
CPT/HCPCS: 81001; 81003; 81025; 81515; 87086; 87088; 87186; 87491; 87591; 99282; 99283

== ENCOUNTER 2024-09-21 14:52 | Emergency (ER) | payer OTHER, SELFPAY ==
[2024-09-21 14:57] VITALS: BP 135/89; PULSE 100; RESP 18; TEMP 36.2; O2SAT 100; BMI 28.7
--- NOTE | 2024-09-21 14:59 | ED_ITS ---
HPI - General Adult General Chief complaint: Eye Problems Stated complaint: Blurred Vision Uveitis Time Seen by Provider: 09/21/24 16:05 Related Data Home Medications ?Medication ?Instructions ?Recorded ?Confirmed blood sugar diagnostic #10 ea 08/01/20 02/15/24 Previous Rx's ?Medication ?Instructions ?Recorded pen needle, diabetic 32 gauge x #100 ea 03/24/22 5/32 (BD Ultra-Fine Maria Elena Pen Needle) vit no.95-ferrous 1 tab PO DAILY #30 tabs 06/26/22 fumarate 28 mg-folic acid 800 mcg tablet () NEBULIZER and all related supplies #1 ea 11/04/23 gabapentin 100 mg capsule 100 mg PO BEDTIME 30 days #30 caps 11/04/23 nicotine (polacrilex) 4 mg gum 4 mg buccal Q2H PRN nicotine 11/04/23 (Nicorette) cravings #100 ea albuterol sulfate 2.5 mg/3 mL 2.5 mg (3 mL) continuous 11/25/23 (0.083 %) solution for nebulization nebulization QID PRN shortness of breath or wheezing 30 days #180 mL FreeStyle Gia 3 Bee #1 ea 12/28/23 (blood-glucose,certified social workers in health care,cont) FreeStyle Gia 3 Sensor #6 ea 01/18/24 (blood-glucose sensor) Dexcom G6 Access Lead #1 ea 01/25/24 (blood-glucose,certified social workers in health care,cont) levothyroxine 50 mcg tablet 50 mcg PO DAILY #90 tabs 01/25/24 spironolactone 25 mg tablet 25 mg PO DAILY #90 tabs 01/25/24 Dexcom G6 Sensor (blood-glucose #9 ea 03/21/24 sensor) Dexcom G6 Transmitter #1 ea 03/21/24 (blood-glucose transmitter) fluconazole 150 mg tablet 150 mg PO DAILY #7 tabs 03/21/24 levothyroxine 75 mcg tablet 75 mcg PO DAILY #90 tabs 03/21/24 dulaglutide 0.75 mg/0.5 mL 0.75 mg (0.5 mL) subcut QWEEK #2 mL 04/09/24 subcutaneous pen injector ([facility]) cefpodoxime 200 mg tablet 200 mg PO BID 10 days #20 tabs 04/10/24 albuterol sulfate 90 mcg/actuation 2 puff inhalation Q6H PRN 01/23/25 aerosol inhaler (Ventolin HFA) shortness of breath or wheezing 30 days #8.5 grams metformin 500 mg tablet,extended 1,000 mg (2 x 500 mg) PO DAILY 07/24/24 release 24 hr #180 tabs Lantus Solostar U-100 Insulin 100 25 unit (0.25 mL) subcut QPM #45 mL 07/25/24 unit/mL (3 mL) subcutaneous pen (insulin glargine) Mounjaro 5 mg/0.5 mL subcutaneous 5 mg (0.5 mL) subcut QWEEK #6 mL 07/25/24 pen injector (tirzepatide) insulin lispro 100 unit/mL See Rx Instructions .Route 07/25/24 subcutaneous pen (Humalog KwikPen .COMPLEX #45 mL (U-100) Insulin) ondansetron 4 mg disintegrating 4 mg PO Q8H PRN nausea and 07/25/24 tablet vomiting #30 tabs cefuroxime axetil 250 mg tablet 250 mg PO BID 7 days #14 tabs 08/04/24 phenazopyridine 200 mg tablet 200 mg PO Q8H PRN pain (scale 08/04/24 (Pyridium) score 1-3) 6 doses #6 tabs fluconazole 150 mg tablet 150 mg PO Q3D 2 doses #2 tabs 08/06/24 metronidazole 500 mg tablet 500 mg PO BID 7 days #14 tabs 08/06/24 Allergies Allergy/AdvReac Type Severity Reaction Status Date / Time sulfamethoxazole Allergy Severe FACIAL Verified 09/21/24 15:00 [From BACTRIM] SWELLING trimethoprim [From BACTRIM] Allergy Severe FACIAL Verified 09/21/24 15:00 SWELLING docusate Allergy Unknown swelling Verified 09/21/24 15:00 Sulfa (Sulfonamide Allergy Unknown swelling, Verified 08/04/24 12:33 Antibiotics) facial swelling Stool Softener Allergy Unknown facial Uncoded 09/21/24 15:00 swelling STOOL SOFTENERS Allergy Unknown FACIAL Uncoded 09/21/24 15:00 SWELLING PMFSH Past Medical History Medical History Smoker Acquired hypothyroidism Blurring of vision Asthma Obesity (BMI 30-39.9) Neuropathy involving both lower extremities Diabetes mellitus Diabetes mellitus, with long-term current use of insulin Surgical History Hx laparoscopic cholecystectomy No significant past surgical history Family History Family History Mother COPD (chronic obstructive pulmonary disease) Father High blood pressure Maternal Grandmother Breast cancer Maternal Aunt Uterine cancer Social History Social History Housing: House Alcohol intake: current Alcohol intake frequency: holidays/special occasions only Patient Tobacco Use Status: Current everyday Tobacco user Cigarettes Per Day: 10 e-Cigarette/Vaping Use: Never Used Advance Directives: No Advance Directives Information Provided: No service: No Current occupational status: unemployed Cognitive needs: No Hearing needs: No Vision needs: No Physical Exam ED Vital Signs: Vital Signs - 24 hr 09/21/24 14:57 09/21/24 18:22 Temperature 97.1 F 97.1 F Pulse Rate 100 100 Respiratory Rate 18 18 Blood Pressure 135/89 135/89 Pulse Oximetry 100 100 BMI result Body Mass Index 28.7 Course Course Course Narrative: RME, this is a rapid medical exam performed by Joseph Dye please refer to primary provider for complete H&P- 34 year old female presents for evaluation of left eye pain and redness. She reports a history of uveitis and follows with Dr Hoffman. Symptoms started yesterday. She is also reporting blurry vision. She tried to make an appointment at ophthalmology but they had no availability Medications Administered Discontinued Medications Generic Name Dose Route Start Last Admin Trade Name Aiden PRN Reason Stop Dose Admin Fluorescein Sodium 1 strip 09/21/24 16:14 09/21/24 16:15 Fluorescein Sodium Strip EYE-LEFT 09/21/24 16:15 1 strip ONCE ONE Administration Tetracaine HCl 3 drop 09/21/24 16:14 09/21/24 16:15 Tetracaine Hcl/Pf 0.5% Oph Madeleine 4 Ml Drops EYE-LEFT 09/21/24 16:15 3 drop ONCE ONE Administration Discharge Plan Discharge Clinical Impression: Diabetes mellitus, with long-term current use of insulin, Alteration in vision Patient Disposition: Home, Self-Care Instructions: Blurred Vision (ED) Prescriptions: No Action (DME) pen needle, diabetic [BD Ultra-Fine Maria Elena Pen Needle] 32 gauge x 5/32 needle See Rx Instructions .ROUTE .MEDSUPPLY Qty: 100 12RF Rx Instructions: As directed 4 times a day albuterol sulfate 2.5 mg /3 mL (0.083 %) solution for nebulization 2.5 mg continuous nebulization QID PRN (Reason: shortness of breath or wheezing) 30 Days Qty: 180 3RF (DME) FreeStyle Gia 3 Sensor Device See Rx Instructions .Route Qty: 6 3RF Rx Instructions: As directed Trulicity 0.75 mg/0.5 mL pen injector 0.75 mg subcut QWEEK Qty: 2 3RF albuterol sulfate [Ventolin HFA] 90 mcg/actuation HFA aerosol inhaler 2 puff inhalation Q6H PRN (Reason: shortness of breath or wheezing) 30 Days Qty: 8.5 5RF metformin 500 mg tablet extended release 24 hr 1,000 mg PO DAILY Qty: 180 3RF PNV cmb#95-ferrous fumarate-FA [] 28 mg iron- 800 mcg tablet 1 tab PO DAILY Qty: 30 0RF cefpodoxime 200 mg tablet 200 mg PO BID 10 Days Qty: 20 0RF Rx Instructions: must administer with a meal/food cefuroxime axetil 250 mg tablet 250 mg PO BID 7 Days Qty: 14 0RF phenazopyridine [Pyridium] 200 mg tablet 200 mg PO Q8H PRN (Reason: pain (scale score 1-3)) Qty: 6 0RF fluconazole 150 mg tablet 150 mg PO Q3D Qty: 2 0RF metronidazole 500 mg tablet 500 mg PO BID 7 Days Qty: 14 0RF (DME) FreeStyle Lite Strips Strip See Rx Instructions Not Applicable QID Qty: 10 Rx Instructions: As directed gabapentin 100 mg capsule 100 mg PO BEDTIME 30 Days Qty: 30 2RF (DME) NEBULIZER and all related supplies See Rx Instructions .Route .MEDSUPPLY Qty: 1 0RF Rx Instructions: As directed nicotine (polacrilex) [Nicorette] 4 mg gum 4 mg buccal Q2H PRN (Reason: nicotine cravings) Qty: 100 5RF spironolactone 25 mg tablet 25 mg PO DAILY Qty: 90 3RF (DME) Dexcom G6 Access Lead Misc See Rx Instructions .Route Qty: 1 0RF Rx Instructions: As directed levothyroxine 50 mcg tablet 50 mcg PO DAILY Qty: 90 3RF (DME) Dexcom G6 Sensor Device See Rx Instructions .Route Qty: 9 3RF Rx Instructions: every 10 days (DME) Dexcom G6 Transmitter Device See Rx Instructions .Route Qty: 1 3RF Rx Instructions: As directed fluconazole 150 mg tablet 150 mg PO DAILY Qty: 7 2RF levothyroxine 75 mcg tablet 75 mcg PO DAILY Qty: 90 3RF (DME) FreeStyle Gia 3 Bee Misc See Rx Instructions .Route Qty: 1 0RF Rx Instructions: As directed insulin lispro [Humalog KwikPen Insulin] 100 unit/mL insulin pen See Rx Instructions .ROUTE .COMPLEX Qty: 45 12RF Rx Instructions: 5 units SQ TID with meals per sliding scale; insulin glargine [Lantus Solostar U-100 Insulin] 100 unit/mL (3 mL) insulin pen 25 unit subcut QPM Qty: 45 3RF Mounjaro 5 mg/0.5 mL pen injector 5 mg subcut QWEEK Qty: 6 3RF ondansetron 4 mg tablet,disintegrating 4 mg PO Q8H PRN (Reason: nausea and vomiting) Qty: 30 2RF Referrals: Rudy Hoffman [Physician] - 09/25/24 Interventions: ED Discharge Assessment Last Done: 09/21/24 18:22 Discharge Date/Time: 09/21/24 18:22 Print Language: Thai
--- OUTSIDE RECORDS SUMMARY | 2024-09-21 16:00 | XMS_ITS | Clinical Summary ---
Author Organization [facility] it Address [address] [place] [address] Care Team Providers Care Spanish Instructor Name Role Phone Israel Rosario MD Primary [...] Vaccine (2023-2 5 season) 2024 Influenza Vaccine (Season Ended) 2024 HIB Vaccines Aged Out No longer [...] age to complete this topic Meningococcal B Vaccine Aged Out No l onger eligible based on patient's age to complete [...] age to complete this topic Care Teams Spanish Instructor Relationship Specialty Start Date End Date Israel Rosario MD [address] [place] [address] Dr [address] TAINA Hutchinson PCP - General Internal Medicine 01/27/18
[2024-09-21] MEDS: Fluorescein Sodium STRIP 1 STRIP EYE-LEFT (16:15)
[2024-09-21] MEDS: Tetracaine HCl/PF 0.5% Oph Sol 4 ML DROPS 3 DROP EYE-LEFT (16:15)
--- NOTE | 2024-09-21 16:31 | ED_ITS ---
HPI - Eye Problem General Chief complaint: Eye Problems Stated complaint: Blurred Vision Uveitis Time Seen by Provider: 09/21/24 16:05 History of Present Illness HPI Narrative: patient is a 34-year-old female with a history of appreciates history of uveitis. Presents today with having pain to the left eye. History of the same. Some blurriness in vision that started yesterday. There is no fever no chills. There is no chest pain there is no shortness of breath there is no systemic complaints. Patient denies any foreign body sensation to the eye. Complaining of pain localized to the eye. Some redness. Went to see her heel slicker but could not wait for a fill an appointment came to the ED instead. Related Data Home Medications ?Medication ?Instructions ?Recorded ?Confirmed blood sugar diagnostic #10 ea 08/01/20 02/15/24 Previous Rx's ?Medication ?Instructions ?Recorded pen needle, diabetic 32 gauge x #100 ea 03/24/22 (BD Ultra-Fine Maria Elena Pen Needle) vit no.95-ferrous 1 tab PO DAILY #30 tabs 06/26/22 fumarate 28 mg-folic acid 800 mcg tablet () NEBULIZER and all related supplies #1 ea 11/04/23 gabapentin 100 mg capsule 100 mg PO BEDTIME 30 days #30 caps 11/04/23 nicotine (polacrilex) 4 mg gum 4 mg buccal Q2H PRN nicotine 11/04/23 (Nicorette) cravings #100 ea albuterol sulfate 2.5 mg/3 mL 2.5 mg (3 mL) continuous 11/25/23 (0.083 %) solution for nebulization nebulization QID PRN shortness of breath or wheezing 30 days #180 mL FreeStyle Gia 3 [place] #1 ea 12/28/23 (blood-glucose,cardiac cath lab radiology technologist,cont) FreeStyle Gia 3 Sensor #6 ea 01/18/24 (blood-glucose sensor) Dexcom G6 Tester/Lift Trucker #1 ea 01/25/24 (blood-glucose,cardiac cath lab radiology technologist,cont) levothyroxine 50 mcg tablet 50 mcg PO DAILY #90 tabs 01/25/24 spironolactone 25 mg tablet 25 mg PO DAILY #90 tabs 01/25/24 Dexcom G6 Sensor (blood-glucose #9 ea 03/21/24 sensor) Dexcom G6 Transmitter #1 ea 03/21/24 (blood-glucose transmitter) fluconazole 150 mg tablet 150 mg PO DAILY #7 tabs 03/21/24 levothyroxine 75 mcg tablet 75 mcg PO DAILY #90 tabs 03/21/24 dulaglutide 0.75 mg/0.5 mL 0.75 mg (0.5 mL) subcut QWEEK #2 mL 04/09/24 subcutaneous pen injector (Trulicity) cefpodoxime 200 mg tablet 200 mg PO BID 10 days #20 tabs 04/10/24 albuterol sulfate 90 mcg/actuation 2 puff inhalation Q6H PRN 05/24/24 aerosol inhaler (Ventolin HFA) shortness of breath or wheezing 30 days #8.5 grams metformin 500 mg tablet,extended 1,000 mg (2 x 500 mg) PO DAILY 07/24/24 release 24 hr #180 tabs Lantus Solostar U-100 Insulin 100 25 unit (0.25 mL) subcut QPM #45 mL 07/25/24 unit/mL (3 mL) subcutaneous pen (insulin glargine) Mounjaro 5 mg/0.5 mL subcutaneous 5 mg (0.5 mL) subcut QWEEK #6 mL 07/25/24 pen injector (tirzepatide) insulin lispro 100 unit/mL See Rx Instructions .Route 07/25/24 subcutaneous pen (Humalog KwikPen .COMPLEX #45 mL (U-100) Insulin) ondansetron 4 mg disintegrating 4 mg PO Q8H PRN nausea and 07/25/24 tablet vomiting #30 tabs cefuroxime axetil 250 mg tablet 250 mg PO BID 7 days #14 tabs 08/04/24 phenazopyridine 200 mg tablet 200 mg PO Q8H PRN pain (scale 08/04/24 (Pyridium) score 1-3) 6 doses #6 tabs fluconazole 150 mg tablet 150 mg PO Q3D 2 doses #2 tabs 08/06/24 metronidazole 500 mg tablet 500 mg PO BID 7 days #14 tabs 08/06/24 Allergies Allergy/AdvReac Type Severity Reaction Status Date / Time sulfamethoxazole Allergy Severe FACIAL Verified 09/21/24 15:00 [From BACTRIM] SWELLING trimethoprim [From BACTRIM] Allergy Severe FACIAL Verified 09/21/24 15:00 SWELLING docusate Allergy Unknown swelling Verified 09/21/24 15:00 Sulfa (Sulfonamide Allergy Unknown swelling, Verified 08/04/24 12:33 Antibiotics) facial swelling Stool Softener Allergy Unknown facial Uncoded 09/21/24 15:00 swelling STOOL SOFTENERS Allergy Unknown FACIAL Uncoded 09/21/24 15:00 SWELLING Review of Systems Review of Systems: Positive pain to the left eye positive blurred vision to the left eye Yes all other systems are reviewed and are negative [facility] Past Medical History Attestation statement: The following information was validated with the patient. Medical History Smoker Acquired hypothyroidism Blurring of vision Asthma Obesity (BMI 30-39.9) Neuropathy involving both lower extremities Diabetes mellitus Diabetes mellitus, with long-term current use of insulin Surgical History Hx laparoscopic cholecystectomy No significant past surgical history Family History Family History Mother COPD (chronic obstructive pulmonary disease) Father High blood pressure Maternal Grandmother Breast cancer Maternal Aunt Uterine cancer Social History Social History Housing: House Alcohol intake: current Alcohol intake frequency: holidays/special occasions only Patient Tobacco Use Status: Current everyday Tobacco user Cigarettes Per Day: 10 e-Cigarette/Vaping Use: Never Used Advance Directives: No Advance Directives Information Provided: No service: No Current occupational status: unemployed Cognitive needs: No Hearing needs: No Vision needs: No Physical Exam Vital Signs: Vital Signs: Last Vital Signs Temp 97.1 F 09/21/24 14:57 Pulse 100 09/21/24 14:57 Resp 18 09/21/24 14:57 BP 135/89 09/21/24 14:57 Pulse Ox 100 09/21/24 14:57 BMI result Body Mass Index 28.7 Appearance: Alert. Oriented X3. No acute distress. Eyes: Pupils equal, round and reactive to light. left eye conjunctiva slightly inflamed. The pupils were equal reactive on both sides. On fluorescein staining there is no uptake noted on the left side. Patient has no hyphema bilaterally. Patient's visual acuity is 20 20 on the right. 20/60 in the left side. ENT: Pharynx normal. Neck: Normal inspection. Neck supple. No lymph nodes noted. No crepitus CVS: Normal heart rate and rhythm. Pulses normal. Normal S1 and S2 Respiratory: No respiratory distress. Breath sounds normal. No Wheezing. No rales Abdomen: Soft and nontender. No rigidity. No distention. good BS x4 Skin: Skin warm and dry. Normal skin color. Normal skin turgor. Extremities: No lower extremity edema. Neurovascular intact to all extremities. No Lacerations. No Rash Neuro: Oriented X 3. No motor deficit. No sensory deficit. Moving all extermities. No slurred speech Medical Decision Making Medical Decision Making MDM Narrative: Patient eloped from the emergency department prior to me having a chance to talk to Ophthalmology. I did talk to Ophthalmology afterwards. Dr. Hoffman is not comfortable with giving patient's steroid. We do not know the exact etiology of why her vision is off I do know she does not have acute angle glaucoma as her intra-ocular pressure was checked they were 11 on the right 11 on the left. She has no corneal abrasion we stained her eye there was no uptake. There is no hyphema there is no trauma reported. Pupils were working. Patient's visual acuity was 2070 in the affected left eye 2020 in the right eye. Dr. Hoffman already has her penciled in for an appointment on Tuesday. Patient eloped. Differential Diagnosis Differential Diagnoses: The differential diagnosis associated with the presentation includes Iritis Admission/Observation Consideration of admission/observation: Escalation of care including admission/observation considered Consult Healthcare Provider Management of the patient was discussed with: Hopper Filler (Ophthalmology) Chronic Conditions Patient?s care impacted by: Diabetes (Patient refused glucoscan) History of Behcet's Social Determinants Patient?s care significantly limited by Social Determinants of Health including: Problems related to primary support group Discharge Plan Discharge Clinical Impression: Diabetes mellitus, with long-term current use of insulin, Alteration in vision Patient Disposition: Elopement Prescriptions: No Action (DME) pen needle, diabetic [BD Ultra-Fine Maria Elena Pen Needle] 32 gauge x 5/32 needle See Rx Instructions .ROUTE .MEDSUPPLY Qty: 100 12RF Rx Instructions: As directed 4 times a day albuterol sulfate 2.5 mg /3 mL (0.083 %) solution for nebulization 2.5 mg continuous nebulization QID PRN (Reason: shortness of breath or wheezing) 30 Days Qty: 180 3RF (DME) FreeStyle Gia 3 Sensor Device See Rx Instructions .Route Qty: 6 3RF Rx Instructions: As directed Trulicity 0.75 mg/0.5 mL pen injector 0.75 mg subcut QWEEK Qty: 2 3RF albuterol sulfate [Ventolin HFA] 90 mcg/actuation HFA aerosol inhaler 2 puff inhalation Q6H PRN (Reason: shortness of breath or wheezing) 30 Days Qty: 8.5 5RF metformin 500 mg tablet extended release 24 hr 1,000 mg PO DAILY Qty: 180 3RF PNV cmb#95-ferrous fumarate-FA [] 28 mg iron- 800 mcg tablet 1 tab PO DAILY Qty: 30 0RF cefpodoxime 200 mg tablet 200 mg PO BID 10 Days Qty: 20 0RF Rx Instructions: must administer with a meal/food cefuroxime axetil 250 mg tablet 250 mg PO BID 7 Days Qty: 14 0RF phenazopyridine [Pyridium] 200 mg tablet 200 mg PO Q8H PRN (Reason: pain (scale score 1-3)) Qty: 6 0RF fluconazole 150 mg tablet 150 mg PO Q3D Qty: 2 0RF metronidazole 500 mg tablet 500 mg PO BID 7 Days Qty: 14 0RF (DME) FreeStyle Lite Strips Strip See Rx Instructions Not Applicable QID Qty: 10 Rx Instructions: As directed gabapentin 100 mg capsule 100 mg PO BEDTIME 30 Days Qty: 30 2RF (DME) NEBULIZER and all related supplies See Rx Instructions .Route .MEDSUPPLY Qty: 1 0RF Rx Instructions: As directed nicotine (polacrilex) [Nicorette] 4 mg gum 4 mg buccal Q2H PRN (Reason: nicotine cravings) Qty: 100 5RF spironolactone 25 mg tablet 25 mg PO DAILY Qty: 90 3RF (DME) Dexcom G6 Tester/Lift Trucker Misc See Rx Instructions .Route Qty: 1 0RF Rx Instructions: As directed levothyroxine 50 mcg tablet 50 mcg PO DAILY Qty: 90 3RF (DME) Dexcom G6 Sensor Device See Rx Instructions .Route Qty: 9 3RF Rx Instructions: every 10 days (DME) Dexcom G6 Transmitter Device See Rx Instructions .Route Qty: 1 3RF Rx Instructions: As directed fluconazole 150 mg tablet 150 mg PO DAILY Qty: 7 2RF levothyroxine 75 mcg tablet 75 mcg PO DAILY Qty: 90 3RF (DME) FreeStyle Gia 3 [place] Misc See Rx Instructions .Route Qty: 1 0RF Rx Instructions: As directed insulin lispro [Humalog KwikPen Insulin] 100 unit/mL insulin pen See Rx Instructions .ROUTE .COMPLEX Qty: 45 12RF Rx Instructions: 5 units SQ TID with meals per sliding scale; insulin glargine [Lantus Solostar U-100 Insulin] 100 unit/mL (3 mL) insulin pen 25 unit subcut QPM Qty: 45 3RF Mounjaro 5 mg/0.5 mL pen injector 5 mg subcut QWEEK Qty: 6 3RF ondansetron 4 mg tablet,disintegrating 4 mg PO Q8H PRN (Reason: nausea and vomiting) Qty: 30 2RF Print Language: Italian
--- NOTE | 2024-09-21 18:11 | MHC.EDTECH ---
pt refused vitals for discharge
[2024-09-21 18:22] VITALS: BP 135/89; PULSE 100; RESP 18; TEMP 36.2; O2SAT 100
== END 2024-09-21 18:22 | disposition home or self-care (01) ==
PROVIDERS: Emergency Provider Emergency Medicine Emergency Medical Services; PCP Internal Medicine
DX: H53.8 Other visual disturbances (principal); H20.9 Unspecified iridocyclitis; E11.9 Type 2 diabetes mellitus without complications; Z79.899 Other long term (current) drug therapy; F17.210 Nicotine dependence, cigarettes, uncomplicated; Z79.4 Long term (current) use of insulin; Z79.85 Long-term (current) use of injectable non-insulin antidiabetic drugs
CPT/HCPCS: 99283

== ENCOUNTER 2024-10-13 01:06 | Emergency (ER) | payer OTHER, SELFPAY ==
--- NOTE | 2024-10-13 | ECG_ITS ---
Test Reason : cp Blood Pressure : */* mmHG Vent. Rate : 95 BPM Atrial Rate : 95 BPM P-R Int : 146 ms QRS Dur : 82 ms QT Int : 388 ms P-R-T Axes : 18 29 29 degrees QTcB Int : 487 ms Normal sinus rhythm Prolonged QT Abnormal ECG When compared with ECG of 15-Jan-2024 09:09, QT has lengthened Referred By: Generic ED Physician Electronically Signed By: SURINDER TUTTLE MD
[2024-10-13 01:18] VITALS: BP 128/87; PULSE 94; RESP 18; TEMP 36.8; O2SAT 100; BMI 32.0
[2024-10-13 01:39] LABS: MANUAL DIFF FLAG NO
[2024-10-13 01:41] LABS: Basophils Absolute Auto 0.1 X10*3/uL (0.0-0.2); Basophils Percent Auto 0.8 % (0-2); Eosinophils Absolute Auto 0.4 X10*3/uL (0.0-0.4); Eosinophils Percent Auto 3.3 % (0-4); Hematocrit 38.7 % (37.0-47.0); Hemoglobin 13.4 g/dl (12.0-16.0); Imm Gran Abs Auto 0.03 X10*3/uL (0.00-0.03); Imm Gran Pct Auto 0.3 % (0.0-0.4); Lymphocytes Absolute Auto 4.9 X10*3/uL (1.2-4.9); Lymphocytes Percent Auto 44.4 % (20-40); Mean Corpuscular HGB Conc 34.6 g/dl (31.0-35.0); Mean Corpuscular Hemoglobin 28.4 pg (27.0-33.0); Mean Platelet Volume 10.1 fL (9.4-12.3); Monocytes Absolute Auto 0.9 X10*3/uL (0.1-1.2); Monocytes Percent Auto 7.7 % (2-11); Neutrophils Absolute Auto 4.8 x10*3/uL (2.0-8.3); Neutrophils Percent Auto 43.5 % (45-73); Platelet Count 420 X10*3/uL (160-400); Red Blood Count 4.72 X10*6/uL (4.20-5.50); Red Cell Distribution Width 15.7 % (11.0-16.0); White Blood Count 11.1 X10*3/uL (4.8-10.8)
[2024-10-13 02:01] LABS: Alanine Aminotransferase 13 U/L (0-31); Albumin Level 4.8 g/dL (3.5-5.0); Alkaline Phosphatase 120 U/L (39-117); Anion Gap 16 (12-20); Aspartate Amino Transferase 13 U/L (5-31); Bilirubin Total 0.2 mg/dL (0.0-1.0); Blood Urea Nitrogen 14 mg/dL (9-16); Calcium 10.4 mg/dL (8.4-10.2); Carbon Dioxide 31 mmol/L (22-29); Chloride 96 mmol/L (96-108); Creatinine Clr Calc Pharmacy 86.4; Estimated Glomerular Filt Rate > 60; Glucose Random 246 mg/dL (60-115); Potassium 4.2 mmol/L (3.3-5.1); Sodium 139 mmol/L (135-145); Total Protein 7.7 g/dL (6.5-8.0)
[2024-10-13 02:18] LABS: Troponin-I High Sensitivity < 2.7 ng/L (<3.5-17.0)
--- NOTE | 2024-10-13 03:41 | PC.NURSE ---
Pt left without being seen. No IV line established. PA and repair miller made aware of situation.
== END 2024-10-13 03:48 | disposition left against medical advice (07) ==
PROVIDERS: Emergency Provider Emergency Medicine; PCP Internal Medicine
DX: R07.9 Chest pain, unspecified (principal); Z53.21 Procedure and treatment not carried out due to patient leaving prior to being seen by health care provider
CPT/HCPCS: 36415; 80053; 84484; 85025; 93005; 99281; 99285

== ENCOUNTER → 2024-10-13 01:14 | Outpatient (BNV) | payer OTHER, SELFPAY | PROVIDERS: Emergency Provider Emergency Medicine; PCP Internal Medicine; Visit Provider Internal Medicine Cardiovascular Disease | DX: R94.31 Abnormal electrocardiogram [ECG] [EKG] (principal); R07.9 Chest pain, unspecified | CPT/HCPCS: 93010 ==

== ENCOUNTER 2024-10-17 14:22 | Outpatient (AMB) | payer OTHER, SELFPAY ==
--- NOTE | 2024-10-17 14:23 | A.OFFVIS_ITS ---
Vital Signs 10/17/24 14:24 Height 5 ft Weight 165 lb 5.547 oz BMI 32.3 BP 116/78 Blood Pressure Location Rt brachial Position Sitting Pulse 75 Pulse Source Pulse Oximeter Intake Visit Reasons: A1C, TSH Intake Note: Patient presents today for a follow-up on Type 2 Diabetes Mellitus: Last Diabetic eye exam was on: 10/2023 Last Podiatry exam was on: Does not see a Crime Scene Analyst Most recent HbA1c: 12.3%, 10/17/2024 Random Glucose- 424 mg/dL, Today Machine Operator Hay Stacker Required: No Accompanied by: Other Relationship Allergies sulfamethoxazole (From BACTRIM) Allergy (Severe, Verified 10/13/24 01:20) FACIAL SWELLING trimethoprim (From BACTRIM) Allergy (Severe, Verified 10/13/24 01:20) FACIAL SWELLING docusate Allergy (Unknown, Verified 10/13/24 01:20) swelling Sulfa (Sulfonamide Antibiotics) Allergy (Unknown, Verified 10/13/24 01:20) swelling, facial swelling Stool Softener Allergy (Unknown, Uncoded 10/13/24 01:20) facial swelling STOOL SOFTENERS Allergy (Unknown, Uncoded 10/13/24 01:20) FACIAL SWELLING HPI Comments Details: The patient is a 34 year old female with a past medical history of insulin dependent diabetes presenting for follow up Med hx: HTN, anxiety, hypothyroid Current medications: Lantus 25 units daily, taking 100% doses humalog sliding scale 8-24 units missing frequently mounjaro 5mg -compliant Had significant urgent loose stools with the trulicity. Ultimately stopped XR metformin due to diarrhea Dexcom not available for download. TSH normal range Last A1C 12.3% from 11.6 from 12.9% Denies any recently hypoglycemia. Reports blood glucose is quite variable and she can get lows into 60s 70s generally when taking her short acting insulin and not eating a proper meal. She generally eats one real meal per day. She has been seen a few times recently in ER for chest pain, UTI symptoms, vision changes Seeing eye doctor at least annually. Seen this month ROS CONSTITUTIONAL: Denies weight loss, fever and chills. HEENT: Denies changes in vision and hearing. RESPIRATORY: Denies SOB and cough. CV: Denies palpitations and CP GI: Denies abdominal pain, nausea, vomiting and diarrhea. : Denies dysuria and urinary frequency. MSK: Denies new myalgia and joint pain. SKIN: Denies rash and pruritus. NEUROLOGICAL: Denies headache PSYCHIATRIC: Denies recent changes in mood. PHYSICAL EXAM: GENERAL: Alert and oriented x 3. NAD EYES: EOMI. Anicteric. HENT: Moist mucous membranes. No scleral icterus. No cervical lymphadenopathy. LUNGS: Clear to auscultation bilaterally. CARDIOVASCULAR: Regular rate and rhythm. No murmur. No JVD. ABDOMEN: Soft, non-tender +bs EXTREMITIES: No edema. Non-tender. SKIN: No rashes or lesions. Warm. NEUROLOGIC: No focal neurological deficits. CN II-XII grossly intact PSYCHIATRIC: Cooperative. Appropriate mood and affect [facility] Medical History Smoker Acquired hypothyroidism Blurring of vision Asthma Obesity (BMI 30-39.9) Neuropathy involving both lower extremities Diabetes mellitus Diabetes mellitus, with long-term current use of insulin Surgical History Hx laparoscopic cholecystectomy No significant past surgical history Family History Mother COPD (chronic obstructive pulmonary disease) Father High blood pressure Maternal Grandmother Breast cancer Maternal Aunt Uterine cancer Social History Housing: House Alcohol intake: current Alcohol intake frequency: holidays/special occasions only Patient Tobacco Use Status: Current everyday Tobacco user Cigarettes Per Day: 10 e-Cigarette/Vaping Use: Never Used service: No Current occupational status: unemployed Cognitive needs: No Hearing needs: No Vision needs: No Female Reproductive History Menstrual Age of Menarche: 10 Physical Exam Vital Signs: Last Vital Signs Pulse 75 10/17/24 14:24 BP 116/78 10/17/24 14:24 BMI result Body Mass Index 32.3 Results AMB Hemoglobin A1c AMB Hemoglobin A1c 12.3 % Last Edit by JOHANN Holman on 10/17/24 14:4 5 Results Reviewed Results Reviewed: Laboratory Last Values Glucose (Clinic) 424 mg/dL (60-115) H* 10/17/24 14:27 Hgb A1c (Clinic) 12.3 % (4.0-6.0) H 10/17/24 14:44 Assessment & Plan Assessment & Plan (1) Diabetes mellitus, with long-term current use of insulin: Code(s): E11.9 - Type 2 diabetes mellitus without complications; Z79.4 - terminal make up operator (current) use of insulin Category: Medical Qualifiers: Diabetes mellitus complication status: with hyperglycemia Diabetes mellitus type: type 2 Qualified Code(s): E11.65 - Type 2 diabetes mellitus with hyperglycemia; Z79.4 - [facility] (current) use of insulin (2) Insulin long-term use: Code(s): Z79.4 - [facility] (current) use of insulin Category: Medical Plan 34 year old with uncontrolled diabetes She is non compliant with meal time insulin and does not eat regularly Efforts to maximize once daily -increase lantus to 34 units daily Given the non compliance with meal time insulin and irregularity of meals minimize short acting insulin for the moment. Sliding scale changed to <150: Take 0 units 150-199: Take 2 units 200-249: Take 4 units 250-299: Take 6 units >/=300 : Take 8 units She does consistently take her mounjaro. Will increase this as well Treats hypoglycemia with rules of 15s. Orders: Orders AMB Hemoglobin A1c 10/17/24 E11.65 - Type 2 diabetes mellitus with hyperglycemia, Z79.4 - terminal make up operator (current) use of insulin US thyroid 10/17/24 E03.9 - Hypothyroidism, unspecified, M54.2 - Cervicalgia Medications: New Mounjaro (tirzepatide) 7.5 mg (0.5 mL) subcut QWEEK 6 mL 3RF NS E11.65 - Type 2 diabetes mellitus with hyperglycemia, E11.9 - Type 2 diabetes mellitus without complications, Z79.4 - [facility] (current) use of insulin Changed From Lantus Solostar U-100 Insulin (insulin glargine) 25 units (0.25 mL) subcut QPM 45 mL 3RF NS E11.42 - Type 2 diabetes mellitus with diabetic polyneuropathy, Z79.4 - terminal make up operator (current) use of insulin To Lantus Solostar U-100 Insulin (insulin glargine) 34 units (0.34 mL) subcut QPM 45 mL 3RF NS E11.42 - Type 2 diabetes mellitus with diabetic polyneuropathy, Z79.4 - terminal make up operator (current) use of insulin From insulin lispro (Humalog KwikPen (U-100) Insulin) 5 units SQ TID with meals per sliding scale; 45 mL 12RF E11.9 - Type 2 diabetes mellitus without comp lications, Z79.4 - [facility] (current) use of insulin To insulin lispro (Humalog KwikPen (U-100) Insulin) Take subcutaneously up to 3 times daily 15 minutes before meals For BG <150: Take 0 units 150-199: Take 2 units 200-249: Take 4 units 250-299: Take 6 units >/=300 : Take 8 units 30 mL 12RF E11.9 - Type 2 diabetes mellitus without complications, Z79.4 - terminal make up operator (current) use of insulin Discontinued Frances (tirzepatide) Discontinued Reason: Doctor's Order 5 mg (0.5 mL) subcut QWEEK 6 mL 3RF NS E11.42 - Type 2 diabetes mellitus with diabetic polyneuropathy Coding Level of Care Code Est Pt Level 5 (01967) Diagnoses Type 2 diabetes mellitus with hyperglycemia, with long-term current use of insulin E11.65; Z79.4 Diabetes mellitus complication status: with hyperglycemia Diabetes mellitus type: type 2 Insulin long-term use Z79.4
[2024-10-17 14:24] VITALS: BP 116/78; PULSE 75; BMI 32.3
[2024-10-17 14:32] LABS: Glucose, Whole Blood 424 mg/dL (60-115)
--- OUTSIDE RECORDS SUMMARY | 2024-10-17 16:30 | XMS_ITS | Clinical Summary ---
Author Organization [facility] it Address [address] [place] [address] Care Team Providers Care Pipe Smoking Machine Offbearer Name Role Phone Israel Rosario MD Primary [...] age to complete this topic Care Teams Pipe Smoking Machine Offbearer Relationship Specialty Start Date End Date Israel Rosario MD [address] [place] [address] Dr [address] TAINA Hutchinson PCP - General Internal Medicine 01/27/18
== END 2024-10-17 15:00 | disposition home or self-care (01) ==
LOC: HO.ENCR 14:22
PROVIDERS: PCP Internal Medicine; Visit Provider Internal Medicine
DX: E11.65 Type 2 diabetes mellitus with hyperglycemia (principal); Z79.4 Long term (current) use of insulin

== ENCOUNTER 2024-10-17 15:04 | Outpatient (REF) | payer OTHER, SELFPAY ==
[2024-10-17 17:07] LABS: Creatinine Urine 34.18 mg/dL; Microalbumin Urine < 5.0 mg/L
[2024-10-17 17:23] LABS: TSH reflex Free T4 2.74 uIU/mL (0.32-4.0)
[2024-10-17 18:22] LABS: Alanine Aminotransferase 12 U/L (0-31); Albumin Level 4.5 g/dL (3.5-5.0); Alkaline Phosphatase 101 U/L (39-117); Anion Gap 13 (12-20); Aspartate Amino Transferase 12 U/L (5-31); Bilirubin Total 0.2 mg/dL (0.0-1.0); Blood Urea Nitrogen 12 mg/dL (9-16); Calcium 9.9 mg/dL (8.4-10.2); Carbon Dioxide 27 mmol/L (22-29); Chloride 103 mmol/L (96-108); Cholesterol 240 mg/dL (<200); Estimated Glomerular Filt Rate > 60; Glucose Random 388 mg/dL (60-115); HDL Cholesterol 54 mg/dL (>40); LDL Cholesterol Calculated 138 mg/dL (<100); Potassium 4.2 mmol/L (3.3-5.1); Sodium 139 mmol/L (135-145); Total Protein 7.4 g/dL (6.5-8.0); Triglycerides 242 mg/dL (<150)
== END 2024-10-17 15:05 | disposition home or self-care (01) ==
LOC: HO.LAB 15:04
PROVIDERS: PCP Internal Medicine; Visit Provider Internal Medicine
DX: E11.42 Type 2 diabetes mellitus with diabetic polyneuropathy (principal); E03.9 Hypothyroidism, unspecified; E11.65 Type 2 diabetes mellitus with hyperglycemia; Z79.4 Long term (current) use of insulin
CPT/HCPCS: 36415; 80053; 80061; 82043; 82570; 82947; 83036; 84443; 99212

== ENCOUNTER 2024-10-23 14:02 | Outpatient (AMB) | payer OTHER, SELFPAY ==
--- NOTE | 2024-10-23 09:51 | MHC.OFFVIS ---
Vital Signs 10/23/24 14:10 Height 5 ft Weight 169 lb 5.04 oz BMI 33.1 BP 102/70 Blood Pressure Location Rt brachial Position Sitting Pulse 98 Pulse Source Pulse Oximeter Pulse Oximetry (%) 98 Oxygen Delivery Method Room Air Intake Visit Reasons: scott iLET inquiry Intake Note: Patient presents today for a follow-up on Type 2 Diabetes Mellitus: Last Diabetic eye exam was on: 10/02/2024, [facility] Last Podiatry exam was on: Does not see a Manager Most recent HbA1c: 12.3%, 10/17/2024 Random Glucose- 323 mg/dL Wood Getter Required: No Accompanied by: Self / Same As Patient Allergies sulfamethoxazole (From BACTRIM) Allergy (Severe, Verified 10/23/24 14:15) FACIAL SWELLING trimethoprim (From BACTRIM) Allergy (Severe, Verified 10/23/24 14:15) FACIAL SWELLING docusate Allergy (Unknown, Verified 10/23/24 14:15) swelling Sulfa (Sulfonamide Antibiotics) Allergy (Unknown, Verified 10/23/24 14:15) swelling, facial swelling Stool Softener Allergy (Unknown, Uncoded 10/23/24 14:15) facial swelling STOOL SOFTENERS Allergy (Unknown, Uncoded 10/23/24 14:15) FACIAL SWELLING HPI Comments Details: [age] YO female who is seen in follow up for T1DM at the request of Dr. Oni Maldonado to evaluate for an iet insulin pump. Initially diagnosed with T2DM. She recently had an episode of dka and blood testing show that she is type 1 03/2024 MADELIN greater than 250 Was initially started on treatment with: was on trulicity which was changed to mounjaro Current regimen: Lantus 34 units Lispro 2-8 units starting at 200 An able to download her Dexcom today as she is not able to log into her apple count. She reports her sugar numbers are improving Has retinopathy Has eyes checked yearly, last eye exam 09/2024 No nephropathy, on [MARIA T/ARB]. UAC [] as measured on []. [Has] HLD, on [statin]. Last LDL [] as measured on []. [Denies] CAD. Diet: Declines seeing nutrition she says she basically knows what to eat Request diabetes education to discuss insulin pump. [facility] Medical History Smoker Acquired hypothyroidism Blurring of vision Asthma Obesity (BMI 30-39.9) Neuropathy involving both lower extremities Diabetes mellitus Diabetes mellitus, with long-term current use of insulin Surgical History Hx laparoscopic cholecystectomy No significant past surgical history Family History Mother COPD (chronic obstructive pulmonary disease) Father High blood pressure Maternal Grandmother Breast cancer Maternal Aunt Uterine cancer Social History Housing: House Alcohol intake: current Alcohol intake frequency: holidays/special occasions only Patient Tobacco Use Status: Current everyday Tobacco user Cigarettes Per Day: 10 e-Cigarette/Vaping Use: Never Used service: No Current occupational status: unemployed Cognitive needs: No Hearing needs: No Vision needs: No Female Reproductive History Menstrual Age of Menarche: 10 Physical Exam Vital Signs: Last Vital Signs Pulse 98 10/23/24 14:10 BP 102/70 10/23/24 14:10 Pulse Ox 98 10/23/24 14:10 Oxygen Delivery Method Room Air 10/23/24 14:10 BMI result Body Mass Index 33.1 Absence of Cushingoid features. Absence of acromegalic features. Neck exam reveals nl size thyroid about 15 gms. No thyroid nodules palpable. No carotid bruits present. Lungs CTA. Heart S1 S2, Reg R/R. No M/R/ G. Skin exam reveals absence of vitiligo or acanthosis nigricans. Abdominal exam reveals Soft NT/ND with NA BS. No organomegaly present. Const Other: Absence of Cushingoid features. Absence of acromegalic features. Neck exam reveals nl size thyroid about 15 gms. No thyroid nodules palpable. Heart S1 S2, Reg R/R. No M/R G. Skin exam reveals absence of vitiligo or acanthosis nigricans. No edema Neck Other: . Extrem Other: Visual exam of foot performed. No ulcerations or open lesions. No onchomycosis, no callouses.Pulses 2 + distally Sensation intact to monofilament exam. Vibratory sensation sensed is intact with 128 Hz tuning fork Results Reviewed Results Reviewed: Laboratory Last Values Glucose (Clinic) 323 mg/dL (60-115) H 10/23/24 14:21 Assessment & Plan Assessment & Plan (1) Diabetes mellitus, with long-term current use of insulin: Code(s): E11.9 - Type 2 diabetes mellitus without complications; Z79.4 - skilled nursing (current) use of insulin Category: Medical Qualifiers: Diabetes mellitus type: type 2 Diabetes mellitus complication status: with hyperglycemia Qualified Code(s): E11.65 - Type 2 diabetes mellitus with hyperglycemia; Z79.4 - skilled nursing (current) use of insulin Plan: 34-year-old diabetic with positive madelin D antibodies with historically poor glycemic control. She does not have a sensor to download today. I would recommend continuing her Lantus at current levels and to drop her scale down to 150. She is interested in going on an insulin pump and advised her that she would need pre pump education. She has a 2-year-old autistic daughter in an Omnipod would most likely be easier for this patient as she does not believe she would be able to tolerate hypoglycemia caring for her child which can often occur with the ilet pump Medications: Discontinued FreeStyle Gia 3 Raymond (blood-glucose,rn gastroenterology,cont) Discontinued Reason: Doctor's Order As directed 1 ea 0RF NS E11.65 - Type 2 diabetes mellitus with hyperglycemia, Z79.4 - terminal makeup operator (current) use of insulin dulaglutide (Trulicity) Discontinued Reason: Doctor's Order 0.75 mg (0.5 mL) subcut QWEEK 2 mL 3RF FreeStyle Gia 3 Sensor (blood-glucose sensor) Discontinued Reason: Doctor's Order As directed 6 ea 3RF NS E11.65 - Type 2 diabetes mellitus with hyperglycemia, Z79.4 - terminal makeup operator (current) use of insulin metformin ER Discontinued Reason: Doctor's Order 1,000 mg (2 x 500 mg) PO DAILY 180 tabs 3RF Coding Level of Care Code Est Pt Level 4 (28208) Complex EM visit Add On G2211 Diagnoses Type 2 diabetes mellitus with hyperglycemia, with long-term current use of insulin E11.65; Z79.4 Diabetes mellitus type: type 2 Diabetes mellitus complication status: with hyperglycemia Time Spent (min) 30 Comment Time spent reviewing labs/provider notes, face to face, chart doc
[2024-10-23 14:10] VITALS: BP 102/70; PULSE 98; O2SAT 98; BMI 33.1
[2024-10-23 14:26] LABS: Glucose, Whole Blood 323 mg/dL (60-115)
--- OUTSIDE RECORDS SUMMARY | 2024-10-23 17:06 | XMS_ITS | Clinical Summary ---
Author Organization [facility] it Address [address] [place] [address] Care Team Providers Care Plating Tank Operator Name Role Phone Israel Rosario MD Primary [...] age to complete this topic Care Teams Plating Tank Operator Relationship Specialty Start Date End Date Israel Rosario MD [address] [place] [address] Dr [address] TAINA Hutchinson PCP - General Internal Medicine 01/27/18
== END 2024-10-23 14:50 | disposition home or self-care (01) ==
LOC: HO.ENCR 14:03
PROVIDERS: PCP Internal Medicine; Visit Provider Nurse Practitioner Adult Health
DX: E11.65 Type 2 diabetes mellitus with hyperglycemia (principal); Z79.4 Long term (current) use of insulin
CPT/HCPCS: 99214; G2211

== ENCOUNTER → 2024-10-23 14:02 | Outpatient (BNVA) | payer OTHER, SELFPAY | PROVIDERS: PCP Internal Medicine; Visit Provider Nurse Practitioner Adult Health | DX: E11.65 Type 2 diabetes mellitus with hyperglycemia (principal); Z79.4 Long term (current) use of insulin | CPT/HCPCS: 82947; 99212 ==

== ENCOUNTER 2024-11-26 15:02 | Outpatient (AMB) | payer OTHER, SELFPAY ==
--- NOTE | 2024-11-26 15:19 | MHC.AMDMED ---
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: No Accompanied by: Self / Same As Patient Allergies sulfamethoxazole (From BACTRIM) Allergy (Severe, Verified 10/23/24 14:15) FACIAL SWELLING trimethoprim (From BACTRIM) Allergy (Severe, Verified 10/23/24 14:15) FACIAL SWELLING docusate Allergy (Unknown, Verified 10/23/24 14:15) swelling Sulfa (Sulfonamide Antibiotics) Allergy (Unknown, Verified 10/23/24 14:15) swelling, facial swelling Stool Softener Allergy (Unknown, Uncoded 10/23/24 14:15) facial swelling STOOL SOFTENERS Allergy (Unknown, Uncoded 10/23/24 14:15) FACIAL SWELLING HPI Comprehensive Diabetes Asmnt Most Recent Diabetes Results: Microalb/Creat Ratio TNP 10/17/24 Cholesterol, (<200) 240 mg/dL H 10/17/24 HDL Cholesterol, (>40) 54 mg/dL 10/17/24 Triglycerides, (<150) 242 mg/dL H 10/17/24 Creatinine, (0.5-1.4) 0.68 mg/dL 10/17/24 BUN, (9-16) 12 mg/dL 10/17/24 Sodium, (135-145) 139 mmol/L 10/17/24 Potassium, (3.3-5.1) 4.2 mmol/L 10/17/24 Chloride, (96-108) 103 mmol/L 10/17/24 Carbon Dioxide, (22-29) 27 mmol/L 10/17/24 Calcium, (8.4-10.2) 9.9 mg/dL 10/17/24 AST, (5-31) 12 U/L 10/17/24 ALT, (0-31) 12 U/L 10/17/24 Total Protein, (6.5-8.0) 7.4 g/dL 10/17/24 Albumin, (3.5-5.0) 4.5 g/dL 10/17/24 [facility] Medical History Smoker Acquired hypothyroidism Blurring of vision Asthma Obesity (BMI 30-39.9) Neuropathy involving both lower extremities Diabetes mellitus Diabetes mellitus, with long-term current use of insulin Surgical History Hx laparoscopic cholecystectomy No significant past surgical history Family History Mother COPD (chronic obstructive pulmonary disease) Father High blood pressure Maternal Grandmother Breast cancer Maternal Aunt Uterine cancer Social History Housing: House Alcohol intake: current Alcohol intake frequency: holidays/special occasions only Patient Tobacco Use Status: Current everyday Tobacco user Cigarettes Per Day: 10 e-Cigarette/Vaping Use: Never Used service: No Current occupational status: unemployed Cognitive needs: No Hearing needs: No Vision needs: No Female Reproductive History Menstrual Age of Menarche: 10 Assessment & Plan Assessment & Plan (1) Diabetes mellitus, with long-term current use of insulin: Code(s): E11.9 - Type 2 diabetes mellitus without complications; Z79.4 - detention (current) use of insulin Qualifiers: Diabetes mellitus complication status: with hyperglycemia Diabetes mellitus type: type 2 Qualified Code(s): E11.65 - Type 2 diabetes mellitus with hyperglycemia; Z79.4 - intermission coordinator (current) use of insulin Plan: Pump Assessment: Type of DM: Type 1 Dx at age: 33 Previous DKA: yes Current Insulin Rx: MDI Patient takes insulin as prescribed: no, often only takes mealtime insulin once a day Patient? checks BG Dexcom G6 times/day, review of Dexcom data shows she is having can activity issues with smart phone pranav. recommended at this visit patient upgrade to Dexcom G7 Downloaded meter today? Patient? reports glycemic control as: poor Most recent Hgb A1C: 12.3% Frequency of low Bx weeks Low BG treatment: Juice or glucose tabs Frequency of high BG: daily Does patient check Ketones? No, rules for testing for ketones discussed at today's visit, prescription for ketone strips requested from provider Has pt been on a pump in the past? no Reviewed insulin pump basics today with Patient. Explained pros and cons of insulin pumps. Showed pt various pumps, infusion sets, and cgms currently available. Reviewed need to wear pump 24/7 and need to change infusion set every 3 days. Also stressed importance of frequent BG checks, 4x daily minimum or use pump that is integrated with CGM.? TDD:52 Patient demonstrated motivation for continued insulin pump education and understands the need to complete education prior to starting insulin pump for best outcome. Patient is interested in Omnipod 5 Carb Counting Basic Patient presents for appointment carbohydrate counting education. Reviewed the basic principles of carbohydrate counting.? Insulin to carb ratio, and insulin sensitivity factor calculated based on rule of 450 for insulin to carb ratio, and rule of 1500 for insulin sensitivity factor. Instructed patient on the importance of accurate calculation of the amount of carbs per meal for optimal glucose control Reviewed how to calculate mealtime bolus with insulin to carb ratio Reviewed how to calculate correction dose with insulin sensitivity factor Insulin to Carbohydrate ratio:1:9 Correction factor:1:29 Target: 150 mg/dL We were unable to download Boluscalc pranav on patient's cell phone today Patient given healthy plate handout, for resource for carbohydrate counting Encourage patient to fill out food logs, estimating carbohydrates at meals, noting glucose number prior to meal, and how many units of insulin taken prior to meals Pt able to calculated needed insulin based on estimated carbohydrate content Instructed patient that there may need to be adjustment to insulin to carb ratio and sensitivity factor based on blood glucose trends. Portions of this note were created using voice recognition software, please excuse any words or phrases that may have been misinterpreted. Portions of this note were created using voice recognition software, please excuse any words or phrases that may have been misinterpreted. Patient Instructions: DIABETES PROBLEMS HOMECARE INSTRUCTIONS? for High Blood Sugar and When to Test for Ketones Hyperglycemia is the technical term for high blood glucose (blood sugar). High blood sugar happens when the body has too little insulin or when the body can't use insulin properly. What causes hyperglycemia? A number of things can cause hyperglycemia: If you have type 1, you may not have given yourself enough insulin. ? If you have type 2, your body may have enough insulin, but it is not as effective as it should be. You ate more than planned or exercised less than planned. You have stress from an illness, such as a cold or flu. You have other stress, such as family conflicts or school or dating problems. How to lower your blood sugar level. ? Take medications as directed by physician. ? Drink extra water or noncaffeinated, nonsugared drinks to prevented hydration. ? Exercise if you are not sick However, if your blood sugar is above 250 mg/dl, check your urine for ketones. If you have ketones, do not exercise Exercising when ketones are present may make your blood sugar level go even higher. You'll need to work with your doctor to find the safest way for you to lower your blood sugar level. Regularly check blood sugar or urine for sugar and acetone during illness. Diabetic ketoacidosis (DKA) Is serious condition that can lead to diabetic coma (passing out for a long time) or even . When your cells don't get the glucose they need for energy, your body begins to burn fat for energy, which produces ketones. Ketones are chemicals that the body creates when it breaks down fat to use for energy. The body does this when it doesn?t have enough insulin to use glucose, the body?s normal source of energy. When ketones build up in the blood, they make it more acidic. They are a warning sign that your diabetes is out of control or that you are getting sick. Symptoms of Diabetic Ketoacidosis (DKA) ? DKA usually develops slowly. But when vomiting occurs, this life-threatening condition can develop in a few hours. Early symptoms include the following: ? Thirst or a very dry mouth ? Frequent urination ? High blood glucose (blood sugar) levels ? High levels of ketones in the urine ? Then, other symptoms appear: ? Constantly feeling tired ? Dry or flushed skin ? Nausea, vomiting, or abdominal pain ? (Vomiting can be caused by many illnesses, not just ketoacidosis. If vomiting continues for more than 2 hours, contact your health care provider.) ? Difficulty breathing ? Fruity odor on breath ? A hard time paying attention, or confusion When should you test for ketones? It is advisable to check for ketones under the following conditions when: Your blood glucose is higher than 250mg/dl. Feeling nauseated, throwing up, or have pains in your abdominal region. Have a cold or flu. Have general body fatigue. Feel thirsty or have a very dry mouth. Have flushed skin. Have a fruity breath or a hard time breathing. You feel perplexed or in fog. How to Test Urine for Ketones You can detect ketones with a simple urine test using a test strip, similar to a blood testing strip. Ask your health care provider when and how you should test for ketones. Many experts advise to check your urine for ketones when your blood glucose is more than 250 mg/dl. When you are ill (when you have a cold or the flu, for example), check for ketones every 4 to 6 hours. And check every 4 to 6 hours when your blood sugar is more than 250 mg/dl. Also, check for ketones when you have any symptoms of DKA. How to lower your blood sugar level. ? Take medications as directed by physician. ? Drink extra water or noncaffeinated, nonsugared drinks to prevented hydration. ? Exercise if you are not sick However, if your blood sugar is above 250 mg/dl, check your urine for ketones. If you have ketones, do not exercise Exercising when ketones are present may make your blood sugar level go even higher. You'll need to work with your doctor to find the safest way for you to lower your blood sugar level. Regularly check blood sugar or urine for sugar and acetone during illness Coding Level of Care Code Est Pt Level 1 (36115) Diagnoses Type 2 diabetes mellitus with hyperglycemia, with long-term current use of insulin E11.65; Z79.4 Diabetes mellitus complication status: with hyperglycemia Diabetes mellitus type: type 2
--- OUTSIDE RECORDS SUMMARY | 2024-11-26 15:32 | XMS_ITS | Clinical Summary ---
Author Organization [facility] ity Address [address] [place] [address] Care Team Providers Care Top Spotter Name Role Phone Israel Rosario MD Primary [...] Vaccine ( - 2023-2 5 season) 2024 Depression Screening 05/02/2024 Influenza Vaccine (#1) 2024 HIB Vaccines Aged [...] 5 Years) and At-Risk Patients (6 to 49 Years) Aged Out No longer eligible b ased on patient's age to complete this topic RSV Immunization Patients Un marilu 20 months Aged Out No longer eligible b ased on patient's age to complete this topic Varicella Vaccines Aged Out No longer eligible based on patient's age to complete this topic Care Teams Top Spotter Relationship Specialty Start Date End Date Israel Rosario MD [address] [place] [address] [address] TAINA Hutchinson PCP - General Internal Medicine 01/27/18
== END 2024-11-26 16:02 | disposition home or self-care (01) ==
LOC: HO.ENCR 15:03
PROVIDERS: PCP Internal Medicine; Visit Provider Registered Nurse Diabetes Educator
DX: E11.65 Type 2 diabetes mellitus with hyperglycemia (principal); Z79.4 Long term (current) use of insulin

== ENCOUNTER → 2024-11-26 15:02 | Outpatient (BNVA) | payer OTHER, SELFPAY | PROVIDERS: PCP Internal Medicine; Visit Provider Registered Nurse Diabetes Educator | DX: E11.65 Type 2 diabetes mellitus with hyperglycemia (principal); Z79.4 Long term (current) use of insulin | CPT/HCPCS: 99211 ==

== ENCOUNTER 2024-11-27 13:44 | Emergency (ER) | payer OTHER, SELFPAY ==
[2024-11-27 13:48] VITALS: BP 128/82; PULSE 100; RESP 18; TEMP 36.6; O2SAT 98; BMI 32.2
--- NOTE | 2024-11-27 13:50 | ED_ITS ---
HPI - Female Genitourinary General Chief complaint: Urogenital-Female Stated complaint: UTI? Time Seen by Provider: 11/27/24 15:18 Source: patient Mode of arrival: ambulatory Limitations: no limitations History of Present Illness ED Provider: olga houston np HPI Narrative: Patient is a 34-year-old female who presents emergency department for evaluation, has been experiencing dysuria, urinary frequency with onset of symptoms yesterday. Reports symptoms consistent with a prior urinary tract infections. Denies fevers, chills, nausea, vomiting, abdominal pain, back pain, hematuria, possibility for , abnormal vaginal discharge or bleeding. Related Data Home Medications ?Medication ?Instructions ?Recorded ?Confirmed blood sugar diagnostic #10 ea 08/01/20 02/15/24 Previous Rx's ?Medication ?Instructions ?Recorded vit no.95-ferrous 1 tab PO DAILY #30 tabs fumarate 28 mg-folic acid 800 mcg tablet () NEBULIZER and all related supplies #1 ea 11/04/23 gabapentin 100 mg capsule 100 mg PO BEDTIME 30 days #3 0 caps 11/04/23 nicotine (polacrilex) 4 mg gum 4 mg buccal Q2H PRN anthony otine 11/04/23 (Nicorette) cravings #100 ea albuterol sulfate 2.5 mg/3 mL 2.5 mg (3 mL) continuous 11/25/23 (0.083 %) solution for nebulization nebulization QID P RN shortness of breath or wheezing 30 days #180 mL Dexcom G6 Rocket Motor Mechanic #1 ea 01/25/24 (blood-glucose,customer support agent,cont) levothyroxine 50 mcg tablet 50 mcg PO DAILY #90 tabs 0 01/25/24 Dexcom G6 Sensor (blood-glucose #9 ea 03/21/24 sensor) Dexcom G6 Transmitter #1 ea 03/21/24 (blood-glucose transmitter) fluconazole 150 mg tablet 150 mg PO DAILY #7 tabs 03/03 levothyroxine 75 mcg tablet 75 mcg PO DAILY #90 tabs 1 05/21/23 cefpodoxime 200 mg tablet 200 mg PO BID 10 days #20 ta bs 04/10/24 albuterol sulfate 90 mcg/actuation 2 puff inhalation Q 6H PRN 05/24/24 aerosol inhaler (Ventolin HFA) shortness of breath or wheezing 30 days #8.5 grams ondansetron 4 mg disintegrating 4 mg PO Q8H PRN nausea and 07/25/24 tablet vomiting #30 tabs cefuroxime axetil 250 mg tablet 250 mg PO BID 7 days # 14 tabs 08/04/24 phenazopyridine 200 mg tablet 200 mg PO Q8H PRN pain ( scale 08/04/24 (Pyridium) score 1-3) 6 doses #6 tabs fluconazole 150 mg tablet 150 mg PO Q3D 2 doses #2 tab s 08/06/24 metronidazole 500 mg tablet 500 mg PO BID 7 days #14 t abs 08/06/24 Lantus Solostar U-100 Insulin 100 34 unit (0.34 mL) claire bcut QPM #45 mL 10/17/24 unit/mL (3 mL) subcutaneous pen (insulin glargine) Mounjaro 7.5 mg/0.5 mL 7.5 mg (0.5 mL) subcut QWEEK #6 mL 10/17/24 subcutaneous pen injector (tirzepatide) insulin lispro 100 unit/mL See Rx Instructions .Route 10/17/24 subcutaneous pen (Humalog KwikPen .COMPLEX #30 mL (U-100) Insulin) pen needle, diabetic 32 gauge x #100 ea 10/23/24 spironolactone 25 mg tablet 25 mg PO DAILY #90 tabs nitrofurantoin 100 mg PO Q12H 5 days #10 ca ps 11/27/24 monohydrate/macrocrystals 100 mg capsule (Macrobid) phenazopyridine 100 mg tablet 100 mg PO TID PRN pain 6 doses #6 11/27/24 (Pyridium) tabs Allergies Allergy/AdvReac Type Severity Reaction Status Date / Time sulfamethoxazole (From Allergy Severe FACIAL Verified 11/27/24 13:51 BACTRIM) SWELLING trimethoprim (From BACTRIM) Allergy Severe FACIAL Verified 11/27/24 13:51 SWELLING docusate Allergy Unknown swelling Verified 11/27/24 13:51 Sulfa (Sulfonamide Allergy Unknown swelling, Verified 11/27/24 13:51 Antibiotics) facial swelling Stool Softener Allergy Unknown facial Uncoded 11/27/24 13:51 swelling STOOL SOFTENERS Allergy Unknown FACIAL Uncoded 11/27/24 13:51 SWELLING Review of Systems Review of Systems: Yes all other systems are reviewed and are negative [facility] Past Medical History Attestation statement: The following information was validated with the patient. Source: old records reviewed Medical History Smoker Acquired hypothyroidism Blurring of vision Asthma Obesity (BMI 30-39.9) Neuropathy involving both lower extremities Diabetes mellitus Diabetes mellitus, with long-term current use of insulin Surgical History Hx laparoscopic cholecystectomy No significant past surgical history Family History Family History Mother COPD (chronic obstructive pulmonary disease) Father High blood pressure Maternal Grandmother Breast cancer Maternal Aunt Uterine cancer Social History Social History Housing: House Alcohol intake: current Alcohol intake frequency: holidays/special occasions only Patient Tobacco Use Status: Current everyday Tobacco user Cigarettes Per Day: 10 e-Cigarette/Vaping Use: Never Used Advance Directives: No Advance Directives Information Provided: No Do you have a plan to hurt others: No Plan service: No Current occupational status: unemployed Cognitive needs: No Hearing needs: No Vision needs: No Physical Exam Exam: Exam: Appearance: Alert.?Oriented to person, place and time. No acute distress.?Normal affect. Eyes: Pupils equal, round and reactive to light.? ENT: Pharynx normal.?? Neck: Normal inspection.? Neck supple.?? CVS: Heart sounds normal. Normal heart rate and rhythm.? Pulses normal.?? Respiratory: No respiratory distress.? Lung sounds clear to auscultation bilaterally?? Abdomen: Soft and non-tender. Normoactive bowel sounds. no CVAT?? Skin: Skin warm and dry.? Normal skin color.? Extremities: No lower extremity edema.? Neuro: Moves all extremities spontaneously. Sensation intact bilaterally. Ambulates with normal steady gait. Vital Signs: Vital Signs: Last Vital Signs Temp 98 F 11/27/24 15:26 Pulse 100 11/27/24 15:26 Resp 18 11/27/24 15:26 BP 128/82 11/27/24 15:26 Pulse Ox 98 11/27/24 15:26 O2 Del Method Room Air 11/27/24 15:26 BMI result Body Mass Index 32.2 Course Course Course Narrative: This is an RME performed by Olga Houston CNP: Additional HPI, ROS, PE not included below will be deferred to primary provider. Patient is a 34-year-old female who presents emergency department for evaluation, has been experiencing dysuria, urinary frequency with onset of symptoms yesterday. Reports symptoms consistent with a prior urinary tract infections. Denies fevers, chills, nausea, vomiting, abdominal pain, back pain, hematuria, possibility for , abnormal vaginal discharge or bleeding. Medical Decision Making Medical Decision Making [facility] Narrative: Patient is a 34-year-old female with past medical history of diabetes, asthma, hypothyroidism who presents emergency department for evaluation of dysuria and urinary frequency as per HPI. Urinalysis is consistent with urinary tract infection, no microscopic hematuria. No CVAT to suggest renal colic secondary to calculi or pyelonephritis. HCG is negative, not consistent with ectopic . No unilateral abdominal pain or tenderness on examination, denies concern for sexually transmitted infection, denies history of ovarian cysts lower suspicion for tubo-ovarian abscess/ PID, ovarian torsion, ruptured ovarian cyst. She will be placed on Macrobid and advised to have outpatient follow-up with your primary care provider and given strict return precautions. All questions answered Differential Diagnosis Differential Diagnoses: The differential diagnosis associated with the presentation includes (See narrative above) Lab Data [facility] Lab Attestation statement: I reviewed the patient's lab results. Labs: Lab Results 11/27/24 Range/Units 13:58 Urine Color Yellow Urine Appearance Clear Urine pH 5.5 (5.0-9.0) Ur Specific Harrod >= 1.030 H (1.005-1.025) Urine Protein Negative (Neg-Trace) mg/dL Urine Glucose (UA) >=1000 H (Negative) mg/dL Urine Ketones Trace (Negative) mg/dL Urine Blood Negative (Negative) Urine Nitrite Negative (Negative) Ur Leukocyte Esterase Small (1+) H (Negative) Urine RBC 0-2 (0-2) /HPF Urine WBC 21-50 (0-5) /HPF Ur Squamous Epith Cells 3-5 (0-2) /HPF Urine Bacteria 1+ (None Seen) Hyaline Casts 0-2 (0-2) /LPF Urine Test NEGATIVE (NEGATIVE) External Record Review External record reviewed: Outpatient record Prescription Management I considered prescription management with: Antibiotic Chronic Conditions Patient?s care impacted by: Other (See narrative above) Discharge Plan Discharge Clinical Impression: Urinary tract infection Patient Disposition: Home, Self-Care Instructions: Urinary Tract Infection in Women (ED) Additional Instructions: Please complete the entire course of antibiotics as prescribed for urinary tract infection. Take Pyridium as needed for the burning sensation associated with urination. Contact your primary care provider to arrange for follow-up regarding ongoing urinary infections. Return with any new or worsening symptoms or concerns which includes but is not limited to fevers, chills, severe nausea with persistent vomiting, abdominal pain, back pain, inability to urinate, blood in your urine. Prescriptions: New nitrofurantoin monohyd/m-cryst [Macrobid] 100 mg capsule 100 mg PO Q12H 5 Days Qty: 10 0RF Rx Instructions: must administer with a meal/food phenazopyridine [Pyridium] 100 mg tablet 100 mg PO TID PRN (Reason: pain) Qty: 6 0RF No Action albuterol sulfate 2.5 mg /3 mL (0.083 %) solution for nebulization 2.5 mg continuous nebulization QID PRN (Reason: shortness of breath or wheezing) 30 Days Qty: 180 3RF albuterol sulfate [Ventolin HFA] 90 mcg/actuation HFA aerosol inhaler 2 puff inhalation Q6H PRN (Reason: shortness of breath or wheezing) 30 Days Qty: 8.5 5RF (DME) pen needle, diabetic 32 gauge x 5/32 needle See Rx Instructions .ROUTE .MEDSUPPLY Qty: 100 12RF Rx Instructions: As directed 4 times a day spironolactone 25 mg tablet 25 mg PO DAILY Qty: 90 3RF PNV cmb#95-ferrous fumarate-FA [] 28 mg iron- 800 mcg tablet 1 tab PO DAILY Qty: 30 0RF cefpodoxime 200 mg tablet 200 mg PO BID 10 Days Qty: 20 0RF Rx Instructions: must administer with a meal/food cefuroxime axetil 250 mg tablet 250 mg PO BID 7 Days Qty: 14 0RF phenazopyridine [Pyridium] 200 mg tablet 200 mg PO Q8H PRN (Reason: pain (scale score 1-3)) Qty: 6 0RF fluconazole 150 mg tablet 150 mg PO Q3D Qty: 2 0RF metronidazole 500 mg tablet 500 mg PO BID 7 Days Qty: 14 0RF (DME) FreeStyle Lite Strips Strip See Rx Instructions Not Applicable QID Qty: 10 Rx Instructions: As directed gabapentin 100 mg capsule 100 mg PO BEDTIME 30 Days Qty: 30 2RF (DME) NEBULIZER and all related supplies See Rx Instructions .Route .MEDSUPPLY Qty: 1 0RF Rx Instructions: As directed nicotine (polacrilex) [Nicorette] 4 mg gum 4 mg buccal Q2H PRN (Reason: nicotine cravings) Qty: 100 5RF (DME) Dexcom G6 Rocket Motor Mechanic Misc See Rx Instructions .Route Qty: 1 0RF Rx Instructions: As directed levothyroxine 50 mcg tablet 50 mcg PO DAILY Qty: 90 3RF (DME) Dexcom G6 Sensor Device See Rx Instructions .Route Qty: 9 3RF Rx Instructions: every 10 days (DME) Dexcom G6 Transmitter Device See Rx Instructions .Route Qty: 1 3RF Rx Instructions: As directed fluconazole 150 mg tablet 150 mg PO DAILY Qty: 7 2RF levothyroxine 75 mcg tablet 75 mcg PO DAILY Qty: 90 3RF ondansetron 4 mg tablet,disintegrating 4 mg PO Q8H PRN (Reason: nausea and vomiting) Qty: 30 2RF insulin glargine [Lantus Solostar U-100 Insulin] 100 unit/mL (3 mL) insulin pen 34 unit subcut QPM Qty: 45 3RF Mounjaro 7.5 mg/0.5 mL pen injector 7.5 mg subcut QWEEK Qty: 6 3RF insulin lispro [Humalog KwikPen Insulin] 100 unit/mL insulin pen See Rx Instructions .ROUTE .COMPLEX Qty: 30 12RF Rx Instructions: Take subcutaneously up to 3 times daily 15 minutes before meals For BG <150: Take 0 units 150-199: Take 2 units 200-249: Take 4 units 250-299: Take 6 units >/=300 : Take 8 units Referrals: Israel Rosario MD [Primary Care Provider, Internal Medicine] Interventions: ED Discharge Assessment Last Done: 11/27/24 15:26 Discharge Date/Time: 11/27/24 15:27 Print Language: Tamazight
[2024-11-27 14:05] LABS: Appearance Urine Clear; Glucose Urine UA >=1000 mg/dL (Negative); PH 5.5 (5.0-9.0); Specific Gravity - Urine >= 1.030 (1.005-1.025); UMIC TRIGGER UACC YES; UPreg QC Valid YES
[2024-11-27 14:14] LABS: UACC Culture Trigger YES
[2024-11-27 15:26] VITALS: BP 128/82; PULSE 100; RESP 18; TEMP 36.6; O2SAT 98
--- OUTSIDE RECORDS SUMMARY | 2024-11-27 16:11 | XMS_ITS | Clinical Summary ---
Author Organization [facility] ity Address [address] [place] [address] Care Team Providers Care Coroner Name Role Phone Israel Rosario MD Primary [...] age to complete this topic Care Teams Coroner Relationship Specialty Start Date End Date Israel Rosario MD [address] [place] [address] [address] TAINA Hutchinson PCP - General Internal Medicine 01/27/18
== END 2024-11-27 15:27 | disposition home or self-care (01) ==
PROVIDERS: Nurse Practitioner Family; Emergency Provider Emergency Medicine; PCP Internal Medicine
DX: N39.0 Urinary tract infection, site not specified (principal); F17.210 Nicotine dependence, cigarettes, uncomplicated; Z79.899 Other long term (current) drug therapy
CPT/HCPCS: 81001; 81025; 87086; 99282; 99283

== ENCOUNTER 2025-01-01 07:40 | Emergency (ER) | payer OTHER, SELFPAY ==
[2025-01-01 07:43] VITALS: BP 121/80; PULSE 95; RESP 17; TEMP 36.7; O2SAT 98; BMI 33.2
--- NOTE | 2025-01-01 07:49 | ED.DENTAL ---
HPI - Dental/Oral General Chief complaint: Dental/Oral Stated complaint: Tooth/jaw pain Time Seen by Provider: 01/01/25 07:48 Source: patient and old records reviewed Mode of arrival: ambulatory Limitations: no limitations History of Present Illness ED Provider: LUZMA BRYANT Narrative: 34 yo female with PMH of DM, hypothyroidism, asthma here with c/o L sided lower dental pain x 2 days, no fevers, no facial or jaw swelling. Hurts to eat or chew. She has known poor dentition and needs to see her dentist. She is taking motrin with some relief. She states she needs an antibiotic. MD Complaint: tooth pain Location: Tooth # () Onset (ago): day(s) (2) Duration: constant Severity: moderate Relieving factors: NSAIDs Exacerbating factors: chewing, cold, heat and drinking fluids Context: poor dental care Treatment prior to arrival: none Related Data Home Medications ?Medication ?Instructions ?Recorded ?Confirmed blood sugar diagnostic #10 ea 08/01/20 02/15/24 Previous Rx's ?Medication ?Instructions ?Recorded vit no.95-ferrous 1 tab PO DAILY #30 tabs 06/26/22 fumarate 28 mg-folic acid 800 mcg tablet () NEBULIZER and all related supplies #1 ea 11/04/23 nicotine (polacrilex) 4 mg gum 4 mg buccal Q2H PRN nicotine 11/04/23 (Nicorette) cravings #100 ea albuterol sulfate 2.5 mg/3 mL 2.5 mg (3 mL) continuous 11/25/23 (0.083 %) solution for nebulization nebulization QID PRN shortness of breath or wheezing 30 days #180 mL Dexcom G6 Hotel Administrative Assistant #1 ea 01/25/24 (blood-glucose,enterprise infrastructure architect,cont) levothyroxine 50 mcg tablet 50 mcg PO DAILY #90 tabs 01/25/24 Dexcom G6 Sensor (blood-glucose #9 ea 03/21/24 sensor) Dexcom G6 Transmitter #1 ea 03/21/24 (blood-glucose transmitter) levothyroxine 75 mcg tablet 75 mcg PO DAILY #90 tabs 03/21/24 cefpodoxime 200 mg tablet 200 mg PO BID 10 days #20 tabs 04/10/24 albuterol sulfate 90 mcg/actuation 2 puff inhalation Q6H PRN 05/24/24 aerosol inhaler (Ventolin HFA) shortness of breath or wheezing 30 days #8.5 grams ondansetron 4 mg disintegrating 4 mg PO Q8H PRN nausea and 07/25/24 tablet vomiting #30 tabs cefuroxime axetil 250 mg tablet 250 mg PO BID 7 days #14 tabs 08/04/24 phenazopyridine 200 mg tablet 200 mg PO Q8H PRN pain (scale 08/04/24 (Pyridium) score 1-3) 6 doses #6 tabs fluconazole 150 mg tablet 150 mg PO Q3D 2 doses #2 tabs 08/06/24 metronidazole 500 mg tablet 500 mg PO BID 7 days #14 tabs 08/06/24 Lantus Solostar U-100 Insulin 100 34 unit (0.34 mL) subcut QPM #45 mL 10/17/24 unit/mL (3 mL) subcutaneous pen (insulin glargine) Mounjaro 7.5 mg/0.5 mL 7.5 mg (0.5 mL) subcut QWEEK #6 mL 10/17/24 subcutaneous pen injector (tirzepatide) insulin lispro 100 unit/mL See Rx Instructions .Route 10/17/24 subcutaneous pen (Humalog KwikPen .COMPLEX #30 mL (U-100) Insulin) pen needle, diabetic 32 gauge x #100 ea 10/23/24 spironolactone 25 mg tablet 25 mg PO DAILY #90 tabs 11/07/24 nitrofurantoin 100 mg PO Q12H 5 days #10 caps 11/27/24 monohydrate/macrocrystals 100 mg capsule (Macrobid) phenazopyridine 100 mg tablet 100 mg PO TID PRN pain 6 doses #6 11/27/24 (Pyridium) tabs Dexcom G7 Sensor (blood-glucose #9 ea 11/28/24 sensor) fluconazole 150 mg tablet 150 mg PO DAILY #7 tabs 11/28/24 Dexcom G7 Hotel Administrative Assistant #1 ea 12/20/24 (blood-glucose,enterprise infrastructure architect,cont) gabapentin 100 mg capsule 100 mg PO BEDTIME 30 days #30 caps 12/26/24 amoxicillin 875 mg-potassium 1 tab PO BID #14 tabs 01/01/25 clavulanate 125 mg tablet ibuprofen 600 mg tablet 600 mg PO Q6H PRN pain #30 tabs 01/01/25 Allergies Allergy/AdvReac Type Severity Reaction Status Date / Time sulfamethoxazole (From Allergy Severe FACIAL Verified 01/01/25 07:45 BACTRIM) SWELLING trimethoprim (From BACTRIM) Allergy Severe FACIAL Verified 01/01/25 07:45 SWELLING docusate Allergy Unknown swelling Verified 01/01/25 07:45 Sulfa (Sulfonamide Allergy Unknown swelling, Verified 01/01/25 07:45 Antibiotics) facial swelling Stool Softener Allergy Unknown facial Uncoded 01/01/25 07:45 swelling STOOL SOFTENERS Allergy Unknown FACIAL Uncoded 01/01/25 07:45 SWELLING Review of Systems Review of Systems: Constitutional : No Fever, No Chills ENT/Mouth : No swallowing difficulty, no change in voice, positive dental pain, no jaw pain, no facial swelling Eyes: No Eye Pain, No Swelling Cardiovascular : No Chest Pain, No SOB Respiratory : No Cough, No Sputum Gastrointestinal : No Nausea, No Vomiting, No Diarrhea Genitourinary : No Dysuria Musculoskeletal : No Myalgias Skin : No rash Neuro : No Weakness, No Numbness, No Headache Yes all other systems are reviewed and are negative [facility] Past Medical History Attestation statement: The following information was validated with the patient. Source: old records reviewed Medical History Smoker Acquired hypothyroidism Blurring of vision Asthma Obesity (BMI 30-39.9) Neuropathy involving both lower extremities Diabetes mellitus Diabetes mellitus, with long-term current use of insulin Surgical History Hx laparoscopic cholecystectomy No significant past surgical history Family History Family History Mother COPD (chronic obstructive pulmonary disease) Father High blood pressure Maternal Grandmother Breast cancer Maternal Aunt Uterine cancer Social History Social History Housing: House Alcohol intake: current Alcohol intake frequency: holidays/special occasions only Patient Tobacco Use Status: Current everyday Tobacco user Cigarettes Per Day: 10 e-Cigarette/Vaping Use: Never Used Advance Directives: No Advance Directives Information Provided: Yes Do you have a plan to hurt others: No Plan service: No Current occupational status: unemployed Cognitive needs: No Hearing needs: No Vision needs: No Physical Exam Vital Signs: Vital Signs: Last Vital Signs Temp 98.0 F 01/01/25 07:43 Pulse 95 01/01/25 07:43 Resp 17 01/01/25 07:43 BP 121/80 01/01/25 07:43 Pulse Ox 98 01/01/25 07:43 O2 Del Method Room Air 01/01/25 07:43 BMI result Body Mass Index 33.2 Appearance: Alert. Oriented X3. No acute distress. Eyes: Pupils equal, round and reactive to light. ENT: Pharynx normal. no parotid ttp or swelling, no sublingual or submandibular swelling, L sided TM normal, no rash on cheek, no trismus ttp along L lower tooth 19/22 but no fluctuance or abscess. Neck: Normal inspection. Neck supple. CVS: Pulses normal. Respiratory: No respiratory distress. Abdomen: Soft and nontender. Skin: Skin warm and dry. Normal skin color. Extremities: No lower extremity edema. Neuro: Oriented X 3. No motor deficit. No sensory deficit. Medical Decision Making Medical Decision Making MDM Narrative: 34 yo female with PMH of DM, hypothyroidism, asthma here with c/o L sided dental pain but on exam no abscess, no trismus no signs of swelling to suggest deeper space infection. She will need oral augemtin and ibuprofen. Given reasons to return. She denies concern for . Differential Diagnosis Differential Diagnoses: The differential diagnosis associated with the presentation includes dental cavities, toothache Admission/Observation Consideration of admission/observation: Escalation of care including admission/observation considered not toxic no signs of deeper space infection stable for DC External Record Review External record reviewed: Outpatient record Prescription Management I considered prescription management with: Pain Medication and Antibiotic Discharge Plan Discharge Clinical Impression: Toothache Patient Disposition: Home, Self-Care Instructions: Toothache (ED) Additional Instructions: return for fevers over 100.4, increased swelling, pain difficulty swallowing or any other concerns make sure you follow up with your dentist On amoxicillin-clavulanate, softer bowel movements are to be expected. Call your provider if you move your bowels more than 4 times a day, your bowel movements are almost all liquid, or you get a rash.? Prescriptions: New ibuprofen 600 mg tablet 600 mg PO Q6H PRN (Reason: pain) Qty: 30 0RF amoxicillin-pot clavulanate 875-125 mg tablet 1 tab PO BID Qty: 14 0RF No Action albuterol sulfate 2.5 mg /3 mL (0.083 %) solution for nebulization 2.5 mg continuous nebulization QID PRN (Reason: shortness of breath or wheezing) 30 Days Qty: 180 3RF albuterol sulfate [Ventolin HFA] 90 mcg/actuation HFA aerosol inhaler 2 puff inhalation Q6H PRN (Reason: shortness of breath or wheezing) 30 Days Qty: 8.5 5RF (DME) pen needle, diabetic 32 gauge x /32 needle See Rx Instructions .ROUTE .MEDSUPPLY Qty: 100 12RF Rx Instructions: As directed 4 times a day spironolactone 25 mg tablet 25 mg PO DAILY Qty: 90 3RF fluconazole 150 mg tablet 150 mg PO DAILY Qty: 7 2RF (DME) Dexcom G7 Sensor Device See Rx Instructions .Route Qty: 9 3RF Rx Instructions: every 10 days (DME) Dexcom G7 Hotel Administrative Assistant Misc See Rx Instructions .Route Qty: 1 0RF Rx Instructions: Use enterprise infrastructure architect continuously on a daily basis with sensor to monitor blood sugar. gabapentin 100 mg capsule 100 mg PO BEDTIME 30 Days Qty: 30 2RF PNV no.95-ferrous fumarate-FA [] 28 mg iron- 800 mcg tablet 1 tab PO DAILY Qty: 30 0RF cefpodoxime 200 mg tablet 200 mg PO BID 10 Days Qty: 20 0RF Rx Instructions: must administer with a meal/food cefuroxime axetil 250 mg tablet 250 mg PO BID 7 Days Qty: 14 0RF phenazopyridine [Pyridium] 200 mg tablet 200 mg PO Q8H PRN (Reason: pain (scale score 1-3)) Qty: 6 0RF fluconazole 150 mg tablet 150 mg PO Q3D Qty: 2 0RF metronidazole 500 mg tablet 500 mg PO BID 7 Days Qty: 14 0RF nitrofurantoin monohyd/m-cryst [Macrobid] 100 mg capsule 100 mg PO Q12H 5 Days Qty: 10 0RF Rx Instructions: must administer with a meal/food phenazopyridine [Pyridium] 100 mg tablet 100 mg PO TID PRN (Reason: pain) Qty: 6 0RF (DME) FreeStyle Lite Strips Strip See Rx Instructions Not Applicable QID Qty: 10 Rx Instructions: As directed (DME) NEBULIZER and all related supplies See Rx Instructions .Route .MEDSUPPLY Qty: 1 0RF Rx Instructions: As directed nicotine (polacrilex) [Nicorette] 4 mg gum 4 mg buccal Q2H PRN (Reason: nicotine cravings) Qty: 100 5RF (DME) Dexcom G6 Hotel Administrative Assistant Misc See Rx Instructions .Route Qty: 1 0RF Rx Instructions: As directed levothyroxine 50 mcg tablet 50 mcg PO DAILY Qty: 90 3RF (DME) Dexcom G6 Sensor Device See Rx Instructions .Route Qty: 9 3RF Rx Instructions: every 10 days (DME) Dexcom G6 Transmitter Device See Rx Instructions .Route Qty: 1 3RF Rx Instructions: As directed levothyroxine 75 mcg tablet 75 mcg PO DAILY Qty: 90 3RF ondansetron 4 mg tablet,disintegrating 4 mg PO Q8H PRN (Reason: nausea and vomiting) Qty: 30 2RF insulin glargine [Lantus Solostar U-100 Insulin] 100 unit/mL (3 mL) insulin pen 34 unit subcut QPM Qty: 45 3RF Mounjaro 7.5 mg/0.5 mL pen injector 7.5 mg subcut QWEEK Qty: 6 3RF insulin lispro [Humalog KwikPen Insulin] 100 unit/mL insulin pen See Rx Instructions .ROUTE .COMPLEX Qty: 30 12RF Rx Instructions: Take subcutaneously up to 3 times daily 15 minutes before meals For BG <150: Take 0 units 150-199: Take 2 units 200-249: Take 4 units 250-299: Take 6 units >/=300 : Take 8 units Print Language: Persian
--- OUTSIDE RECORDS SUMMARY | 2025-01-01 07:57 | XMS_ITS | Clinical Summary ---
Author Organization [facility] ity Address [address] [place] [address] Care Team Providers Care Oracle Brm Developer Name Role Phone Israel Rosario MD Primary Care Provider [phone] Social History Tobacco Use Types Packs/Day Years [...] age to complete this topic Care Teams Oracle Brm Developer Relationship Specialty Start Date End Date Israel Rosario MD [address] [place] [address] [address] TAINA Hutchinson PCP - General Internal Medicine 01/27/18
[2025-01-01 07:58] VITALS: BP 121/80; PULSE 95; RESP 17; TEMP 36.7; O2SAT 98
--- NOTE | 2025-01-01 07:58 | PC.NURSE ---
d/c'd from [facility] by
== END 2025-01-01 08:00 | disposition home or self-care (01) ==
PROVIDERS: Emergency Provider Emergency Medicine; PCP Internal Medicine
DX: K08.89 Other specified disorders of teeth and supporting structures (principal)
CPT/HCPCS: 99282; 99283

== ENCOUNTER 2025-02-01 13:57 | Outpatient (REF) | payer OTHER, SELFPAY ==
[2025-02-01 17:00] LABS: Bacterial Vaginosis PCR POSITIVE (Negative); Candida Group PCR NOT DETECTED (Not Detect); Candida glab krusei PCR DETECTED (Not Detect); Trichomonas vaginalis PCR NOT DETECTED (Not Detect)
[2025-02-01 17:32] LABS: CT PCR NOT DETECTED (Not Detect.); NG PCR NOT DETECTED (Not Detect.)
== END 2025-02-01 13:58 | disposition home or self-care (01) ==
LOC: HO.LAB 13:57
PROVIDERS: PCP Internal Medicine; Visit Provider Nurse Practitioner Family
DX: R30.0 Dysuria (principal); R35.0 Frequency of micturition; N76.0 Acute vaginitis; N39.0 Urinary tract infection, site not specified; Z79.4 Long term (current) use of insulin; Z91.148 Patient's other noncompliance with medication regimen for other reason
CPT/HCPCS: 81003; 81515; 87086; 87491; 87591; 96127; 99212

== ENCOUNTER 2025-02-01 13:57 | Outpatient (AMB) | payer OTHER, SELFPAY ==
--- NOTE | 2025-02-01 14:07 | MHC.PC.OV ---
Vital Signs 02/01/25 14:08 Height 5 ft Weight 164 lb BMI 32.0 BP 116/80 Blood Pressure Location Lt brachial Position Sitting Pulse 97 Pulse Source Pulse Oximeter Temp 97.3 F Temp Source Temporal Artery Scan Pulse Oximetry (%) 100 Oxygen Delivery Method Room Air Intake Visit Reasons: UTI symptoms Allergies sulfamethoxazole (From BACTRIM) Allergy (Severe, Verified 02/01/25 14:16) FACIAL SWELLING trimethoprim (From BACTRIM) Allergy (Severe, Verified 02/01/25 14:16) FACIAL SWELLING docusate Allergy (Unknown, Verified 02/01/25 14:16) swelling Sulfa (Sulfonamide Antibiotics) Allergy (Unknown, Verified 02/01/25 14:16) swelling, facial swelling Stool Softener Allergy (Unknown, Uncoded 02/01/25 14:16) facial swelling STOOL SOFTENERS Allergy (Unknown, Uncoded 02/01/25 14:16) FACIAL SWELLING Tobacco use date assessed: 02/01/25 Dental Screening Dental Screen Date: 02/01/25 Did you have a dental visit in the last 12 months?: Yes Did you have a dental problem in the last 6 months where you did not have access to dental care?: No Was dental information given to patient?: Patient has dentist HPI HPI Comments History of Present Illness Details 34 y/o Female Patient who presents to the clinic today for the same day appointment. Pt c/o 2 day history of Urinary symptoms. Pt c/o Dysuria, Urgency and frequency. Pt was told she had UTI 2 weeks ago and was given bactrim. Pt did not take the Abx because she is allergic to Sulfa. Pthas been taking AZO for symptom relief. Pt has chronic recurrent Vaginal infections plus UTIs. She was recently treated for Yeast with Fluconazole (12/2024). Back in October she tested positive for BV/Yeast. She has uncontrolled T2DM being managed by Endocrinology. Her A1C > 10, admit to being non-compliant with her Insulin. Her Urinalysis today positive for Glucose + 1000 Patient admits to 2 unprotected sexual encounters with different men in the Past Month - asking for STI testing today. [facility] Medical History (Updated 02/01/25 @ 14:50 by Chely Dumont NP) Vaginitis and vulvovaginitis Smoker Acquired hypothyroidism Blurring of vision Asthma Obesity (BMI 30-39.9) Neuropathy involving both lower extremities Diabetes mellitus Diabetes mellitus, with long-term current use of insulin Surgical History Hx laparoscopic cholecystectomy No significant past surgical history Family History Mother COPD (chronic obstructive pulmonary disease) Father High blood pressure Maternal Grandmother Breast cancer Maternal Aunt Uterine cancer Social History Housing: House Alcohol intake: current Alcohol intake frequency: holidays/special occasions only Patient Tobacco Use Status: Current everyday Tobacco user Cigarettes Per Day: 10 e-Cigarette/Vaping Use: Never Used service: No Current occupational status: unemployed Cognitive needs: No Hearing needs: No Vision needs: No Female Reproductive History Menstrual Age of Menarche: 10 Questionnaire PHQ-9 Over the last 2 weeks, how often have you been bothered by any of the following problems? 1. Little interest or pleasure in doing things: more than half the days 2. Feeling down, depressed, or hopeless: not at all 3. Trouble falling or staying asleep, or sleeping too much: not at all 4. Feeling tired or having little energy: not at all 5. Poor appetite or overeating: not at all 6. Feeling bad about yourself - or that you are a failure or have let yourself or your family down: not at all 7. Trouble concentrating on things, such as reading the newspaper or watching television: not at all 8. Moving or speaking so slowly that other people could have noticed. Or the opposite - being so fidgety or restless that you have been moving around a lot more than usual: not at all 9. Thoughts that you would be better off or of hurting yourself in some way: not at all Total score: 2 Depression Screening Interpretation: Negative Depression Screening Done: Yes 98654 - PHQ-9 Billing: Yes Source: Developed by Drs. Jessee Thorpe, Audrey Rivero, Brian Jordan and colleagues, with an educational sandra from [employer]. Thrive Questionnaire Date Thrive assessed: 02/01/25 I am a: Patient What is your living situation today?: I choose not to answer this question Within the past 12 months, did the food you bought not last and you didn't have the money to get more?: I choose not to answer this question Within the past 12 months, did you worry whether your food would run out before you got money to buy more?: I choose not to answer this question Do you have trouble paying for medicines?: I choose not to answer this question Do you have trouble getting transportation to medical appointments?: I choose not to answer this question Do you have trouble paying your heating and electricity bill?: I choose not to answer this question Do you have trouble taking care of your child, family member or friend?: I choose not to answer this question Do you have trouble with day-to-day activities such as bathing, preparing meals, shopping, managing finances, etc.?: I choose not to answer this question Are you currently unemployed and looking for a job?: I choose not to answer this question Are you interested in more education?: I choose not to answer this question Please select the resources that you would like help with: None Currently or been in a relationship where the following occur: I choose not to answer THRIVE Score: 0 AUDIT C Alcohol Use Questionnaire (AUDIT-C) 1. How often do you have a drink containing alcohol?: Never 3. How often do you have six or more drinks on one occasion?: Never Total Score: 0 MADELIN-7 AMB Questionnaire MADELIN-7 Date MADELIN - 7 assessed: 02/01/25 Feeling nervous, anxious, or on edge: 0 = Not at all Not being able to stop or control worryin = Not at all Worrying too much about different things: 0 = Not at all Trouble relaxin = Not at all Being so restless that it is hard to sit still: 0 = Not at all Becoming easily annoyed or irritable: 0 = Not at all Feeling afraid as if something awful might happen: 0 = Not at all Total MADELIN-7 score (0-4 normal; 5-9 mild; 10-14 moderate; 15-21 severe): 0 Source: Developed by Drs. Jessee Thorpe, Audrey Rivero, Brian Jordan and colleagues, with an educational sandra from [employer]. MADELIN-7 Assessment Billing MADELIN-7 Assessment Tool: MADELIN-7 Assessment 66791 Review of Systems Const All systems reviewed & are unremarkable except as noted in HPI and below Physical exam (Primary Care) Vital Signs: Last Vital Signs Temp 97.3 F 02/01/25 14:08 Pulse 97 02/01/25 14:08 BP 116/80 02/01/25 14:08 Pulse Ox 100 02/01/25 14:08 Oxygen Delivery Method Room Air 02/01/25 14:08 BMI result Body Mass Index 32.0 Tobacco/Smoking Status: Tobacco use Status Tobacco use date assessed 02/01/25 02/01/25 14:19 Patient Tobacco Use Status Current everyday Tobacco 02/01/25 14:07 e-Cigarette/Vaping Use Never Used 02/01/25 14:07 PHQ-9: PHQ-9 Score PHQ-9: Total score 2 02/01/25 14:52 Depression Screening Interpretation: Negative Thrive Assessment: Date of Thrive Assessment Date Thrive assessed 02/01/25 02/01/25 14:19 Currently or been in a relationship where the following occur: I choose not to answer Const General: no acute distress Nutritional Appearance: overweight Orientation/consciousness: patient oriented x3 Resp Effort & Inspection: normal respiratory effort Cardio Heart sounds: S1 normal heart sound present and S2 normal heart sound present Other: Deferred Pelvic Exam General: Yes no CVA tenderness Back/Spine/Pelvis Back: no CVA tenderness Neuro General: patient oriented x3, gait normal and moves all extremities Psych Speech and movement: Normal speech and movement present Results AMB Urinalysis, Automated UA Leukoctes 0 Galina/uL Last Edit by Gosia Lee CMA on 02/01/25 14:20 UA Nitrite Negative Last Edit by Gosia Lee CMA on 02/01/25 14:20 UA Urobilinogen 0.2 mg/dL Last Edit by Gosia Lee CMA on 02/01/25 14:20 UA Protein 0 mg/dL Last Edit by Gosia Lee CMA on 02/01/25 14:20 UA pH 6.0 Last Edit by Gosia Lee CMA on 02/01/25 14:20 UA Blood 80 Wilfredo/uL Last Edit by Gosia Lee CMA on 02/01/25 14:20 UA Specific [place] 1.010 Last Edit by Gosia Lee CMA on 02/01/25 14:20 UA Ketone Negative Last Edit by Gosia Lee CMA on 02/01/25 14:20 UA Bilirubin 0 mg/dL Last Edit by Gosia Lee CMA on 02/01/25 14:20 UA Glucose 1000 mg/dL Last Edit by Gosia Lee CMA on 02/01/25 14:20 Results Reviewed Results Reviewed: Laboratory Last Values Urine pH (Auto) 6.0 02/01/25 14:14 Specific [place] (Auto) 1.010 02/01/25 14:14 Urine Protein (Auto) 0 mg/dL 02/01/25 14:14 Glucose (UA)(Auto) 1000 mg/dL 02/01/25 14:14 Urine Ketones (Auto) Negative 02/01/25 14:14 Urine Blood (Auto) 80 Wilfredo/uL 02/01/25 14:14 Urine Nitrite (Auto) Negative 02/01/25 14:14 Urine Bilirubin (Auto) 0 mg/dL 02/01/25 14:14 Urine Urobilinogen (Auto) 0.2 mg/dL 02/01/25 14:14 Leukocyte Esterase (Auto) 0 Galina/uL 02/01/25 14:14 Coding Level of Care Code Est Pt Level 4 (65925) Diagnoses Vaginitis and vulvovaginitis N76.0 Additional Codes MADELIN-7 Assessment Billing - MADELIN-7 Assessment Tool: MADELIN-7 Assessment 60714 ([id number]) PHQ-9 - 96365 - PHQ-9 Billing: Yes ([id number]) Time Spent (min) 20 Assessment & Plan Assessment & Plan (1) Vaginitis and vulvovaginitis: Code(s): N76.0 - Acute vaginitis Category: Medical Plan: Due to her history of Uncontrolled T2DM, she is probably colonized with Yeast. Ordered Fluconazole 150 mg Q3 days. Ordered Urine Culture - Urinalysis negative Orders: Orders AMB Urinalysis Automated Today Z13.9 - Encounter for screening, unspecified Urine Culture Today N39.0 - Urinary tract infection, site not specified CT NG by PCR Vag/Cerv Today N76.0 - Acute vaginitis Bacterial Vaginosis Panel Today N76.0 - Acute vaginitis Medications: New fluconazole 150 mg PO Q3D 3 tabs 5RF 3 days N89.8 - Other specified noninflammatory disorders of vagina Discontinued fluconazole Discontinued Reason: Patient Completed Course 150 mg PO Q3D 2 tabs 0RF nitrofurantoin monohyd/m-cryst 100 mg (Macrobid) must administer with a meal/food Discontinued Reason: Patient Completed Course 100 mg PO Q12H 5 days 10 caps 0RF amoxicillin-pot clavulanate 875-125 mg Discontinued Reason: Patient Completed Course 1 tab PO BID 14 tabs 0RF cefpodoxime must administer with a meal/food Discontinued Reason: Patient Completed Course 200 mg PO BID 10 days 20 tabs 0RF cefuroxime axetil Discontinued Reason: Patient Completed Course 250 mg PO BID 7 days 14 tabs 0RF phenazopyridine (Pyridium) Discontinued Reason: Patient Completed Course 200 mg PO Q8H PRN 6 tabs 0RF pain (scale score 1-3) metronidazole Discontinued Reason: Patient Completed Course 500 mg PO BID 7 days 14 tabs 0RF ondansetron Discontinued Reason: Patient Completed Course 4 mg PO Q8H PRN 30 tabs 2RF nausea and vomiting fluconazole Discontinued Reason: Patient Completed Course 150 mg PO DAILY 7 tabs 2RF
[2025-02-01 14:08] VITALS: BP 116/80; PULSE 97; TEMP 36.3; O2SAT 100; BMI 32.0
--- OUTSIDE RECORDS SUMMARY | 2025-02-01 14:11 | XMS_ITS | Clinical Summary ---
Author Organization [facility] ity Address [address] [place] [address] Care Team Providers Care Dietary Aid Name Role Phone Israel Rosario MD Primary [...] Cervical Cancer Screening: P ap Smear 2009 HPV Vaccines (1 - 3-dose SCD M series) 2015 Depression Screening 05/02/2024 COVID-19 Vaccine ( - 2023-2 5 season) 2024 Influenza Vaccine (#1) 2024 RSV Immunization Adult Patie nts (1 - 1-dose 75+ series) 2063 HIB Vaccines Aged Out No longer eligi [...] age to complete this topic Care Teams Dietary Aid Relationship Specialty Start Date End Date Israel Rosario MD [address] [place] [address] [address] TAINA Hutchinson PCP - General Internal Medicine 01/27/18
== END 2025-02-01 15:01 | disposition home or self-care (01) ==
PROVIDERS: PCP Internal Medicine; Visit Provider Nurse Practitioner Family
DX: Z13.9 Encounter for screening, unspecified (principal); N76.0 Acute vaginitis

== ENCOUNTER 2025-04-11 09:53 | Outpatient (AMB) | payer OTHER, SELFPAY ==
--- NOTE | 2025-04-11 09:55 | MHC.OFFVIS ---
Vital Signs 04/11/25 09:56 Height 5 ft Weight 170 lb 10.205 oz BMI 33.3 BP 110/78 Blood Pressure Location Lt brachial Position Sitting Pulse 101 H Pulse Source Pulse Oximeter Pulse Oximetry (%) 99 Oxygen Delivery Method Room Air Intake Visit Reasons: T1DM,Hypothyroidism Intake Note: Patient present today for Type 2Diabetes Mellitus and Hypothyroidism. Last Diabetic eye exam: Last exam was around 11/2024. Last Podiatry Visit: Doesn't have one Random Glucose: 314 mg/dl HgA1C: 10.2% School Resource Officer Required: No Accompanied by: Self / Same As Patient Allergies sulfamethoxazole (From BACTRIM) Allergy (Severe, Verified 04/11/25 10:02) FACIAL SWELLING trimethoprim (From BACTRIM) Allergy (Severe, Verified 04/11/25 10:02) FACIAL SWELLING docusate Allergy (Unknown, Verified 04/11/25 10:02) swelling Sulfa (Sulfonamide Antibiotics) Allergy (Unknown, Verified 04/11/25 10:02) swelling, facial swelling Stool Softener Allergy (Unknown, Uncoded 04/11/25 10:02) facial swelling STOOL SOFTENERS Allergy (Unknown, Uncoded 04/11/25 10:02) FACIAL SWELLING Medication List - Last Reconciled 04/11/25 by Jessee Young MD albuterol sulfate 2.5 mg (3 mL) continuous nebulization QID PRN 30 days albuterol sulfate 90 mcg/actuation (Ventolin HFA) 2 puffs inhalation Q6H PRN 30 days blood sugar diagnostic As directed blood sugar diagnostic (FreeStyle Lite Strips) As directed to check blood sugars three times a day Dexcom G6 Die Forger (blood-glucose,paper control clerk,cont) As directed NS Dexcom G6 Sensor (blood-glucose sensor) every 10 days NS Dexcom G6 Transmitter (blood-glucose transmitter) As directed NS Dexcom G7 Die Forger (blood-glucose,paper control clerk,cont) Use paper control clerk continuously on a daily basis with sensor to monitor blood sugar. NS Dexcom G7 Sensor (blood-glucose sensor) every 10 days NS fluconazole 150 mg PO Q3D 3 days gabapentin 100 mg PO BEDTIME 30 days ibuprofen 600 mg PO Q6H PRN insulin lispro (Humalog KwikPen (U-100) Insulin) Take subcutaneously up to 3 times daily 15 minutes before meals For BG <150: Take 0 units 150-199: Take 2 units 200-249: Take 4 units 250-299: Take 6 units >/=300 : Take 8 units lancets (FreeStyle Lancets) As directed to check blood sugars three times a day Lantus Solostar U-100 Insulin (insulin glargine) 34 units (0.34 mL) subcut QPM NS levothyroxine 50 mcg PO DAILY levothyroxine 75 mcg PO DAILY metronidazole 0.75%(37.5mg/5gram) (Vandazole) 1 appful vaginal BEDTIME 5 days Mounjaro (tirzepatide) 7.5 mg (0.5 mL) subcut QWEEK NS [NEBULIZER and all related supplies As directed] nicotine (polacrilex) (Nicorette) 4 mg buccal Q2H PRN pen needle, diabetic As directed 4 times a day phenazopyridine (Azo Urinary Pain Relief) 95 mg PO TID PRN spironolactone 25 mg PO DAILY HPI Comments Details: 34 YO female who is seen in follow up for T1DM at the request of Dr. Oni Maldonado to evaluate for an iet insulin pump. Initially diagnosed with T2DM. She recently had an episode of dka and blood testing show that she is type 1 03/2024 MADELIN greater than 250 Was initially started on treatment with: was on trulicity which was changed to mounjaro Current regimen: Lantus 30 units Lispro 2-8 units starting at 200 Mounjaro 7.5 mg Qwkly Unfortunately, patient did not bring her log book or glucometer or sensor to the follow up visit She reports her sugar numbers are improving Has retinopathy Has eyes checked yearly, last eye exam 09/2024 No nephropathy, on [MARIA T/ARB]. UAC [] as measured on []. [Has] HLD, on [statin]. Last LDL [] as measured on []. [Denies] CAD. Diet: Declines seeing nutrition she says she basically knows what to eat Request diabetes education to discuss insulin pump. [facility] Medical History (Updated 02/01/25 @ 14:50 by Chely Dumont NP) Vaginitis and vulvovaginitis Smoker Acquired hypothyroidism Blurring of vision Asthma Obesity (BMI 30-39.9) Neuropathy involving both lower extremities Diabetes mellitus Diabetes mellitus, with long-term current use of insulin Surgical History Hx laparoscopic cholecystectomy No significant past surgical history Family History Mother COPD (chronic obstructive pulmonary disease) Father High blood pressure Maternal Grandmother Breast cancer Maternal Aunt Uterine cancer Social History Housing: House Alcohol intake: current Alcohol intake frequency: holidays/special occasions only Patient Tobacco Use Status: Current everyday Tobacco user Cigarettes Per Day: 10 e-Cigarette/Vaping Use: Never Used service: No Current occupational status: unemployed Cognitive needs: No Hearing needs: No Vision needs: No Female Reproductive History Menstrual Age of Menarche: 10 Physical Exam Vital Signs: Last Vital Signs Pulse 101 H 04/11/25 09:56 BP 110/78 04/11/25 09:56 Pulse Ox 99 04/11/25 09:56 Oxygen Delivery Method Room Air 04/11/25 09:56 BMI result Body Mass Index 33.3 Absence of Cushingoid features. Absence of acromegalic features. Neck exam reveals nl size thyroid about 15 gms. No thyroid nodules palpable. No carotid bruits present. Lungs CTA. Heart S1 S2, Reg R/R. No M/R/ G. Skin exam reveals absence of vitiligo or acanthosis nigricans. Abdominal exam reveals Soft NT/ND with NA BS. No organomegaly present. Neck Other: . Extrem Other: Visual exam of foot performed. No ulcerations or open lesions. No onchomycosis, no callouses.Pulses 2 + distally Sensation intact to monofilament exam. Vibratory sensation sensed is intact with 128 Hz tuning fork Results AMB Hemoglobin A1c AMB Hemoglobin A1c 10.2 % Last Edit by JOHANN Frank on 04/11/25 10:16 Results Reviewed Results Reviewed: Laboratory Last Values Glucose (Clinic) 314 mg/dL (60-115) H 04/11/25 10:07 Hgb A1c (Clinic) 10.2 % (4.0-6.0) H 04/11/25 10:09 Assessment & Plan Assessment & Plan (1) Diabetes mellitus, with long-term current use of insulin: Code(s): E11.9 - Type 2 diabetes mellitus without complications; Z79.4 - group home (current) use of insulin Category: Medical Qualifiers: Diabetes mellitus type: type 2 Diabetes mellitus complication status: with hyperglycemia Qualified Code(s): E11.65 - Type 2 diabetes mellitus with hyperglycemia; Z79.4 - group home (current) use of insulin Plan: This is a 34-year-old white female with a history of type 1 diabetes being treated with basal-bolus insulin with poor glycemic control and known microvascular complications namely neuropathy. Plan is to have the patient resume the sensor. I gave patient's sample Dexcom G7 sensor and reader There was not any data to adjust insulin regimen today. Went over the correlation of poor glycemic control to development of progression of complications. She will follow up with the clinical informatics educator in the next 4 weeks and further discuss possible pump initiation perhaps with the Omnipod. She will follow up with me in 3 months Orders: Orders AMB Hemoglobin A1c Today E11.65 - Type 2 diabetes mellitus with hyperglycemia, Z13.9 - Encounter for screening, unspecified, Z79.4 - assistant terminal manager (current) use of insulin Free T4 (Free Thyroxine) Today E11.65 - Type 2 diabetes mellitus with hyperglycemia, Z79.4 - group home (current) use of insulin Thyroid Stimulating Hormone Today E11.65 - Type 2 diabetes mellitus with hyperglycemia, Z79.4 - group home (current) use of insulin Coding Level of Care Code New Pt Level 4 (40744) Add On Problem Visit Only Diagnoses Type 2 diabetes mellitus with hyperglycemia, with long-term current use of insulin E11.65; Z79.4 Diabetes mellitus type: type 2 Diabetes mellitus complication status: with hyperglycemia
[2025-04-11 09:56] VITALS: BP 110/78; PULSE 101; O2SAT 99; BMI 33.3
[2025-04-11 10:11] LABS: Glucose, Whole Blood 314 mg/dL (60-115)
== END 2025-04-11 10:41 | disposition home or self-care (01) ==
LOC: HO.ENCR 09:53
PROVIDERS: PCP Internal Medicine; Visit Provider Internal Medicine Endocrinology, Diabetes & Metabolism
DX: Z13.9 Encounter for screening, unspecified (principal); E11.65 Type 2 diabetes mellitus with hyperglycemia; Z79.4 Long term (current) use of insulin
CPT/HCPCS: 99204

== ENCOUNTER → 2025-04-11 09:53 | Outpatient (BNVA) | payer OTHER, SELFPAY | PROVIDERS: PCP Internal Medicine; Visit Provider Internal Medicine Endocrinology, Diabetes & Metabolism | DX: E11.65 Type 2 diabetes mellitus with hyperglycemia (principal); Z79.4 Long term (current) use of insulin | CPT/HCPCS: 82947; 83036; 99202 ==

== ENCOUNTER 2025-04-12 09:50 | Emergency (ER) | payer OTHER, SELFPAY ==
--- NOTE | 2025-04-12 09:54 | ED.GENADULT ---
HPI - General Adult General Chief complaint: Dental/Oral Stated complaint: Dental Pain Time Seen by Provider: 04/12/25 09:59 Source: patient Mode of arrival: ambulatory Limitations: no limitations History of Present Illness ED Provider: Macy El PA-C HPI narrative: Patient is a 34 year old female with a history of DM, asthma, hypothyroidism, and tobacco use presenting to the emergency department today with bilateral lower dental pain. Patient states that both of her lower back teeth have been painful. Patient states that she has had this issue before and got antibiotics but has not had them removed yet. Patient denies any other complaints at this time. Related Data Home Medications ?Medication ?Instructions ?Recorded ?Confirmed blood sugar diagnostic #10 ea 08/01/20 04/11/25 phenazopyridine 95 mg tablet (Azo 95 mg PO TID PRN 02/01/25 04/11/25 Urinary Pain Relief) Previous Rx's ?Medication ?Instructions ?Recorded NEBULIZER and all related supplies #1 ea 11/04/23 nicotine (polacrilex) 4 mg gum 4 mg buccal Q2H PRN nicotine 11/04/23 (Nicorette) cravings #100 ea albuterol sulfate 2.5 mg/3 mL 2.5 mg (3 mL) continuous 11/25/23 (0.083 %) solution for nebulization nebulization QID PRN shortness of breath or wheezing 30 days #180 mL Dexcom G6 Payroll Benefits Clerk #1 ea 01/25/24 (blood-glucose,felting machine operator helper,cont) Dexcom G6 Sensor (blood-glucose #9 ea 03/21/24 sensor) Dexcom G6 Transmitter #1 ea 03/21/24 (blood-glucose transmitter) albuterol sulfate 90 mcg/actuation 2 puff inhalation Q6H PRN 05/24/24 aerosol inhaler (Ventolin HFA) shortness of breath or wheezing 30 days #8.5 grams Lantus Solostar U-100 Insulin 100 34 unit (0.34 mL) subcut QPM #45 mL 10/17/24 unit/mL (3 mL) subcutaneous pen (insulin glargine) Mounjaro 7.5 mg/0.5 mL 7.5 mg (0.5 mL) subcut QWEEK #6 mL 10/17/24 subcutaneous pen injector (tirzepatide) insulin lispro 100 unit/mL See Rx Instructions .Route 10/17/24 subcutaneous pen (Humalog KwikPen .COMPLEX #30 mL (U-100) Insulin) pen needle, diabetic 32 gauge x #100 ea 10/23/24 spironolactone 25 mg tablet 25 mg PO DAILY #90 tabs 11/07/24 Dexcom G7 Sensor (blood-glucose #9 ea 11/28/24 sensor) Dexcom G7 Payroll Benefits Clerk #1 ea 12/20/24 (blood-glucose,felting machine operator helper,cont) gabapentin 100 mg capsule 100 mg PO BEDTIME 30 days #30 caps 12/26/24 ibuprofen 600 mg tablet 600 mg PO Q6H PRN pain #30 tabs 01/01/25 blood sugar diagnostic (FreeStyle #100 ea 01/25/25 Lite Strips) lancets 28 gauge (FreeStyle #100 ea 01/25/25 Lancets) fluconazole 150 mg tablet 150 mg PO Q3D 3 days #3 tabs 02/01/25 metronidazole 0.75 % (37.5 mg/5 1 appful vaginal BEDTIME 5 days 02/01/25 gram) vaginal gel (Vandazole) #70 grams levothyroxine 75 mcg tablet 75 mcg PO DAILY #90 tabs 04/11/25 chlorhexidine gluconate 0.12 % 15 ml buccal BID #118 mL 04/12/25 mouthwash (Peridex) naproxen 500 mg tablet 500 mg PO BID 7 days #14 tabs 04/12/25 penicillin V potassium 500 mg 500 mg PO BID 10 days #20 tabs 04/12/25 tablet Allergies Allergy/AdvReac Type Severity Reaction Status Date / Time sulfamethoxazole (From Allergy Severe FACIAL Verified 04/12/25 09:59 BACTRIM) SWELLING trimethoprim (From BACTRIM) Allergy Severe FACIAL Verified 04/12/25 09:59 SWELLING docusate Allergy Unknown swelling Verified 04/12/25 09:59 Sulfa (Sulfonamide Allergy Unknown swelling, Verified 04/12/25 09:59 Antibiotics) facial swelling Stool Softener Allergy Unknown facial Uncoded 04/11/25 10:02 swelling STOOL SOFTENERS Allergy Unknown FACIAL Uncoded 04/11/25 10:02 SWELLING Review of Systems Constitutional: Constitutional: Reports as per HPI Eyes: Eyes: Reports as per HPI ENT: Reports as per HPI Cardiovascular: Cardiovascular: Reports as per HPI Respiratory: Respiratory: Reports as per HPI Gastrointestinal: Gastrointestinal: Reports as per HPI Genitourinary: Genitourinary: Reports as per HPI Musculoskeletal: Musculoskeletal: Reports as per HPI Integumentary/Breasts: Skin/Breast: Reports as per HPI Neurologic: Reports as per HPI Psychiatric: Psychiatric: Reports as per HPI Endocrine: Endocrine: Reports as per HPI Hematologic/Lymphatic: Hematologic/Lymphatic: Reports as per HPI Allergic/Immunologic: Allergic/Immunologic: Reports as per HPI [facility] Past Medical History Attestation statement: The following information was validated with the patient. Source: old records reviewed and nursing notes reviewed Medical History Vaginitis and vulvovaginitis Smoker Acquired hypothyroidism Blurring of vision Asthma Obesity (BMI 30-39.9) Neuropathy involving both lower extremities Diabetes mellitus Diabetes mellitus, with long-term current use of insulin Surgical History Hx laparoscopic cholecystectomy No significant past surgical history Family History Family History Mother COPD (chronic obstructive pulmonary disease) Father High blood pressure Maternal Grandmother Breast cancer Maternal Aunt Uterine cancer Social History Social History Housing: House Alcohol intake: current Alcohol intake frequency: holidays/special occasions only Patient Tobacco Use Status: Current everyday Tobacco user Cigarettes Per Day: 10 e-Cigarette/Vaping Use: Never Used service: No Current occupational status: unemployed Cognitive needs: No Hearing needs: No Vision needs: No Physical Exam ED Vital Signs: Vital Signs - 24 hr 04/12/25 09:58 04/12/25 10:29 Temperature 98.2 F 98.2 F Pulse Rate 102 H 102 H Respiratory Rate 18 18 Blood Pressure 151/86 H 151/86 H Pulse Oximetry 98 98 Oxygen Delivery Method Room Air Room Air BMI result Body Mass Index 33.1 Const General: cooperative, no acute distress, alert and awake Nutritional Appearance: well nourished Orientation/consciousness: patient oriented x3 HENMT Head: Yes normal to inspection and Yes atraumatic Ears: hearing grossly normal bilaterally and external ears normal General nose exam: Normal external nose present, no nasal discharge noted and no epistaxis Face and sinus: Yes normal facial exam, No abrasion and No laceration Mouth: Normal oral and palatal mucosa present, no drooling and no muffled voice Teeth and gingiva: poor dentition Teeth image:  1. erythema - swelling 2. erythema - swelling Eyes General: appearance normal, both eyes and all related structures Periorbital: periorbital findings normal Eyelids: Yes eyelids normal Conjunctivae: conjunctivae normal Pupils: Equal, round and reactive pupils present EOM: EOMs intact bilaterally Neck Neck: Yes normal visual inspection and Yes full ROM Resp Effort & Inspection: normal respiratory effort and able to speak in complete sentences Neuro General: patient oriented x3, moves all extremities and CN's II-XI intact bilaterally Cranial nerves: Yes Equal, round and reactive pupils present Cognition (Neuro): normal cognition Extrem General: Yes normal to inspection, Yes full ROM and Yes capillary refill normal Psych Appearance: grossly normal Mental Status: mental status grossly normal Affect: normal affect Attitude: cooperative Thought process: Normal thought process present Thought content: Normal thought content present Insight: Good insight present (Psych) Medical Decision Making Medical Decision Making MDM Narrative: Patient is a 34 year old female with a history of DM, asthma, hypothyroidism, and tobacco use presenting to the emergency department today with bilateral lower dental pain. Patient's physical exam was as noted in the physical exam portion of this note. Patient's gums around teeth 31 and 18 were both erythematous and swollen with no fluctuance appreciated. Both tooth 31 and 18 had evidence of cavities. Patient's clinical presentation is most consistent with dental infection. I explained my physical exam findings as well as all test results to the patient. I answered all questions asked by the patient. I stressed the importance of the patient taking her medication as directed (either prescribed or as the over the counter packaging recommends). I stressed the importance of the patient following up with her primary care provider and a dentist. I stressed the importance of the patient returning to the emergency department immediately if her symptoms were to worsen or if she were to develop any dizziness, shortness of breath, difficulty breathing, chest pain, blurry vision, loss of vision, nausea, vomiting, abdominal pain, fever, chills, back pain, or any other complaints. Patient verbalized agreement and understanding with this treatment plan and discharge. Differential Diagnosis Differential Diagnoses: The differential diagnosis associated with the presentation includes Dental infection Dental abscess Dental caries Admission/Observation Consideration of admission/observation: Escalation of care including admission/observation considered Patient would have been admitted to the hospital had her clinical presentation warranted hospital admission. Prescription Management I considered prescription management with: Pain Medication (patient prescribed pain medication) and Antibiotic (patient prescribed an antibiotic for dental infection) Chronic Conditions Patient?s care impacted by: Diabetes Discharge Plan Discharge Clinical Impression: Dental infection Patient Disposition: Home, Self-Care Instructions: Dental Abscess (ED) Additional Instructions: Take your antibiotic as prescribed. IF you are prescribed home medications and/or you are taking over the counter medications at home - it is very important you continue to do so as prescribed / directed unless told otherwise by a healthcare provider. Follow up with your primary care provider. Do your best to stay well hydrated and rest. Return to the emergency department immediately if your symptoms worsen or if you develop any numbness, tingling, dizziness, shortness of breath, difficulty breathing, chest pain, blurry vision, loss of vision, nausea, vomiting, abdominal pain, fever, chills, back pain, or any other complaints. If you do not have a primary care provider - call any of the below numbers to establish and follow up with a primary care provider. [facility] Primary Care ([place]) [phone] [place] [address], [address] [facility] Primary Care ([address] [place]) [phone] 2 [facility], [address] [facility], [address] [facility] Primary Care ([address] [place]) [phone] [place] [address], [address] [facility], [address] [facility] Primary Care ([place]) [phone] [place] [address], [address] [facility], [address] [facility] Family Medicine [phone] [address] [facility], [address] Call or visit any of the clinics below to establish with a dentist: [facility] [address] [place] [address] OR [address] [place] [address] OR [address] [facility] [address] [place] [address] [address] [place] [address] [address] [facility] [address] [place] [address] [address] [facility] [address] [place] [address] [address] [facility] [address] [place] [address] [address] [facility] [address] [place] [address] [address] [facility] [address] [place] [address] [address] [place] [address] [address] [place] [address] [address] [facility] [address] [place] [address] [facility] [address] [place] [address] [facility] [address] [facility] [address] [place] [address] [facility] [address] [place] [address] [facility] [address] [place] [address] [facility] [address] [place] [address] [facility] [address] [facility], [address] [facility] [address] [place] [address] [address] [place] [address] [address] [place] [address] (One number for all locations) [facility] [address] [place] [address] [facility] [address] [place] [address] [facility] [address] [place] [address] Please see the information below about our Patient Portal. If you are not yet enrolled in the [facility] Patient Portal, you will receive an enrollment email invitation following your visit to any [facility] care setting. You may also self-enroll in the Patient Portal by visiting our website: [email or web address] The following information is required to access the Patient Portal: - Your [facility] Medical Record Number - Your personal home email address (must match what is in your electronic medical record, Registration staff can assist with this) - Name - Date of Capabilities of the Patient Portal: - Message some providers - View upcoming appointments - Access your health summary, medical history, and visit history - View current conditions and allergies - View procedure and lab results - View your medications, including guidelines, side effects, and precautions - Complete pre-appointment questionnaires requested by your provider - Ready summary reports of your office visits and procedures To access the Patient Portal Mobile Silas, follow these directions: - Search WebVisible in the Silas Store or Google Reble Store - Download the Silas - Search for [facility] - Enter your login/password Prescriptions: New penicillin V potassium 500 mg tablet 500 mg PO BID 10 Days Qty: 20 0RF naproxen 500 mg tablet 500 mg PO BID 7 Days Qty: 14 0RF chlorhexidine gluconate [Peridex] 0.12 % mouthwash 15 ml buccal BID Qty: 118 0RF No Action albuterol sulfate 2.5 mg /3 mL (0.083 %) solution for nebulization 2.5 mg continuous nebulization QID PRN (Reason: shortness of breath or wheezing) 30 Days Qty: 180 3RF albuterol sulfate [Ventolin HFA] 90 mcg/actuation HFA aerosol inhaler 2 puff inhalation Q6H PRN (Reason: shortness of breath or wheezing) 30 Days Qty: 8.5 5RF (DME) pen needle, diabetic 32 gauge x 5/32 needle See Rx Instructions .ROUTE .MEDSUPPLY Qty: 100 12RF Rx Instructions: As directed 4 times a day spironolactone 25 mg tablet 25 mg PO DAILY Qty: 90 3RF (DME) Dexcom G7 Sensor Device See Rx Instructions .Route Qty: 9 3RF Rx Instructions: every 10 days (DME) Dexcom G7 Payroll Benefits Clerk Misc See Rx Instructions .Route Qty: 1 0RF Rx Instructions: Use felting machine operator helper continuously on a daily basis with sensor to monitor blood sugar. gabapentin 100 mg capsule 100 mg PO BEDTIME 30 Days Qty: 30 2RF (DME) FreeStyle Lite Strips Strip See Rx Instructions .Route Qty: 100 7RF Rx Instructions: As directed to check blood sugars three times a day (DME) lancets [FreeStyle Lancets] 28 gauge misc See Rx Instructions .Route Qty: 100 6RF Rx Instructions: As directed to check blood sugars three times a day metronidazole [Vandazole] 0.75 % (37.5mg/5 gram) gel 1 appful vaginal BEDTIME 5 Days Qty: 70 0RF levothyroxine 75 mcg tablet 75 mcg PO DAILY Qty: 90 3RF ibuprofen 600 mg tablet 600 mg PO Q6H PRN (Reason: pain) Qty: 30 0RF (DME) FreeStyle Lite Strips Strip See Rx Instructions Not Applicable QID Qty: 10 Rx Instructions: As directed (DME) NEBULIZER and all related supplies See Rx Instructions .Route .MEDSUPPLY Qty: 1 0RF Rx Instructions: As directed nicotine (polacrilex) [Nicorette] 4 mg gum 4 mg buccal Q2H PRN (Reason: nicotine cravings) Qty: 100 5RF (DME) Dexcom G6 Payroll Benefits Clerk Misc See Rx Instructions .Route Qty: 1 0RF Rx Instructions: As directed (DME) Dexcom G6 Sensor Device See Rx Instructions .Route Qty: 9 3RF Rx Instructions: every 10 days (DME) Dexcom G6 Transmitter Device See Rx Instructions .Route Qty: 1 3RF Rx Instructions: As directed phenazopyridine [Azo Urinary Pain Relief] 95 mg tablet 95 mg PO TID PRN fluconazole 150 mg tablet 150 mg PO Q3D 3 Days Qty: 3 5RF insulin glargine [Lantus Solostar U-100 Insulin] 100 unit/mL (3 mL) insulin pen 34 unit subcut QPM Qty: 45 3RF Mounjaro 7.5 mg/0.5 mL pen injector 7.5 mg subcut QWEEK Qty: 6 3RF insulin lispro [Humalog KwikPen Insulin] 100 unit/mL insulin pen See Rx Instructions .ROUTE .COMPLEX Qty: 30 12RF Rx Instructions: Take subcutaneously up to 3 times daily 15 minutes before meals For BG <150: Take 0 units 150-199: Take 2 units 200-249: Take 4 units 250-299: Take 6 units >/=300 : Take 8 units Interventions: ED Discharge Assessment Last Done: 04/12/25 10:29 Discharge Date/Time: 04/12/25 10:30 Print Language: Kiswahili
[2025-04-12 09:58] VITALS: BP 151/86; PULSE 102; RESP 18; TEMP 36.8; O2SAT 98; BMI 33.1
[2025-04-12 10:29] VITALS: BP 151/86; PULSE 102; RESP 18; TEMP 36.8; O2SAT 98
== END 2025-04-12 10:30 | disposition home or self-care (01) ==
PROVIDERS: Emergency Provider Emergency Medicine; PCP Internal Medicine
DX: K04.7 Periapical abscess without sinus (principal); K08.89 Other specified disorders of teeth and supporting structures
CPT/HCPCS: 99282

== ENCOUNTER 2025-04-12 10:13 | Outpatient (REF) | payer OTHER, SELFPAY ==
[2025-04-12 12:11] LABS: Free T4 (Free Thyroxine) 0.94 ng/dL (0.71-1.85); Thyroid Stimulating Hormone 4.21 uIU/mL (0.32-4.0)
== END 2025-04-12 10:14 | disposition home or self-care (01) ==
LOC: HO.LAB 10:13
PROVIDERS: PCP Internal Medicine; Visit Provider Internal Medicine Endocrinology, Diabetes & Metabolism
DX: E11.65 Type 2 diabetes mellitus with hyperglycemia (principal); Z79.4 Long term (current) use of insulin
CPT/HCPCS: 36415; 84439; 84443